=== PATIENT | female | born 1935 | race Caucasian/White ===

== ENCOUNTER → 2018-09-05 | Outpatient (CLI) | payer MEDICARE ==
--- NOTE | 2018-09-05 12:26 | XR ---
EXAMINATION TYPE: XR Hip Complete LT DATE OF EXAM: 09/05/2018 CLINICAL HISTORY: Left hip pain TECHNIQUE: AP and frogleg views of the left hip are obtained. COMPARISON: None. FINDINGS: There is no acute fracture/dislocation evident in the left hip. The joint space in the le ft hip demonstrates acetabular osteophytes and minimal cephalad joint space narrowing with acetabular roof sclerosis.. The overlying soft tissue appears unremarkable. IMPRESSION: There is no acute fracture or dislocation in the left hip. Mild left femoral acetabular arthropathy.
--- NOTE | 2018-09-05 12:35 | XR ---
EXAMINATION TYPE: XR lumbar spine 2 or 3V DATE OF EXAM: 09/05/2018 12:21 PM CLINICAL HISTORY: Back pain and hip pain TECHNIQUE: Frontal and lateral views of the lumbar spine were obtained COMPARISON: 09/05/2018 left hip radiograph FINDINGS: There are 5 lumbar type vertebral bodies. There is extensive multilevel degenerative disc disease of the lumbar spine as there are bridging anterior osteophytes, multilevel facet arthropathy, interverte bral disc space narrowing and endplate sclerosis. There is very minimal retrolisthesis of L4 on L5 an d L3 on L4. There is also very mild scoliosis of the thoracolumbar junction that is dextroconvex. Mod erate overlying degree of stool is seen throughout the colon. IMPRESSION: Extensive multilevel degenerative change of the lumbar spine. Multilevel mild malalignmen t is likely on a degenerative basis. No compression deformities.
== END | disposition home or self-care (01) ==
LOC: RADXRMAIN 11:56
PROVIDERS: ATTEND Internal Medicine Geriatric Medicine
DX: M12.852 Other specific arthropathies, not elsewhere classified, left hip (principal); M47.816 Spondylosis without myelopathy or radiculopathy, lumbar region
CPT/HCPCS: 72100; 73502

== ENCOUNTER 2019-03-07 17:00 | Inpatient (IN) | payer MEDICARE ==
[2019-03-07] MEDS ORDERED: SODIUM CHLORIDE 0.9% 1,000 ML IV STA ×3 (17:12→18:27)
--- NOTE | 2019-03-07 17:14 | ED ---
Weakness HPI - General Chief complaint: Fall Stated complaint: Falls/legs weak Time Seen by Provider: 03/07/19 17:12 Source: patient, RN notes reviewed, old records reviewed Mode of arrival: wheelchair - History of Present Illness Initial comments: This is an 84-year-old female the ER for evaluation. Patient resents today for evaluation of weakness multiple recent falls and recent diagnosis of significant incontinence. Patient has no significant trauma to complain of, no headache no chest pain no shortness of breath no abdominal pain no back pain no injuries from these falls. No recent travel or sick contacts. No recent change in medications. No fevers. Patient's brought in by her son who states patient is at this point getting too weak to take care of and is unsafe to be at home. MD Complaint: generalized weakness -: days(s) Location: generalized Severity: moderate Severity scale (1-10): 4 Consistency: constant, intermittent Improves with: none Worsens with: none Context: trauma/injury (Multiple falls) Associated Symptoms: confusion (Occasional) - Related Data Home Medications Medication Instructions Recorded Confirmed Amitriptyline HCl [Elavil] 25 mg PO HS 11/08/17 03/07/19 Gabapentin 600 mg PO BID 11/08/17 03/07/19 Insulin Detemir [Levemir Flextouch] 25 unit SQ HS 11/08/17 03/07/19 glipiZIDE [Glucotrol] 2.5 mg PO AC-BID 11/08/17 03/07/19 Amoxic-Pot Clav 875-125Mg 1 tab PO BID 03/07/19 03/07/19 [Augmentin 875-125] DULoxetine HCL [Cymbalta] 60 mg PO DAILY 03/07/19 03/07/19 Mirabegron [Myrbetriq] 25 mg PO DAILY 03/07/19 03/07/19 Oxybutynin Chloride 5 mg PO BID 03/07/19 03/07/19 Allergies Allergy/AdvReac Type Severity Reaction Status Date / Time No Known Allergies Allergy Verified 03/07/19 17:51 Review of Systems ROS Statement: Those systems with pertinent positive or pertinent negative responses have been documented in the HPI. ROS Other: All systems not noted in ROS Statement are negative. Past Medical History Past Medical History: Diabetes Mellitus, Hyperlipidemia History of Any Multi-Drug Resistant Organisms: None Reported Past Surgical History: Appendectomy, Cholecystectomy, Orthopedic Surgery Additional Past Surgical History / Comment(s): right shoulder Past Psychological History: No Psychological Hx Reported Smoking Status: Never smoker Past Alcohol Use History: Occasional Past Drug Use History: None Reported General Exam General appearance: alert, in no apparent distress Head exam: Present: atraumatic, normocephalic, normal inspection Eye exam: Present: normal appearance, PERRL, EOMI. Absent: scleral icterus, conjunctival injection, periorbital swelling ENT exam: Present: normal exam, mucous membranes moist Neck exam: Present: normal inspection. Absent: tenderness, meningismus, lymphadenopathy Respiratory exam: Present: normal lung sounds bilaterally. Absent: respiratory distress, wheezes, rales, rhonchi, stridor Cardiovascular Exam: Present: regular rate, normal rhythm, normal heart sounds. Absent: systolic murmur, diastolic murmur, rubs, gallop, clicks GI/Abdominal exam: Present: soft, normal bowel sounds. Absent: distended, tenderness, guarding, rebound, rigid Extremities exam: Present: normal inspection, full ROM, normal capillary refill. Absent: tenderness, pedal edema, joint swelling, calf tenderness Back exam: Present: normal inspection Neurological exam: Present: alert, oriented X3, CN II-XII intact Psychiatric exam: Present: normal affect, normal mood Skin exam: Present: warm, dry, intact, normal color. Absent: rash Course Vital Signs 03/07/19 17:04 Temperature 98.0 F Pulse Rate 100 Respiratory 20 Rate Blood Pressure 113/71 O2 Sat by Pulse 96 Oximetry - Reevaluation(s) Reevaluation #1: 03/07/19 19:00 Medical record is reviewed Reevaluation #2: 03/07/19 19:00 Patient is very weak unable to ambulate with significant ability, very unsteady Medical Decision Making - Medical Decision Making 82 female the ER for evaluation weakness incontinence multiple falls. Patient does have hydrocephalus on computed tomography scan, patient will be admitted for evaluation and treatment - Lab Data Result diagrams: 03/07/19 17:25 03/07/19 17:25 Lab Results 03/07/19 03/07/19 03/07/19 Range/Units 17:25 17:25 17:25 WBC 6.6 (3.8-10.6) k/uL RBC 3.61 L (3.80-5.40) m/uL Hgb 10.7 L (11.4-16.0) gm/dL Hct 32.6 L (34.0-46.0) % MCV 90.3 (80.0-100.0) fL MCH 29.8 (25.0-35.0) pg MCHC 33.0 (31.0-37.0) g/dL RDW 13.8 (11.5-15.5) % Plt Count 259 (150-450) k/uL Neutrophils % 75 % Lymphocytes % 15 % Monocytes % 6 % Eosinophils % 2 % Basophils % 1 % Neutrophils # 5.0 (1.3-7.7) k/uL Lymphocytes # 1.0 (1.0-4.8) k/uL Monocytes # 0.4 (0-1.0) k/uL Eosinophils # 0.1 (0-0.7) k/uL Basophils # 0.1 (0-0.2) k/uL PT (9.0-12.0) sec INR (<1.2) APTT (22.0-30.0) sec Sodium 136 L (137-145) mmol/L Potassium 5.0 (3.5-5.1) mmol/L Chloride 99 (98-107) mmol/L Carbon Dioxide 27 (22-30) mmol/L Anion Gap 10 mmol/L BUN 51 H (7-17) mg/dL Creatinine 1.38 H (0.52-1.04) mg/dL Est GFR (CKD-EPI)AfAm 41 (>60 ml/min/1.73 sqM) Est GFR (CKD-EPI)NonAf 36 (>60 ml/min/1.73 sqM) Glucose 145 H (74-99) mg/dL Plasma Lactic Acid Terrell 1.2 (0.7-2.0) mmol/L Calcium 9.4 (8.4-10.2) mg/dL Phosphorus 3.7 (2.5-4.5) mg/dL Magnesium 1.8 (1.6-2.3) mg/dL Total Bilirubin 0.6 (0.2-1.3) mg/dL AST 29 (14-36) U/L ALT 25 (9-52) U/L Alkaline Phosphatase 110 (38-126) U/L Creatine Kinase 173 H (30-135) U/L Troponin I (0.000-0.034) ng/mL Total Protein 7.3 (6.3-8.2) g/dL Albumin 4.0 (3.5-5.0) g/dL TSH 1.760 (0.465-4.680) mIU/L Urine Color Urine Appearance (Clear) Urine pH (5.0-8.0) Ur Specific [place] (1.001-1.035) Urine Protein (Negative) Urine Glucose (UA) (Negative) Urine Ketones (Negative) Urine Blood (Negative) Urine Nitrite (Negative) Urine Bilirubin (Negative) Urine Urobilinogen (<2.0) mg/dL Ur Leukocyte Esterase (Negative) Urine WBC (0-5) /hpf Ur Squamous Epith Cells (0-4) /hpf Urine Bacteria (None) /hpf 03/07/19 03/07/19 03/07/19 Range/Units 17:25 17:25 18:00 WBC (3.8-10.6) k/uL RBC (3.80-5.40) m/uL Hgb (11.4-16.0) gm/dL Hct (34.0-46.0) % MCV (80.0-100.0) fL MCH (25.0-35.0) pg MCHC (31.0-37.0) g/dL RDW (11.5-15.5) % Plt Count (150-450) k/uL Neutrophils % % Lymphocytes % % Monocytes % % Eosinophils % % Basophils % % Neutrophils # (1.3-7.7) k/uL Lymphocytes # (1.0-4.8) k/uL Monocytes # (0-1.0) k/uL Eosinophils # (0-0.7) k/uL Basophils # (0-0.2) k/uL PT 10.8 (9.0-12.0) sec INR 1.0 (<1.2) APTT 29.2 (22.0-30.0) sec Sodium (137-145) mmol/L Potassium (3.5-5.1) mmol/L Chloride (98-107) mmol/L Carbon Dioxide (22-30) mmol/L Anion Gap mmol/L BUN (7-17) mg/dL Creatinine (0.52-1.04) mg/dL Est GFR (CKD-EPI)AfAm (>60 ml/min/1.73 sqM) Est GFR (CKD-EPI)NonAf (>60 ml/min/1.73 sqM) Glucose (74-99) mg/dL Plasma Lactic Acid Terrell (0.7-2.0) mmol/L Calcium (8.4-10.2) mg/dL Phosphorus (2.5-4.5) mg/dL Magnesium (1.6-2.3) mg/dL Total Bilirubin (0.2-1.3) mg/dL AST (14-36) U/L ALT (9-52) U/L Alkaline Phosphatase (38-126) U/L Creatine Kinase (30-135) U/L Troponin I <0.012 (0.000-0.034) ng/mL Total Protein (6.3-8.2) g/dL Albumin (3.5-5.0) g/dL TSH (0.465-4.680) mIU/L Urine Color Yellow Urine Appearance Clear (Clear) Urine pH 5.5 (5.0-8.0) Ur Specific [place] 1.016 (1.001-1.035) Urine Protein Negative (Negative) Urine Glucose (UA) Negative (Negative) Urine Ketones Negative (Negative) Urine Blood Negative (Negative) Urine Nitrite Negative (Negative) Urine Bilirubin Negative (Negative) Urine Urobilinogen <2.0 (<2.0) mg/dL Ur Leukocyte Esterase Trace H (Negative) Urine WBC 1 (0-5) /hpf Ur Squamous Epith Cells <1 (0-4) /hpf Urine Bacteria Occasional H (None) /hpf - Radiology Data Radiology results: report reviewed (Chest x-ray pelvis x-ray negative for trauma computed tomography scan does show possible hydrocephalus), image reviewed Disposition Clinical Impression: Fall, Weakness, Hydrocephalus Disposition: ADMITTED IP TO THIS HOSP Condition: Fair Is patient prescribed a controlled substance at d/c from ED?: No Referrals: Luis Avery MD [Primary Care Provider] - 1-2 days
[2019-03-07 17:40] LABS: Basophils # (A) 0.1 k/uL (0-0.2); Basophils % (A) 1 %; Eosinophils # (A) 0.1 k/uL (0-0.7); Eosinophils % (A) 2 %; HCT 32.6 % (34.0-46.0); HGB 10.7 gm/dL (11.4-16.0); Lymphocytes % (A) 15 %; MCH 29.8 pg (25.0-35.0); MCV 90.3 fL (80.0-100.0); Mean Platelet Volume 6.9; Monocytes # (A) 0.4 k/uL (0-1.0); Monocytes % (A) 6 %; Neutrophils % (A) 75 %; Platelet Count 259 k/uL (150-450); RBC 3.61 m/uL (3.80-5.40); RDW 13.8 % (11.5-15.5); WBC 6.6 k/uL (3.8-10.6)
[2019-03-07 17:50] LABS: Calcium 9.4 mg/dL (8.4-10.2); Magnesium 1.8 mg/dL (1.6-2.3); Phosphorus 3.7 mg/dL (2.5-4.5); Total Bilirubin 0.6 mg/dL (0.2-1.3); Total Protein 7.3 g/dL (6.3-8.2)
[2019-03-07 17:51] LABS: Partial Thromboplastin Time 29.2 sec (22.0-30.0); Prothrombin Time 10.8 sec (9.0-12.0)
--- NOTE | 2019-03-07 18:05 | CT ---
EXAMINATION TYPE: CT brain denys de leon DATE OF EXAM: 03/07/2019 COMPARISON: None HISTORY: Weakness and fall. CT DLP: 1300.1 mGycm Automated exposure control for dose reduction was used. TECHNIQUE: CT scan of the head and cervical spine are performed without contrast. FINDINGS: There is cerebral cortical atrophy. There is no mass effect nor midline shift. There is n o sign of intracranial hemorrhage. There is enlargement of the ventricles. The calvarium is intact. Cervical vertebra have normal alignment. There is degenerative hypertrophic spurring anteriorly in th e mid and lower cervical spine. There is mild narrowing of C6-7 disc space. Posterior elements are in tact. Skull base is intact. There is no evidence of a fracture. There is left side hypertrophic cervi alexandra facet arthropathy. IMPRESSION: Cerebral atrophy. Hydrocephalus. No acute intracranial abnormality. Multilevel spondylotic changes. No fracture.
[2019-03-07 18:23] LABS: Appearance,Urine Clear (Clear); Bacteria,Urine Occasional /hpf; Bilirubin,Urine Negative (Negative); Blood,Urine Negative (Negative); Color,Urine Yellow; Glucose,Urine (UA) Negative (Negative); Ketones,Urine Negative (Negative); Leukocyte Esterase,Urine Trace (Negative); Nitrite,Urine Negative (Negative); PH, Urine 5.5 (5.0-8.0); Protein,Urine Negative (Negative); Specific Gravity,Urine 1.016 (1.001-1.035); Squamous Epithelial Cell,Urine <1 /hpf (0-4); Urobilinogen,Urine <2.0 mg/dL (<2.0); WBC,Urine 1 /hpf (0-5)
--- NOTE | 2019-03-07 18:32 | XR ---
EXAMINATION TYPE: XR pelvis AP view DATE OF EXAM: 03/07/2019 COMPARISON: NONE HISTORY: Weakness TECHNIQUE: Single view FINDINGS: Pelvic ring is intact. Proximal femurs and hip joints are intact. Sacroiliac joints appear normal. IMPRESSION: Normal pelvis.
--- NOTE | 2019-03-07 18:33 | XR ---
EXAMINATION TYPE: XR chest 2V DATE OF EXAM: 03/07/2019 COMPARISON: 07/18/2012 HISTORY: Weakness TECHNIQUE: Frontal and lateral views of the chest are obtained. FINDINGS: Heart and mediastinum are normal. Lungs are clear. Diaphragm is normal. Bony thorax is int act. IMPRESSION: Normal chest. No change.
[2019-03-07] MEDS: SODIUM CHLORIDE 0.9% 1,000 ML IV SCH (20:28)
[2019-03-07 21:08] LABS: Glucose,Whole Blood 124 mg/dL (75-99)
[2019-03-07 21:24] VITALS: BMI 24.5
[2019-03-08 03:16] LABS: Cholesterol 105 mg/dL (<200); HDL Cholesterol 59 mg/dL (40-60); LDL Cholesterol,Calculated 35 mg/dL (0-99); Triglycerides 57 mg/dL (<150)
[2019-03-08] MEDS: SODIUM CHLORIDE 0.9% 1,000 ML IV SCH ×2 (04:47→17:26)
[2019-03-08 06:58] LABS: Glucose,Whole Blood 121 mg/dL (75-99)
[2019-03-08 11:07] LABS: Glucose,Whole Blood 212 mg/dL (75-99)
--- NOTE | 2019-03-08 11:32 | P.HPIM ---
History of Present Illness H&P Date: 03/08/19 Chief Complaint: Weakness and fall This is 84 years old female with past medical history significant for osteoarthritis anemia incontinence of urine and gait instability who presented to the emergency department with worsening symptoms. Patient reported fall prior to presentation and stated that for the last 2 weeks she's been falling frequently without head injury or loss of consciousness patient stated that her weeks are very weak and cannot hold her anymore even when she uses her 4 wheeled walker at home. Patient is poor historian but stated that her incontinence is becoming more annoying problem where she is 89 able to hold it at all. Patient stated that at the beginning she thought that it's related to being older age but last few days patient was not able to ambulate in the home at the time she was independent up until 2 weeks ago and became unable to do her daily activities patient presented to the emergency department where computed tomography scan of the head showed possible hydrocephalus and patient was admitted for further evaluation. Patient currently is denying chest pain shortness breath nausea vomiting about pain dizziness lightheadedness or blurry vision. Patient denied any recent upper respiratory symptoms fever chills or weight loss. Patient is denying tobacco alcohol or drug abuse Review of Systems All 14 systems reviewed and negative except as above Past Medical History Past Medical History: Diabetes Mellitus, Hyperlipidemia Additional Past Medical History / Comment(s): neuropathy, dizzy when stands, diabetic ulcer on left foot supposed to go to wound clinic History of Any Multi-Drug Resistant Organisms: None Reported Past Surgical History: Appendectomy, Cholecystectomy, Orthopedic Surgery Additional Past Surgical History / Comment(s): right shoulder Past Anesthesia/Blood Transfusion Reactions: No Reported Reaction Past Psychological History: No Psychological Hx Reported Smoking Status: Never smoker Past Alcohol Use History: Occasional Past Drug Use History: None Reported - Past Family History Mother Family Medical History: Diabetes Mellitus Medications and Allergies Home Medications Medication Instructions Recorded Confirmed Type Amitriptyline HCl [Elavil] 25 mg PO HS 11/08/17 03/07/19 History Gabapentin 600 mg PO BID 11/08/17 03/07/19 History Insulin Detemir [Levemir Flextouch] 25 unit SQ HS 11/08/17 03/07/19 History glipiZIDE [Glucotrol] 2.5 mg PO AC-BID 11/08/17 03/07/19 History Amoxic-Pot Clav 875-125Mg 1 tab PO BID 03/07/19 03/07/19 History [Augmentin 875-125] DULoxetine HCL [Cymbalta] 60 mg PO DAILY 03/07/19 03/07/19 History Oxybutynin Chloride 5 mg PO BID 03/07/19 03/07/19 History Allergies Allergy/AdvReac Type Severity Reaction Status Date / Time No Known Allergies Allergy Verified 03/07/19 20:55 Physical Exam Vitals: Vital Signs Temp Pulse Pulse Resp BP BP Pulse Ox 03/08/19 04:45 97.6 F 64 16 107/65 100 03/07/19 21:03 97.6 F 16 135/61 97 03/07/19 20:29 18 03/07/19 19:46 98.0 F 78 18 130/68 100 03/07/19 17:04 98.0 F 100 20 113/71 96 Intake and Output 03/07/19 03/08/19 03/08/19 22:59 06:59 14:59 Intake Total 1290 Balance 1290 Intake: Intake, IV Titration 700 Amount Sodium Chloride 0.9% 1, 700 000 ml @ 100 mls/hr IV . Q10H [facility] Rx#:[id number] Oral 590 Other: Voiding Method Bedpan Bedpan Diaper Diaper Incontinent Incontinent # Voids 1 1 2 Weight 63.957 kg Gen.: in stated age, no acute distress Heart: Normal S1-S2 Lungs: Clear to auscultation bilaterally Abdomen: Soft, no tenderness, positive bowel sounds in all 4 quadrant no guarding or rebound Skin: No new rash Psych: Alert and oriented 3 Neuro: No focal deficit, positive for 4/5 strength in bilateral lower extremity, gait is an steady Results CBC & Chem 7: 03/07/19 17:25 03/07/19 17:25 Labs: Abnormal Lab Results - Last 24 Hours (Table) 03/07/19 03/07/19 03/07/19 Range/Units 17:25 17:25 18:00 RBC 3.61 L (3.80-5.40) m/uL Hgb 10.7 L (11.4-16.0) gm/dL Hct 32.6 L (34.0-46.0) % Sodium 136 L (137-145) mmol/L BUN 51 H (7-17) mg/dL Creatinine 1.38 H (0.52-1.04) mg/dL Glucose 145 H (74-99) mg/dL POC Glucose (mg/dL) (75-99) mg/dL Creatine Kinase 173 H (30-135) U/L Ur Leukocyte Esterase Trace H (Negative) Urine Bacteria Occasional H (None) /hpf 03/07/19 03/08/19 03/08/19 Range/Units 21:06 06:44 11:03 RBC (3.80-5.40) m/uL Hgb (11.4-16.0) gm/dL Hct (34.0-46.0) % Sodium (137-145) mmol/L BUN (7-17) mg/dL Creatinine (0.52-1.04) mg/dL Glucose (74-99) mg/dL POC Glucose (mg/dL) 124 H 121 H 212 H (75-99) mg/dL Creatine Kinase (30-135) U/L Ur Leukocyte Esterase (Negative) Urine Bacteria (None) /hpf Microbiology - Last 24 Hours (Table) 03/07/19 18:00 Urine Culture - Preliminary Urine,Voided Thrombosis Risk Factor Assmnt - Choose All That Apply Any of the Below Risk Factors Present?: Yes Each Factor Represents 1 point: Medical pt on bed rest, Swollen legs (current) Other Risk Factors: Yes Each Risk Factor Represents 2 Points: Patient confined to bed Each Risk Factor Represents 3 Points: Age 75 years or older Other congenital or acquired thrombophilia - If yes, enter type in comment: No Thrombosis Risk Factor Assessment Total Risk Factor Score: 7 Thrombosis Risk Factor Assessment Level: High Risk Assessment and Plan Assessment: 1. Generalized weakness with frequent falls and gait instability. 2. Worsening urinary incontinence. 3. Normal pressure hydrocephalus. 4. Acute kidney injury. 5. Anemia. 6. Hyperlipidemia. 7. Diabetes with peripheral neuropathy. 8. Generalized osteoarthritis. Plan discussed with patient and nursing staff where I would like to order MRI of the brain, have physical and acute patient will therapy evaluated the patient's, consult physical medicine and rehab and consider discharging to inpatient rehabilitation program 1 patient is cleared from neurology that I consult that and patient may benefit from EHS ENGINEER shunt on the long run to improve her symptoms that got worse recently. She'll patient requires the surgery she needs to be transferred to different facility. Resume home medication, continue IV hydration, repeat blood work in the morning, avoid nephrotoxic medication, lace patient's on insulin sliding scale and start DVT prophylaxis. Fall precaution.
[2019-03-08] MEDS: HEPARIN SODIUM,PORCINE 5,000 UNIT/ML 1 ML VIAL SQ SCH ×2 (12:43→17:26)
[2019-03-08] MEDS: DULoxetine HCL 60 MG CAPSULE.DR PO SCH (12:43)
[2019-03-08] MEDS: INSULIN ASPART (NovoLOG) 100 UNIT/ML VIAL SQ SCH ×3 (12:43→20:18)
[2019-03-08 17:11] LABS: Glucose,Whole Blood 129 mg/dL (75-99)
--- NOTE | 2019-03-08 20:06 | P.CNNES ---
History of Present Illness Consult date: 03/08/19 Requesting physician: Sixto Saul Reason for Consult: Hydrocephalus Chief complaint: Falling and trouble keeping my urine History of Present Illness: This is an 84 RH female with longstanding DM and PN also s/p 2 vaginal deliveries who has been having issues with her walking, balance and controlling her urine for years. They have worsened somewhat precipitously over the past 2 weeks, so she eventually decided to present to the ER on the day of admission. She uses both a cane and a walker for assistance depending on where she is going, which is typically not far because she cannot hold onto her urine. She reports of a mix of stress and urge incontinence. She denies significant fecal incontinence. No Lhermitte's or saddle anesthesia or lumbar radicular symptoms. As for balance, patient states that for years, she has been taking cautious small steps. She saw a neurologist in [place] and reportedly had a nerve test done, but details are unknown. She is not exactly certain why she has a neuropathy. Finally, patient states that her STM is not great either, but no sundowning, nocturnal agitation or psychosis. Neurologically, patient denies decreased level or loss of consciousness, headache, seizure, diplopia, amaurosis, facial numbness or droop, ptosis, vertigo, dysarthria, dysphagia, aphasia, other focal numbness/weakness not mentioned above or tremors. Review of Systems I have performed a 14-point organ ROS with patient; pertinents are as per HPI. Past Medical History Past Medical History: Diabetes Mellitus, Hyperlipidemia Additional Past Medical History / Comment(s): neuropathy, dizzy when stands, diabetic ulcer on left foot supposed to go to wound clinic History of Any Multi-Drug Resistant Organisms: None Reported Past Surgical History: Appendectomy, Cholecystectomy, Orthopedic Surgery Additional Past Surgical History / Comment(s): right shoulder Past Anesthesia/Blood Transfusion Reactions: No Reported Reaction Past Psychological History: No Psychological Hx Reported Smoking Status: Never smoker Past Alcohol Use History: Occasional Past Drug Use History: None Reported - Past Family History Mother Family Medical History: Diabetes Mellitus Medications and Allergies Home Medications Medication Instructions Recorded Confirmed Type Amitriptyline HCl [Elavil] 25 mg PO HS 11/08/17 03/07/19 History Gabapentin 600 mg PO BID 11/08/17 03/07/19 History Insulin Detemir [Levemir Flextouch] 25 unit SQ HS 11/08/17 03/07/19 History Amoxic-Pot Clav 875-125Mg 1 tab PO BID 03/07/19 03/07/19 History [Augmentin 875-125] DULoxetine HCL [Cymbalta] 60 mg PO DAILY 03/07/19 03/07/19 History Oxybutynin Chloride 5 mg PO BID 03/07/19 03/07/19 History Atorvastatin [Lipitor] 80 mg PO HS 03/08/19 03/08/19 History Cyanocobalamin (Vitamin B-12) 1,000 mcg PO DAILY 03/08/19 03/08/19 History [Vitamin B-12] Mirabegron [Myrbetriq] 25 mg PO DAILY 03/08/19 03/08/19 History Triamterene-Hctz 37.5-25Mg 1 cap PO DAILY 03/08/19 03/08/19 History [Dyazide 37.5-25 Capsule] Allergies Allergy/AdvReac Type Severity Reaction Status Date / Time No Known Allergies Allergy Verified 03/07/19 20:55 Physical Examination - Vital Signs Vital Signs: Vital Signs Temp Pulse Resp BP Pulse Ox 03/08/19 11:34 97.6 F 76 16 115/69 99 03/08/19 04:45 97.6 F 64 16 107/65 100 03/07/19 21:03 97.6 F 16 135/61 97 03/07/19 20:29 18 Intake and Output 03/08/19 03/08/19 03/08/19 06:59 14:59 22:59 Intake Total 1290 Balance 1290 Intake: Intake, IV Titration 700 Amount Sodium Chloride 0.9% 1, 700 000 ml @ 100 mls/hr IV . Q10H LINDA Rx#:[id number] Oral 590 Other: Voiding Method Bedpan Bedpan Bedpan Diaper Diaper Diaper Incontinent Incontinent Incontinent # Voids 1 1 1 # Bowel Movements 1 Gen NAD Pleasant and cooperative HEENT NCAT Sclera without icterus O/P clear Neck Supple No carotid bruit Cor RRR no m/r/g Lungs CTAB Abd Soft NTND +BS Ext Warm to touch No edema Neuro MS A+Ox3 Normal fluency Able to follow all commands Able to articulate a detailed medical history without semantic or phonemic paraphrasia CN PERRL VFF no APD EOMI no nystagmus or RODOLFO No facial asymmetry Masseter's symmetric Hearing intact to normal voice bilaterally Speech not dysarthric Equal elevation of palate Tongue midline Sym shrug and SCM bilaterally Motor Normal bulk/tone No pronator or leg drift or tremors Strength 5/5 sym throughout Sens Intact to LT x4 Diminished to proprioception at toes and to PP/temp in distal BLE No neglect or extinction Negative SLR bilaterally Coord No dysmetria on FTN bilaterally She has a sensory ataxia on HTS bilaterally DTRs 2+/4 in BUE Tr to 0/4 in BLE Toes mute bilaterally no ankle clonus Gait Deferred Results CT Head wo cont 03/08/19. Cerebral atrophy with prominent sulci and sylvian fissures. There is central ventriculomegaly. No ICH. Nil acute. CT C-spine wo cont 03/08/19. DJD with mild narrowing at C6-C7. I have reviewed neuroimages myself. - Laboratory Findings CBC and BMP: 03/07/19 17:25 03/07/19 17:25 Abnormal Lab Findings: Abnormal Labs 03/07/19 03/07/19 03/07/19 17:25 17:25 18:00 RBC 3.61 L Hgb 10.7 L Hct 32.6 L Sodium 136 L BUN 51 H Creatinine 1.38 H Glucose 145 H POC Glucose (mg/dL) Creatine Kinase 173 H Ur Leukocyte Esterase Trace H Urine Bacteria Occasional H 03/07/19 03/08/19 03/08/19 21:06 06:44 11:03 RBC Hgb Hct Sodium BUN Creatinine Glucose POC Glucose (mg/dL) 124 H 121 H 212 H Creatine Kinase Ur Leukocyte Esterase Urine Bacteria 03/08/19 17:10 RBC Hgb Hct Sodium BUN Creatinine Glucose POC Glucose (mg/dL) 129 H Creatine Kinase Ur Leukocyte Esterase Urine Bacteria Assessment and Plan Assessment: Cerebral ventriculomegaly- difficult to tell based on CT whether this is ex vaco dilatation from cerebral atrophy vs communicating hydrocephalus. MRI Brain may be helpful in looking for additional clues of NPH such as transependymal flow. 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 She would either go through a large volume LP or CSF flow study, typically managed by neurosurgery. She is not keen on getting transferred emergently to another facility for a neurosurgical consult at this time, but is amenable to follow-up with outpatient neurosurgery to consider her options Thank you for this consultation. Please call with ?. Time with Patient: Greater than 30 (Time spent in direct patient care, greater than 50% of which was spent in [id number] counseling and coordination of care: 70 minutes)
[2019-03-08 20:07] LABS: Glucose,Whole Blood 190 mg/dL (75-99)
[2019-03-08] MEDS: AMITRIPTYLINE HCL 25 MG TAB PO SCH (20:19)
[2019-03-08] MEDS: GABAPENTIN 300 MG CAP PO SCH (20:19)
[2019-03-08] MEDS: OXYBUTYNIN CHLORIDE 5 MG TAB PO SCH (20:19)
[2019-03-08] MEDS: INSULIN DETEMIR (LEVEMIR) 100 UNIT/ML SYR SQ SCH (21:15)
[2019-03-09] MEDS: HEPARIN SODIUM,PORCINE 5,000 UNIT/ML 1 ML VIAL SQ SCH ×4 (00:05→23:50)
[2019-03-09] MEDS: SODIUM CHLORIDE 0.9% 1,000 ML IV SCH ×2 (03:36→12:12)
--- NOTE | 2019-03-09 06:40 | P.CONS ---
History of Present Illness - Chief Complaint Gait disturbance - History of Present Illness I had the opportunity see patient for inpatient rehab consultation with regard to gait disturbance. She was admitted to [facility] March 07 with weakness, falls and urinary incontinence. Patient reports to me that she is unsure why she is in the hospital. Admission H&P indicates she is aware of weakness, falls and incontinence. Chest x-ray and pelvic x-ray negative. Head CT with atrophy and ventriculomegaly. C-spine CT with narrowing at C6. Seen by Dr. Cardenas who notes ventriculomegaly and hydrocephalus. PT reports supervision to minimal assistance for bed mobility and minimal assistance for gait 80 feet with 2-3 loss of balance. OT prescribed. I have added speech. Previous functional history as elicited patient: 84-year-old right-handed white female who is single lives in one floor home with son and son's family. Patient retired. Son and [id number] do the cooking and driving. Patient describes independent with own laundry, sponge bath and gait with [address] Avery is regular doctor. Denies tobacco and has very rare drink. Family history in diabetes with brother and mother and cancer with father. Review of Systems Review of systems: ENT: Denies sneezes or discharge. Eyes: Denies discharge or photophobia. Cardiac: Denies chest pain or palpitation. Pulmonary: Denies cough or shortness of breath. Breast: Denies discharge or lumps. Gastrointestinal: Denies nausea, emesis, constipation, diarrhea. Genitourinary: Urinary incontinence. Musculoskeletal: Denies muscle or bone aches. Neurologic: Weakness and falling. Endocrine: Denies shakes or sweats. Oncology: Denies cancers. Dermatologic: Denies rash, itching, pruritus. ALLERGY/immunology: Denies sneezes, rashes. Past Medical History Past Medical History: Diabetes Mellitus, Hyperlipidemia Additional Past Medical History / Comment(s): neuropathy, dizzy when stands, diabetic ulcer on left foot supposed to go to wound clinic History of Any Multi-Drug Resistant Organisms: None Reported Past Surgical History: Appendectomy, Cholecystectomy, Orthopedic Surgery Additional Past Surgical History / Comment(s): right shoulder Past Anesthesia/Blood Transfusion Reactions: No Reported Reaction Past Psychological History: No Psychological Hx Reported Smoking Status: Never smoker Past Alcohol Use History: Occasional Past Drug Use History: None Reported - Past Family History Mother Family Medical History: Diabetes Mellitus Medications and Allergies Home Medications Medication Instructions Recorded Confirmed Type Amitriptyline HCl [Elavil] 25 mg PO HS 11/08/17 03/07/19 History Gabapentin 600 mg PO BID 11/08/17 03/07/19 History Insulin Detemir [Levemir Flextouch] 25 unit SQ HS 11/08/17 03/07/19 History Amoxic-Pot Clav 875-125Mg 1 tab PO BID 03/07/19 03/07/19 History [Augmentin 875-125] DULoxetine HCL [Cymbalta] 60 mg PO DAILY 03/07/19 03/07/19 History Oxybutynin Chloride 5 mg PO BID 03/07/19 03/07/19 History Atorvastatin [Lipitor] 80 mg PO HS 03/08/19 03/08/19 History Cyanocobalamin (Vitamin B-12) 1,000 mcg PO DAILY 03/08/19 03/08/19 History [Vitamin B-12] Mirabegron [Myrbetriq] 25 mg PO DAILY 03/08/19 03/08/19 History Triamterene-Hctz 37.5-25Mg 1 cap PO DAILY 03/08/19 03/08/19 History [Dyazide 37.5-25 Capsule] Allergies Allergy/AdvReac Type Severity Reaction Status Date / Time No Known Allergies Allergy Verified 03/07/19 20:55 Physical Exam Vitals: Vital Signs Temp Pulse Resp BP Pulse Ox 03/09/19 05:22 97.8 F 71 16 109/59 96 03/09/19 00:00 16 03/08/19 21:33 98.3 F 73 16 96/48 94 L 03/08/19 11:34 97.6 F 76 16 115/69 99 Intake and Output 03/08/19 03/08/19 03/09/19 14:59 22:59 06:59 Intake Total 950 590 Balance 950 590 Intake: Oral 950 590 Other: Voiding Method Bedpan Bedpan Bedpan Diaper Diaper Diaper Incontinent Incontinent Incontinent # Voids 1 2 2 # Bowel Movements 1 Skin: Good color, texture, turgor. General: Thin build and comfortable appearance. Head: Normocephalic, atraumatic. Eyes: Symmetric. Pupils equal round. Ears: Symmetric. Hearing within normal limits. Mouth: Clear. Neck: Supple. Carotid without bruit. Cardiac: Regular rate and rhythm. Lungs: Clear anteriorly and posteriorly. Abdomen: Soft active nontender. Extremities: Normal tone. Neurological: Mental status: Alert, cooperative, pleasant. Cranial nerves: Symmetric facial tone and trapezius. Motor: Can actively elevates all 4 limbs. Appears normal isolation throughout. Sensation: Intact throughout. DTRs: Symmetric and equal throughout. Mobility: Did not attempt to sit or stand this a.m. Results CBC & Chem 7: 03/07/19 17:25 03/07/19 17:25 Labs: Abnormal Lab Results - Last 24 Hours (Table) 03/08/19 03/08/19 03/08/19 Range/Units 06:44 11:03 17:10 POC Glucose (mg/dL) 121 H 212 H 129 H (75-99) mg/dL 03/08/19 Range/Units 20:05 POC Glucose (mg/dL) 190 H (75-99) mg/dL Microbiology - Last 24 Hours (Table) 03/07/19 18:00 Urine Culture - Final Urine,Voided Assessment and Plan (1) Hydrocephalus Current Visit: Yes Status: Acute Code(s): G91.9 - HYDROCEPHALUS, UNSPECIFIED SNOMED Code(s): 651636904 Plan: Impression: 1. Medical debility. 2. Ventriculomegaly. 3. Generalized weakness. 4. Falling. 5. Diabetes. 6. Dyslipidemia. Comments and plan: PT ongoing and OT prescribed and I have added speech therapy at this time. Must determine family goals for possible return to home.
[2019-03-09 07:05] LABS: Glucose,Whole Blood 157 mg/dL (75-99)
[2019-03-09] MEDS: INSULIN ASPART (NovoLOG) 100 UNIT/ML VIAL SQ SCH ×4 (07:16→19:54)
[2019-03-09] MEDS: GABAPENTIN 300 MG CAP PO SCH ×2 (07:16→19:54)
[2019-03-09] MEDS: DULoxetine HCL 60 MG CAPSULE.DR PO SCH (07:17)
[2019-03-09] MEDS: OXYBUTYNIN CHLORIDE 5 MG TAB PO SCH ×2 (07:18→19:54)
[2019-03-09 10:14] LABS: Calcium 8.8 mg/dL (8.4-10.2); Potassium 4.1 mmol/L (3.5-5.1)
[2019-03-09 11:25] LABS: Hemoglobin A1C 8.4 % (4.0-6.0)
[2019-03-09 11:32] LABS: Protein, Total 6.7 g/dL (6.2-8.2)
[2019-03-09 11:37] LABS: Glucose,Whole Blood 95 mg/dL (75-99)
--- NOTE | 2019-03-09 11:49 | MR ---
MR brain without contrast HISTORY: Abnormal head CT, normal pressure hydrocephalus Multiplanar multisequence imaging through the brain Correlation to head CT 03/07/2019 There is no restricted diffusion. Cortical atrophy and prominence of ventricles persists, there is di lation of the third ventricle as well as temporal horns of the lateral ventricles.. Periventricular w kirk matter hyperintensity and inversion recovery T2-weighted sequences is noted. Cerebellopontine an gles, pituitary, cervical medullary junction are normal. There is upward bowing of the corpus callosu m. Some thinning of the corpus callosum is noted posteriorly. Motion is present on the exam. Some sca ttered hyperintensities are present within the deep white matter on inversion recovery T2-weighted se quences. The orbits show symmetric appearance. There is some inflammatory change in the ethmoid air c ells. There are normal vascular flow voids. IMPRESSION: Findings could be indicative of underlying normal pressure hydrocephalus, correlate clini bailey. There is likely associated chronic age-related atrophy and small vessel ischemia change
[2019-03-09 12:14] VITALS: RESP 18
[2019-03-09 14:54] LABS: Rheumatoid Factor <4 IU/mL (0-13)
--- NOTE | 2019-03-09 15:54 | P.PN ---
Subjective Progress Note Date: 03/09/19 This is 84 years old female with past medical history significant for osteoarthritis anemia incontinence of urine and gait instability who presented to the emergency department with worsening symptoms. Patient reported fall prior to presentation and stated that for the last 2 weeks she's been falling frequently without head injury or loss of consciousness patient stated that her weeks are very weak and cannot hold her anymore even when she uses her 4 wheeled walker at home. Patient is poor historian but stated that her incontinence is becoming more annoying problem where she is 89 able to hold it at all. Patient stated that at the beginning she thought that it's related to being older age but last few days patient was not able to ambulate in the home at the time she was independent up until 2 weeks ago and became unable to do her daily activities patient presented to the emergency department where computed tomography scan of the head showed possible hydrocephalus and patient was admitted for further evaluation. Patient currently is denying chest pain shortness breath nausea vomiting about pain dizziness lightheadedness or blurry vision. Patient denied any recent upper respiratory symptoms fever chills or weight loss. Patient is denying tobacco alcohol or drug abuse 03/09: Patient has been seen by Dr. Gomez with recommendations for cerebral ventriculomegaly. He has recommended MRI as has been ordered. Patient apparently is not interested in a transfer to tertiary care for neurosurgery consult but willing to follow-up as an outpatient to consider options. JANEY, hemoglobin A1c, immunofixation, protein electrophoresis, rheumatoid factor and vitamin B12 all pending. Patient has been seen by Dr. Martin, PT OT and speech therapy are following. Patient's son has indicated to rehabilitation case coordinator that he would like patient to go to [facility]. Patient has been afebrile, blood pressure 109/59, heart rate 71, pulse ox 96% on room air. Blood sugars running between 157 and 190. Urine culture was finalized with no growth. Patient denies any new complaints. She is noted to have a diabetic ulcer on the left third toe for which she follows with Dr. Howard in the office. Renal function has normalized with creatinine of 0.9. Plan to monitor patient overnight and discharged to [facility] tomorrow. MRI of the brain reveals underlying normal pressure hydrocephalus. There is likely associated chronic age-related atrophy and small vessel ischemic change. Objective - Vital Signs Vital signs: Vital Signs Temp 97.8 F 03/09/19 05:22 Pulse 71 03/09/19 05:22 Resp 16 03/09/19 05:22 BP 109/59 03/09/19 05:22 Pulse Ox 96 03/09/19 05:22 Intake & Output 03/08/19 03/09/19 03/09/19 18:59 06:59 18:59 Intake Total 1540 Balance 1540 Intake: Oral 1540 Other: Voiding Method Bedpan Bedpan Diaper Diaper Incontinent Incontinent # Voids 1 2 # Bowel Movements 1 - Exam Review Of Systems: Constitutional: No fever, no chills, no night sweats. No weight change. No weakness, fatigue or lethargy. No daytime sleepiness. EENT: No headache. No blurred vision or double vision, no loss of vision. No loss of Hearing, no ringing in the ears, no dizziness. No nasal drainage or congestion. No epistaxis. No sore throat. Lungs: No shortness of breath, cough, no sputum production. No wheezing. Cardiovascular: No chest pain, no lower extremity edema. No palpitations. No paroxysmal nocturnal dyspnea. No orthopnea. No lightheadedness or dizziness. No syncopal episodes. Abdominal: No abdominal pain. No nausea, vomiting. No diarrhea. No constipation. No bloody or tarry stools.. No loss of appetite. Genitourinary: No dysuria, increased frequency, urgency. No urinary retention. Musculoskeletal: No myalgias. No muscle weakness, no gait dysfunction, no frequent falls. No back pain. No neck pain. Integumentary: No wounds, no lesions. No rash or pruritus. No unusual bruising. No change in hair or nails. Neurologic: No aphasia. No facial droop. No change in mentation. No head injury. No headache. No paralysis. No paresthesia. Psychiatric: No depression. No anxiety. No mood swings. Endocrine: No abnormal blood sugars. No weight change. No excessive sweating or thirst. No cold intolerance. Gen: This is an 84-year-old female. She is resting in bed appears to be comfortable and in no acute distress. HEENT: Head is atraumatic, normocephalic. Pupils equal, round. Sclerae is ani cteric. NECK: Supple. No JVD. No lymphadenopathy. No thyromegaly. LUNGS: Clear to auscultation. No wheezes or rhonchi. No intercostal retractions. HEART: Regular rate and rhythm. No murmur. ABDOMEN: Soft. Bowel sounds are present. No masses. No tenderness. EXTREMITIES: No pedal edema. No calf tenderness. Dorsalis pedis +2 on the right, +1 on the left. Diabetic ulcer to the left third toe with thick callus formation. NEUROLOGICAL: Patient is awake, alert and oriented x3. Cranial nerves 2 through 12 are grossly intact. Bilateral lower extremity strength 4/5. - Labs CBC & Chem 7: 03/07/19 17:25 03/09/19 09:36 Labs: Abnormal Lab Results - Last 24 Hours (Table) 03/08/19 03/08/19 03/08/19 Range/Units 11:03 17:10 20:05 POC Glucose (mg/dL) 212 H 129 H 190 H (75-99) mg/dL 03/09/19 Range/Units 07:03 POC Glucose (mg/dL) 157 H (75-99) mg/dL Microbiology - Last 24 Hours (Table) 03/07/19 18:00 Urine Culture - Final Urine,Voided Assessment and Plan Plan: 1. Cerebral ventriculomegaly secondary to normal pressure hydrocephalus. MRI of the brain as above. Consult with Dr. Gomez appreciated. Hemoglobin A1c, B12, protein electrophoresis, immunofixation, JANEY and rheumatoid factor all pending. Consult with Dr. Martin appreciated. PT, OT and speech therapy are following. 2. Worsening urinary incontinence. Continue oxybutynin 5 mg twice daily 3. Acute kidney injury. Recheck basic metabolic panel. Avoid nephrotoxic agents. 4. Anemia of chronic disease. 5. 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 Continue Glucotrol, NovoLog scale, Levemir 25 units at bedtime. Continue gabapentin 600 mg twice daily and Elavil 25 mg at bedtime. 6. Generalized osteoarthritis. 7. Recurrent depression. Continue Cymbalta 60 mg daily and Elavil 25 mg at bedtime. 8. Hyperlipidemia. Continue atorvastatin 80 mg at bedtime 9. Hypertension. 10. Left toe diabetic ulcer, present on admission Discharge plan: on Saturday Impression and plan of care have been directed as dictated by the signing physician. Carolann Molina nurse practitioner acting as scribe for signing physician.
--- NOTE | 2019-03-09 17:18 | P.PN ---
Subjective Progress Note Date: 03/09/19 Principal diagnosis: Cerebral ventriculomegaly MRI Brain. PN labs. Grandson at bedside and patient with numerous questions. No new neuro c/o. Objective - Vital Signs Vital signs: Vital Signs Temp 97.6 F 03/09/19 12:13 Pulse 71 03/09/19 15:31 Resp 18 03/09/19 15:31 BP 130/73 03/09/19 12:13 Pulse Ox 100 03/09/19 12:13 Intake & Output 03/08/19 03/09/19 03/09/19 18:59 06:59 18:59 Intake Total 1540 1550 Balance 1540 1550 Intake: Intake, IV Titration 700 Amount Sodium Chloride 0.9% 1, 700 000 ml @ 100 mls/hr IV . Q10H LINDA Rx#:[id number] Oral 1540 850 Other: Voiding Method Bedpan Bedpan Diaper Diaper Diaper Incontinent Incontinent Incontinent # Voids 1 2 3 # Bowel Movements 1 1 - Exam Deferred. Today's visit was focused on [id number] counseling - Labs CBC & Chem 7: 03/07/19 17:25 03/09/19 09:36 Labs: Abnormal Lab Results - Last 24 Hours (Table) 03/07/19 03/07/19 03/08/19 Range/Units 02:38 17:26 17:10 Chloride (98-107) mmol/L BUN (7-17) mg/dL POC Glucose (mg/dL) 129 H (75-99) mg/dL Hemoglobin A1c 8.4 H (4.0-6.0) % Vitamin B12 3026.0 H (200.0-944.0) pg/mL 03/08/19 03/09/19 03/09/19 Range/Units 20:05 07:03 09:36 Chloride 108 H (98-107) mmol/L BUN 22 H (7-17) mg/dL POC Glucose (mg/dL) 190 H 157 H (75-99) mg/dL Hemoglobin A1c (4.0-6.0) % Vitamin B12 (200.0-944.0) pg/mL Microbiology - Last 24 Hours (Table) 03/07/19 18:00 Urine Culture - Final Urine,Voided 03/08/19 TSH 1.76 B12 3026 JANEY negative RF <4 - Imaging and Cardiology MRI - head: image reviewed (Cerebral ventriculomegaly in the setting of cerebral atrophy.) Assessment and Plan Assessment: Cerebral ventriculomegaly- difficult to tell based on CT whether this is ex vaco dilatation from cerebral atrophy vs communicating hydrocephalus. MRI Brain has not added a whole lot of new clinical info. 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 Plan: -PN labs unrevealing; only SPEP/immunofixation pending -PT/physiatry consults reviewed; appreciate input -MRI Brain and CT Head findings reviewed with patient and family in detail -Another lengthy discussion held with patient and family regarding next steps in diagnostic work-up. She will follow up with outpatient neurosurgery for consideration of additional diagnostic testing such as large volume LP or nuclear medicine CSF flow study to confirm communicating hydrocephalus first before deciding whether to proceed with neurosurgery. I did discuss with patient/family about the diagnosis of NPH and expected clinical course if she were to indeed have the condition. -No further inpatient neuro recs at this time. Will revisit patient prn. Please call with new ?. Thank you again for this consultation. Time with Patient: Less than 30 (Time spent in direct patient care, 100% of which was spent in [id number] counselin minutes)
[2019-03-09 17:24] LABS: Glucose,Whole Blood 100 mg/dL (75-99)
[2019-03-09 19:46] LABS: Glucose,Whole Blood 167 mg/dL (75-99)
[2019-03-09] MEDS: AMITRIPTYLINE HCL 25 MG TAB PO SCH (19:54)
[2019-03-09] MEDS: INSULIN DETEMIR (LEVEMIR) 100 UNIT/ML SYR SQ SCH (19:54)
[2019-03-10 05:06] VITALS: BP 117/66; PULSE 73; TEMP 97.9
[2019-03-10 06:51] LABS: Glucose,Whole Blood 123 mg/dL (75-99)
[2019-03-10 07:57] LABS: Calcium 8.8 mg/dL (8.4-10.2); Potassium 4.1 mmol/L (3.5-5.1)
[2019-03-10] MEDS: INSULIN ASPART (NovoLOG) 100 UNIT/ML VIAL SQ SCH ×2 (08:00→12:36)
[2019-03-10] MEDS: HEPARIN SODIUM,PORCINE 5,000 UNIT/ML 1 ML VIAL SQ SCH (08:06)
[2019-03-10] MEDS: GABAPENTIN 300 MG CAP PO SCH (08:06)
[2019-03-10] MEDS: DULoxetine HCL 60 MG CAPSULE.DR PO SCH (08:06)
[2019-03-10] MEDS: OXYBUTYNIN CHLORIDE 5 MG TAB PO SCH (08:06)
--- NOTE | 2019-03-10 08:31 | P.DS ---
Providers Date of admission: 03/07/19 18:59 Expected date of discharge: 03/10/19 Attending physician: Sixto Saul Consults: 03/08/19 06:55 Consult Physician Routine Consulting Provider: Jesus Martin Consult Reason/Comments: NPH Do you want consulting provider notified?: Yes 03/08/19 14:50 Consult Physician Routine Consulting Provider: Bren Monzon Consult Reason/Comments: weakness, hydrocephalus Do you want consulting provider notified?: Yes, Notify in am Primary care physician: [facility] Course: This is 84 years old female with past medical history significant for osteoarthritis anemia incontinence of urine and gait instability who presented to the emergency department with worsening symptoms. Patient reported fall prior to presentation and stated that for the last 2 weeks she's been falling frequently without head injury or loss of consciousness patient stated that her weeks are very weak and cannot hold her anymore even when she uses her 4 wheeled walker at home. Patient is poor historian but stated that her incontinence is becoming more annoying problem where she is 89 able to hold it at all. Patient stated that at the beginning she thought that it's related to being older age but last few days patient was not able to ambulate in the home at the time she was independent up until 2 weeks ago and became unable to do her daily activities patient presented to the emergency department where computed tomography scan of the head showed possible hydrocephalus and patient was admitted for further evaluation. Patient currently is denying chest pain shortness breath nausea vomiting about pain dizziness lightheadedness or blurry vision. Patient denied any recent upper respiratory symptoms fever chills or weight loss. Patient is denying tobacco alcohol or drug abuse 03/09: Patient has been seen by Dr. Gomez with recommendations regarding cerebral ventriculomegaly difficult to determine whether this is ex vaco dilatation from cerebral atrophy vs communicating hydrocephalus. He has recommended MRI as has been ordered. Patient apparently is not interested in a transfer to tertiary care for neurosurgery consult but willing to follow-up as an outpatient to consider options. JANEY, hemoglobin A1c, immunofixation, protein electrophoresis, rheumatoid factor and vitamin B12 all pending. Patient has been seen by Dr. Martin, PT OT and speech therapy are following. Patient's son has indicated to business case analyst that he would like patient to go to [facility]. Patient has been afebrile, blood pressure 109/59, heart rate 71, pulse ox 96% on room air. Blood sugars running between 157 and 190. Urine culture was finalized with no growth. Patient denies any new complaints. She is noted to have a diabetic ulcer on the left third toe for which she follows with Dr. Howard in the office. Renal function has normalized with creatinine of 0.9. Plan to monitor patient overnight and discharged to [facility] tomorrow. MRI of the brain reveals underlying normal pressure hydrocephalus. There is likely associated chronic age-related atrophy and small vessel ischemic change. 03/10: The patient was reevaluated by Dr. Gomez last night and has recommended follow up with outpatient neurosurgery for consideration of additional diagnostic testing such as large volume LP or nuclear medicine CSF flow study to confirm communicating hydrocephalus first before deciding whether to proceed with neurosurgery. Patient's imbalance is likely confounded by sensory ataxia from peripheral neuropathy. B12 level 3026, rheumatoid factor less than 4, JANEY screen negative. Patient remains afebrile, blood pressure 117/66, heart rate 77, pulse ox 97% on room air. Insurance authorization has been obtained and patient will be transferred to [facility] once all arrangements are completed. Discharge diagnoses: 1. 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 2. Worsening urinary incontinence. 3. Acute kidney injury. 4. Anemia of chronic disease. 5. 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 6. Generalized osteoarthritis. 7. Recurrent depression. 8. Hyperlipidemia. 9. Hypertension. 10. Left toe diabetic ulcer, present on admission Discharge plan: [facility] on Saturday Impression and plan of care have been directed as dictated by the signing physician. Carolann Molina nurse practitioner acting as scribe for signing physician. Patient Condition at Discharge: Good Plan - Discharge Summary Discharge Rx Participant: Yes New Discharge Prescriptions: New glipiZIDE [Glucotrol] 2.5 mg PO AC-BID tab Continue Amitriptyline HCl [Elavil] 25 mg PO HS Insulin Detemir [Levemir Flextouch] 25 unit SQ HS Oxybutynin Chloride 5 mg PO BID DULoxetine HCL [Cymbalta] 60 mg PO DAILY Atorvastatin [Lipitor] 80 mg PO HS Cyanocobalamin (Vitamin B-12) [Vitamin B-12] 1,000 mcg PO DAILY Gabapentin 600 mg PO BID #6 tablet Discontinued Amoxic-Pot Clav 875-125Mg [Augmentin 875-125] 1 tab PO BID Triamterene-Hctz 37.5-25Mg [Dyazide 37.5-25 Capsule] 1 cap PO DAILY Mirabegron [Myrbetriq] 25 mg PO DAILY Discharge Medication List Amitriptyline HCl [Elavil] 25 mg PO HS 11/08/17 [History] Insulin Detemir [Levemir Flextouch] 25 unit SQ HS 11/08/17 [History] DULoxetine HCL [Cymbalta] 60 mg PO DAILY 03/07/19 [History] Oxybutynin Chloride 5 mg PO BID 03/07/19 [History] Atorvastatin [Lipitor] 80 mg PO HS 03/08/19 [History] Cyanocobalamin (Vitamin B-12) [Vitamin B-12] 1,000 mcg PO DAILY 03/08/19 [History] Gabapentin 600 mg PO BID #6 tablet 03/10/19 [Rx] glipiZIDE [Glucotrol] 2.5 mg PO AC-BID tab 03/10/19 [Rx] Follow up Appointment(s)/Referral(s): Luis Avery MD [Primary Care Provider] - 1-2 days Discharge Disposition: TRANSFER TO SNF/ECF
[2019-03-10] MEDS ORDERED: ACETAMINOPHEN TAB 325 MG TAB PO ONE (08:51)
[2019-03-10 11:03] LABS: Glucose,Whole Blood 169 mg/dL (75-99)
[2019-03-10 12:28] LABS: Albumin 3.45 g/dL (3.80-4.90); Gamma Globulin 1.15 g/dL (0.70-1.50)
== END 2019-03-10 14:55 | DRG 57 ==
LOC: EC 17:00 → 3NMEDONC 18:59 → OBSVTOIN 03-09 15:40
PROVIDERS: ADMIT Internal Medicine; ATTEND Internal Medicine
DX: G91.2 (Idiopathic) normal pressure hydrocephalus (principal); F33.9 Major depressive disorder, recurrent, unspecified; N17.9 Acute kidney failure, unspecified; G93.89 Other specified disorders of brain; E11.621 Type 2 diabetes mellitus with foot ulcer; E11.42 Type 2 diabetes mellitus with diabetic polyneuropathy; D63.8 Anemia in other chronic diseases classified elsewhere; E78.5 Hyperlipidemia, unspecified; I10 Essential (primary) hypertension; L97.529 Non-pressure chronic ulcer of other part of left foot with unspecified severity; M15.9 Polyosteoarthritis, unspecified; M48.02 Spinal stenosis, cervical region; N39.46 Mixed incontinence; R29.6 Repeated falls; Z91.81 History of falling; Z79.4 Long term (current) use of insulin; Z79.899 Other long term (current) drug therapy; Z83.3 Family history of diabetes mellitus; R26.9 Unspecified abnormalities of gait and mobility; Z90.49 Acquired absence of other specified parts of digestive tract
CPT/HCPCS: 36415; 70450; 70551; 71046; 72125; 72170; 80048; 80053; 80061; 81001; 82550; 82607; 83036; 83605; 83735; 84100; 84165; 84443; 84484; 85025; 85610; 85730; 86038; 86334; 86431; 87086; 93005; 96360; 96361; 99285

== ENCOUNTER 2019-04-25 14:37 | Inpatient (IN) | payer MEDICARE ==
--- NOTE | 2019-04-25 15:41 | ED ---
Weakness HPI - General Chief complaint: Weakness Stated complaint: weakness Time Seen by Provider: 04/25/19 14:53 Source: EMS Mode of arrival: EMS Limitations: no limitations - History of Present Illness Initial comments: The patient is an 84-year-old female who presents to the emergency room with reported generalized weakness and multiple falls. The son at bedside provides majority of the history. He states that his mother was just recently hospita lized for multiple falls. 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 She is following the Dr. Youngblood. They have an appointment on the for possible shunt placement. He states that his mother has been at home and for the past week she has had continued falls. She did fall on Saturday and sustained large ecchymosis over the left side of her head. They did not seek care. The patient has been getting progressively weak. Normally ambulates with a walker however son states that this has been too difficult for her. She has had a poor appetite. No recent medication changes. There is been no confusion, headache or vision changes. No neck pain or stiffness. Denies any chest pain or shortness of breath. No abdominal pain. Does admit to increased frequency of urination however denies dysuria or hematuria. Denies any changes in her bowel movements including diarrhea, consultation, melanotic stools or hematochezia. She is a diabetic. States that she has yet to take her medications today. The son states that it has been difficult to care for her. There are no other alleviating, precipitating or modifying factors - Related Data Home Medications Medication Instructions Recorded Confirmed Amitriptyline HCl [Elavil] 25 mg PO HS 11/08/17 04/25/19 DULoxetine HCL [Cymbalta] 60 mg PO DAILY 03/07/19 04/25/19 Oxybutynin Chloride 5 mg PO BID 03/07/19 04/25/19 Atorvastatin [Lipitor] 80 mg PO HS 03/08/19 04/25/19 Cyanocobalamin (Vitamin B-12) 1,000 mcg PO DAILY 03/08/19 04/25/19 [Vitamin B-12] Naproxen Sodium [Aleve] 440 mg PO BID PRN 04/25/19 04/25/19 Previous Rx's Medication Instructions Recorded glipiZIDE [Glucotrol] 2.5 mg PO AC-BID tab 03/10/19 Gabapentin 600 mg PO BID #6 tablet 04/28/19 Insulin Detemir [Levemir Flextouch] 15 unit SQ HS #0 04/28/19 Allergies Allergy/AdvReac Type Severity Reaction Status Date / Time No Known Allergies Allergy Verified 04/25/19 15:12 Review of Systems ROS Statement: Those systems with pertinent positive or pertinent negative responses have been documented in the HPI. ROS Other: All systems not noted in ROS Statement are negative. Past Medical History Past Medical History: Diabetes Mellitus, Hyperlipidemia Additional Past Medical History / Comment(s): neuropathy, dizzy when stands, diabetic ulcer on left foot supposed to go to wound clinic History of Any Multi-Drug Resistant Organisms: None Reported Past Surgical History: Appendectomy, Cholecystectomy, Orthopedic Surgery Additional Past Surgical History / Comment(s): right shoulder Past Anesthesia/Blood Transfusion Reactions: No Reported Reaction Past Psychological History: No Psychological Hx Reported Smoking Status: Never smoker Past Alcohol Use History: Occasional Past Drug Use History: None Reported - Past Family History Mother Family Medical History: Diabetes Mellitus General Exam Limitations: no limitations General appearance: alert, in no apparent distress Head exam: Present: normocephalic, other (healing ecchymosis over left forehead and around the left eye. No signs of entrapment) Eye exam: Present: normal appearance, PERRL, EOMI. Absent: scleral icterus, conjunctival injection, periorbital swelling ENT exam: Present: normal exam, mucous membranes moist Neck exam: Present: normal inspection. Absent: tenderness, meningismus, lymphadenopathy Respiratory exam: Present: normal lung sounds bilaterally. Absent: respiratory distress, wheezes, rales, rhonchi, stridor Cardiovascular Exam: Present: regular rate, normal rhythm, normal heart sounds. Absent: systolic murmur, diastolic murmur, rubs, gallop, clicks GI/Abdominal exam: Present: soft, normal bowel sounds. Absent: distended, tenderness, guarding, rebound, rigid Extremities exam: Present: normal inspection, full ROM, normal capillary refill. Absent: tenderness, pedal edema, joint swelling, calf tenderness Back exam: Present: normal inspection Neurological exam: Present: alert, oriented X3, CN II-XII intact Psychiatric exam: Present: normal affect, normal mood Skin exam: Present: warm, dry, intact, normal color. Absent: rash Course Vital Signs 04/25/19 04/25/19 04/25/19 14:39 15:30 16:30 Temperature 97.6 F Pulse Rate 77 67 76 Respiratory 20 13 16 Rate Blood Pressure 116/70 127/72 114/70 O2 Sat by Pulse 97 99 94 L Oximetry 04/25/19 04/25/19 04/25/19 17:00 17:30 18:00 Temperature Pulse Rate 68 73 73 Respiratory 15 10 L 14 Rate Blood Pressure 85/71 104/89 122/74 O2 Sat by Pulse 97 95 95 Oximetry EKG Findings - EKG Comments: EKG Findings:: The EKG demonstrates a normal sinus rhythm with a ventricular rate of 70. SC interval 208. QRS 130. QTC 460. 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 No acute ST segment elevations or depressions concerning for ischemic changes Medical Decision Making - Medical Decision Making Upon arrival the patient was placed in room 5. Thorough history and physical exam was performed. I did recommend laboratory studies and a CT of the patient's brain and C-spine as she did sustain a fall on Saturday. I also recommended a chest x-ray. Laboratory studies demonstrated a hemoglobin 11. Potassium is 5.6. BUNs 52. Creatinine 1.27. Glucose is low at 46. Urinalysis is negative. CT of the patient's brain and C-spine does demonstrates a left frontal scalp hematoma. No acute intracranial abnormality. No fractures and cervical spine. Chest x-ray demonstrates poor inspiration. We did give the patient something to eat. Her blood sugar minimally improves into the 50s. Bec ause of that she is given an amp of D50. As the patient's creatinine is twice her baseline I did recommend fluid hydration. I also recommended trending the patient's glucose levels. I will hold her insulin. I did call discuss case with Dr. Inman who accepted admission for the patient. The patient remained in stable condition was transported to the floor - Lab Data Result diagrams: 04/26/19 06:19 04/26/19 06:19 Lab Results 04/25/19 04/25/19 04/25/19 Range/Units 14:53 14:53 14:53 WBC 7.6 (3.8-10.6) k/uL RBC 3.66 L (3.80-5.40) m/uL Hgb 11.0 L (11.4-16.0) gm/dL Hct 33.4 L (34.0-46.0) % MCV 91.3 (80.0-100.0) fL MCH 29.9 (25.0-35.0) pg MCHC 32.8 (31.0-37.0) g/dL RDW 14.5 (11.5-15.5) % Plt Count 218 (150-450) k/uL Neutrophils % 77 % Lymphocytes % 14 % Monocytes % 5 % Eosinophils % 1 % Basophils % 2 % Neutrophils # 5.9 (1.3-7.7) k/uL Lymphocytes # 1.1 (1.0-4.8) k/uL Monocytes # 0.4 (0-1.0) k/uL Eosinophils # 0.1 (0-0.7) k/uL Basophils # 0.1 (0-0.2) k/uL PT (9.0-12.0) sec INR (<1.2) APTT (22.0-30.0) sec Sodium 137 (137-145) mmol/L Potassium 5.6 H (3.5-5.1) mmol/L Chloride 100 (98-107) mmol/L Carbon Dioxide 25 (22-30) mmol/L Anion Gap 12 mmol/L BUN 52 H (7-17) mg/dL Creatinine 1.27 H (0.52-1.04) mg/dL Est GFR (CKD-EPI)AfAm 46 (>60 ml/min/1.73 sqM) Est GFR (CKD-EPI)NonAf 40 (>60 ml/min/1.73 sqM) Glucose 46 L* (74-99) mg/dL POC Glucose (mg/dL) (75-99) mg/dL POC Glu Wood Lather ID Estimated Ave Glu mg/dL Hemoglobin A1c (4.0-6.0) % Plasma Lactic Acid Terrell (0.7-2.0) mmol/L Calcium 9.4 (8.4-10.2) mg/dL Total Bilirubin 1.1 (0.2-1.3) mg/dL AST 48 H (14-36) U/L ALT 33 (9-52) U/L Alkaline Phosphatase 95 (38-126) U/L Creatine Kinase 178 H (30-135) U/L Troponin I (0.000-0.034) ng/mL NT-Pro-B Natriuret Pep 149 pg/mL Total Protein 8.3 H (6.3-8.2) g/dL Albumin 4.4 (3.5-5.0) g/dL TSH 1.190 (0.465-4.680) mIU/L Urine Color Urine Appearance (Clear) Urine pH (5.0-8.0) Ur Specific [place] (1.001-1.035) Urine Protein (Negative) Urine Glucose (UA) (Negative) Urine Ketones (Negative) Urine Blood (Negative) Urine Nitrite (Negative) Urine Bilirubin (Negative) Urine Urobilinogen (<2.0) mg/dL Ur Leukocyte Esterase (Negative) 04/25/19 04/25/19 04/25/19 Range/Units 14:53 14:53 14:53 WBC (3.8-10.6) k/uL RBC (3.80-5.40) m/uL Hgb (11.4-16.0) gm/dL Hct (34.0-46.0) % MCV (80.0-100.0) fL MCH (25.0-35.0) pg MCHC (31.0-37.0) g/dL RDW (11.5-15.5) % Plt Count (150-450) k/uL Neutrophils % % Lymphocytes % % Monocytes % % Eosinophils % % Basophils % % Neutrophils # (1.3-7.7) k/uL Lymphocytes # (1.0-4.8) k/uL Monocytes # (0-1.0) k/uL Eosinophils # (0-0.7) k/uL Basophils # (0-0.2) k/uL PT 10.8 (9.0-12.0) sec INR 1.0 (<1.2) APTT 27.3 (22.0-30.0) sec Sodium (137-145) mmol/L Potassium (3.5-5.1) mmol/L Chloride (98-107) mmol/L Carbon Dioxide (22-30) mmol/L Anion Gap mmol/L BUN (7-17) mg/dL Creatinine (0.52-1.04) mg/dL Est GFR (CKD-EPI)AfAm (>60 ml/min/1.73 sqM) Est GFR (CKD-EPI)NonAf (>60 ml/min/1.73 sqM) Glucose (74-99) mg/dL POC Glucose (mg/dL) (75-99) mg/dL POC Glu Wood Lather ID Estimated Ave Glu mg/dL Hemoglobin A1c (4.0-6.0) % Plasma Lactic Acid Terrell 1.4 (0.7-2.0) mmol/L Calcium (8.4-10.2) mg/dL Total Bilirubin (0.2-1.3) mg/dL AST (14-36) U/L ALT (9-52) U/L Alkaline Phosphatase (38-126) U/L Creatine Kinase (30-135) U/L Troponin I <0.012 (0.000-0.034) ng/mL NT-Pro-B Natriuret Pep pg/mL Total Protein (6.3-8.2) g/dL Albumin (3.5-5.0) g/dL TSH (0.465-4.680) mIU/L Urine Color Urine Appearance (Clear) Urine pH (5.0-8.0) Ur Specific [place] (1.001-1.035) Urine Protein (Negative) Urine Glucose (UA) (Negative) Urine Ketones (Negative) Urine Blood (Negative) Urine Nitrite (Negative) Urine Bilirubin (Negative) Urine Urobilinogen (<2.0) mg/dL Ur Leukocyte Esterase (Negative) 04/25/19 04/25/19 04/25/19 Range/Units 16:09 16:26 16:30 WBC (3.8-10.6) k/uL RBC (3.80-5.40) m/uL Hgb (11.4-16.0) gm/dL Hct (34.0-46.0) % MCV (80.0-100.0) fL MCH (25.0-35.0) pg MCHC (31.0-37.0) g/dL RDW (11.5-15.5) % Plt Count (150-450) k/uL Neutrophils % % Lymphocytes % % Monocytes % % Eosinophils % % Basophils % % Neutrophils # (1.3-7.7) k/uL Lymphocytes # (1.0-4.8) k/uL Monocytes # (0-1.0) k/uL Eosinophils # (0-0.7) k/uL Basophils # (0-0.2) k/uL PT (9.0-12.0) sec INR (<1.2) APTT (22.0-30.0) sec Sodium (137-145) mmol/L Potassium (3.5-5.1) mmol/L Chloride (98-107) mmol/L Carbon Dioxide (22-30) mmol/L Anion Gap mmol/L BUN (7-17) mg/dL Creatinine (0.52-1.04) mg/dL Est GFR (CKD-EPI)AfAm (>60 ml/min/1.73 sqM) Est GFR (CKD-EPI)NonAf (>60 ml/min/1.73 sqM) Glucose (74-99) mg/dL POC Glucose (mg/dL) 45 L 55 L (75-99) mg/dL POC Glu [place] ID Marsh, Carole Saxena, Estefani [address]imated [address] Glu mg/dL Hemoglobin A1c (4.0-6.0) % Plasma Lactic Acid Terrell (0.7-2.0) mmol/L Calcium (8.4-10.2) mg/dL Total Bilirubin (0.2-1.3) mg/dL AST (14-36) U/L ALT (9-52) U/L Alkaline Phosphatase (38-126) U/L Creatine Kinase (30-135) U/L Troponin I (0.000-0.034) ng/mL NT-Pro-B Natriuret Pep pg/mL Total Protein (6.3-8.2) g/dL Albumin (3.5-5.0) g/dL TSH (0.465-4.680) mIU/L Urine Color Yellow Urine Appearance Clear (Clear) Urine pH 5.5 (5.0-8.0) Ur Specific [place] 1.012 (1.001-1.035) Urine Protein Negative (Negative) Urine Glucose (UA) Negative (Negative) Urine Ketones Negative (Negative) Urine Blood Negative (Negative) Urine Nitrite Negative (Negative) Urine Bilirubin Negative (Negative) Urine Urobilinogen <2.0 (<2.0) mg/dL Ur Leukocyte Esterase Negative (Negative) 10/05/19 10/05/19 10/05/19 Range/Units 16:39 20:10 22:13 WBC (3.8-10.6) k/uL RBC (3.80-5.40) m/uL Hgb (11.4-16.0) gm/dL Hct (34.0-46.0) % MCV (80.0-100.0) fL MCH (25.0-35.0) pg MCHC (31.0-37.0) g/dL RDW (11.5-15.5) % Plt Count (150-450) k/uL Neutrophils % % Lymphocytes % % Monocytes % % Eosinophils % % Basophils % % Neutrophils # (1.3-7.7) k/uL Lymphocytes # (1.0-4.8) k/uL Monocytes # (0-1.0) k/uL Eosinophils # (0-0.7) k/uL Basophils # (0-0.2) k/uL PT (9.0-12.0) sec INR (<1.2) APTT (22.0-30.0) sec Sodium (137-145) mmol/L Potassium (3.5-5.1) mmol/L Chloride (98-107) mmol/L Carbon Dioxide (22-30) mmol/L Anion Gap mmol/L BUN (7-17) mg/dL Creatinine (0.52-1.04) mg/dL Est GFR (CKD-EPI)AfAm (>60 ml/min/1.73 sqM) Est GFR (CKD-EPI)NonAf (>60 ml/min/1.73 sqM) Glucose (74-99) mg/dL POC Glucose (mg/dL) 191 H 71 L 88 (75-99) mg/dL POC Glu [place] ID Carole Marsh, Linda Hidalgo, Linda [address]imated [address] Glu mg/dL Hemoglobin A1c (4.0-6.0) % Plasma Lactic Acid Terrell (0.7-2.0) mmol/L Calcium (8.4-10.2) mg/dL Total Bilirubin (0.2-1.3) mg/dL AST (14-36) U/L ALT (9-52) U/L Alkaline Phosphatase (38-126) U/L Creatine Kinase (30-135) U/L Troponin I (0.000-0.034) ng/mL NT-Pro-B Natriuret Pep pg/mL Total Protein (6.3-8.2) g/dL Albumin (3.5-5.0) g/dL TSH (0.465-4.680) mIU/L Urine Color Urine Appearance (Clear) Urine pH (5.0-8.0) Ur Specific [place] (1.001-1.035) Urine Protein (Negative) Urine Glucose (UA) (Negative) Urine Ketones (Negative) Urine Blood (Negative) Urine Nitrite (Negative) Urine Bilirubin (Negative) Urine Urobilinogen (<2.0) mg/dL Ur Leukocyte Esterase (Negative) 04/26/19 04/26/19 04/26/19 Range/Units 00:02 01:57 06:19 WBC (3.8-10.6) k/uL RBC (3.80-5.40) m/uL Hgb (11.4-16.0) gm/dL Hct (34.0-46.0) % MCV (80.0-100.0) fL MCH (25.0-35.0) pg MCHC (31.0-37.0) g/dL RDW (11.5-15.5) % Plt Count (150-450) k/uL Neutrophils % % Lymphocytes % % Monocytes % % Eosinophils % % Basophils % % Neutrophils # (1.3-7.7) k/uL Lymphocytes # (1.0-4.8) k/uL Monocytes # (0-1.0) k/uL Eosinophils # (0-0.7) k/uL Basophils # (0-0.2) k/uL PT (9.0-12.0) sec INR (<1.2) APTT (22.0-30.0) sec Sodium (137-145) mmol/L Potassium (3.5-5.1) mmol/L Chloride (98-107) mmol/L Carbon Dioxide (22-30) mmol/L Anion Gap mmol/L BUN (7-17) mg/dL Creatinine (0.52-1.04) mg/dL Est GFR (CKD-EPI)AfAm (>60 ml/min/1.73 sqM) Est GFR (CKD-EPI)NonAf (>60 ml/min/1.73 sqM) Glucose (74-99) mg/dL POC Glucose (mg/dL) 108 H 149 H (75-99) mg/dL POC Glu [place] EMIR Hidalgo, Linda Hidalgo, Linda [address] Glu mg/dL 163 Hemoglobin A1c 7.3 H (4.0-6.0) % Plasma Lactic Acid [place]rell (0.7-2.0) mmol/L Calcium (8.4-10.2) mg/dL Total Bilirubin (0.2-1.3) mg/dL AST (14-36) U/L ALT (9-52) U/L Alkaline Phosphatase (38-126) U/L Creatine Kinase (30-135) U/L Troponin I (0.000-0.034) ng/mL NT-Pro-B Natriuret Pep pg/mL Total Protein (6.3-8.2) g/dL Albumin (3.5-5.0) g/dL TSH (0.465-4.680) mIU/L Urine Color Urine Appearance (Clear) Urine pH (5.0-8.0) Ur Specific [place] (1.001-1.035) Urine Protein (Negative) Urine Glucose (UA) (Negative) Urine Ketones (Negative) Urine Blood (Negative) Urine Nitrite (Negative) Urine Bilirubin (Negative) Urine Urobilinogen (<2.0) mg/dL Ur Leukocyte Esterase (Negative) 04/26/19 04/26/19 04/26/19 Range/Units 06:19 06:19 07:37 WBC 5.4 (3.8-10.6) k/uL RBC 3.42 L (3.80-5.40) m/uL Hgb 10.4 L (11.4-16.0) gm/dL Hct 31.4 L (34.0-46.0) % MCV 91.8 (80.0-100.0) fL MCH 30.4 (25.0-35.0) pg MCHC 33.1 (31.0-37.0) g/dL RDW 14.0 (11.5-15.5) % Plt Count 209 (150-450) k/uL Neutrophils % 64 % Lymphocytes % 23 % Monocytes % 7 % Eosinophils % 2 % Basophils % 1 % Neutrophils # 3.5 (1.3-7.7) k/uL Lymphocytes # 1.3 (1.0-4.8) k/uL Monocytes # 0.4 (0-1.0) k/uL Eosinophils # 0.1 (0-0.7) k/uL Basophils # 0.0 (0-0.2) k/uL PT (9.0-12.0) sec INR (<1.2) APTT (22.0-30.0) sec Sodium 138 (137-145) mmol/L Potassium 4.7 (3.5-5.1) mmol/L Chloride 101 (98-107) mmol/L Carbon Dioxide 30 (22-30) mmol/L Anion Gap 7 mmol/L BUN 39 H (7-17) mg/dL Creatinine 1.22 H (0.52-1.04) mg/dL Est GFR (CKD-EPI)AfAm 48 (>60 ml/min/1.73 sqM) Est GFR (CKD-EPI)NonAf 41 (>60 ml/min/1.73 sqM) Glucose 150 H (74-99) mg/dL POC Glucose (mg/dL) 135 H (75-99) mg/dL POC Glu [place] ID Josselyn Juarez [address] Glu mg/dL Hemoglobin A1c (4.0-6.0) % Plasma Lactic Acid [place] (0.7-2.0) mmol/L Calcium 8.9 (8.4-10.2) mg/dL Total Bilirubin (0.2-1.3) mg/dL AST (14-36) U/L ALT (9-52) U/L Alkaline Phosphatase (38-126) U/L Creatine Kinase (30-135) U/L Troponin I (0.000-0.034) ng/mL NT-Pro-B Natriuret Pep pg/mL Total Protein (6.3-8.2) g/dL Albumin (3.5-5.0) g/dL TSH (0.465-4.680) mIU/L Urine Color Urine Appearance (Clear) Urine pH (5.0-8.0) Ur Specific [place] (1.001-1.035) Urine Protein (Negative) Urine Glucose (UA) (Negative) Urine Ketones (Negative) Urine Blood (Negative) Urine Nitrite (Negative) Urine Bilirubin (Negative) Urine Urobilinogen (<2.0) mg/dL Ur Leukocyte Esterase (Negative) 04/26/19 04/26/19 04/26/19 Range/Units 11:16 17:13 20:09 WBC (3.8-10.6) k/uL RBC (3.80-5.40) m/uL Hgb (11.4-16.0) gm/dL Hct (34.0-46.0) % MCV (80.0-100.0) fL MCH (25.0-35.0) pg MCHC (31.0-37.0) g/dL RDW (11.5-15.5) % Plt Count (150-450) k/uL Neutrophils % % Lymphocytes % % Monocytes % % Eosinophils % % Basophils % % Neutrophils # (1.3-7.7) k/uL Lymphocytes # (1.0-4.8) k/uL Monocytes # (0-1.0) k/uL Eosinophils # (0-0.7) k/uL Basophils # (0-0.2) k/uL PT (9.0-12.0) sec INR (<1.2) APTT (22.0-30.0) sec Sodium (137-145) mmol/L Potassium (3.5-5.1) mmol/L Chloride (98-107) mmol/L Carbon Dioxide (22-30) mmol/L Anion Gap mmol/L BUN (7-17) mg/dL Creatinine (0.52-1.04) mg/dL Est GFR (CKD-EPI)AfAm (>60 ml/min/1.73 sqM) Est GFR (CKD-EPI)NonAf (>60 ml/min/1.73 sqM) Glucose (74-99) mg/dL POC Glucose (mg/dL) 108 H 99 115 H (75-99) mg/dL POC Glu [place]ather Josselyn Hoover Chloe Babcock, Brenda Estimated Ave Glu mg/dL Hemoglobin A1c (4.0-6.0) % Plasma Lactic Acid [place] (0.7-2.0) mmol/L Calcium (8.4-10.2) mg/dL Total Bilirubin (0.2-1.3) mg/dL AST (14-36) U/L ALT (9-52) U/L Alkaline Phosphatase (38-126) U/L Creatine Kinase (30-135) U/L Troponin I (0.000-0.034) ng/mL NT-Pro-B Natriuret Pep pg/mL Total Protein (6.3-8.2) g/dL Albumin (3.5-5.0) g/dL TSH (0.465-4.680) mIU/L Urine Color Urine Appearance (Clear) Urine pH (5.0-8.0) Ur Specific [place] (1.001-1.035) Urine Protein (Negative) Urine Glucose (UA) (Negative) Urine Ketones (Negative) Urine Blood (Negative) Urine Nitrite (Negative) Urine Bilirubin (Negative) Urine Urobilinogen (<2.0) mg/dL Ur Leukocyte Esterase (Negative) 04/27/19 04/27/19 04/27/19 Range/Units 02:32 07:11 11:42 WBC (3.8-10.6) k/uL RBC (3.80-5.40) m/uL Hgb (11.4-16.0) gm/dL Hct (34.0-46.0) % MCV (80.0-100.0) fL MCH (25.0-35.0) pg MCHC (31.0-37.0) g/dL RDW (11.5-15.5) % Plt Count (150-450) k/uL Neutrophils % % Lymphocytes % % Monocytes % % Eosinophils % % Basophils % % Neutrophils # (1.3-7.7) k/uL Lymphocytes # (1.0-4.8) k/uL Monocytes # (0-1.0) k/uL Eosinophils # (0-0.7) k/uL Basophils # (0-0.2) k/uL PT (9.0-12.0) sec INR (<1.2) APTT (22.0-30.0) sec Sodium (137-145) mmol/L Potassium (3.5-5.1) mmol/L Chloride (98-107) mmol/L Carbon Dioxide (22-30) mmol/L Anion Gap mmol/L BUN (7-17) mg/dL Creatinine (0.52-1.04) mg/dL Est GFR (CKD-EPI)AfAm (>60 ml/min/1.73 sqM) Est GFR (CKD-EPI)NonAf (>60 ml/min/1.73 sqM) Glucose (74-99) mg/dL POC Glucose (mg/dL) 101 H 125 H 119 H (75-99) mg/dL POC Glu [place]ather Nika Patrick Chloe Harju, Casey Estimated Ave Glu mg/dL Hemoglobin A1c (4.0-6.0) % Plasma Lactic Acid [place] (0.7-2.0) mmol/L Calcium (8.4-10.2) mg/dL Total Bilirubin (0.2-1.3) mg/dL AST (14-36) U/L ALT (9-52) U/L Alkaline Phosphatase (38-126) U/L Creatine Kinase (30-135) U/L Troponin I (0.000-0.034) ng/mL NT-Pro-B Natriuret Pep pg/mL Total Protein (6.3-8.2) g/dL Albumin (3.5-5.0) g/dL TSH (0.465-4.680) mIU/L Urine Color Urine Appearance (Clear) Urine pH (5.0-8.0) Ur Specific [place] (1.001-1.035) Urine Protein (Negative) Urine Glucose (UA) (Negative) Urine Ketones (Negative) Urine Blood (Negative) Urine Nitrite (Negative) Urine Bilirubin (Negative) Urine Urobilinogen (<2.0) mg/dL Ur Leukocyte Esterase (Negative) Disposition Clinical Impression: Dehydration, Hypoglycemia, Fall, Weakness Disposition: ADMITTED IP TO THIS [facility] Condition: Good Is patient prescribed a controlled substance at d/c from ED?: No Decision to Admit Reason: Admit from EC Decision Date: 04/25/19 Decision Time: 17:32
[2019-04-25 15:50] LABS: Basophils # (A) 0.1 k/uL (0-0.2); Basophils % (A) 2 %; Eosinophils # (A) 0.1 k/uL (0-0.7); Eosinophils % (A) 1 %; HCT 33.4 % (34.0-46.0); Lymphocytes # (A) 1.1 k/uL (1.0-4.8); Lymphocytes % (A) 14 %; MCH 29.9 pg (25.0-35.0); MCHC 32.8 g/dL (31.0-37.0); MCV 91.3 fL (80.0-100.0); Mean Platelet Volume 8.3; Monocytes # (A) 0.4 k/uL (0-1.0); Monocytes % (A) 5 %; Neutrophils # (A) 5.9 k/uL (1.3-7.7); Neutrophils % (A) 77 %; Platelet Count 218 k/uL (150-450); RBC 3.66 m/uL (3.80-5.40); RDW 14.5 % (11.5-15.5); WBC 7.6 k/uL (3.8-10.6)
[2019-04-25 16:03] LABS: Albumin 4.4 g/dL (3.5-5.0); Calcium 9.4 mg/dL (8.4-10.2); Total Bilirubin 1.1 mg/dL (0.2-1.3); Total Protein 8.3 g/dL (6.3-8.2)
[2019-04-25 16:05] LABS: Potassium 5.6 mmol/L (3.5-5.1)
[2019-04-25 16:10] LABS: Glucose,Whole Blood 45 mg/dL (75-99)
--- NOTE | 2019-04-25 16:11 | CT ---
EXAMINATION TYPE: CT brain denys jackson con DATE OF EXAM: 04/25/2019 COMPARISON: 03/07/2019 HISTORY: Fall. Headache. Neck pain CT DLP: 1259.1 mGycm Automated exposure control for dose reduction was used. TECHNIQUE: CT scan of the head and cervical spine are performed without contrast. FINDINGS: There is cerebral cortical atrophy. There is no mass effect nor midline shift. There is n o sign of intracranial hemorrhage. There is small left frontal scalp hematoma. The calvarium appears intact. Cervical vertebra have normal alignment. There is no compression fracture. There is moderate hypertro phic anterior spurring at C6-7. There is hypertrophic multilevel facet arthropathy. The skull base is intact. IMPRESSION: Cerebral atrophy. No acute intracranial abnormality. Left frontal small scalp hematoma. Brain unchang ed. Spondylotic changes in the cervical spine. No fracture. No change.
--- NOTE | 2019-04-25 16:12 | XR ---
EXAMINATION TYPE: XR chest 2V DATE OF EXAM: 04/25/2019 COMPARISON: 03/07/2019 HISTORY: Weakness TECHNIQUE: Frontal and lateral views of the chest are obtained. FINDINGS: There is poor inspiration. There is some crowding of the lung markings. There is no pleura l effusion. There are chest leads. IMPRESSION: Poor inspiration with no evidence of acute lung disease. Normal heart. Inspiration much decreased compared to last exam.
[2019-04-25 16:28] LABS: Glucose,Whole Blood 55 mg/dL (75-99)
[2019-04-25] MEDS ORDERED: DEXTROSE 50% SYRINGE 50 ML IVP STA (16:29)
[2019-04-25 16:30] LABS: Partial Thromboplastin Time 27.3 sec (22.0-30.0); Prothrombin Time 10.8 sec (9.0-12.0)
[2019-04-25 16:49] LABS: Glucose,Whole Blood 191 mg/dL (75-99)
[2019-04-25 16:51] LABS: Appearance,Urine Clear (Clear); Bilirubin,Urine Negative (Negative); Blood,Urine Negative (Negative); Color,Urine Yellow; Glucose,Urine (UA) Negative (Negative); Ketones,Urine Negative (Negative); Leukocyte Esterase,Urine Negative (Negative); Nitrite,Urine Negative (Negative); PH, Urine 5.5 (5.0-8.0); Protein,Urine Negative (Negative); Specific Gravity,Urine 1.012 (1.001-1.035); Urobilinogen,Urine <2.0 mg/dL (<2.0)
[2019-04-25] MEDS ORDERED: NALOXONE 0.4 MG/ML 1 ML VIAL IV PRN (17:34)
[2019-04-25] MEDS: SODIUM CHLORIDE 0.9% 1,000 ML IV SCH (20:02)
[2019-04-25 20:11] LABS: Glucose,Whole Blood 71 mg/dL (75-99)
[2019-04-25] MEDS ORDERED: NAPROXEN 250 MG TAB PO PRN (20:41)
[2019-04-25] MEDS: INSULIN ASPART (NovoLOG) 100 UNIT/ML VIAL SQ SCH (22:01)
[2019-04-25] MEDS: ATORVASTATIN 80 MG TAB PO SCH (22:01)
[2019-04-25] MEDS: GABAPENTIN 300 MG CAP PO SCH (22:01)
[2019-04-25] MEDS: AMITRIPTYLINE HCL 25 MG TAB PO SCH (22:01)
[2019-04-25] MEDS: OXYBUTYNIN CHLORIDE 5 MG TAB PO SCH (22:01)
[2019-04-25 22:14] LABS: Glucose,Whole Blood 88 mg/dL (75-99)
[2019-04-26 00:04] LABS: Glucose,Whole Blood 108 mg/dL (75-99)
[2019-04-26 01:58] LABS: Glucose,Whole Blood 149 mg/dL (75-99)
[2019-04-26 07:20] LABS: Basophils % (A) 1 %; Eosinophils # (A) 0.1 k/uL (0-0.7); Eosinophils % (A) 2 %; HCT 31.4 % (34.0-46.0); HGB 10.4 gm/dL (11.4-16.0); Lymphocytes # (A) 1.3 k/uL (1.0-4.8); Lymphocytes % (A) 23 %; MCH 30.4 pg (25.0-35.0); MCHC 33.1 g/dL (31.0-37.0); MCV 91.8 fL (80.0-100.0); Mean Platelet Volume 6.1; Monocytes # (A) 0.4 k/uL (0-1.0); Monocytes % (A) 7 %; Neutrophils # (A) 3.5 k/uL (1.3-7.7); Neutrophils % (A) 64 %; Platelet Count 209 k/uL (150-450); RBC 3.42 m/uL (3.80-5.40); WBC 5.4 k/uL (3.8-10.6)
[2019-04-26 07:31] LABS: Calcium 8.9 mg/dL (8.4-10.2); Potassium 4.7 mmol/L (3.5-5.1)
[2019-04-26 07:39] LABS: Glucose,Whole Blood 135 mg/dL (75-99)
[2019-04-26] MEDS: GABAPENTIN 300 MG CAP PO SCH ×2 (07:48→20:00)
[2019-04-26] MEDS: OXYBUTYNIN CHLORIDE 5 MG TAB PO SCH ×2 (07:48→20:00)
[2019-04-26] MEDS: CYANOCOBALAMIN 500 MCG TAB PO SCH (07:48)
[2019-04-26] MEDS: DULoxetine HCL 60 MG CAPSULE.DR PO SCH (07:48)
[2019-04-26] MEDS: INSULIN ASPART (NovoLOG) 100 UNIT/ML VIAL SQ SCH ×4 (07:49→20:55)
--- NOTE | 2019-04-26 10:55 | P.HPIM ---
History of Present Illness H&P Date: 04/26/19 Chief Complaint: Weakness, falls This is an 84-year-old female patient of Dr. 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 Patient had a recent hospitalization in February which time she was treated for cerebral ventriculomegaly secondary to ex vaco dilatation from cerebral atrophy vs communicating hydrocephalus. She was discharge to [facility] where she stayed there for rehab until discharged home 2 and half weeks ago. Patient does have an appointment with Dr. Youngblood on April 29. She has undergone a lumbar puncture per her son that diagnosed her with Alzheimer's. Patient is on long a cting and scheduled NovoLog at home which is managed by her son who is also a diabetic. He states that she has had lower blood sugars lately and he has not been giving her pre-meal insulin. He does give her the long acting with a pen at bedtime. The patient has also had gait instability, frequent falls. She has a large ecchymotic area around the left orbit. Patient came into [facility] emergency center for evaluation. She was found have a blood sugar of 46 status post amp of D50. Hemoglobin was 11, potassium 5.6, BUN 52 and creatinine 1.27, CK 178, proBNP 149, TSH 1.190. AST 48, INR 1, lactic acid 1.4, troponin negative. Urinalysis clear with nitrate and leukoesterase negative. CAT scan of the brain and C-spine revealed no acute intracranial abnormality. Left frontal scalp hematoma. Brain unchanged. Spondylitic changes in the cervical spine. No fracture. Chest x- ray showed poor inspiration but no evidence of acute lung disease. Normal heart. EKG was normal sinus rhythm with a right bundle branch block, left anterior fascicular block. Patient was admitted to the MedSur floor. She was resumed on glipizide and Lantus and scheduled NovoLog were held. Blood sugar this morning is 135. Discussed case with patient's son and he is open to consult with Dr. Martin. Dr. Martin did see the patient on last hospitalization. Patient currently lives with her son and [id number]. Review of Systems Constitutional: Reports fatigue, Reports poor appetite, Reports weakness, Denies chills, Denies fever, Denies malaise Eyes: denies blurred vision, denies pain Ears, nose, mouth and throat: Reports vertigo, Denies dysphagia, Denies nasal congestion, Denies nasal discharge Cardiovascular: Denies chest pain, Denies decreased exercise tolerance, Denies dyspnea on exertion, Denies edema, Denies lightheadedness, Denies orthopnea, Denies shortness of breath, Denies syncope Respiratory: Denies congestion, Denies cough, Denies cough with sputum, Denies dyspnea, Denies home oxygen, Denies respiratory infections, Denies wheezing Gastrointestinal: Denies abdominal pain, Denies diarrhea, Denies nausea, Denies vomiting Genitourinary: Reports mixed incontinence, Denies dysuria, Denies hematuria, Denies urgency, Denies urinary frequency Musculoskeletal: Reports frequent falls, Reports gait dysfunction, Reports muscle weakness, Denies myalgias Integumentary: Reports color changes, Reports darkening of skin, Reports wounds, Denies pruritus, Denies rash Neurological: Reports balance difficulties, Reports change in speech, Reports gait dysfunction, Reports lack of coordination, Reports motor disturbance, Denies change in mentation, Denies seizures Psychiatric: Denies anxiety, Denies depression Past Medical History Past Medical History: Diabetes Mellitus, Hyperlipidemia Additional Past Medical History / Comment(s): neuropathy, dizzy when stands, diabetic ulcer on left foot supposed to go to wound clinic History of Any Multi-Drug Resistant Organisms: None Reported Past Surgical History: Appendectomy, Cholecystectomy, Orthopedic Surgery Additional Past Surgical History / Comment(s): right shoulder Past Anesthesia/Blood Transfusion Reactions: No Reported Reaction Additional Past Anesthesia/Blood Transfusion Reaction / Comment(s): patient states never had blood transfusion Past Psychological History: No Psychological Hx Reported Smoking Status: Never smoker Past Alcohol Use History: Occasional Past Drug Use History: None Reported - Past Family History Mother Family Medical History: Diabetes Mellitus Medications and Allergies Home Medications Medication Instructions Recorded Confirmed Type Amitriptyline HCl [Elavil] 25 mg PO HS 11/08/17 04/25/19 History Insulin Detemir [Levemir Flextouch] 25 unit SQ HS 11/08/17 04/25/19 History DULoxetine HCL [Cymbalta] 60 mg PO DAILY 03/07/19 04/25/19 History Oxybutynin Chloride 5 mg PO BID 03/07/19 04/25/19 History Atorvastatin [Lipitor] 80 mg PO HS 03/08/19 04/25/19 History Cyanocobalamin (Vitamin B-12) 1,000 mcg PO DAILY 03/08/19 04/25/19 History [Vitamin B-12] Gabapentin 600 mg PO BID #6 tablet 03/10/19 04/25/19 Rx glipiZIDE [Glucotrol] 2.5 mg PO AC-BID tab 03/10/19 04/25/19 Rx Naproxen Sodium [Aleve] 440 mg PO BID PRN 04/25/19 04/25/19 History Allergies Allergy/AdvReac Type Severity Reaction Status Date / Time No Known Allergies Allergy Verified 04/25/19 15:12 Physical Exam Vitals: Vital Signs Temp Pulse Pulse Resp BP BP Pulse Ox 04/26/19 05:24 97.3 F L 70 18 99/60 97 04/25/19 21:17 98.1 F 73 18 116/59 93 L 04/25/19 18:00 73 14 122/74 95 04/25/19 17:30 73 10 L 104/89 95 04/25/19 17:00 68 15 85/71 97 04/25/19 16:30 76 16 114/70 94 L 04/25/19 15:30 67 13 127/72 99 04/25/19 14:39 97.6 F 77 20 116/70 97 Intake and Output 04/25/19 04/26/19 04/26/19 22:59 06:59 14:59 Intake Total 175 400 Balance 175 400 Intake: Intake, IV Titration 175 400 Amount Sodium Chloride 0.9% 1, 175 400 000 ml @ 50 mls/hr IV . Q20H [facility] Rx#:[id number] Other: Voiding Method Toilet Toilet Toilet Bedside Commode Diaper # Voids 2 Gen: This is an 84-year-old female. She is resting in bed appears to be comfortable and in no acute distress. HEENT: Head is atraumatic, normocephalic. Pupils equal, round. Sclerae is anicteric. Ecchymosis surrounding left orbit. NECK: Supple. No JVD. No lymphadenopathy. No thyromegaly. LUNGS: Clear to auscultation. No wheezes or rhonchi. No intercostal retractions. HEART: Regular rate and rhythm. No murmur. ABDOMEN: Soft. Bowel sounds are present. No masses. No tenderness. EXTREMITIES: No pedal edema. No calf tenderness. Dorsalis pedis +2 on the right, +1 on the left. Small diabetic ulcers to the toes with thick callus formation. No active drainage or open areas NEUROLOGICAL: Patient is awake, alert and oriented x3. Cranial nerves 2 through 12 are grossly intact. Bilateral lower extremity strength 4/5. Speech is slurred and normal for patient. Results CBC & Chem 7: 04/26/19 06:19 04/26/19 06:19 Labs: Abnormal Lab Results - Last 24 Hours (Table) 04/25/19 04/25/19 04/25/19 Range/Units 14:53 14:53 16:09 RBC 3.66 L (3.80-5.40) m/uL Hgb 11.0 L (11.4-16.0) gm/dL Hct 33.4 L (34.0-46.0) % Potassium 5.6 H (3.5-5.1) mmol/L BUN 52 H (7-17) mg/dL Creatinine 1.27 H (0.52-1.04) mg/dL Glucose 46 L* (74-99) mg/dL POC Glucose (mg/dL) 45 L (75-99) mg/dL AST 48 H (14-36) U/L Creatine Kinase 178 H (30-135) U/L Total Protein 8.3 H (6.3-8.2) g/dL 04/25/19 04/25/19 04/25/19 Range/Units 16:26 16:39 20:10 RBC (3.80-5.40) m/uL Hgb (11.4-16.0) gm/dL Hct (34.0-46.0) % Potassium (3.5-5.1) mmol/L BUN (7-17) mg/dL Creatinine (0.52-1.04) mg/dL Glucose (74-99) mg/dL POC Glucose (mg/dL) 55 L 191 H 71 L (75-99) mg/dL AST (14-36) U/L Creatine Kinase (30-135) U/L Total Protein (6.3-8.2) g/dL 04/26/19 04/26/19 04/26/19 Range/Units 00:02 01:57 06:19 RBC 3.42 L (3.80-5.40) m/uL Hgb 10.4 L (11.4-16.0) gm/dL Hct 31.4 L (34.0-46.0) % Potassium (3.5-5.1) mmol/L BUN (7-17) mg/dL Creatinine (0.52-1.04) mg/dL Glucose (74-99) mg/dL POC Glucose (mg/dL) 108 H 149 H (75-99) mg/dL AST (14-36) U/L Creatine Kinase (30-135) U/L Total Protein (6.3-8.2) g/dL 04/26/19 04/26/19 Range/Units 06:19 07:37 RBC (3.80-5.40) m/uL Hgb (11.4-16.0) gm/dL Hct (34.0-46.0) % Potassium (3.5-5.1) mmol/L BUN 39 H (7-17) mg/dL Creatinine 1.22 H (0.52-1.04) mg/dL Glucose 150 H (74-99) mg/dL POC Glucose (mg/dL) 135 H (75-99) mg/dL AST (14-36) U/L Creatine Kinase (30-135) U/L Total Protein (6.3-8.2) g/dL Thrombosis Risk Factor Assmnt - DVT/VTE Prophylaxis DVT/VTE Prophylaxis: Pharmacologic Prophylaxis ordered - Choose All That Apply Any of the Below Risk Factors Present?: No Other Risk Factors: Yes Each Risk Factor Represents 3 Points: Age 75 years or older Other congenital or acquired thrombophilia - If yes, enter type in comment: No Thrombosis Risk Factor Assessment Total Risk Factor Score: 3 Thrombosis Risk Factor Assessment Level: Moderate Risk Assessment and Plan Plan: 1. Generalized weakness with frequent falls secondary to normal pressure hydrocephalus and hypoglycemia. Patient has appointment with Dr. Youngblood on April 29. She is undergone outpatient lumbar puncture. PT and OT have been requested and patient may benefit from inpatient rehab. Consult with Dr. Martin. 2. Hypoglycemia. Lantus and scheduled NovoLog are on hold. Continue glipizide 2.5 mg twice daily. Accu-Cheks before meals and at bedtime with scale only if blood sugars greater than 200. 3. Uurinary incontinence. Continue oxybutynin 5 mg twice daily 4. Chronic kidney disease stage III. Avoid nephrotoxic agents. 5. Anemia of chronic kidney disease. 6. 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 Continue as in #2. Continue gabapentin 600 mg twice daily and Elavil 25 mg at bedtime. 7. Generalized osteoarthritis. 8. Recurrent depression. Continue Cymbalta 60 mg daily and Elavil 25 mg at bedtime. 8. Hyperlipidemia. Continue atorvastatin 80 mg at bedtime 9. Hypertension. 10. Healing diabetic ulcers to the toes. Patient will be admitted to the hospital for a minimum of 2 nights stay. Discharge plan: To be determined. Patient may benefit from inpatient rehab. Consult with Dr. Atwood. Patient was recently treated at [facility] for subacute rehab. Impression and plan of care have been directed as dictated by the signing physician. Carolann Molina nurse practitioner acting as scribe for signing physician.
[2019-04-26 11:17] LABS: Glucose,Whole Blood 108 mg/dL (75-99)
[2019-04-26] MEDS: SODIUM CHLORIDE 0.9% 1,000 ML IV SCH (14:35)
[2019-04-26 17:15] LABS: Glucose,Whole Blood 99 mg/dL (75-99)
[2019-04-26] MEDS: AMITRIPTYLINE HCL 25 MG TAB PO SCH (20:00)
[2019-04-26] MEDS: ATORVASTATIN 80 MG TAB PO SCH (20:00)
[2019-04-26 20:11] LABS: Glucose,Whole Blood 115 mg/dL (75-99)
[2019-04-27 02:33] LABS: Glucose,Whole Blood 101 mg/dL (75-99)
--- NOTE | 2019-04-27 06:33 | P.CONS ---
History of Present Illness - Chief Complaint Walking difficulty and frequent falls - History of Present Illness I had the opportunity to see patient for inpatient rehab consultation with regard to walking difficulty and frequent falls. Patient admitted to [facility] April 25 with history of same. History of urinary incontinence and multiple other medical issues. Chest x-ray negative. CT of head demonstrates cerebral atrophy and of C-spine demonstrates spondylitic change. PT and OT prescribed. Previous functional history as elicited from patient: 84-year-old right-handed white female who is lives in one floor home with daughter. Patient describes that does the cooking and driving. Patient describes that she is independent with laundry, sponge bath and gait with [address] Avery is regular doctor. Denies tobacco or alcohol. In fact: Nurse mentions patient is a and lives with son and his . Family history father with cancer. Review of Systems Review of systems: ENT: Denies sneezes or discharge. Eyes: Denies discharge or photophobia. Cardiac: Denies chest pain or palpitation. Pulmonary: Denies cough or shortness of breath. Breast: Denies discharge or lumps. Gastrointestinal: Denies nausea, emesis, constipation, diarrhea. Genitourinary: Urinary incontinence. Musculoskeletal: Denies muscle or bone aches. Neurologic: Confusion, weakness, falling. Endocrine: Denies shakes or sweats. Oncology: Denies cancers. Dermatologic: Denies rash, itching, pruritus. ALLERGY/immunology: Denies sneezes, rashes. Past Medical History Past Medical History: Diabetes Mellitus, Hyperlipidemia Additional Past Medical History / Comment(s): neuropathy, dizzy when stands, diabetic ulcer on left foot supposed to go to wound clinic History of Any Multi-Drug Resistant Organisms: None Reported Past Surgical History: Appendectomy, Cholecystectomy, Orthopedic Surgery Additional Past Surgical History / Comment(s): right shoulder Past Anesthesia/Blood Transfusion Reactions: No Reported Reaction Additional Past Anesthesia/Blood Transfusion Reaction / Comm: patient states never had blood transfusion Past Psychological History: No Psychological Hx Reported Smoking Status: Never smoker Past Alcohol Use History: Occasional Past Drug Use History: None Reported - Past Family History Mother Family Medical History: Diabetes Mellitus Medications and Allergies Home Medications Medication Instructions Recorded Confirmed Type Amitriptyline HCl [Elavil] 25 mg PO HS 11/08/17 04/25/19 History Insulin Detemir [Levemir Flextouch] 25 unit SQ HS 11/08/17 04/25/19 History DULoxetine HCL [Cymbalta] 60 mg PO DAILY 03/07/19 04/25/19 History Oxybutynin Chloride 5 mg PO BID 03/07/19 04/25/19 History Atorvastatin [Lipitor] 80 mg PO HS 03/08/19 04/25/19 History Cyanocobalamin (Vitamin B-12) 1,000 mcg PO DAILY 03/08/19 04/25/19 History [Vitamin B-12] Gabapentin 600 mg PO BID #6 tablet 03/10/19 04/25/19 Rx glipiZIDE [Glucotrol] 2.5 mg PO AC-BID tab 03/10/19 04/25/19 Rx Naproxen Sodium [Aleve] 440 mg PO BID PRN 04/25/19 04/25/19 History Allergies Allergy/AdvReac Type Severity Reaction Status Date / Time No Known Allergies Allergy Verified 04/25/19 15:12 Physical Exam Vitals: Vital Signs Temp Pulse Resp BP Pulse Ox 04/27/19 05:00 97.4 F L 80 16 98/61 94 L 04/26/19 23:15 16 04/26/19 21:00 97.8 F 71 16 119/70 97 04/26/19 14:28 73 17 04/26/19 11:47 97.1 F L 73 17 88/50 99 Intake and Output 04/26/19 04/26/19 04/27/19 14:59 22:59 06:59 Intake Total 1390 1540 590 Balance 1390 1540 590 Intake: Intake, IV Titration 500 Amount Sodium Chloride 0.9% 1, 500 000 ml @ 50 mls/hr IV . Q20H [facility] Rx#:[id number] Oral 890 1540 590 Other: Voiding Method Toilet Bedside Commode Bedside Commode Diaper Diaper Incontinent Incontinent # Voids 2 2 3 # Bowel Movements 1 Skin: Atrophic, intact. General: Thin build and comfortable appearance. Head: Normocephalic, atraumatic. Eyes: Symmetric. Pupils equal round. Ears: Symmetric. Hearing within normal limits. Mouth: Clear. Neck: Supple. Carotid without bruit. Cardiac: Regular rate and rhythm. Lungs: Clear anteriorly and posteriorly. Abdomen: Soft active nontender. Extremities: Normal tone. Neurological: Mental status: Alert, cooperative, pleasant but apparently confused historian. Cranial nerves: Symmetric facial tone and trapezius. Motor: Can actively elevate all 4 limbs. Sensation: Intact throughout. DTRs: Symmetric and equal throughout. Mobility: Requires physical assistance for bedside transfer. Results CBC & Chem 7: 04/26/19 06:19 04/26/19 06:19 Labs: Abnormal Lab Results - Last 24 Hours (Table) 04/26/19 04/26/19 04/26/19 Range/Units 06:19 06:19 07:37 RBC 3.42 L (3.80-5.40) m/uL Hgb 10.4 L (11.4-16.0) gm/dL Hct 31.4 L (34.0-46.0) % BUN 39 H (7-17) mg/dL Creatinine 1.22 H (0.52-1.04) mg/dL Glucose 150 H (74-99) mg/dL POC Glucose (mg/dL) 135 H (75-99) mg/dL 04/26/19 04/26/19 04/27/19 Range/Units 11:16 20:09 02:32 RBC (3.80-5.40) m/uL Hgb (11.4-16.0) gm/dL Hct (34.0-46.0) % BUN (7-17) mg/dL Creatinine (0.52-1.04) mg/dL Glucose (74-99) mg/dL POC Glucose (mg/dL) 108 H 115 H 101 H (75-99) mg/dL Assessment and Plan (1) Fall Current Visit: Yes Status: Acute Code(s): W19.XXXA - UNSPECIFIED FALL, INITIAL ENCOUNTER SNOMED Code(s): 6345989 Plan: Impression: 1. Walking ability with frequent falls. 2. Hydrocephalus. 3. Diabetes. 4. Dyslipidemia. 5. Cervical spine DDD. comments and plan: PT and OT prescribed. We'll add speech therapy with regard to confusion but suspect that she is actually at baseline. At this time rehab prognosis guarded secondary to confusion, possible dementia.
[2019-04-27 07:12] LABS: Glucose,Whole Blood 125 mg/dL (75-99)
[2019-04-27] MEDS: INSULIN ASPART (NovoLOG) 100 UNIT/ML VIAL SQ SCH ×4 (08:38→20:47)
[2019-04-27] MEDS: OXYBUTYNIN CHLORIDE 5 MG TAB PO SCH ×2 (09:01→20:47)
[2019-04-27] MEDS: GABAPENTIN 300 MG CAP PO SCH ×2 (09:02→20:47)
[2019-04-27] MEDS: DULoxetine HCL 60 MG CAPSULE.DR PO SCH (09:02)
[2019-04-27] MEDS: CYANOCOBALAMIN 500 MCG TAB PO SCH (09:02)
[2019-04-27 11:43] LABS: Glucose,Whole Blood 119 mg/dL (75-99)
[2019-04-27 12:44] LABS: Hemoglobin A1C 7.3 % (4.0-6.0)
--- NOTE | 2019-04-27 14:49 | P.PN ---
Subjective Progress Note Date: 04/27/19 This is an 84-year-old female patient of Dr. 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 Patient had a recent hospitalization in February which time she was treated for cerebral ventriculomegaly secondary to ex vaco dilatation from cerebral atrophy vs communicating hydrocephalus. She was discharge to [facility] where she stayed there for rehab until discharged home 2 and half weeks ago. Patient does have an appointment with Dr. Youngblood on April 29. She has undergone a lumbar puncture per her son that diagnosed her with Alzheimer's. Patient is on long acting and scheduled NovoLog at home which is managed by her son who is also a diabetic. He states that she has had lower blood sugars lately and he has not been giving her pre-meal insulin. He does give her the long acting with a pen at bedtime. The patient has also had gait instability, frequent falls. She has a large ecchymotic area around the left orbit. Patient came into [facility] emergency center for evaluation. She was found have a blood sugar of 46 status post amp of D50. Hemoglobin was 11, potassium 5.6, BUN 52 and creatinine 1.27, CK 178, proBNP 149, TSH 1.190. AST 48, INR 1, lactic acid 1.4, troponin negative. Urinalysis clear with nitrate and leukoesterase negative. CAT scan of the brain and C-spine revealed no acute intracranial abnormality. Left frontal scalp hematoma. Brain unchanged. Spondylitic changes in the cervical spine. No fracture. Chest x- ray showed poor inspiration but no evidence of acute lung disease. Normal heart. EKG was normal sinus rhythm with a right bundle branch block, left anterior fascicular block. Patient was admitted to the MedSur floor. She was resumed on glipizide and Lantus and scheduled NovoLog were held. Blood sugar this morning is 135. Discussed case with patient's son and he is open to consult with Dr. Martin. Dr. Martin did see the patient on last hospitalization. Patient currently lives with her son and [id number]. 04/27: Blood sugars are running between 101 and 125. Blood pressure remains on the low side 92/51, heart rate 83, pulse ox 92% on room air. Patient has been afebrile. Patient has been seen by Dr. Martin and it appears the patient is not candidate for inpatient rehab. Social work is meeting with the patient and her son with plan for discharge to [facility] for subacute rehab. Patient's insurance requires authorization will most likely be obtained by tomorrow. Review of Systems Constitutional: Reports fatigue, Reports poor appetite, Reports weakness, Denies chills, Denies fever, Denies malaise Eyes: denies blurred vision, denies pain Ears, nose, mouth and throat: Reports vertigo, Denies dysphagia, Denies nasal congestion, Denies nasal discharge Cardiovascular: Denies chest pain, Denies decreased exercise tolerance, Denies dyspnea on exertion, Denies edema, Denies lightheadedness, Denies orthopnea, Denies shortness of breath, Denies syncope Respiratory: Denies congestion, Denies cough, Denies cough with sputum, Denies dyspnea, Denies home oxygen, Denies respiratory infections, Denies wheezing Gastrointestinal: Denies abdominal pain, Denies diarrhea, Denies nausea, Denies vomiting Genitourinary: Reports mixed incontinence, Denies dysuria, Denies hematuria, Denies urgency, Denies urinary frequency Musculoskeletal: Reports frequent falls, Reports gait dysfunction, Reports muscle weakness, Denies myalgias Integumentary: Reports color changes, Reports darkening of skin, Reports wounds, Denies pruritus, Denies rash Neurological: Reports balance difficulties, Reports change in speech-chronic, Reports gait dysfunction, Reports lack of coordination, Reports motor disturbance, Denies change in mentation, Denies seizures Psychiatric: Denies anxiety, Denies depression Objective - Vital Signs Vital signs: Vital Signs Temp 97.4 F L 04/27/19 05:00 Pulse 80 04/27/19 05:00 Resp 16 04/27/19 05:00 BP 98/61 04/27/19 05:00 Pulse Ox 94 L 04/27/19 05:00 Intake & Output 04/26/19 04/27/19 04/27/19 18:59 06:59 18:59 Intake Total 1390 2130 Balance 1390 2130 Intake: Intake, IV Titration 500 Amount Sodium Chloride 0.9% 1, 500 000 ml @ 50 mls/hr IV . Q20H [facility] Rx#:[id number] Oral 890 2130 Other: Voiding Method Toilet Bedside Commode Bedside Commode Diaper Diaper Incontinent Incontinent # Voids 2 3 # Bowel Movements 1 - Exam Gen: This is an 84-year-old female. She is resting in bed appears to be comfortable and in no acute distress. HEENT: Head is atraumatic, normocephalic. Pupils equal, round. Sclerae is an icteric. Ecchymosis surrounding left orbit. NECK: Supple. No JVD. No lymphadenopathy. No thyromegaly. LUNGS: Clear to auscultation. No wheezes or rhonchi. No intercostal retractions. HEART: Regular rate and rhythm. No murmur. ABDOMEN: Soft. Bowel sounds are present. No masses. No tenderness. EXTREMITIES: No pedal edema. No calf tenderness. Dorsalis pedis +2 on the right, +1 on the left. Small diabetic ulcers to the toes with thick callus formation. No active drainage or open areas NEUROLOGICAL: Patient is awake, alert and oriented x3. Cranial nerves 2 through 12 are grossly intact. Bilateral lower extremity strength 4/5. Speech is slurred and normal for patient. - Labs CBC & Chem 7: 04/26/19 06:19 04/26/19 06:19 Labs: Abnormal Lab Results - Last 24 Hours (Table) 04/26/19 04/27/19 04/27/19 Range/Units 20:09 02:32 07:11 POC Glucose (mg/dL) 115 H 101 H 125 H (75-99) mg/dL 04/27/19 Range/Units 11:42 POC Glucose (mg/dL) 119 H (75-99) mg/dL Assessment and Plan Plan: 1. Generalized weakness with frequent falls secondary to normal pressure hydrocephalus and hypoglycemia. Patient has appointment with Dr. Youngblood on April 29. She is undergone outpatient lumbar puncture. PT and OT have been requested and patient may benefit from inpatient rehab. Consult with Dr. Martin appreciated. 2. Hypoglycemia. Lantus and scheduled NovoLog are on hold. Continue glipizide 2.5 mg twice daily. Accu-Cheks before meals and at bedtime with scale only if blood sugars greater than 200. Continue to hold Lantus and NovoLog scheduled. 3. Uurinary incontinence. Continue oxybutynin 5 mg twice daily 4. Chronic kidney disease stage III. Avoid nephrotoxic agents. 5. Anemia of chronic kidney disease. 6. 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 Continue as in #2. Continue gabapentin 600 mg twice daily and Elavil 25 mg at bedtime. 7. Generalized osteoarthritis. 8. Recurrent depression. Continue Cymbalta 60 mg daily and Elavil 25 mg at bedtime. 8. Hyperlipidemia. Continue atorvastatin 80 mg at bedtime 9. Hypertension. 10. Healing diabetic ulcers to the toes. Discharge plan: [facility] for subacute rehab on Saturday. Impression and plan of care have been directed as dictated by the signing physician. Carolann Molina nurse practitioner acting as scribe for signing physician.
[2019-04-27 16:59] LABS: Glucose,Whole Blood 174 mg/dL (75-99)
[2019-04-27 20:24] LABS: Glucose,Whole Blood 123 mg/dL (75-99)
[2019-04-27] MEDS: AMITRIPTYLINE HCL 25 MG TAB PO SCH (20:47)
[2019-04-27] MEDS: ATORVASTATIN 80 MG TAB PO SCH (20:47)
[2019-04-28 02:15] LABS: Glucose,Whole Blood 136 mg/dL (75-99)
[2019-04-28 07:12] LABS: Glucose,Whole Blood 134 mg/dL (75-99)
[2019-04-28] MEDS: INSULIN ASPART (NovoLOG) 100 UNIT/ML VIAL SQ SCH ×2 (07:45→12:08)
[2019-04-28] MEDS: DULoxetine HCL 60 MG CAPSULE.DR PO SCH (07:46)
[2019-04-28] MEDS: CYANOCOBALAMIN 500 MCG TAB PO SCH (07:46)
[2019-04-28] MEDS: GABAPENTIN 300 MG CAP PO SCH (07:46)
[2019-04-28] MEDS: OXYBUTYNIN CHLORIDE 5 MG TAB PO SCH (07:46)
[2019-04-28 11:51] LABS: Glucose,Whole Blood 121 mg/dL (75-99)
--- NOTE | 2019-04-28 11:57 | P.DS ---
Providers Date of admission: 04/25/19 17:34 Expected date of discharge: 04/27/19 Attending physician: Sixto Saul Consults: 04/26/19 10:00 Consult Physician Routine Consulting Provider: Jesus Martin Consult Reason/Comments: INPT rehab Do you want consulting provider notified?: Yes Primary care physician: [facility] Course: This is an 84-year-old female patient of Dr. 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 Patient had a recent hospitalization in February which time she was treated for cerebral ventriculomegaly secondary to ex vaco dilatation from cerebral atrophy vs communicating hydrocephalus. She was discharge to [facility] where she stayed there for rehab until discharged home 2 and half weeks ago. Patient does have an appointment with Dr. Youngblood on April 29. She has undergone a lumbar puncture per her son that diagnosed her with Alzheimer's. Patient is on long a cting and scheduled NovoLog at home which is managed by her son who is also a diabetic. He states that she has had lower blood sugars lately and he has not been giving her pre-meal insulin. He does give her the long acting with a pen at bedtime. The patient has also had gait instability, frequent falls. She has a large ecchymotic area around the left orbit. Patient came into [facility] emergency center for evaluation. She was found have a blood sugar of 46 status post amp of D50. Hemoglobin was 11, potassium 5.6, BUN 52 and creatinine 1.27, CK 178, proBNP 149, TSH 1.190. AST 48, INR 1, lactic acid 1.4, troponin negative. Urinalysis clear with nitrate and leukoesterase negative. CAT scan of the brain and C-spine revealed no acute intracranial abnormality. Left frontal scalp hematoma. Brain unchanged. Spondylitic changes in the cervical spine. No fracture. Chest x- ray showed poor inspiration but no evidence of acute lung disease. Normal heart. EKG was normal sinus rhythm with a right bundle branch block, left anterior fascicular block. Patient was admitted to the [facility] floor. She was resumed on glipizide and Lantus and scheduled NovoLog were held. Blood sugar this morning is 135. Discussed case with patient's son and he is open to consult with Dr. Martin. Dr. Martin did see the patient on last hospitalization. Patient currently lives with her son and [id number]. 04/28: She denies any new complaints. Blood sugars are running 121-174. Plan is to resume her back on reduced dose of long-acting insulin and continue glipizide. Patient has been accepted at [facility] him to be transferred there once all arrangements are completed and insurance authorization has been obtained. Patient will be followed [facility] [place] [facility] by Dr. Avery. Discharge diagnoses: 1. Generalized weakness with frequent falls secondary to normal pressure hydrocephalus and hypoglycemia. 2. Hypoglycemia. 3. Uurinary incontinence. 4. Chronic kidney disease stage III. 5. Anemia of chronic kidney disease. 6. 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 7. Generalized osteoarthritis. 8. Recurrent depression. 9. Hyperlipidemia. 10. Hypertension. 11. Healing diabetic ulcers to the toes. Discharge plan: [facility] under the care of Dr. Avery Impression and plan of care have been directed as dictated by the signing physician. Carolann Molina nurse practitioner acting as scribe for signing physician. Patient Condition at Discharge: Good Plan - Discharge Summary Discharge Rx Participant: No New Discharge Prescriptions: Continue Amitriptyline HCl [Elavil] 25 mg PO HS Oxybutynin Chloride 5 mg PO BID DULoxetine HCL [Cymbalta] 60 mg PO DAILY Atorvastatin [Lipitor] 80 mg PO HS Cyanocobalamin (Vitamin B-12) [Vitamin B-12] 1,000 mcg PO DAILY glipiZIDE [Glucotrol] 2.5 mg PO AC-BID tab Naproxen Sodium [Aleve] 440 mg PO BID PRN PRN Reason: Pain Gabapentin 600 mg PO BID #6 tablet Changed Insulin Detemir [Levemir Flextouch] 15 unit SQ HS #0 Discharge Medication List Amitriptyline HCl [Elavil] 25 mg PO HS 11/08/17 [History] DULoxetine HCL [Cymbalta] 60 mg PO DAILY 03/07/19 [History] Oxybutynin Chloride 5 mg PO BID 03/07/19 [History] Atorvastatin [Lipitor] 80 mg PO HS 03/08/19 [History] Cyanocobalamin (Vitamin B-12) [Vitamin B-12] 1,000 mcg PO DAILY 03/08/19 [History] glipiZIDE [Glucotrol] 2.5 mg PO AC-BID tab 03/10/19 [Rx] Naproxen Sodium [Aleve] 440 mg PO BID PRN 04/25/19 [History] Gabapentin 600 mg PO BID #6 tablet 04/28/19 [Rx] Insulin Detemir [Levemir Flextouch] 15 unit SQ HS #0 04/28/19 [Rx] Follow up Appointment(s)/Referral(s): Luis Avery MD [Primary Care Provider] - 1 Week (at [facility]) Activity/Diet/Wound Care/Special Instructions: corinne
[2019-04-28 12:02] VITALS: BP 106/60; PULSE 83; RESP 17; TEMP 98
== END 2019-04-28 17:25 | DRG 638 ==
LOC: EC 14:37 → 3NMEDONC 17:34 → OBSVTOIN 04-27 14:20
PROVIDERS: ADMIT Internal Medicine; ATTEND Internal Medicine
DX: E11.649 Type 2 diabetes mellitus with hypoglycemia without coma (principal); G91.2 (Idiopathic) normal pressure hydrocephalus; F33.9 Major depressive disorder, recurrent, unspecified; I45.2 Bifascicular block; L97.529 Non-pressure chronic ulcer of other part of left foot with unspecified severity; E11.22 Type 2 diabetes mellitus with diabetic chronic kidney disease; E86.0 Dehydration; E11.42 Type 2 diabetes mellitus with diabetic polyneuropathy; K22.2 Esophageal obstruction; D63.1 Anemia in chronic kidney disease; E11.621 Type 2 diabetes mellitus with foot ulcer; E78.5 Hyperlipidemia, unspecified; F02.80 Dementia in other diseases classified elsewhere, unspecified severity, without behavioral disturbance, psychotic disturbance, mood disturbance, and anxiety; G30.9 Alzheimer's disease, unspecified; N18.3 Chronic kidney disease, stage 3 (moderate); I12.9 Hypertensive chronic kidney disease with stage 1 through stage 4 chronic kidney disease, or unspecified chronic kidney disease; M15.9 Polyosteoarthritis, unspecified; M50.30 Other cervical disc degeneration, unspecified cervical region; R29.6 Repeated falls; S00.03XA Contusion of scalp, initial encounter; R26.81 Unsteadiness on feet; R32 Unspecified urinary incontinence; Z79.4 Long term (current) use of insulin; Z79.899 Other long term (current) drug therapy; Z90.49 Acquired absence of other specified parts of digestive tract; Z80.9 Family history of malignant neoplasm, unspecified; Z83.3 Family history of diabetes mellitus; W19.XXXA Unspecified fall, initial encounter
CPT/HCPCS: 36415; 51701; 70450; 71046; 72125; 80048; 80053; 81003; 82550; 83036; 83605; 83880; 84443; 84484; 85025; 85610; 85730; 93005; 96374; 99285

== ENCOUNTER → 2019-05-28 | Outpatient (CLI) | payer MEDICARE ==
--- NOTE | 2019-05-28 14:47 | US ---
EXAMINATION TYPE: US venous doppler duplex LE LT DATE OF EXAM: 05/28/2019 2:37 PM COMPARISON: NONE CLINICAL HISTORY: R60.9 edema. Left leg edema SIDE PERFORMED: Left TECHNIQUE: The lower extremity deep venous system is examined utilizing real time linear array sonog jose with graded compression, doppler sonography and color-flow sonography. VESSELS IMAGED: External Iliac Vein (EIV) Common Femoral Vein Deep Femoral Vein Greater Saphenous Vein * Femoral Vein Popliteal Vein Small Saphenous Vein * Proximal Calf Veins (* superficial vessels) Left Leg: Appear negative for DVT Grayscale, color doppler, spectral doppler imaging performed of the deep veins of the left lower ext remity. There is normal flow, compressibility, vascular waveforms. IMPRESSION: No ultrasound evidence for acute DVT in the left lower extremity.
== END ==
LOC: RADUSWWP 13:50
PROVIDERS: ATTEND Internal Medicine Geriatric Medicine
DX: R60.9 Edema, unspecified (principal)

== ENCOUNTER → 2019-06-22 | Outpatient (CLI) | payer MEDICARE ==
--- NOTE | 2019-06-22 11:30 | XR ---
EXAMINATION TYPE: XR chest 2V DATE OF EXAM: 06/22/2019 COMPARISON: Chest x-ray April 25, 2019 HISTORY: Presurgical. TECHNIQUE: Frontal and lateral views of the chest are obtained. FINDINGS: Elevated left hemidiaphragm is present. There is no focal air space opacity, pleural effus ion, or pneumothorax seen. The cardiac silhouette size is stable and mildly enlarged. Metallic ancho r right humeral head level is present. Osseous structures are demineralized with exaggerated thoracic kyphosis present. IMPRESSION: Mild cardiomegaly without acute pulmonary process.
== END ==
LOC: RADXRMAIN 11:01
PROVIDERS: ATTEND Internal Medicine Geriatric Medicine
DX: I51.7 Cardiomegaly (principal)
CPT/HCPCS: 71046

== ENCOUNTER → 2019-09-11 | Outpatient (CLI) | payer MEDICARE ==
--- NOTE | 2019-09-11 14:38 | CT ---
EXAMINATION TYPE: CT brain wo con DATE OF EXAM: 09/11/2019 COMPARISON: 04/25/2019 HISTORY: Idiopathic normal pressure hydrocephalus CT DLP: [address] of the brain was performed. Moderate and stable central atrophy redemonstrated. Shunt catheter noted entering via the posterior r ight parietal region with its distal tip within the right lateral ventricle anteriorly. There is no evidence for intracranial hemorrhage or sulcal effacement. There is decreased attenuation about the periventricular white matter and deep white matter of both c erebral hemispheres, compatible with chronic small vessel ischemia. Differential diagnosis does inclu de demyelination. No mass effects are seen.No midline shift. Osseous calvarium is intact. If symptoms persist consider MRI. IMPRESSION: 1. Moderate and stable central atrophy redemonstrated. Shunt catheter noted entering via the posterio r right parietal region with its distal tip within the right lateral ventricle anteriorly.
== END | disposition home or self-care (01) ==
LOC: RADCTMAIN 13:37
PROVIDERS: ATTEND Neurological Surgery
DX: G31.9 Degenerative disease of nervous system, unspecified (principal); G91.2 (Idiopathic) normal pressure hydrocephalus; Z98.2 Presence of cerebrospinal fluid drainage device
CPT/HCPCS: 70450

== ENCOUNTER → 2019-09-15 | Outpatient (CLI) | payer MEDICARE | END | disposition home or self-care (01) | LOC: RADUSWWP 13:39 | PROVIDERS: ATTEND Internal Medicine Infectious Disease | DX: G91.0 Communicating hydrocephalus (principal); L89.620 Pressure ulcer of left heel, unstageable | CPT/HCPCS: 93923 ==

== ENCOUNTER → 2019-10-15 | Outpatient (CLI) | payer MEDICARE ==
--- NOTE | 2019-10-15 12:29 | CT ---
EXAMINATION TYPE: CT brain wo con DATE OF EXAM: 10/15/2019 HISTORY: follow up to assess for hydrocephalus, presence of cerebrospinal fluid drainage device CT DLP: 892.1 mGycm. Automated Exposure Control for Dose Reduction was Utilized. TECHNIQUE: CT scan of the head is performed without contrast. COMPARISON: CT brain September 11, 2019 and older CTs. FINDINGS: There is no acute intracranial hemorrhage or midline shift identified. There is right par ietal clara hole with INVENTORY TECHNICIAN shunt catheter, tip is near level of frontal horn and right ventricle There i s diffuse ventricular and sulcal prominence consistent with diffuse cerebral atrophy. Ventricular si ze overall is slightly more prominent than sulcal effacement but not significantly changed from last 2 CTs There is low-attenuation in the deep and periventricular white matter consistent with chronic s mall vessel ischemic change. The globes are intact and the visualized sinuses are clear. Patchy so ft tissue density bilateral extraocular canals is felt to reflect cerumen. IMPRESSION: No acute intracranial hemorrhage or midline shift. There is diffuse age-related cerebra l atrophy and chronic small vessel ischemic change redemonstrated. Ventricular size is stable with r ight-sided INVENTORY TECHNICIAN shunt catheter in place. No significant change from most recent CT.
== END | disposition home or self-care (01) ==
LOC: RADCTMAIN 11:52
PROVIDERS: ATTEND Neurological Surgery
DX: G31.1 Senile degeneration of brain, not elsewhere classified (principal); I99.8 Other disorder of circulatory system; Z46.82 Encounter for fitting and adjustment of non-vascular catheter; Z98.2 Presence of cerebrospinal fluid drainage device
CPT/HCPCS: 70450

== ENCOUNTER → 2020-07-29 | Outpatient (CLI) | payer MEDICARE ==
--- NOTE | 2020-07-29 12:03 | CT ---
EXAMINATION TYPE: CT brain wo con DATE OF EXAM: 07/29/2020 COMPARISON: 10/15/2019 HISTORY: Headache, unspecified. Fall 4 days ago....hematoma CT DLP: 978.20 mGycm Automated exposure control for dose reduction was used. FINDINGS: There is no acute intracranial hemorrhage or midline shift identified. There is right parietal clara h ole with FOXING CLOSER shunt catheter, tip is near level of frontal horn and right ventricle There is diffuse ve ntricular and sulcal prominence consistent with diffuse cerebral atrophy. Ventricular size is stable relative to prior exam. There is a soft tissue hematoma overlying the left frontal bone measuring 2.6 cm mild prominence of the extra-axial CSF is new relative to the prior ex am and may represent small chronic subdural hygroma or hematoma. Additional small subcutaneous hemato ma along the superior margin of the left parietal bone measuring 1.2 cm. Report called to referring c linolvin on 07/29/2020 at 11:59 AM. IMPRESSION: 1. There appears to be soft tissue hematoma is along the left cerebral convexity with the largest prince suring 2.6 cm. Calvarium intact. 2. FOXING CLOSER shunt catheter with hydrocephalus similar in appearance to the prior exam. 3. There are low densities CSF prominence along both cerebral convexities which is new from the prior exam and suspicious for chronic subdural hematoma or hygroma.
== END | disposition home or self-care (01) ==
LOC: RADCTMAIN 11:18
PROVIDERS: ATTEND Nurse Practitioner Family
DX: M79.81 Nontraumatic hematoma of soft tissue (principal); G91.9 Hydrocephalus, unspecified; R90.89 Other abnormal findings on diagnostic imaging of central nervous system; Z98.2 Presence of cerebrospinal fluid drainage device
CPT/HCPCS: 70450

== ENCOUNTER 2021-07-05 12:01 | Observation (INO) | payer MEDICARE ==
[2021-07-05] MEDS ORDERED: SODIUM CHLORIDE 0.9% 1,000 ML IV STA (12:30)
[2021-07-05 12:53] LABS: Basophils # (A) 0.1 k/uL (0-0.2); Basophils % (A) 1 %; Eosinophils # (A) 0.1 k/uL (0-0.7); Eosinophils % (A) 2 %; HCT 36.1 % (34.0-46.0); HGB 11.9 gm/dL (11.4-16.0); Lymphocytes # (A) 1.5 k/uL (1.0-4.8); Lymphocytes % (A) 18 %; MCH 30.8 pg (25.0-35.0); MCV 93.6 fL (80.0-100.0); Mean Platelet Volume 7.9; Monocytes # (A) 0.5 k/uL (0-1.0); Monocytes % (A) 6 %; Neutrophils # (A) 5.9 k/uL (1.3-7.7); Neutrophils % (A) 72 %; Platelet Count 195 k/uL (150-450); RBC 3.86 m/uL (3.80-5.40); WBC 8.2 k/uL (3.8-10.6)
[2021-07-05 13:16] LABS: Partial Thromboplastin Time 28.7 sec (22.0-30.0)
[2021-07-05 13:17] LABS: Calcium 9.8 mg/dL (8.4-10.2); Potassium 4.3 mmol/L (3.5-5.1); Total Bilirubin 0.4 mg/dL (0.2-1.3); Total Protein 7.1 g/dL (6.3-8.2)
[2021-07-05 13:19] LABS: Appearance,Urine Clear (Clear); Bilirubin,Urine Negative (Negative); Blood,Urine Negative (Negative); Color,Urine Light Yellow; Glucose,Urine (UA) Negative (Negative); Ketones,Urine Negative (Negative); Leukocyte Esterase,Urine Negative (Negative); Nitrite,Urine Negative (Negative); Protein,Urine Negative (Negative); Specific Gravity,Urine 1.009 (1.001-1.035); Urobilinogen,Urine <2.0 mg/dL (<2.0)
--- NOTE | 2021-07-05 13:27 | XR ---
EXAMINATION TYPE: XR chest 2V DATE OF EXAM: 07/05/2021 COMPARISON: 06/22/2019 TECHNIQUE: PA and lateral views submitted. HISTORY: Altered mental status FINDINGS: Postsurgical change involving the shoulder. Arthropathy noted bilaterally. Suggestion of possible VENEER DRIER shunt or tubing overlying the chest.. Subsegmental changes left lung base. No pneumothorax. Degenerat jason changes spine. IMPRESSION: 1. Left basilar atelectasis versus early infiltrate.
--- NOTE | 2021-07-05 14:07 | CT ---
EXAMINATION TYPE: CT brain wo con DATE OF EXAM: 07/05/2021 COMPARISON: 08/12/2020 HISTORY: Slurred speech, left sided weakness. CT DLP: 1130.8 mGycm Automated exposure control for dose reduction was used. FINDINGS: Exam limited by artifact particularly posterior fossa, right temporal and occipital lobes. There is no acute intracranial hemorrhage or midline shift identified. There is right parietal clara h ole with CRACKLING PRESS OPERATOR shunt catheter, tip is near level of frontal horn and right ventricle There is diffuse ve ntricular and sulcal prominence consistent with diffuse cerebral atrophy. Ventricular size is stable relative to prior exam. There is mild prominence of the extra-axial CSF an d may represent small chronic subdural hygroma or hematoma. Similar in appearance to prior exam. There is low attenuation in the white matter which is nonspecific but most typical remote is seen. No midline shift or mass effect. Craniocervical junction maintained. Sella turcica has a normal appeara nce. Orbits are symmetric. Changes of chronic sinusitis are noted. IMPRESSION: 1. CRACKLING PRESS OPERATOR shunt catheter similar in appearance with evidence of hydrocephalus. Ventricular size is simila r to the prior exam. 2. Findings suggest chronic subdural hygroma or hematoma similar to the prior exam 3. Correlate for remote white matter ischemia. If concern for acute ischemia correlate with MRI as cl inically warranted.
--- NOTE | 2021-07-05 14:19 | CT ---
EXAMINATION TYPE: CT angio head neck DATE OF EXAM: 07/05/2021 HISTORY: Slurred speech, left sided weakness. Acute onset neuro deficit. COMPARISON: None. CT DLP: 340.6 mGycm. Automated Exposure Control for Dose Reduction was Utilized. TECHNIQUE: CTA scan of the head and neck are performed with IV Contrast, patient injected with 65 mL of Isovue 370, axial images are obtained, coronal and sagittal reformatted images are reviewed. 3D r econstructed images are created on an independent workstation and reviewed. FINDINGS: Carotid/Vascular Structures: Normal 3 vessel origin from the aortic arch. No significant plaque or st enosis. No significant plaque or stenosis in the common or internal carotid arteries bilaterally incl uding at the level of the bilateral carotid bulbs. Patent external carotid arteries bilaterally witho ut significant plaque or stenosis. Dominant left vertebral artery. Vertebral artery is patent to basilar junction. Patent small caliber right posterior communicating artery. Hypoplastic left posterior communicating artery. No significant focal stenosis or aneurysm in the posterior circulation. Patent anterior communicating artery. No si gnificant focal stenosis or aneurysm in the anterior circulation. Other: Right parietal clara hole with LOCKMAKER shunt catheter terminating at the level of frontal horns rede monstrated. Slight underlying scoliotic curvature. IMPRESSION: No significant stenosis in common or internal carotid arteries bilaterally. No significa nt stenosis or aneurysm at the level of the [place]. NASCET criteria was used in interpretation of this exam?
--- NOTE | 2021-07-05 14:25 | ED ---
Neuro HPI - General Chief Complaint: Neuro Symptoms/Deficit Stated Complaint: left side weakness, slurred speech Time Seen by Provider: 07/05/21 12:25 Source: patient, family, RN notes reviewed Mode of arrival: ambulatory Limitations: no limitations - History of Present Illness Is the patient presenting with stroke symptoms?: No Initial Comments: Patient is an 86-year-old female that presents to the emergency department with . notes the patient does have a history of dementia recurrent UTIs. He notes that her previous UTI showed symptoms similar to today's presentation but today's or worse. He noted that her speaking has been confusing. He notes that she did have some weakness. Patient was otherwise w ell-appearing. She had fluid speech answered questions appropriately. Patient was otherwise a poor historian. notes that he wanted a scan done due to patient having a history of hydrocephalus and [place] He notes he has not followed up with surgeon in almost a year. He notes that he will contact them this got up a follow-up appointment. Patient denied any chest pain shortness of breath headache nausea vomiting diarrhea constipation fever fatigue chills. - Related Data Home Medications: Home Medications Medication Instructions Recorded Confirmed Amitriptyline HCl [Elavil] 25 mg PO HS 11/08/17 04/25/19 DULoxetine HCL [Cymbalta] 60 mg PO DAILY 03/07/19 04/25/19 Oxybutynin Chloride 5 mg PO BID 03/07/19 04/25/19 Atorvastatin [Lipitor] 80 mg PO HS 03/08/19 04/25/19 Cyanocobalamin (Vitamin B-12) 1,000 mcg PO DAILY 03/08/19 04/25/19 [Vitamin B-12] Naproxen Sodium [Aleve] 440 mg PO BID PRN 04/25/19 04/25/19 Previous Rx's Medication Instructions Recorded glipiZIDE [Glucotrol] 2.5 mg PO AC-BID tab 03/10/19 Gabapentin 600 mg PO BID #6 tablet 04/28/19 Insulin Detemir [Levemir Flextouch 15 unit SQ HS #0 04/28/19 Pen] Allergies/Adverse Reactions: Allergies Allergy/AdvReac Type Severity Reaction Status Date / Time No Known Allergies Allergy Verified 07/05/21 12:03 Review of Systems ROS Statement: Those systems with pertinent positive or pertinent negative responses have been documented in the HPI. ROS Other: All systems not noted in ROS Statement are negative. General Exam Limitations: no limitations Stroke MDM - Lab Data Result diagrams: 07/05/21 12:42 07/05/21 12:42 Lab Results 07/05/21 07/05/21 07/05/21 Range/Units 12:42 12:42 12:42 WBC 8.2 (3.8-10.6) k/uL RBC 3.86 (3.80-5.40) m/uL Hgb 11.9 (11.4-16.0) gm/dL Hct 36.1 (34.0-46.0) % MCV 93.6 (80.0-100.0) fL MCH 30.8 (25.0-35.0) pg MCHC 33.0 (31.0-37.0) g/dL RDW 14.0 (11.5-15.5) % Plt Count 195 (150-450) k/uL MPV 7.9 Neutrophils % 72 % Lymphocytes % 18 % Monocytes % 6 % Eosinophils % 2 % Basophils % 1 % Neutrophils # 5.9 (1.3-7.7) k/uL Lymphocytes # 1.5 (1.0-4.8) k/uL Monocytes # 0.5 (0-1.0) k/uL Eosinophils # 0.1 (0-0.7) k/uL Basophils # 0.1 (0-0.2) k/uL PT 11.0 (9.0-12.0) sec INR 1.0 (<1.2) APTT 28.7 (22.0-30.0) sec Sodium 138 (137-145) mmol/L Potassium 4.3 (3.5-5.1) mmol/L Chloride 100 (98-107) mmol/L Carbon Dioxide 29 (22-30) mmol/L Anion Gap 9 mmol/L BUN 34 H (7-17) mg/dL Creatinine 1.08 H (0.52-1.04) mg/dL Est GFR (CKD-EPI)AfAm 55 (>60 ml/min/1.73 sqM) Est GFR (CKD-EPI)NonAf 47 (>60 ml/min/1.73 sqM) Glucose 182 H (74-99) mg/dL Calcium 9.8 (8.4-10.2) mg/dL Total Bilirubin 0.4 (0.2-1.3) mg/dL AST 32 (14-36) U/L ALT 35 H (4-34) U/L Alkaline Phosphatase 80 (38-126) U/L Troponin I (0.000-0.034) ng/mL Total Protein 7.1 (6.3-8.2) g/dL Albumin 4.0 (3.5-5.0) g/dL Urine Color Urine Appearance (Clear) Urine pH (5.0-8.0) Ur Specific [place] (1.001-1.035) Urine Protein (Negative) Urine Glucose (UA) (Negative) Urine Ketones (Negative) Urine Blood (Negative) Urine Nitrite (Negative) Urine Bilirubin (Negative) Urine Urobilinogen (<2.0) mg/dL Ur Leukocyte Esterase (Negative) 07/05/21 07/05/21 Range/Units 12:42 13:03 WBC (3.8-10.6) k/uL RBC (3.80-5.40) m/uL Hgb (11.4-16.0) gm/dL Hct (34.0-46.0) % MCV (80.0-100.0) fL MCH (25.0-35.0) pg MCHC (31.0-37.0) g/dL RDW (11.5-15.5) % Plt Count (150-450) k/uL MPV Neutrophils % % Lymphocytes % % Monocytes % % Eosinophils % % Basophils % % Neutrophils # (1.3-7.7) k/uL Lymphocytes # (1.0-4.8) k/uL Monocytes # (0-1.0) k/uL Eosinophils # (0-0.7) k/uL Basophils # (0-0.2) k/uL PT (9.0-12.0) sec INR (<1.2) APTT (22.0-30.0) sec Sodium (137-145) mmol/L Potassium (3.5-5.1) mmol/L Chloride (98-107) mmol/L Carbon Dioxide (22-30) mmol/L Anion Gap mmol/L BUN (7-17) mg/dL Creatinine (0.52-1.04) mg/dL Est GFR (CKD-EPI)AfAm (>60 ml/min/1.73 sqM) Est GFR (CKD-EPI)NonAf (>60 ml/min/1.73 sqM) Glucose (74-99) mg/dL Calcium (8.4-10.2) mg/dL Total Bilirubin (0.2-1.3) mg/dL AST (14-36) U/L ALT (4-34) U/L Alkaline Phosphatase (38-126) U/L Troponin I <0.012 (0.000-0.034) ng/mL Total Protein (6.3-8.2) g/dL Albumin (3.5-5.0) g/dL Urine Color Light Yellow Urine Appearance Clear (Clear) Urine pH 6.0 (5.0-8.0) Ur Specific [place] 1.009 (1.001-1.035) Urine Protein Negative (Negative) Urine Glucose (UA) Negative (Negative) Urine Ketones Negative (Negative) Urine Blood Negative (Negative) Urine Nitrite Negative (Negative) Urine Bilirubin Negative (Negative) Urine Urobilinogen <2.0 (<2.0) mg/dL Ur Leukocyte Esterase Negative (Negative) - NIH Stroke Scale 1a. Level of Consciousness: (0) alert 1b. LOC Questions: (0) answers correctly 1c. LOC Commands: (0) performs tasks correctly 2. Best Gaze: (0) normal 3. Visual: (0) no visual loss 4. Facial Palsy: (0) normal symmetrical movement 5a. Motor Arm Left: (0) no drift 5b. Motor Arm Right: (0) no drift 6a. Motor Leg Left: (0) no drift 6b. Motor Leg Right: (0) no drift 7. Limb Ataxia: (0) absent 8. Sensory: (0) normal 9. Best Language: (0) no aphasia 10. Dysarthria: (0) normal 11. Extinction/Inattention: (0) no abnormality - Thrombolytic Inclusion/Exclusion Thrombolytic Exclusion Criteria: Symptom Onset > 4.5 Hours - Medical Decision Making Patient is an 86-year-old female coming in with increased confusion and weakness per , history of dementia. Labs, 1 L normal saline, CT of the brain without contrast CT angiography, chest x-ray EKG, quality assurance monitor body labs: CBC unremarkable coagulation studies unremarkable chemistry shows increased BUN and creatinine most likely dehydration, troponin negative, urinalysis negative. CT angiography of the head and neck: No significant stenosis and common or internal carotid arteries bilaterally. No significant stenosis or aneurysm at the level of the [place]. CT of the brain: ORTHOTIC PRACTITIONER shunt catheter similar in appearance with evidence of hydrocephalus. Ventricular size is similar to the prior exam. Findings suggest chronic subdural hygroma or hematoma similar to prior exam. Correlate for r emote white matter ischemia. Chest x-ray: Left basilar atelectasis versus early infiltrate. Case discussed with Dr. Ch him a patient will be admitted for observation. Dr. Avery was consulted looks of the abdomen with neurology on consult. Bilateral ultrasound of the carotids and a echocardiogram ordered. - Radiology Data Radiology results: pending, image reviewed CT angiography of the head and neck: No significant stenosis and common or internal carotid arteries bilaterally. No significant stenosis or aneurysm at the level of the [place]. CT of the brain: ORTHOTIC PRACTITIONER shunt catheter similar in appearance with evidence of hydrocephalus. Ventricular size is similar to the prior exam. Findings suggest chronic subdural hygroma or hematoma similar to prior exam. Correlate for remote white matter ischemia. Chest x-ray: Left basilar atelectasis versus early infiltrate. - EKG Data -: EKG Interpreted by [place] EKG shows normal: sinus rhythm Rate: normal 07/05/21 14:25 Ventricular rate 76 bpm, NM interval 218 ms, QRS duration 128 ms, QTC 468 ms, PareT axes 45/-66/26, sinus rhythm with first-degree AV block, possible left atrial enlargement, right bundle branch block, left anterior fascicular block. Bifascicular block. Anterior infarct, age undetermined, abnormal ECG. Line EKG is similar to previous one done on 04/25/2019 07/05/21 14:26 Past Medical History Past Medical History: Diabetes Mellitus, Hyperlipidemia Additional Past Medical History / Comment(s): neuropathy, dizzy when stands, diabetic ulcer on left foot supposed to go to wound clinic History of Any Multi-Drug Resistant Organisms: None Reported Past Surgical History: Appendectomy, Cholecystectomy, Orthopedic Surgery Additional Past Surgical History / Comment(s): right shoulder Past Anesthesia/Blood Transfusion Reactions: No Reported Reaction Additional Past Anesthesia/Blood Transfusion Reaction / Comment(s): patient states never had blood transfusion Past Psychological History: No Psychological Hx Reported Past Alcohol Use History: None Reported Past Drug Use History: None Reported - Past Family History Mother Family Medical History: Diabetes Mellitus Course Vital Signs 07/05/21 07/05/21 12:03 14:07 Temperature 98 F Pulse Rate 96 71 Respiratory 18 18 Rate Blood Pressure 128/84 110/47 O2 Sat by Pulse 94 L 97 Oximetry Disposition Clinical Impression: Transient cerebral ischemia, Hydrocephalus, Dehydration Disposition: ADMITTED IP TO THIS [facility] Condition: Stable Referrals: Luis Avery MD [Primary Care Provider] - 1-2 days Time of Disposition: 15:13
[2021-07-05] MEDS ORDERED: NALOXONE 0.4 MG/ML 1 ML VIAL IV PRN (15:09)
[2021-07-05] MEDS: SODIUM CHLORIDE 0.9% 1,000 ML IV SCH (15:24)
--- NOTE | 2021-07-05 16:05 | US ---
EXAMINATION TYPE: US carotid duplex BILAT DATE OF EXAM: 07/05/2021 COMPARISON: CTA head and neck earlier today. CLINICAL HISTORY: TIA. Left sided weakness and slurred speech episode EXAM MEASUREMENTS: RIGHT: Peak Systolic Velocity (PSV) cm/sec ----- Right CCA: 71.1 ----- Right ICA: 68.0 ----- Right ECA: 44.8 ICA/CCA ratio: 1.0 RIGHT: End Diastole cm/sec ----- Right CCA: 12.9 ----- Right ICA: 20.8 ----- Right ECA: 0.0 LEFT: Peak Systolic Velocity (PSV) cm/sec ----- Left CCA: 59.1 ----- Left ICA: 71.7 ----- Left ECA: 39.7 ICA/CCA ratio: 1.2 LEFT: End Diastole cm/sec ----- Left CCA: 12.5 ----- Left ICA: 19.3 ----- Left ECA: 0.0 VERTEBRALS (direction of flow): Right Vertebral: Antegrade Left Vertebral: Antegrade Rhythm: Normal Very mild intimal wall thickening is noted at bilateral carotid bifurcation, but PSV is wnl. Incident al finding of multiple small nodules noted within the right thyroid. IMPRESSION: No hemodynamically significant stenosis in either internal carotid artery. Findings co rrelate with more sensitive same day CTA neck study. Criteria for Assigning % of Stenosis / Diameter reduction (Estimation based on the indirect measurements of the internal carotid artery velocities (ICA PSV). 1. Normal (no stenosis)=ICA PSV < 125 cm/s: ratio < 2.0: ICA EDV<40 cm/s. 2. Less than 50% stenosis=ICA PSV < 125 cm/s: ratio < 2.0: ICA EDV<40 cm/s. 3. 50 to 69% stenosis=ICA PSV of 125 to 230 cm/s: ration 2.0 ? 4.0: ICA EDV 40-100 cm/s. 4. Greater than 70% stenosis to near occlusion= ICA PSV > 230 cm/s: ratio > 4.0: ICA EDV > 100 cm/s. 5. Near occlusion= ICA PSV velocities may be low or undetectable: variable ratio and ICA EDV. 6. Total occlusion=unable to detect flow.
[2021-07-05 17:59] LABS: Glucose,Whole Blood 108 mg/dL (75-99)
[2021-07-05 20:14] LABS: Glucose,Whole Blood 119 mg/dL (75-99)
[2021-07-05] MEDS: INSULIN ASPART (NovoLOG) 100 UNIT/ML VIAL SQ SCH (20:28)
[2021-07-05] MEDS ORDERED: ALPRAZolam 0.25 MG TAB PO PRN (22:42)
--- NOTE | 2021-07-05 22:42 | P.HPIM ---
History of Present Illness H&P Date: 07/05/21 Chief Complaint: TIA, left-sided weakness and slurred speech. HISTORY OF PRESENT ILLNESS 86-year-old female one of my office patient with past medical history of type 2 diabetes, history of normal pressure hydrocephalus post LADLE [employer]ER HEL[employer] shunt, history of hyp ertension and hyperlipidemia along with a chronic kidney disease who brought to the emergency department at [facility] today accompanied with her son complaining that memory has been slightly bit worse patient had recurrent UTI causing problem she presented today with worsening symptom not been able to speak street has been more confused and developed to have left-sided weakness. She had history of normal pressure hydrocephalus with shunt place and has been seen Dr. Youngblood neurology regular basis. With her current symptoms ended up going for CT of the brain which showed no acute intracranial hemorrhage or midline shift the righth bur hole with [employer] shunt catheter tip near the level of the frontal horn and right ventricle. There is diffuse ventricle atrophy. No midline shift at the time there is slight change consistent with chronic sinusitis only. Her labs showed negative code red, normal CBC chemistry shows kidney function to be better than her baseline with blood sugar of 182. Normal troponin UA was negative as well. Patient was admitted to the hospital will be seen urology and we'll decide whether need to go for an MRI of the brain otherwise CTA and CT were negative. REVIEW OF SYSTEMS Constitutional: No fever, no chills, no night sweats. No weight change. No weakness, fatigue or lethargy. No daytime sleepiness.still slightly but co nfused. EENT: No headache. No blurred vision or double vision, no loss of vision. No loss of Hearing, no ringing in the ears, no dizziness. No nasal drainage or congestion. No epistaxis. No sore throat. Lungs: No shortness of breath, cough, no sputum production. No wheezing. Cardiovascular: No chest pain, no lower extremity edema. No palpitations. No paroxysmal nocturnal dyspnea. No orthopnea. No lightheadedness or dizziness. No syncopal episodes. Abdominal: No abdominal pain. No nausea, vomiting. No diarrhea. No constipation. No bloody or tarry stools.. No loss of appetite. Genitourinary: No dysuria, increased frequency, urgency. No urinary retention. Musculoskeletal: generalized muscle pain and myalgia. Integumentary: No wounds, no lesions. No rash or pruritus. No unusual bruising. No change in hair or nails. Neurologic: No aphasia. No facial droop. No change in mentation. No head injury. No headache. No paralysis. No paresthesia.mild confusion with worsening elena ntia. Psychiatric: No depression. No anxiety. No mood swings. Endocrine: No abnormal blood sugars. No weight change. No excessive sweating or thirst. No cold intolerance. SOCIAL HISTORY she does not smoke, nor could abuse, she was and lives with her son and she is dependent cannot drive at this point has been having trouble since her shunt was placed for normal pressure hydrocephalus. FAMILY HISTORY father age 60 from cancer, mother at age 93 from dementia and CVA, patient had no siblings. 2 children both living and well. PHYSICAL EXAMINATION Gen: This is Elderly the urine shows does not look in any respiratory distress still having problems finding the right words to express herself. HEENT: Head is atraumatic, normocephalic. Pupils equal, round. Sclerae is anicteric. NECK: Supple. No JVD. No lymphadenopathy. No thyromegaly. LUNGS: Clear to auscultation. No wheezes or rhonchi. No intercostal retractions. HEART: Regular rate and rhythm. No murmur. ABDOMEN: Soft. Bowel sounds are present. No masses. No tenderness. EXTREMITIES: No pedal edema. No calf tenderness. NEUROLOGICAL: Patient is awake, alert and oriented x3. Cranial nerves 2 through 12 are grossly intact. ASSESSMENT AND PLAN 1.CVA/TIA: With weakness of the left side along with worsening slurred speech. Patient be seen neurology, further testing including carotid and echo done pos sibly going for MRI of the brain by tomorrow. 2 altered mental status: Mmost likely from worsening dementia specially with her normal pressure hydrocephalus with a shunt continue current management and watch for any worsening symptoms. Also patient had mild dementia has been better since her normal pressure hydrocephalus was treated. 3 normal pressure hydrocephalus: Had [employer] shunt continue current management for now. 4 dementia: Has been under breast exam in 3 mg twice a day. 5 type 2 diabetes: Has been on Lantus 10 units daily along with Accu-Chek sliding scales coverage. 6 hypertension: Continue amlodipine 2.5 mg a day patient was on midodrine to bring the blood pressure up because was very low last few weeks. 7 chronic neuropathy: Has been on amitriptyline 20 mg at bedtime. 8 stage II chronic kidney disease: Continue to avoid any nephrotoxic agent at this point. 9 GI prophylaxis: Patient be on Pepcid 20 mg daily. 10 DVT prophylaxis: Patient will be on heparin subcutaneous. 11. COVID-19 testing.was negative patient was admitted to the hospital during pandemic time Patient will be admitted to the hospital for a minimum of 2 night stay. Past Medical History Past Medical History: Diabetes Mellitus, Hyperlipidemia Additional Past Medical History / Comment(s): neuropathy, dizzy when stands, diabetic ulcer on left foot supposed to go to wound clinic hydrocephalus with vp business development shunt frequent uti History of Any Multi-Drug Resistant Organisms: None Reported Past Surgical History: Appendectomy, Cholecystectomy, Orthopedic Surgery Additional Past Surgical History / Comment(s): right shoulder vp business development shunt Past Anesthesia/Blood Transfusion Reactions: No Reported Reaction Additional Past Anesthesia/Blood Transfusion Reaction / Comment(s): patient states never had blood transfusion Past Psychological History: No Psychological Hx Reported Smoking Status: Never smoker Past Alcohol Use History: None Reported Past Drug Use History: None Reported - Past Family History Mother Family Medical History: Diabetes Mellitus Medications and Allergies Home Medications Medication Instructions Recorded Confirmed Type DULoxetine HCL [Cymbalta] 60 mg PO DAILY 03/07/19 07/05/21 History Atorvastatin [Lipitor] 80 mg PO HS 03/08/19 07/05/21 History ALPRAZolam [Xanax] 0.25 mg PO HS PRN 07/05/21 07/05/21 History Amitriptyline HCl 20 mg PO HS 07/05/21 07/05/21 History Cholecalciferol [Vitamin D3 (25 50 mcg PO W/SUPPER 07/05/21 07/05/21 History Mcg = 1000 Iu)] Cyanocobalamin [Vitamin B-12] 500 mcg PO DAILY 07/05/21 07/05/21 History Ergocalciferol (Vitamin D2) 1,250 mcg PO TH@1700 07/05/21 07/05/21 History [Drisdol (50,000 Iu)] Insulin Glargine,Hum.rec.anlog 10 unit SQ DAILY 07/05/21 07/05/21 History [Lantus Solostar Pen] Midodrine HCl 5 mg PO BID-W/MEALS 07/05/21 07/05/21 History Mirabegron [Myrbetriq] 25 mg PO DAILY 07/05/21 07/05/21 History Rivastigmine Tartrate [Exelon] 3 mg PO BID-W/MEALS 07/05/21 07/05/21 History amLODIPine [Norvasc] 2.5 mg PO DAILY 07/05/21 07/05/21 History Allergies Allergy/AdvReac Type Severity Reaction Status Date / Time No Known Allergies Allergy Verified 07/05/21 16:10 Physical Exam Vitals: Vital Signs Temp Pulse Pulse Resp BP BP Pulse Ox 07/05/21 20:00 97.4 F L 62 16 118/71 92 L 07/05/21 17:20 69 18 131/87 100 07/05/21 17:13 97.6 F 69 18 131/87 100 07/05/21 16:22 70 18 110/97 99 07/05/21 14:07 71 18 110/47 97 07/05/21 12:03 98 F 96 18 128/84 94 L Intake and Output 07/05/21 07/05/21 07/05/21 06:59 14:59 22:59 Output Total 350 Balance -350 Output: Urine 350 Other: Weight 62.142 kg 62.142 kg Results CBC & Chem 7: 07/05/21 12:42 07/05/21 12:42 Labs: Abnormal Lab Results - Last 24 Hours (Table) 07/05/21 07/05/21 07/05/21 Range/Units 12:42 17:58 20:13 BUN 34 H (7-17) mg/dL Creatinine 1.08 H (0.52-1.04) mg/dL Glucose 182 H (74-99) mg/dL POC Glucose (mg/dL) 108 H 119 H (75-99) mg/dL ALT 35 H (4-34) U/L Thrombosis Risk Factor Assmnt - Choose All That Apply Any of the Below Risk Factors Present?: Yes Other Risk Factors: No
[2021-07-06] MEDS: SODIUM CHLORIDE 0.9% 1,000 ML IV SCH ×3 (00:14→16:52)
[2021-07-06 07:25] LABS: Glucose,Whole Blood 106 mg/dL (75-99)
[2021-07-06] MEDS: HEPARIN SODIUM,PORCINE/PF 5,000 UNIT/0.5 ML SYRINGE SQ SCH ×2 (08:38→19:19)
[2021-07-06] MEDS: INSULIN DETEMIR (LEVEMIR) 100 UNIT/ML SYR SQ SCH (08:38)
[2021-07-06] MEDS: amLODIPine 2.5 MG TAB PO SCH (08:39)
[2021-07-06] MEDS: PANTOPRAZOLE 40 MG TABLET PO SCH (08:39)
[2021-07-06] MEDS: INSULIN ASPART (NovoLOG) 100 UNIT/ML VIAL SQ SCH ×4 (08:39→21:37)
[2021-07-06] MEDS: DONEPEZIL 10 MG TAB PO SCH (08:39)
[2021-07-06] MEDS: DULoxetine HCL 60 MG CAPSULE.DR PO SCH (08:39)
[2021-07-06] MEDS: NON FORMULARY DRUG (Mirabegron [Myrbetriq] 25 MG Tablet) PO SCH (08:40)
[2021-07-06] MEDS: MIDODRINE 5 MG TAB PO SCH ×2 (08:41→17:41)
[2021-07-06] MEDS: CYANOCOBALAMIN 500 MCG TAB PO SCH (10:00)
--- NOTE | 2021-07-06 11:19 | ECHOF ---
Referral Reason:TIA MEASUREMENTS -------- HEIGHT: 165.1 cm WEIGHT: 57.6 kg BP: RVIDd: 2.7 cm (< 3.3) IVSd: 0.8 cm (0.6 - 1.1) LVIDd: 3.4 cm (3.9 - 5.3) LVPWd: 1.0 cm (0.6 - 1.1) IVSs: 1.2 cm LVIDs: 1.4 cm LVPWs: 1.8 cm LAESV Index (A-L): 20.72 ml/m Ao Diam: 3.0 cm (2.0 - 3.7) AV Cusp: 2.0 cm (1.5 - 2.6) LA Diam: 4.0 cm (2.7 - 3.8) MV EXCURSION: 12.160 mm (> 18.000) MV EF SLOPE: 80 mm/s (70 - 150) EPSS: 0.1 cm MV E Karl: 0.42 m/s MV DecT: 214 ms MV A Karl: 0.92 m/s MV E/A Ratio: 0.46 RAP: 5.00 mmHg RVSP: 17.13 mmHg FINDINGS -------- Sinus rhythm. This was a technically good study. LV size, wall thickness and systolic function are normal, with an EF greater than 55%. The left tabatha tricular size is normal. The right ventricle is normal in size. Normal LA size by volume 22+/-6 ml/m2. The right atrial size is normal. There is mild aortic valve sclerosis. There is no evidence of aortic regurgitation. Mild mitral regurgitation is present. Mild tricuspid regurgitation present. Right ventricular systolic pressure is normal at < 35 mmHg. There is no pulmonic regurgitation present. The aortic root size is normal. There is no pericardial effusion. CONCLUSIONS -------- 1. LV size, wall thickness and systolic function are normal, with an EF greater than 55%. 2. Normal LA size by volume 22+/-6 ml/m2. 3. The right atrial size is normal. 4. There is mild aortic valve sclerosis. 5. Mild mitral regurgitation is present. 6. Mild tricuspid regurgitation present. 7. The aortic root size is normal. 8. There is no pericardial effusion. PR[employer] EXCHANGE OPERATOR: Kim Miguel RDCS
[2021-07-06 12:28] LABS: Glucose,Whole Blood 101 mg/dL (75-99)
--- NOTE | 2021-07-06 12:38 | P.CNNES ---
History of Present Illness Consult date: 07/06/21 Requesting physician: Derek Smith Reason for Consult: TIA History of Present Illness: Patient is a 86-year-old female with history of dementia, NPH, history of ventriculoperitoneal shunting, came to the hospital yesterday at 12:01 PM for altered mental status. Patient not able to provide any history. According to brii julien report, patient has been having problems with confusion, cognitive impairment for quite some time, but seems to be getting worse. She lives with her son Yash. She was brought to the hospital because there was some concern about slurring of speech, rule out CVA. Patient does admit that she used to fall a lot. Patient mainly mumbling, slurring speech because of dry mouth. Patient's vitals on arrival blood pressure 128/84, pulse rate 96, temperature 98.0. CT head revealed SIDE SHOW ENTERTAINER shunt catheter similar in appearance with evidence of hydrocephalus. Ventricular size is similar to the prior exam. 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 Correlate for remote white matter ischemia. If concern for acute ischemia, correlate with MRI. Chest x-ray shows left basilar atelectasis versus early infiltrate. CTA of head and neck showed no significant stenosis in, nor internal carotid arteries bilaterally. No significant stenosis or aneurysm at the level of nondalton of [place]. EKG shows sinus rhythm with first-degree AV block. Possible left atrial enlargement. Right bundle branch block. Left anterior fascicular block. Carotid Doppler revealed no hemodynamically significant stenosis in either ICA. Antegrade flow in both vertebral arteries. Blood test shows normal CBC, PT/PTT, electrolytes are normal, BUN 34 creatinine 1.08. AST normal, ALT minimally elevated 35. Troponin negative. UA negative. Coronavirus PCR negative. Patient's home medications include Cymbalta 60 mg, Lipitor 80 mg, midodrine, Elavil 20 mg, insulin 10 units, Exelon 3 mg twice a day, number backtrack, B12, amlodipine. Review of Systems Patient denies headache. Patient did not elect to answer to questions for review of systems. ROS unobtainable: due to mental status Past Medical History Past Medical History: Diabetes Mellitus, Hyperlipidemia Additional Past Medical History / Comment(s): neuropathy, dizzy when stands, diabetic ulcer on left foot supposed to go to wound clinic hydrocephalus with vp organizational development shunt frequent uti History of Any Multi-Drug Resistant Organisms: None Reported Past Surgical History: Appendectomy, Cholecystectomy, Orthopedic Surgery Additional Past Surgical History / Comment(s): right shoulder vp organizational development shunt Past Anesthesia/Blood Transfusion Reactions: No Reported Reaction Additional Past Anesthesia/Blood Transfusion Reaction / Comment(s): patient states never had blood transfusion Past Psychological History: No Psychological Hx Reported Smoking Status: Never smoker Past Alcohol Use History: None Reported Past Drug Use History: None Reported - Past Family History Mother Family Medical History: Diabetes Mellitus Medications and Allergies Home Medications Medication Instructions Recorded Confirmed Type RX: DULoxetine HCL [Cymbalta] 60 mg PO DAILY 03/07/19 07/05/21 History RX: Atorvastatin [Lipitor] 80 mg PO HS 03/08/19 07/05/21 History RX: ALPRAZolam [Xanax] 0.25 mg PO HS PRN 07/05/21 07/05/21 History RX: Cholecalciferol [Vitamin D3 50 mcg PO W/SUPPER 07/05/21 07/05/21 History (25 Mcg = 1000 Iu)] RX: Cyanocobalamin [Vitamin B-12] 500 mcg PO DAILY 07/05/21 07/05/21 History RX: Ergocalciferol (Vitamin D2) 1,250 mcg PO TH@1700 07/05/21 07/05/21 History [Drisdol (50,000 Iu)] RX: Midodrine HCl 5 mg PO BID-W/MEALS 07/05/21 07/05/21 History RX: Mirabegron [Myrbetriq] 25 mg PO DAILY 07/05/21 07/05/21 History RX: Rivastigmine Tartrate [Exelon] 3 mg PO BID-W/MEALS 07/05/21 07/05/21 History RX: amLODIPine [Norvasc] 2.5 mg PO DAILY 07/05/21 07/05/21 History RX: Aspirin 81 mg PO DAILY tab 07/07/21 Rx RX: Folic Acid 1 mg PO DAILY tab 07/07/21 Rx RX: Thiamine [Vitamin B-1] 100 mg PO DAILY tab 07/07/21 Rx Allergies Allergy/AdvReac Type Severity Reaction Status Date / Time No Known Allergies Allergy Verified 07/05/21 16:10 Physical Examination - Vital Signs Vital Signs: Vital Signs Temp Pulse Pulse Resp BP BP Pulse Ox 07/06/21 07:00 97.4 F L 93 18 125/66 98 07/06/21 02:00 97.9 F 56 L 19 137/68 96 07/05/21 20:00 97.4 F L 62 16 118/71 92 L 07/05/21 17:20 69 18 131/87 100 07/05/21 17:13 97.6 F 69 18 131/87 100 07/05/21 16:22 70 18 110/97 99 07/05/21 14:07 71 18 110/47 97 07/05/21 12:03 98 F 96 18 128/84 94 L Intake and Output 07/05/21 07/06/21 07/06/21 22:59 06:59 14:59 Output Total 850 200 Balance -850 -200 Output: Urine 850 200 Other: # Voids 1 Weight 62.142 kg Patient is an elderly female, in no acute distress. Patient appears somewhat delirious, tremulous, shaky. Patient is frequently calling out for Yash her son, who is not in the room. Patient is alert awake. Patient knows her name and date of , but thinks is 89 years old. She knows that she is in [facility]. She thinks it is March 2022. She knows name of the current president Mr. Barreto. Speech is mildly slurred because of dry mouth otherwise no aphasia or dysarthria. She can name and repeat very well. Attention, concentration and fund of knowledge is limited. Patient states that she is retired and worked in [employer]. She worked for long time. On cranial examination, pupils are round and reacting to light, visual vieira are full on confrontation, extraocular muscles are intact with no nystagmus. Face has very mild flattening of the right nasolabial fold. Her tongue is dry, protrudes to the midline. Palatal elevation and sensation normal, hearing is slightly decreased and shoulder shrug normal, facial sensation normal. On muscle strength testing, there is no pronator drift and the strength is normal in arms and legs distally and proximally, except deltoids which are weak likely from rotator cuff or shoulder issues. Deep tendon reflexes are 2 in the upper and lower limbs and plantars downgoing bilaterally. Sensory to touch is equal with no neglect. Cerebellar function showed no ataxia for [id number] testing. Patient is tremulous. Tone and bulk of muscles normal. She has some metabolic type tremors of outstretched hands. Gait not checked. On general examination, patient's mouth is dry, chapped lips. There is no carotid bruit or murmur, S1-S2 audible. Abdomen is soft nontender. Chest is clear. Peripheral pulses are present. No edema. Results - Laboratory Findings CBC and BMP: 07/05/21 12:42 07/05/21 12:42 Abnormal Lab Findings: Abnormal Labs 07/05/21 07/05/21 07/05/21 12:42 17:58 20:13 BUN 34 H Creatinine 1.08 H Glucose 182 H POC Glucose (mg/dL) 108 H 119 H ALT 35 H 07/06/21 07:23 BUN Creatinine Glucose POC Glucose (mg/dL) 106 H ALT Assessment and Plan Assessment: * Delirium, unclear cause. Rule out metabolic cause, occult infection. Possibly related to ?anticholinergic side effect of Elavil. * Slurred speech, possible due to dry mouth, rule out TIA. * Probable underlying dementia, at least mild to moderate degree. * History of normal pressure hydrocephalus, status post ventriculoperitoneal sh unting. * Diabetes * Hyperlipidemia Plan: * Patient has presented with possible TIA. Current examination is nonfocal. I suspect her slurred speech could be related to dry mouth. We will start aspirin 81 mg daily. * Patient's dry mouth is possibly related to side effect of amitriptyline. She may have delirium related to anticholinergic effect of amitriptyline. We will stop amitriptyline. * 2-D echo revealed normal left-ventricular size and wall thickness. EF is greater than 55%. Normal left atrial size. Right atrial size is normal. * CTA of head and neck showed no significant stenosis in, nor internal carotid arteries bilaterally. No significant stenosis or aneurysm at the level of nondalton of [place]. * We will check hemoglobin A1c, lipid panel. We will also check B12, folate, TSH, RPR, MMA, B6 and B1. Start thiamine empirically. * Continue Exelon. * Recommend patient to follow up with neurosurgeon for shunt patency. Patient has not seen her neurosurgeon for almost a year. * We will try to obtain collateral history from patient's son.
--- NOTE | 2021-07-06 12:42 | P.CRDCN ---
History of Present Illness Consult date: 07/06/21 History of present illness: HISTORY OF PRESENT ILLNESS: This is a 86-year-old female with a past medical history significant for normal pressure hydrocephalus with SYSTEMS INTEGRATION ADVISOR shunt, dementia, hypertension, diabetes, chronic kidney disease, and neuropathy. Patient does not follow with a paper tube cutter. We have been asked to see the patient in consultation for bradycardia. Patient is admitted to the hospital secondary to CVA/TIA. Patient is having difficulty swallowing. She had a coughing spell this morning with vasovagal response with bradycardia in the 40s. Patient examined at the bedside. Patient is confused and unable to provide much history. She currently denies chest pain or pressure. Denies shortness of breath. She is undergoing swallow evaluation by speech therapy at the time of my examination. She is currently in sinus mechanism. EKG reveals sinus rhythm with first degree AV block. Right bundle branch block. Left anterior fascicular block. Chest xray left basilar atelectasis versus early infiltrate Laboratory data: WBC 8.2. Hemoglobin 11.9. Platelet count 195. Sodium 138. Potassium 4.3. BUN 34. Creatinine 1.08. Current home cardiac medications include Norvasc 2.5 mg daily, Lipitor 80 mg daily, Midodrine 5mg with meals Most recent echocardiogram obtained revealed ejection fraction greater than 55%, mild mitral regurgitation, and mild tricuspid regurgitation REVIEW OF SYSTEMS: At the time of my exam: CONSTITUTIONAL: Denies fever or chills. HEENT: Denies blurred vision, vision changes, or eye pain. Denies hemoptysis CARDIOVASCULAR: Denies chest pain. Denies orthopnea. Denies PND. Denies palpitations RESPIRATORY: Denies shortness of breath. GASTROINTESTINAL: Denies abdominal pain. Denies nausea or vomiting. HEMATOLOGIC: Denies bleeding disorders. GENITOURINARY: Denies any blood in urine. SKIN: Denies pruitis. Denies rash. PHYSICAL EXAM: VITAL SIGNS: Reviewed. GENERAL: Well-developed in no acute distress. HEENT: Head is normocephalic. Pupils are equal, round. Sclerae anicteric. Mucous membranes of the mouth are moist. Neck supple. No JVD or thyromegaly LUNGS: Respirations even and unlabored. Lungs essentially clear to auscultation bilaterally. HEART: Regular rate and rhythm. S1 and S2 heard. ABDOMEN: Soft. Nondistended. Nontender. EXTREMITIES: Normal range of motion. No clubbing or cyanosis. Peripheral pulses intact. No lower extremity edema NEUROLOGIC: Awake and alert. Oriented x 3. ASSESSMENT: CVA/TIA Sinus bradycardia secondary to vasovagal episode, resolved Normal pressure hydrocephalus with previous SYSTEMS INTEGRATION ADVISOR shunt Hypertension Chronic kidney disease Diabetes Dementia PLAN: Patients bradycardia likely caused by vasovagal episode this morning as the patient was having a coughing spell She is not on any AV emma blocking agents No further bradycardia noted 2D echo obtained and reviewed Continue telemetry monitoring No further recommendations from a cardiac standpoint We will sign off. Please reconsult if needed. Nurse practitioner note has been reviewed by physician. Signing provider agrees with the documented findings, assessment, and plan of care. Past Medical History Past Medical History: Diabetes Mellitus, Hyperlipidemia Additional Past Medical History / Comment(s): neuropathy, dizzy when stands, diabetic ulcer on left foot supposed to go to wound clinic hydrocephalus with svp operations shunt frequent uti History of Any Multi-Drug Resistant Organisms: None Reported Past Surgical History: Appendectomy, Cholecystectomy, Orthopedic Surgery Additional Past Surgical History / Comment(s): right shoulder svp operations shunt Past Anesthesia/Blood Transfusion Reactions: No Reported Reaction Additional Past Anesthesia/Blood Transfusion Reaction / Comment(s): patient states never had blood transfusion Past Psychological History: No Psychological Hx Reported Smoking Status: Never smoker Past Alcohol Use History: None Reported Past Drug Use History: None Reported - Past Family History Mother Family Medical History: Diabetes Mellitus Medications and Allergies Home Medications Medication Instructions Recorded Confirmed Type DULoxetine HCL [Cymbalta] 60 mg PO DAILY 03/07/19 07/05/21 History Atorvastatin [Lipitor] 80 mg PO HS 03/08/19 07/05/21 History ALPRAZolam [Xanax] 0.25 mg PO HS PRN 07/05/21 07/05/21 History Amitriptyline HCl 20 mg PO HS 07/05/21 07/05/21 History Cholecalciferol [Vitamin D3 (25 50 mcg PO W/SUPPER 07/05/21 07/05/21 History Mcg = 1000 Iu)] Cyanocobalamin [Vitamin B-12] 500 mcg PO DAILY 07/05/21 07/05/21 History Ergocalciferol (Vitamin D2) 1,250 mcg PO TH@1700 07/05/21 07/05/21 History [Drisdol (50,000 Iu)] Insulin Glargine,Hum.rec.anlog 10 unit SQ DAILY 07/05/21 07/05/21 History [Lantus Solostar Pen] Midodrine HCl 5 mg PO BID-W/MEALS 07/05/21 07/05/21 History Mirabegron [Myrbetriq] 25 mg PO DAILY 07/05/21 07/05/21 History Rivastigmine Tartrate [Exelon] 3 mg PO BID-W/MEALS 07/05/21 07/05/21 History amLODIPine [Norvasc] 2.5 mg PO DAILY 07/05/21 07/05/21 History Allergies Allergy/AdvReac Type Severity Reaction Status Date / Time No Known Allergies Allergy Verified 07/05/21 16:10 Physical Exam Vitals: Vital Signs Temp Pulse Pulse Resp BP BP Pulse Ox 07/06/21 07:00 97.4 F L 93 18 125/66 98 07/06/21 02:00 97.9 F 56 L 19 137/68 96 07/05/21 20:00 97.4 F L 62 16 118/71 92 L 07/05/21 17:20 69 18 131/87 100 07/05/21 17:13 97.6 F 69 18 131/87 100 07/05/21 16:22 70 18 110/97 99 07/05/21 14:07 71 18 110/47 97 Intake and Output 07/05/21 07/06/21 07/06/21 22:59 06:59 14:59 Output Total 850 200 550 Balance -850 -200 -550 Output: Urine 850 200 550 Other: # Voids 1 Weight 62.142 kg Results 07/05/21 12:42 07/05/21 12:42 Cardiac Enzymes 07/05/21 07/05/21 Range/Units 12:42 12:42 AST 32 (14-36) U/L Troponin I <0.012 (0.000-0.034) ng/mL Coagulation 07/05/21 Range/Units 12:42 PT 11.0 (9.0-12.0) sec APTT 28.7 (22.0-30.0) sec CBC 07/05/21 Range/Units 12:42 WBC 8.2 (3.8-10.6) k/uL RBC 3.86 (3.80-5.40) m/uL Hgb 11.9 (11.4-16.0) gm/dL Hct 36.1 (34.0-46.0) % Plt Count 195 (150-450) k/uL Comprehensive Metabolic Panel 07/05/21 Range/Units 12:42 Sodium 138 (137-145) mmol/L Potassium 4.3 (3.5-5.1) mmol/L Chloride 100 (98-107) mmol/L Carbon Dioxide 29 (22-30) mmol/L BUN 34 H (7-17) mg/dL Creatinine 1.08 H (0.52-1.04) mg/dL Glucose 182 H (74-99) mg/dL Calcium 9.8 (8.4-10.2) mg/dL AST 32 (14-36) U/L ALT 35 H (4-34) U/L Alkaline Phosphatase 80 (38-126) U/L Total Protein 7.1 (6.3-8.2) g/dL Albumin 4.0 (3.5-5.0) g/dL Current Medications Generic Name Dose Route Start Last Admin Trade Name Freq PRN Reason Stop Dose Admin Alprazolam 0.25 mg 07/05/21 22:42 07/06/21 00:23 Alprazolam 0.25 Mg Tab PO 0.25 mg HS PRN Administration Anxiety Amitriptyline HCl 20 mg 07/06/21 21:00 Amitriptyline Hcl 10 Mg Tab PO HS LINDA Amlodipine Besylate 2.5 mg 07/06/21 09:00 07/06/21 08:39 Amlodipine 2.5 Mg Tab PO 2.5 mg DAILY LINDA Administration Atorvastatin Calcium 80 mg 07/06/21 21:00 Atorvastatin 80 Mg Tab PO HS LINDA Cholecalciferol 50 mcg 07/06/21 17:30 Cholecalciferol 25 Mcg (1000 Iu) Tablet PO W/SUPPER LINDA Cyanocobalamin 500 mcg 07/06/21 09:00 07/06/21 10:00 Cyanocobalamin 500 Mcg Tab PO Not Given DAILY LINDA Donepezil HCl 10 mg 07/06/21 09:00 07/06/21 08:39 Donepezil 10 Mg Tab PO 10 mg DAILY LINDA Administration Duloxetine HCl 60 mg 07/06/21 09:00 07/06/21 08:39 Duloxetine Hcl 60 Mg Capsule. PO 60 mg DAILY LINDA Administration Ergocalciferol 1,250 mcg 07/06/21 17:00 Ergocalciferol 1,250 Mcg (50,000 Iu) Capsule PO TH@1700 LINDA Heparin Sodium (Porcine) 5,000 unit 07/06/21 09:00 07/06/21 08:38 Heparin Sodium,Porcine/Pf 5,000 Unit/0.5 Ml Syringe SQ 5,000 unit Q12HR LINDA Administration Sodium Chloride 1,000 mls @ 130 mls/hr 07/05/21 15:15 07/06/21 09:57 Saline 0.9% IV 130 mls/hr .[id number] [facility] Administration Insulin Aspart 0 unit 07/05/21 21:00 07/06/21 08:39 Insulin Aspart (Novolog) 100 Unit/Ml Vial SQ Not Given ACHS [facility] Protocol Insulin Detemir 10 unit 07/06/21 09:00 07/06/21 08:38 Insulin Detemir (Levemir) 100 Unit/Ml Syr SQ 10 unit DAILY [facility] Administration Midodrine 5 mg 07/06/21 07:30 07/06/21 08:41 Midodrine 5 Mg Tab PO Not Given BID-W/MEALS [facility] Naloxone HCl 0.2 mg 07/05/21 15:09 Naloxone 0.4 Mg/Ml 1 Ml Vial IV Q2M PRN Opioid Reversal Non-Formulary Medication 25 mg 07/06/21 09:00 07/06/21 08:40 Mirabegron [Myrbetriq] PO Not Given DAILY [facility] Pantoprazole Sodium 40 mg 07/06/21 07:30 07/06/21 08:39 Pantoprazole 40 Mg Tablet PO 40 mg [id number] LINDA Administration Intake and Output 07/05/21 07/06/21 07/06/21 22:59 06:59 14:59 Output Total 850 200 550 Balance -850 -200 -550 Output: Urine 850 200 550 Other: # Voids 1 Weight 62.142 kg 07/05/21 12:42 07/05/21 12:42
--- NOTE | 2021-07-06 13:29 | P.PN ---
Subjective Progress Note Date: 07/06/21 HISTORY OF PRESENT ILLNESS 86-year-old female one of my office patient with past medical history of type 2 diabetes, history of normal pressure hydrocephalus post HORSE STUD MANAGER shunt, history of hypertension and hyperlipidemia along with a chronic kidney disease who brought to the emergency department at [facility] today accompanied with her son complaining that memory has been slightly bit worse patient had recurrent UTI causing problem she presented today with worsening symptom not been able to speak street has been more confused and developed to have left-sided weakness. She had history of normal pressure hydrocephalus with shunt place and has been seen Dr. Youngblood neurology regular basis. With her current symptoms ended up going for CT of the brain which showed no acute intracranial hemorrhage or midline shift the righth bur hole with HORSE STUD MANAGER shunt catheter tip near the level of the frontal horn and right ventricle. There is diffuse ventricle atrophy. No midline shift at the time there is slight change consistent with chronic sinusitis only. Her labs showed negative covid, normal CBC chemistry shows kidney function to be better than her baseline with blood sugar of 182. Normal troponin UA was negative as well. Patient was admitted to the hospital will be seen neurology and we'll decide whether need to go for an MRI of the brain otherwise CTA and CT were negative. 07/06: CT angiogram of the head and neck revealed no significant stenosis and common or internal carotid arteries bilaterally. No significant stenosis or aneurysm at the [place] of [place]. Carotid ultrasound revealed no hemodynamically significant stenosis in either internal carotid artery. Echocardiogram reveals EF greater than 55%, mild aortic valve sclerosis, mild mitral regurgitation, mild tricuspid regurgitation. Patient has been afebrile, heart rate 56, blood pressure 137/68, pulse ox 96% on room air. Patient had a choking episode this morning with heart rate dropping into the 40s, sinus bradycardia. Consult with speech therapy and cardiology been added. PT and OT consults are in place. Speech is improved from yesterday the patient is a little more confused from yesterday. Patient seen by neurology for TIA possible, possible anti-cholinergic effect of amitriptyline with recommendations for aspirin 81 mg daily continue Exelon, laboratory studies. Recommended follow-up with neurosurgeon for shunt patency. Dr. Avery discussed plan with patient's son over the phone, he is open to looking at subacute rehab. REVIEW OF SYSTEMS Constitutional: No fever, no chills, no night sweats. No weight change. No weakness, fatigue or lethargy. No daytime sleepiness.still slightly but confused. EENT: No headache. No blurred vision or double vision, no loss of vision. No loss of Hearing, no ringing in the ears, no dizziness. No nasal drainage or congestion. No epistaxis. No sore throat. Lungs: No shortness of breath, cough, no sputum production. No wheezing. Choking episode this morning. Cardiovascular: No chest pain, no lower extremity edema. No palpitations. No paroxysmal nocturnal dyspnea. No orthopnea. No lightheadedness or dizziness. No syncopal episodes. Abdominal: No abdominal pain. No nausea, vomiting. No diarrhea. No constipation. No bloody or tarry stools.. No loss of appetite. Genitourinary: No dysuria, increased frequency, urgency. No urinary retention. Musculoskeletal: generalized muscle pain and myalgia. Integumentary: No wounds, no lesions. No rash or pruritus. No unusual bruising. No change in hair or nails. Neurologic: No aphasia. No facial droop. Noted change in mentation. No head injury. No headache. No paralysis. No paresthesia.mild confusion with worsening dementia. Psychiatric: No depression. No anxiety. No mood swings. Endocrine: No abnormal blood sugars. No weight change. No excessive sweating or thirst. No cold intolerance. PHYSICAL EXAMINATION Gen: This is Elderly the urine shows does not look in any respiratory distress still having problems finding the right words to express herself. HEENT: Head is atraumatic, normocephalic. Pupils equal, round. Sclerae is anicteric. NECK: Supple. No JVD. No lymphadenopathy. No thyromegaly. LUNGS: Clear to auscultation. No wheezes or rhonchi. No intercostal retractions. HEART: Regular rate and rhythm. No murmur. ABDOMEN: Soft. Bowel sounds are present. No masses. No tenderness. EXTREMITIES: No pedal edema. No calf tenderness. NEUROLOGICAL: Patient is awake, alert and oriented to person only. Cranial nerves 2 through 12 are grossly intact. ASSESSMENT AND PLAN 1. Possible TIA, possible anticholinergic effect of Elavil: With weakness of the left side along with worsening slurred speech. Neurology consult appreciated. 2. Metabolic encephalopathy most likely related to worsening dementia and her normal pressure hydrocephalus with a shunt continue current management and watch for any worsening symptoms. Also patient had mild dementia has been better since her normal pressure hydrocephalus was treated. 3 normal pressure hydrocephalus: Had HORSE STUD MANAGER shunt continue current management for now. Patient to follow-up with neurosurgeon regarding HORSE STUD MANAGER shunt patency. 4 dementia: Has been Exelon 3 mg twice a day. 5 type 2 diabetes: Has been on Lantus 10 units daily along with Accu-Chek sliding scales coverage. 6 hypertension: Continue amlodipine 2.5 mg a day patient was on midodrine to bring the blood pressure up because was very low last few weeks. 7 chronic neuropathy: Has been on amitriptyline 20 mg at bedtime. 8 stage II chronic kidney disease: Continue to avoid any nephrotoxic agent at this point. 9 GI prophylaxis: Patient be on Pepcid 20 mg daily. 10 DVT prophylaxis: Patient will be on heparin subcutaneous. 11. Choking episode. Speech therapy added. 12. Bradycardia. Cardiology consult appreciated. 13 COVID-19 testing.was negative patient was admitted to the hospital during pandemic time DISCHARGE PLAN Possible subacute rehab. Impression and plan of care have been directed as dictated by the signing physi cian. Carolann Molina nurse practitioner acting as scribe for signing physician. Objective - Vital Signs Vital signs: Vital Signs Temp 97.9 F 07/06/21 02:00 Pulse 56 L 07/06/21 02:00 Resp 19 07/06/21 02:00 BP 137/68 07/06/21 02:00 Pulse Ox 96 07/06/21 02:00 Intake & Output 07/05/21 07/06/21 07/06/21 18:59 06:59 18:59 Output Total 350 700 Balance -350 -700 Weight 62.142 kg Output: Urine 350 700 Other: # Voids 1 - Labs CBC & Chem 7: 07/05/21 12:42 07/05/21 12:42 Labs: Abnormal Lab Results - Last 24 Hours (Table) 07/05/21 07/05/21 07/05/21 Range/Units 12:42 17:58 20:13 BUN 34 H (7-17) mg/dL Creatinine 1.08 H (0.52-1.04) mg/dL Glucose 182 H (74-99) mg/dL POC Glucose (mg/dL) 108 H 119 H (75-99) mg/dL ALT 35 H (4-34) U/L 07/06/ Range/Units 07:23 BUN (7-17) mg/dL Creatinine (0.52-1.04) mg/dL Glucose (74-99) mg/dL POC Glucose (mg/dL) 106 H (75-99) mg/dL ALT (4-34) U/L
[2021-07-06] MEDS ORDERED: ERGOCALCIFEROL 1,250 MCG (50,000 IU) CAPSULE PO SCH (17:00)
[2021-07-06] MEDS: ASPIRIN 81 MG PO SCH (17:15)
[2021-07-06] MEDS ORDERED: CHOLECALCIFEROL 25 MCG (1000 IU) TABLET PO SCH (17:30)
[2021-07-06 17:41] LABS: Glucose,Whole Blood 76 mg/dL (75-99)
[2021-07-06] MEDS ORDERED: ATORVASTATIN 80 MG TAB PO SCH (21:00)
[2021-07-06] MEDS ORDERED: AMITRIPTYLINE HCL 10 MG TAB PO SCH (21:00)
[2021-07-06 21:31] LABS: Glucose,Whole Blood 91 mg/dL (75-99)
[2021-07-07] MEDS: SODIUM CHLORIDE 0.9% 1,000 ML IV SCH ×2 (02:32→09:34)
[2021-07-07 07:25] LABS: Glucose,Whole Blood 64 mg/dL (75-99)
[2021-07-07] MEDS: INSULIN ASPART (NovoLOG) 100 UNIT/ML VIAL SQ SCH ×2 (07:30→13:03)
[2021-07-07 07:41] LABS: Glucose,Whole Blood 69 mg/dL (75-99)
[2021-07-07 07:56] LABS: Glucose,Whole Blood 71 mg/dL (75-99)
[2021-07-07] MEDS ORDERED: THIAMINE 100 MG TAB PO SCH (09:00)
[2021-07-07] MEDS: MIDODRINE 5 MG TAB PO SCH (09:34)
[2021-07-07] MEDS: PANTOPRAZOLE 40 MG TABLET PO SCH (09:35)
[2021-07-07] MEDS: CYANOCOBALAMIN 500 MCG TAB PO SCH (09:37)
[2021-07-07] MEDS: ASPIRIN 81 MG PO SCH (09:37)
[2021-07-07] MEDS: HEPARIN SODIUM,PORCINE/PF 5,000 UNIT/0.5 ML SYRINGE SQ SCH (09:37)
[2021-07-07] MEDS: NON FORMULARY DRUG (Mirabegron [Myrbetriq] 25 MG Tablet) PO SCH (09:37)
[2021-07-07] MEDS: DONEPEZIL 10 MG TAB PO SCH (09:37)
[2021-07-07] MEDS: DULoxetine HCL 60 MG CAPSULE.DR PO SCH (09:42)
[2021-07-07] MEDS: INSULIN DETEMIR (LEVEMIR) 100 UNIT/ML SYR SQ SCH (09:52)
--- NOTE | 2021-07-07 10:16 | P.DS ---
Providers Date of admission: 07/06/21 10:08 Expected date of discharge: 07/07/21 Attending physician: Luis Avery Consults: 07/05/21 15:10 Consult Physician Urgent Consulting Provider: Deborah Frances Consult Reason/Comments: TIA Do you want consulting provider notified?: Yes Primary care physician: Luis Avery [facility] Course: HISTORY OF PRESENT ILLNESS 86-year-old female one of my office patient with past medical history of type 2 diabetes, history of normal pressure hydrocephalus post HOG OPERATOR shunt, history of hypertension and hyperlipidemia along with a chronic kidney disease who brought to the emergency department at [facility] today accompanied with her son complaining that memory has been slightly bit worse patient had recurrent UTI causing problem she presented today with worsening symptom not been able to speak street has been more confused and developed to have left-sided weakness. She had history of normal pressure hydrocephalus with shunt place and has been seen Dr. Youngblood neurology regular basis. With her current symptoms ended up going for CT of the brain which showed no acute intracranial hemorrhage or midline shift the righth bur hole with HOG OPERATOR shunt catheter tip near the level of the frontal horn and right ventricle. There is diffuse ventricle atrophy. No midline shift at the time there is slight change consistent with chronic sinusitis only. Her labs showed negative covid, normal CBC chemistry shows kidney function to be better than her baseline with blood sugar of 182. Normal troponin UA was negative as well. Patient was admitted to the hospital will be seen neurology and we'll decide whether need to go for an MRI of the brain otherwise CTA and CT were negative. 07/06: CT angiogram of the head and neck revealed no significant stenosis and common or internal carotid arteries bilaterally. No significant stenosis or aneurysm at the [place] of [place]. Carotid ultrasound revealed no hemodynamically significant stenosis in either internal carotid artery. Echocardiogram reveals EF greater than 55%, mild aortic valve sclerosis, mild mitral regurgitation, mild tricuspid regurgitation. Patient has been afebrile, heart rate 56, blood pressure 137/68, pulse ox 96% on room air. Patient had a choking episode this morning with heart rate dropping into the 40s, sinus bradycardia. Consult with speech therapy and cardiology been added. PT and OT consults are in place. Speech is improved from yesterday the patient is a little more confused from yesterday. Patient seen by neurology for TIA possible, possible anti-cholinergic effect of amitriptyline with recommendations for aspirin 81 mg daily continue Exelon, laboratory studies. Recommended follow-up with neurosurgeon for shunt patency. Dr. Avery discussed plan with patient's son over the phone, he is open to looking at subacute rehab. 07/07: Hemoglobin A1c was 6.4. Blood sugar this morning was 64 with repeat at 71. Patient is on her home dose of Lantus and we will discontinue and start patient on to avoid hypoglycemia. Treponema pallidum antibody nonreactive. Crit monitor has been a sinus rhythm, no further episodes of bradycardia. Patient has been seen by cardiology for bradycardia possibly vasovagal from coughing episode. Cardiology has subsequently signed off. Patient has been seen by physical therapy with recommendations for home care and 24 hour supervision. A is also been evaluated by speech therapy and swallow was within normal limits. No overt signs and symptoms of aspiration. Recommended regular texture diet and thin liquids and one-on-one medical laboratory assistant with meals. Discharge plan is to return home with family and [facility] care has been arranged. Patient will be discharged home in stable condition. Dr. Avery did contact patient's son with update. DISCHARGE DIAGNOSES 1. Possible TIA, possible anticholinergic effect of Elavil. 2. Metabolic encephalopathy most likely related to worsening dementia and her normal pressure hydrocephalus. 3 normal pressure hydrocephalus s/p HOG OPERATOR shunt. Patient to follow-up with neurosurgeon regarding HOG OPERATOR shunt patency. 4 dementia 5 type 2 diabetes 6 hypertension 7 chronic neuropathy 8 stage II chronic kidney disease 9 Choking episode. Speech therapy added. Patient showed no signs of aspiration. 10. Bradycardia secondary to vasovagal due to coughing episode. 11. COVID-19 testing was negative, patient was admitted to the hospital during pandemic time DISCHARGE PLAN Home with [facility]. Greater than 35 minutes was utilized and coordinating patient's discharge. Impression and plan of care have been directed as dictated by the signing physician. Carolann Molina nurse practitioner acting as scribe for signing physician. Patient Condition at Discharge: Stable Plan - Discharge Summary Discharge Rx Participant: Yes New Discharge Prescriptions: New Aspirin 81 mg PO DAILY tab Thiamine [Vitamin B-1] 100 mg PO DAILY tab Continue DULoxetine HCL [Cymbalta] 60 mg PO DAILY Atorvastatin [Lipitor] 80 mg PO HS ALPRAZolam [Xanax] 0.25 mg PO HS PRN PRN Reason: Anxiety Midodrine HCl 5 mg PO BID-W/MEALS Ergocalciferol (Vitamin D2) [Drisdol (50,000 Iu)] 1,250 mcg PO TH@1700 Cholecalciferol [Vitamin D3 (25 Mcg = 1000 Iu)] 50 mcg PO W/SUPPER Rivastigmine Tartrate [Exelon] 3 mg PO BID-W/MEALS Mirabegron [Myrbetriq] 25 mg PO DAILY Cyanocobalamin [Vitamin B-12] 500 mcg PO DAILY amLODIPine [Norvasc] 2.5 mg PO DAILY Discontinued Amitriptyline HCl 20 mg PO HS Insulin Glargine,Hum.rec.anlog [Lantus Solostar Pen] 10 unit SQ DAILY Discharge Medication List DULoxetine HCL [Cymbalta] 60 mg PO DAILY 03/07/19 [History] Atorvastatin [Lipitor] 80 mg PO HS 03/08/19 [History] ALPRAZolam [Xanax] 0.25 mg PO HS PRN 07/05/21 [History] Cholecalciferol [Vitamin D3 (25 Mcg = 1000 Iu)] 50 mcg PO W/SUPPER 07/05/21 [History] Cyanocobalamin [Vitamin B-12] 500 mcg PO DAILY 07/05/21 [History] Ergocalciferol (Vitamin D2) [Drisdol (50,000 Iu)] 1,250 mcg PO TH@1700 07/05/21 [History] Midodrine HCl 5 mg PO BID-W/MEALS 07/05/21 [History] Mirabegron [Myrbetriq] 25 mg PO DAILY 07/05/21 [History] Rivastigmine Tartrate [Exelon] 3 mg PO BID-W/MEALS 07/05/21 [History] amLODIPine [Norvasc] 2.5 mg PO DAILY 07/05/21 [History] Aspirin 81 mg PO DAILY tab 07/07/21 [Rx] Thiamine [Vitamin B-1] 100 mg PO DAILY tab 07/07/21 [Rx] Follow up Appointment(s)/Referral(s): [facility], [NON-STAFF] - 1-2 Days Luis Avery MD [Primary Care Provider] - 1 Week Activity/Diet/Wound Care/Special Instructions: [facility] can be contacted at [phone] for information regarding program. Discharge/Stand Alone Forms: Personal Residential Construction Instructor Discharge Disposition: HOME WITH HOME HEALTH SERVICES
[2021-07-07 11:42] LABS: Chol/HDL Ratio 1.97 Ratio; LDL Cholesterol,Calculated 39.8 mg/dL (0.0-131.0); VLDL Calculation 16.26 mg/dL (5.00-40.00)
[2021-07-07 12:11] LABS: Glucose,Whole Blood 146 mg/dL (75-99)
[2021-07-07] MEDS: amLODIPine 2.5 MG TAB PO SCH ×2 (13:03→16:41)
[2021-07-07] MEDS ORDERED: FOLIC ACID 1 MG TAB PO SCH (13:30)
[2021-07-07 16:40] VITALS: BP 144/82; PULSE 89; RESP 18; TEMP 98.1
--- NOTE | 2021-07-07 17:59 | P.PN ---
Subjective Progress Note Date: 07/07/21 Patient was seen for a follow-up. Patient continues to be delirious. Per nursing report, she is still confused. She moves all 4 extremities equally. No facial droopiness. No report of staring spells. No focal twitches observed by the nurse. I spoke to patient's son Yash on the phone. He states that patient has developed dementia about 5 years ago, which has slowly got worse. 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 aNthan Molina at [facility]. Patient has not been seen by neurosurgeon for over a year. Patient's son believes that dementia is getting worse for the last few months, particularly in the last 1 week. She was able to tell what she wanted, like [place] tree decorations. But now she was having difficulty expressing what she wants. Sometimes she does not remember her son or [id number]. No seizures have been ever reported. Patient has previously been seen by Dr. Dwyer. Patient was placed on Exelon. Patient's son does not remember if she was ever tried on Namenda. Patient's son states that she has been using walker for the last 3 years. Objective - Vital Signs Vital signs: Vital Signs Temp 98.1 F 07/07/21 15:00 Pulse 89 07/07/21 15:00 Resp 18 07/07/21 15:00 BP 144/82 07/07/21 15:00 Pulse Ox 98 07/07/21 15:00 Intake & Output 07/06/21 07/07/21 07/07/21 18:59 06:59 18:59 Intake Total 118 Output Total 1450 300 400 Balance -1450 -300 -282 Intake: Oral 118 Output: Urine 1450 300 400 Other: Voiding Method Incontinent # Voids 300 - Exam Patient is alert and awake. Less delirious. Her mouth is no more dry. Speech is slightly more clear. She would name objects like fork, spoon, but not able to name 4 items in front of her like beans or potato. Patient speaks sentences like "my eyes are watering". "I can't get my eyes open now". Patient stated "I've been wearing glasses since 5 years old". Patient not able to tell the month or the year. She is hard of hearing. Patient's pupils are round and reacting, visual vieira appears full on confrontation. She also blinks to visual threat bilaterally. Her tone is equal bilaterally. Muscle strength appears normal in the arms. She moves her legs equally. Sensations appears equal. - Labs CBC & Chem 7: 07/05/21 12:42 07/05/21 12:42 Labs: Abnormal Lab Results - Last 24 Hours (Table) 07/07/21 07/07/21 07/07/21 Range/Units 06:02 07:23 07:39 POC Glucose (mg/dL) 64 L 69 L (75-99) mg/dL Vitamin B12 1594.0 H (200.0-944.0) pg/mL 07/07/21 07/07/21 Range/Units 07:54 12:10 POC Glucose (mg/dL) 71 L 146 H (75-99) mg/dL Vitamin B12 (200.0-944.0) pg/mL Assessment and Plan Assessment: * Delirium, unclear cause. Rule out metabolic cause, occult infection. Possibly related to ?anticholinergic side effect of Elavil. * Slurred speech, possible due to dry mouth, rule out TIA. * History of dementia for 5 years, now at least moderate degree, slowly getting worse. * History of normal pressure hydrocephalus, status post ventriculoperitoneal shunting one year ago. * Diabetes * Hyperlipidemia Plan: * Continue aspirin 81 mg daily for stroke prevention. Patient has some degree of aphasia, which likely is related to advancing dementia and delirium. Examination otherwise is nonfocal. * Patient's dry mouth is possibly related to side effect of amitriptyline. She may have delirium related to anticholinergic effect of amitriptyline. We will stop amitriptyline. * 2-D echo revealed normal left-ventricular size and wall thickness. EF is greater than 55%. Normal left atrial size. Right atrial size is normal. * CTA of head and neck showed no significant stenosis in, nor internal carotid arteries bilaterally. No significant stenosis or aneurysm at the level of [place] of [place]. * Hemoglobin A1c 6.4, lipid panel also controlled cholesterol 114, LDL 39.8, HDL 57 and triglycerides 81. * B12 1594, folate 6.8, TSH 2.2, RPR nonreactive, MMA 0.15, B6 6 and B1 74 (38- 122). Start thiamine empirically. * Continue Exelon. We will add Namenda 5 mg twice a day for advancing dementia. * Recommend patient to follow up with neurosurgeon for shunt patency, rule out worsening NPH. Patient's son will call Dr. Mloina's office on Saturday to make an appointment as soon as possible. Patient's son was strongly recommended to obtain a CD of her computed tomography scan of head before the appointment with the neurosurgeon. The neurosurgeon will definitely like to see the CD. * Patient's son also instructed to make an appointment with Dr. Dwyer office in 1-2 weeks to follow-up on the dementia. May consider EEG outpatient. * Patient being discharged to home. Discussed with patient's son in detail.
[2021-07-07] MEDS ORDERED: MEMANTINE 5 MG TAB PO SCH (21:00)
== END 2021-07-07 17:15 | disposition home health service (06) ==
LOC: EC 12:01 → 6NMEDSUR 14:47 → OBSVTOIN 07-06 10:08 → INTOOBSV 07-06 10:08 → UNDODISIN 07-07 17:15
PROVIDERS: ADMIT Internal Medicine Geriatric Medicine; ATTEND Internal Medicine Geriatric Medicine
DX: G93.41 Metabolic encephalopathy (principal); G91.2 (Idiopathic) normal pressure hydrocephalus; E86.0 Dehydration; F03.90 Unspecified dementia, unspecified severity, without behavioral disturbance, psychotic disturbance, mood disturbance, and anxiety; E11.40 Type 2 diabetes mellitus with diabetic neuropathy, unspecified; I44.0 Atrioventricular block, first degree; I12.9 Hypertensive chronic kidney disease with stage 1 through stage 4 chronic kidney disease, or unspecified chronic kidney disease; N18.2 Chronic kidney disease, stage 2 (mild); E11.22 Type 2 diabetes mellitus with diabetic chronic kidney disease; I08.3 Combined rheumatic disorders of mitral, aortic and tricuspid valves; F05 Delirium due to known physiological condition; R41.89 Other symptoms and signs involving cognitive functions and awareness; I45.2 Bifascicular block; E11.621 Type 2 diabetes mellitus with foot ulcer; L97.529 Non-pressure chronic ulcer of other part of left foot with unspecified severity; R00.1 Bradycardia, unspecified; I25.2 Old myocardial infarction; R47.81 Slurred speech; R53.1 Weakness; R09.89 Other specified symptoms and signs involving the circulatory and respiratory systems; E78.5 Hyperlipidemia, unspecified; R13.10 Dysphagia, unspecified; R05.9 Cough, unspecified; Z20.822 Contact with and (suspected) exposure to COVID-19; Z79.84 Long term (current) use of oral hypoglycemic drugs; Z79.4 Long term (current) use of insulin; Z79.899 Other long term (current) drug therapy; Z90.49 Acquired absence of other specified parts of digestive tract; Z87.440 Personal history of urinary (tract) infections; Z98.2 Presence of cerebrospinal fluid drainage device; Z98.890 Other specified postprocedural states; Z80.9 Family history of malignant neoplasm, unspecified; Z83.3 Family history of diabetes mellitus; Z82.3 Family history of stroke; Z82.0 Family history of epilepsy and other diseases of the nervous system
CPT/HCPCS: 96360; 96361 ×2; 96372 ×2; 99285; 36415; 93005; 93306; 97530; 97162; 97167; 92610; 84207; 83921; 84425; 80061; 80053; 84443; 82607; 82746; 84484; 85025; 85610; 85730; 81003; 86780; 83036; 87635; 71046; 93880; 70496; 70450; 70498; G0378 ×3; Q9967; J1644 ×2

== ENCOUNTER 2021-08-10 15:46 | Inpatient (IN) | payer MEDICARE ==
[2021-08-10] MEDS ORDERED: SODIUM CHLORIDE 0.9% 500 ML 500 ML IV STA (16:27)
--- NOTE | 2021-08-10 16:36 | ED ---
Weakness HPI - General Chief complaint: Weakness Stated complaint: Covid +, leg pain Time Seen by Provider: 08/10/21 16:14 Source: patient, family, RN notes reviewed Mode of arrival: wheelchair Limitations: no limitations - History of Present Illness Initial comments: This is a pleasant 86-year-old female who was diagnosed with COVID-19 last F riday. Patient has had congestion, cough. Son states she was doing a bit better but now is worse. Patient was generally weak this morning when she got up around 11 AM. Patient was unable to stand up. There is in-home nurse. There was also thought that she was falling to the left side. There was no other focal weakness noted. Patient has been complaints of generalized aching in both legs. Patient has been on antibiotics and corticosteroids. Limited review of systems due to baseline dementia. Son is able to help with review of systems. no chills, no changes in vision or hearing, no sore throat or difficulty with speech, no neck pain, no chest pain or shortness of breath, no abdominal pain, no nausea or vomiting, no changes in urination or bowel movements, no numbness or tingling, no extremity pain, no skin rashes or lesions. General weakness noted. There was question whether she was falling to the left after getting up this morning. This has resolved - Related Data Home Medications Medication Instructions Recorded Confirmed DULoxetine HCL [Cymbalta] 60 mg PO DAILY 03/07/19 08/10/21 Atorvastatin [Lipitor] 80 mg PO HS 03/08/19 08/10/21 ALPRAZolam [Xanax] 0.25 mg PO TID PRN 07/05/21 08/10/21 Cholecalciferol [Vitamin D3 (25 50 mcg PO BID-W/MEALS 07/05/21 08/10/21 Mcg = 1000 Iu)] Cyanocobalamin [Vitamin B-12] 500 mcg PO DAILY 07/05/21 08/10/21 Midodrine HCl 5 mg PO BID-W/MEALS 07/05/21 08/10/21 Mirabegron [Myrbetriq] 25 mg PO DAILY 07/05/21 08/10/21 Rivastigmine Tartrate [Exelon] 3 mg PO BID-W/MEALS 07/05/21 08/10/21 Ascorbic Acid [Vitamin C] 500 mg PO DAILY 08/10/21 08/10/21 Dexamethasone 6 mg PO DAILY 08/10/21 08/10/21 Insulin Glargine,Hum.rec.anlog 10 unit SQ DAILY PRN 08/10/21 08/10/21 [Lantus Solostar Pen] Memantine HCl [Namenda] 5 mg PO BID-W/MEALS 08/10/21 08/10/21 Niacin 500 mg PO DAILY 08/10/21 08/10/21 Previous Rx's Medication Instructions Recorded Aspirin 81 mg PO DAILY tab 07/07/21 Thiamine [Vitamin B-1] 100 mg PO DAILY tab 07/07/21 Allergies Allergy/AdvReac Type Severity Reaction Status Date / Time No Known Allergies Allergy Verified 08/10/21 18:27 Review of Systems ROS Statement: Those systems with pertinent positive or pertinent negative responses have been documented in the HPI. ROS Other: All systems not noted in ROS Statement are negative. Past Medical History Past Medical History: Diabetes Mellitus, Hyperlipidemia Additional Past Medical History / Comment(s): neuropathy, dizzy when stands, diabetic ulcer on left foot supposed to go to wound clinic hydrocephalus with vp outcomes shunt frequent uti History of Any Multi-Drug Resistant Organisms: None Reported Past Surgical History: Appendectomy, Cholecystectomy, Orthopedic Surgery Additional Past Surgical History / Comment(s): right shoulder vp outcomes shunt Past Anesthesia/Blood Transfusion Reactions: No Reported Reaction Additional Past Anesthesia/Blood Transfusion Reaction / Comment(s): patient states never had blood transfusion Past Psychological History: No Psychological Hx Reported Smoking Status: Never smoker Past Alcohol Use History: None Reported Past Drug Use History: None Reported - Past Family History Mother Family Medical History: Diabetes Mellitus General Exam - General Exam Comments Initial Comments: This is a deconditioned appearing 86-year-old female in no acute distress. Patient does not appear to be ill or toxic. Vital signs noted, cranial nerves II through XII grossly intact. Limitations: no limitations General appearance: alert, in no apparent distress Head exam: Present: atraumatic, normocephalic, normal inspection Eye exam: Present: normal appearance, PERRL, EOMI. Absent: scleral icterus, con junctival injection, periorbital swelling ENT exam: Present: normal exam, normal oropharynx, mucous membranes moist Neck exam: Present: normal inspection, full ROM. Absent: tenderness, meningismus, lymphadenopathy Respiratory exam: Present: normal lung sounds bilaterally, other (Diminished breath sounds at the bases, otherwise no adventitious lung sounds.). Absent: respiratory distress, wheezes, rales, rhonchi, stridor Cardiovascular Exam: Present: regular rate, normal rhythm, normal heart sounds. Absent: systolic murmur, diastolic murmur, rubs, gallop, clicks GI/Abdominal exam: Present: soft, normal bowel sounds. Absent: distended, tenderness, guarding, rebound, rigid Extremities exam: Present: normal inspection, full ROM, normal capillary refill. Absent: tenderness, pedal edema, joint swelling, calf tenderness Back exam: Present: normal inspection Neurological exam: Present: alert (Overnight 2, patient has baseline dementia), CN II-XII intact, other (NIH score is 0, cerebellar testing is essentially normal, modified Aubrey with patient sitting as she cannot stand or ambulate. No focal neurologic deficits.). Absent: oriented X3, motor sensory deficit Expanded Speech: Present: fluid speech Cranial nerves: EOM's Intact: Normal, Gag Reflex: Normal, Tongue Deviation: Normal, Nystagmus: Normal, Facial Sensation: Normal, Facial Palsy with Forehead Movement: Normal, Facial Palsy without Forehead Movement: Normal Cerebellar function: Finger to Nose: Normal, Heel to Powell: Normal, Romberg: Normal (Modified sitting) Psychiatric exam: Present: normal affect, normal mood Skin exam: Present: warm, dry, intact, normal color. Absent: rash Course Vital Signs 08/10/21 08/10/21 08/10/21 15:59 17:51 18:54 Temperature 98 F Pulse Rate 77 77 76 Respiratory 16 18 18 Rate Blood Pressure 87/58 139/69 117/67 O2 Sat by Pulse 97 98 100 Oximetry 08/10/21 22:41 Temperature Pulse Rate 86 Respiratory 16 Rate Blood Pressure 99/59 O2 Sat by Pulse 96 Oximetry - Reevaluation(s) Reevaluation #1: 08/10/21 19:01 Patient reevaluated and is essentially unchanged. Neurologically intact. EKG Findings - EKG Comments: EKG Findings:: EKG done at 1623. ED attending physician reveals left axis deviation, incomplete right bundle-branch block, QRS duration 180 ms. The remainder of the intervals are stable. No evidence of acute changes compared to previous study from June there is no significant change. Medical Decision Making - Medical Decision Making Patient presents with generalized weakness, there was question whether she was falling to the left this morning after getting up at 11 AM. However she is neurologically intact at this time. NIH score is 0. Cranial nerves II through XII are intact. Patient does appear to be frail and somewhat cachectic. However in no significant distress. Oxygen saturation is normal. I will obtain a CT of the brain, general workup, plan for monoclonal antibody infusion if not admitted. Pressure remeasured in the room is 95 over systolic in the 50s. Case discussed in detail with Dr. Ocampo who is on-call for Dr. Avery. Patient will be admitted for elective disturbance, COVID-19, and urinary tract infection - Lab Data Result diagrams: 08/10/21 17:00 08/10/21 18:10 Lab Results 08/10/21 08/10/21 08/10/21 Range/Units 17:00 17:00 17:00 WBC 10.9 H (3.8-10.6) k/uL RBC 4.32 (3.80-5.40) m/uL Hgb 13.1 (11.4-16.0) gm/dL Hct 39.7 (34.0-46.0) % MCV 91.8 (80.0-100.0) fL MCH 30.2 (25.0-35.0) pg MCHC 32.9 (31.0-37.0) g/dL RDW 14.5 (11.5-15.5) % Plt Count 210 (150-450) k/uL MPV 8.6 Neutrophils % 87 % Lymphocytes % 7 % Monocytes % 4 % Eosinophils % 0 % Basophils % 0 % Neutrophils # 9.4 H (1.3-7.7) k/uL Lymphocytes # 0.8 L (1.0-4.8) k/uL Monocytes # 0.5 (0-1.0) k/uL Eosinophils # 0.0 (0-0.7) k/uL Basophils # 0.0 (0-0.2) k/uL PT 10.3 (9.0-12.0) sec INR 1.0 (<1.2) APTT 26.3 (22.0-30.0) sec Fibrinogen (200-500) mg/dL D-Dimer (<0.60) mg/L FEU Sodium (137-145) mmol/L Potassium (3.5-5.1) mmol/L Chloride (98-107) mmol/L Carbon Dioxide (22-30) mmol/L Anion Gap mmol/L BUN (7-17) mg/dL Creatinine (0.52-1.04) mg/dL Est GFR (CKD-EPI)AfAm (>60 ml/min/1.73 sqM) Est GFR (CKD-EPI)NonAf (>60 ml/min/1.73 sqM) Glucose (74-99) mg/dL Calcium (8.4-10.2) mg/dL Magnesium (1.6-2.3) mg/dL Total Bilirubin (0.2-1.3) mg/dL AST (14-36) U/L ALT (4-34) U/L Alkaline Phosphatase (38-126) U/L Lactate Dehydrogenase (313-618) U/L Creatine Kinase (30-135) U/L Troponin I 0.017 (0.000-0.034) ng/mL C-Reactive Protein (<1.0) mg/dL Total Protein (6.3-8.2) g/dL Albumin (3.5-5.0) g/dL Urine Color Urine Appearance (Clear) Urine pH (5.0-8.0) Ur Specific Grandy (1.001-1.035) Urine Protein (Negative) Urine Glucose (UA) (Negative) Urine Ketones (Negative) Urine Blood (Negative) Urine Nitrite (Negative) Urine Bilirubin (Negative) Urine Urobilinogen (<2.0) mg/dL Ur Leukocyte Esterase (Negative) Urine RBC (0-5) /hpf Urine WBC (0-5) /hpf Ur Squamous Epith Cells (0-4) /hpf Urine Bacteria (None) /hpf Hyaline Casts (0-2) /lpf Urine Mucus (None) /hpf 08/10/21 08/10/21 08/10/21 Range/Units 17:00 17:50 18:10 WBC (3.8-10.6) k/uL RBC (3.80-5.40) m/uL Hgb (11.4-16.0) gm/dL Hct (34.0-46.0) % MCV (80.0-100.0) fL MCH (25.0-35.0) pg MCHC (31.0-37.0) g/dL RDW (11.5-15.5) % Plt Count (150-450) k/uL MPV Neutrophils % % Lymphocytes % % Monocytes % % Eosinophils % % Basophils % % Neutrophils # (1.3-7.7) k/uL Lymphocytes # (1.0-4.8) k/uL Monocytes # (0-1.0) k/uL Eosinophils # (0-0.7) k/uL Basophils # (0-0.2) k/uL PT (9.0-12.0) sec INR (<1.2) APTT (22.0-30.0) sec Fibrinogen 376 (200-500) mg/dL D-Dimer 0.87 H (<0.60) mg/L FEU Sodium 136 L (137-145) mmol/L Potassium 2.7 L* (3.5-5.1) mmol/L Chloride 113 H (98-107) mmol/L Carbon Dioxide 15 L (22-30) mmol/L Anion Gap 8 mmol/L BUN 29 H (7-17) mg/dL Creatinine 0.84 (0.52-1.04) mg/dL Est GFR (CKD-EPI)AfAm 74 (>60 ml/min/1.73 sqM) Est GFR (CKD-EPI)NonAf 64 (>60 ml/min/1.73 sqM) Glucose 111 H (74-99) mg/dL Calcium 6.4 L* (8.4-10.2) mg/dL Magnesium 0.9 L* (1.6-2.3) mg/dL Total Bilirubin 0.4 (0.2-1.3) mg/dL AST 47 H (14-36) U/L ALT 40 H (4-34) U/L Alkaline Phosphatase 52 (38-126) U/L Lactate Dehydrogenase (313-618) U/L Creatine Kinase 70 (30-135) U/L Troponin I (0.000-0.034) ng/mL C-Reactive Protein (<1.0) mg/dL Total Protein 4.7 L (6.3-8.2) g/dL Albumin 2.3 L (3.5-5.0) g/dL Urine Color Yellow Urine Appearance Cloudy H (Clear) Urine pH 5.5 (5.0-8.0) Ur Specific Grandy 1.016 (1.001-1.035) Urine Protein Trace H (Negative) Urine Glucose (UA) Negative (Negative) Urine Ketones Negative (Negative) Urine Blood Negative (Negative) Urine Nitrite Negative (Negative) Urine Bilirubin Negative (Negative) Urine Urobilinogen <2.0 (<2.0) mg/dL Ur Leukocyte Esterase Moderate H (Negative) Urine RBC 2 (0-5) /hpf Urine WBC 7 H (0-5) /hpf Ur Squamous Epith Cells 1 (0-4) /hpf Urine Bacteria Many H (None) /hpf Hyaline Casts 3 H (0-2) /lpf Urine Mucus Rare H (None) /hpf 08/10/21 Range/Units 18:10 WBC (3.8-10.6) k/uL RBC (3.80-5.40) m/uL Hgb (11.4-16.0) gm/dL Hct (34.0-46.0) % MCV (80.0-100.0) fL MCH (25.0-35.0) pg MCHC (31.0-37.0) g/dL RDW (11.5-15.5) % Plt Count (150-450) k/uL MPV Neutrophils % % Lymphocytes % % Monocytes % % Eosinophils % % Basophils % % Neutrophils # (1.3-7.7) k/uL Lymphocytes # (1.0-4.8) k/uL Monocytes # (0-1.0) k/uL Eosinophils # (0-0.7) k/uL Basophils # (0-0.2) k/uL PT (9.0-12.0) sec INR (<1.2) APTT (22.0-30.0) sec Fibrinogen (200-500) mg/dL D-Dimer (<0.60) mg/L FEU Sodium (137-145) mmol/L Potassium (3.5-5.1) mmol/L Chloride (98-107) mmol/L Carbon Dioxide (22-30) mmol/L Anion Gap mmol/L BUN (7-17) mg/dL Creatinine (0.52-1.04) mg/dL Est GFR (CKD-EPI)AfAm (>60 ml/min/1.73 sqM) Est GFR (CKD-EPI)NonAf (>60 ml/min/1.73 sqM) Glucose (74-99) mg/dL Calcium (8.4-10.2) mg/dL Magnesium (1.6-2.3) mg/dL Total Bilirubin (0.2-1.3) mg/dL AST (14-36) U/L ALT (4-34) U/L Alkaline Phosphatase (38-126) U/L Lactate Dehydrogenase 632 H (313-618) U/L Creatine Kinase (30-135) U/L Troponin I (0.000-0.034) ng/mL C-Reactive Protein 1.4 H (<1.0) mg/dL Total Protein (6.3-8.2) g/dL Albumin (3.5-5.0) g/dL Urine Color Urine Appearance (Clear) Urine pH (5.0-8.0) Ur Specific Grandy (1.001-1.035) Urine Protein (Negative) Urine Glucose (UA) (Negative) Urine Ketones (Negative) Urine Blood (Negative) Urine Nitrite (Negative) Urine Bilirubin (Negative) Urine Urobilinogen (<2.0) mg/dL Ur Leukocyte Esterase (Negative) Urine RBC (0-5) /hpf Urine WBC (0-5) /hpf Ur Squamous Epith Cells (0-4) /hpf Urine Bacteria (None) /hpf Hyaline Casts (0-2) /lpf Urine Mucus (None) /hpf Disposition Clinical Impression: COVID-19, General weakness, Hypomagnesemia, Hypokalemia, Urinary tract infection, Hypocalcemia Disposition: ADMITTED IP TO THIS HOSP
--- NOTE | 2021-08-10 17:02 | XR ---
EXAMINATION TYPE: XR chest 1V portable DATE OF EXAM: 08/10/2021 4:54 PM COMPARISON:Chest radiographs from 07/05/2021 CLINICAL INDICATION:Female, 86 years old with history of cough, TECHNIQUE: Frontal view of the chest. FINDINGS: Lungs/Pleura: There is no evidence of pleural effusion, focal consolidation, or pneumothorax. Simila r interstitial markings within the left base not significantly changed from prior likely representing atelectasis. Pulmonary vascularity: Unremarkable. Heart/mediastinum: Cardiomediastinal silhouette is unremarkable. Musculoskeletal: No acute osseous pathology. IMPRESSION: No acute cardiopulmonary disease/process.
[2021-08-10 17:20] LABS: Basophils % (A) 0 %; Eosinophils % (A) 0 %; HCT 39.7 % (34.0-46.0); HGB 13.1 gm/dL (11.4-16.0); Lymphocytes # (A) 0.8 k/uL (1.0-4.8); Lymphocytes % (A) 7 %; MCH 30.2 pg (25.0-35.0); MCHC 32.9 g/dL (31.0-37.0); MCV 91.8 fL (80.0-100.0); Mean Platelet Volume 8.6; Monocytes # (A) 0.5 k/uL (0-1.0); Monocytes % (A) 4 %; Neutrophils # (A) 9.4 k/uL (1.3-7.7); Neutrophils % (A) 87 %; Platelet Count 210 k/uL (150-450); RBC 4.32 m/uL (3.80-5.40); RDW 14.5 % (11.5-15.5); WBC 10.9 k/uL (3.8-10.6)
[2021-08-10 17:28] LABS: Partial Thromboplastin Time 26.3 sec (22.0-30.0); Prothrombin Time 10.3 sec (9.0-12.0)
[2021-08-10 18:00] LABS: Appearance,Urine Cloudy (Clear); Bacteria,Urine Many /hpf; Bilirubin,Urine Negative (Negative); Blood,Urine Negative (Negative); Color,Urine Yellow; Glucose,Urine (UA) Negative (Negative); Hyaline Casts,Urine 3 /lpf (0-2); Ketones,Urine Negative (Negative); Leukocyte Esterase,Urine Moderate (Negative); Mucus,Urine Rare /hpf; Nitrite,Urine Negative (Negative); PH, Urine 5.5 (5.0-8.0); Protein,Urine Trace (Negative); RBC,Urine 2 /hpf (0-5); Specific Gravity,Urine 1.016 (1.001-1.035); Squamous Epithelial Cell,Urine 1 /hpf (0-4); Urobilinogen,Urine <2.0 mg/dL (<2.0); WBC,Urine 7 /hpf (0-5)
[2021-08-10 18:33] LABS: Albumin 2.3 g/dL (3.5-5.0); Total Bilirubin 0.4 mg/dL (0.2-1.3); Total Protein 4.7 g/dL (6.3-8.2)
[2021-08-10 18:36] LABS: Calcium 6.4 mg/dL (8.4-10.2); Magnesium 0.9 mg/dL (1.6-2.3); Potassium 2.7 mmol/L (3.5-5.1)
[2021-08-10] MEDS ORDERED: Potassium Replacement Protocol 1 EACH MISC MISCELLANE PRN (18:59)
[2021-08-10] MEDS ORDERED: DOCUSATE 100 MG CAP PO PRN (19:14)
[2021-08-10] MEDS ORDERED: ONDANSETRON 4 MG/2 ML VIAL IVP PRN (19:14)
[2021-08-10] MEDS ORDERED: NALOXONE 0.4 MG/ML 1 ML VIAL IV PRN (19:14)
--- NOTE | 2021-08-10 19:30 | CT ---
EXAMINATION TYPE: CT brain wo con CT DLP: 1129.4 mGycm, Automated exposure control for dose reduction was used. DATE OF EXAM: 08/10/2021 7:14 PM COMPARISON: Prior CT Brain from 07/05/2021 . CLINICAL INDICATION:Female, 86 years old with history of Weakness;, weakness, ams TECHNIQUE: Brain: Multiple axial CT images of the brain were obtained without IV contrast. FINDINGS: Brain: Extra-axial spaces: Similar bilateral hygromas/subdural, appearance over the next few the cerebrum ri ght greater than left. No hyperdense areas to suggest acute hemorrhage. Ventricular system: Dilatation in proportion to cerebral atrophy. Right lateral posterior approach ve ntriculostomy catheter with tip in stable position in the right lateral ventricle anteriorly near the septum pellucidum. There is similar appearing a calculus adjacent to the ventricular catheter best a ppreciated on series 2021 image 30 similar to prior. Cerebral parenchyma: No acute intraparenchymal hemorrhage or mass effect. The zuniga-white junction is well differentiated. Scattered hypoattenuating areas are seen within the white matter. Cerebellum: Unremarkable. Mass effect: No evidence of midline shift. Intracranial vasculature: Atherosclerotic calcifications of the intracranial vessels. Soft tissues: Normal. Calvarium/osseous structures: No depressed skull fracture. Paranasal sinuses and mastoid air cells: Clear. Visualized orbits: Bilateral aphakia IMPRESSION: 1. No evidence of acute process with BLUEPRINT TRACER shunt catheter similar in appearance with evidence of hydroce phalus. Ventricular size is similar to the prior exam. 2. 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 3.Nonspecific white matter changes, likely secondary to chronic small vessel ischemic disease.
[2021-08-10] MEDS: SODIUM CHLORIDE 0.9% 1,000 ML IV SCH (19:36)
[2021-08-10] MEDS: POTASSIUM CHLORIDE 10 MEQ in WATER FOR INJECTION 1 100ML.BAG IVPB SCH ×3 (19:37→23:08)
[2021-08-10 19:57] LABS: C Reactive Protein 1.4 mg/dL (<1.0)
[2021-08-10] MEDS: MAGNESIUM SULFATE-D5W PMX 1 GM in DEXTROSE/WATER 1 100ML.BAG IVPB SCH ×2 (20:10→21:39)
[2021-08-10] MEDS ORDERED: ALPRAZolam 0.25 MG TAB PO ONE (20:12)
[2021-08-10] MEDS: ENOXAPARIN 40 MG/0.4 ML SYRINGE SQ SCH (20:28)
[2021-08-10] MEDS ORDERED: CALCIUM GLUCONATE 2 GM in SODIUM CHLORIDE 0.9% 100 ML IVPB ONE (22:30)
[2021-08-10] MEDS: ACETAMINOPHEN TAB 325 MG TAB PO PRN (23:08)
[2021-08-11 00:33] LABS: Glucose,Whole Blood 151 mg/dL (75-99)
[2021-08-11] MEDS: MAGNESIUM SULFATE-D5W PMX 1 GM in DEXTROSE/WATER 1 100ML.BAG IVPB SCH ×2 (00:52→02:04)
[2021-08-11] MEDS: POTASSIUM CHLORIDE 10 MEQ in WATER FOR INJECTION 1 100ML.BAG IVPB SCH ×3 (01:41→04:52)
[2021-08-11 06:08] LABS: Glucose,Whole Blood 119 mg/dL (75-99)
[2021-08-11] MEDS: INSULIN ASPART (NovoLOG) 100 UNIT/ML VIAL SQ SCH ×4 (06:10→21:14)
[2021-08-11 08:13] LABS: Basophils % (A) 1 %; Eosinophils % (A) 0 %; HGB 13.1 gm/dL (11.4-16.0); Lymphocytes # (A) 1.1 k/uL (1.0-4.8); Lymphocytes % (A) 16 %; MCH 29.9 pg (25.0-35.0); MCV 93.3 fL (80.0-100.0); Mean Platelet Volume 8.5; Monocytes # (A) 0.2 k/uL (0-1.0); Monocytes % (A) 4 %; Neutrophils # (A) 5.1 k/uL (1.3-7.7); Neutrophils % (A) 77 %; Platelet Count 192 k/uL (150-450); RBC 4.39 m/uL (3.80-5.40); RDW 14.6 % (11.5-15.5); WBC 6.7 k/uL (3.8-10.6)
[2021-08-11 08:25] LABS: Albumin 3.4 g/dL (3.5-5.0); Calcium 9.8 mg/dL (8.4-10.2); Magnesium 2.9 mg/dL (1.6-2.3); Potassium 4.8 mmol/L (3.5-5.1); Total Bilirubin 0.5 mg/dL (0.2-1.3); Total Protein 6.8 g/dL (6.3-8.2)
[2021-08-11] MEDS: ENOXAPARIN 40 MG/0.4 ML SYRINGE SQ SCH (08:51)
[2021-08-11] MEDS ORDERED: NON FORMULARY DRUG (Insulin Glargine,Hum.Rec.Anlog [Lantus Solostar Pen] 100 UNIT/ML Each) SQ PRN (11:26)
[2021-08-11 11:50] LABS: Glucose,Whole Blood 161 mg/dL (75-99)
[2021-08-11] MEDS: dexAMETHasone 2 MG TAB PO SCH (13:33)
--- NOTE | 2021-08-11 13:47 | P.HPIM ---
History of Present Illness H&P Date: 08/11/21 HISTORY OF PRESENT ILLNESS 86-year-old female patient of Dr. Avery with past medical history of type 2 diabetes, history of normal pressure hydrocephalus post FLIGHT TEST ENGINEER shunt, history of hypertension and hyperlipidemia along with a chronic kidney diseaseII. Patient was recently hospitalized in June 2021 due to possible TIA, possible anticholinergic effect of Elavil. Patient was discharged home with homecare. Patient was diagnosed with Covid 19 on Saturday secondary to congestion and cough. Patient was initially doing better now worsened with increasing weakness and falling to the left side. Patient was found to be afebrile, heart rate 77, blood pressure 87/58, pulse ox 97%. EKG was incomplete right bundle branch block, left axis deviation, no acute changes. CBC was unremarkable. Sodium 136, potassium 2.7, chloride 113, CO2 15, BUN 29 and creatinine 0.84. Magnesium 0.9, calcium 6.4. Blood sugars running between 71 and 151. None of that with her urinalysis was cloudy, leukoesterase moderate, bacteria many. WBC 7. CAT scan of the brain showed no evidence of acute process with FLIGHT TEST ENGINEER shunt catheter similar appearance with evidence of hydrocephalus. Ventricular size is similar to prior exam. 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 Nonspec ific white matter changes likely secondary to chronic small vessel ischemic disease. Chest x-ray reveals no acute cardiopulmonary disease. Patient was given a dose of ceftriaxone, Xanax, calcium gluconate, magnesium replacement, potassium replacement, started on IV fluids with 500 mL bolus followed by 75 mL per hour and admitted to the cardiac stepdown unit. REVIEW OF SYSTEMS Constitutional: No fever, no chills, no night sweats. No weight change. Generalized weakness, fatigue or lethargy. No daytime sleepiness.still slightly but confused. EENT: No headache. No blurred vision or double vision, no loss of vision. No loss of Hearing, no ringing in the ears, no dizziness. No nasal drainage or congestion. No epistaxis. No sore throat. Lungs: No shortness of breath, cough, no sputum production. No wheezing. Cardiovascular: No chest pain, no lower extremity edema. No palpitations. No paroxysmal nocturnal dyspnea. No orthopnea. No lightheadedness or dizziness. No syncopal episodes. Abdominal: No abdominal pain. No nausea, vomiting. No diarrhea. No constipation. No bloody or tarry stools.. No loss of appetite. Genitourinary: No dysuria, increased frequency, urgency. No urinary retention. Musculoskeletal: generalized muscle pain and myalgia. Integumentary: No wounds, no lesions. No rash or pruritus. No unusual bruising. No change in hair or nails. Neurologic: No aphasia. No facial droop. Noted chronic change in mentation. No head injury. No headache. No paralysis. No paresthesia.mild confusion with worsening dementia. Psychiatric: No depression. No anxiety. No mood swings. Endocrine: No abnormal blood sugars. No weight change. No excessive sweating or thirst. No cold intolerance. SOCIAL HISTORY she does not smoke, no alcohol abuse, she was and lives with her son and she is dependent cannot drive at this point has been having trouble since her shunt was placed for normal pressure hydrocephalus. FAMILY HISTORY father age 60 from cancer, mother at age 93 from dementia and CVA, patient had no siblings. 2 children both living and well. PHYSICAL EXAMINATION Gen: This is Elderly the urine shows does not look in any respiratory distress still having problems finding the right words to express herself. HEENT: Head is atraumatic, normocephalic. Pupils equal, round. Sclerae is anicteric. NECK: Supple. No JVD. No lymphadenopathy. No thyromegaly. LUNGS: Clear to auscultation. No wheezes or rhonchi. No intercostal retra ctions. HEART: Regular rate and rhythm. No murmur. ABDOMEN: Soft. Bowel sounds are present. No masses. No tenderness. EXTREMITIES: No pedal edema. No calf tenderness. NEUROLOGICAL: Patient is awake, alert and oriented x3. Cranial nerves 2 through 12 are grossly intact. ASSESSMENT AND PLAN 1. Covid 19 infection. Continue vitamin D, vitamin C, dexamethasone 6 mg veronica y, vitamin supplements, . 2. Severe electrolyte abnormalities with hypokalemia, hypomagnesemia, hypo- calcium. Patient is status post replacement, continue to monitor 3. Normal pressure hydrocephalus s/p FLIGHT TEST ENGINEER shunt, stable. 4. Dementia. Continue Namenda 5 mg twice daily, Aricept 10 mg at hs, Exelon 3 mg twice daily. 5. Hyperlipidemia. Continue Lipitor 80 mg at bedtime. 6. Diabetes mellitus type 2. Continue NovoLog scale before meals and at bedtime. 7. Hypertension. Patient is off blood pressure medicine type 2 diabetes: Has been on Lantus 10 units daily along with Accu-Chek sliding scales coverage. 8. Recurrent depression. Continue Cymbalta 60 mg daily. 9. Chronic kidney disease stage 2. Avoid nephrotoxic agents. 10. GI prophylaxis. Protonix. 11. DVT prophylaxis. Lovenox. Patient admitted to the hospital for a minimum of 2 night stay. DISCHARGE PLAN TBD somewhat with PT and OT. Impression and plan of care have been directed as dictated by the signing physician. Carolann Molina nurse practitioner acting as scribe for signing physician. Past Medical History Past Medical History: Diabetes Mellitus, Hyperlipidemia Additional Past Medical History / Comment(s): neuropathy, dizzy when stands, diabetic ulcer on left foot supposed to go to wound clinic hydrocephalus with vp integration shunt frequent uti History of Any Multi-Drug Resistant Organisms: None Reported Past Surgical History: Appendectomy, Cholecystectomy, Orthopedic Surgery Additional Past Surgical History / Comment(s): right shoulder vp integration shunt Past Anesthesia/Blood Transfusion Reactions: No Reported Reaction Additional Past Anesthesia/Blood Transfusion Reaction / Comment(s): patient [facility] never had blood transfusion Past Psychological History: No Psychological Hx Reported Smoking Status: Never smoker Past Alcohol Use History: None Reported Past Drug Use History: None Reported - Past Family History Mother Family Medical History: Diabetes Mellitus Medications and Allergies Home Medications Medication Instructions Recorded Confirmed Type DULoxetine HCL [Cymbalta] 60 mg PO DAILY 03/07/19 08/10/21 History Atorvastatin [Lipitor] 80 mg PO HS 03/08/19 08/10/21 History ALPRAZolam [Xanax] 0.25 mg PO TID PRN 07/05/21 08/10/21 History Cholecalciferol [Vitamin D3 (25 50 mcg PO BID-W/MEALS 07/05/21 08/10/21 History Mcg = 1000 Iu)] Cyanocobalamin [Vitamin B-12] 500 mcg PO DAILY 07/05/21 08/10/21 History Midodrine HCl 5 mg PO BID-W/MEALS 07/05/21 08/10/21 History Mirabegron [Myrbetriq] 25 mg PO DAILY 07/05/21 08/10/21 History Rivastigmine Tartrate [Exelon] 3 mg PO BID-W/MEALS 07/05/21 08/10/21 History Aspirin 81 mg PO DAILY tab 07/07/21 08/10/21 Rx Thiamine [Vitamin B-1] 100 mg PO DAILY tab 07/07/21 08/10/21 Rx Ascorbic Acid [Vitamin C] 500 mg PO DAILY 08/10/21 08/10/21 History Dexamethasone 6 mg PO DAILY 08/10/21 08/10/21 History Insulin Glargine,Hum.rec.anlog 10 unit SQ DAILY PRN 08/10/21 08/10/21 History [Lantus Solostar Pen] Memantine HCl [Namenda] 5 mg PO BID-W/MEALS 08/10/21 08/10/21 History Niacin 500 mg PO DAILY 08/10/21 08/10/21 History Allergies Allergy/AdvReac Type Severity Reaction Status Date / Time No Known Allergies Allergy Verified 08/10/21 18:27 Physical Exam Vitals: Vital Signs Temp Pulse Pulse Resp BP BP Pulse Ox 08/11/21 03:51 98 F 77 17 122/55 96 08/11/21 01:00 97.9 F 85 20 119/56 97 08/10/21 22:41 86 16 99/59 96 08/10/21 18:54 76 18 117/67 100 08/10/21 17:51 77 18 139/69 98 08/10/21 15:59 98 F 77 16 87/58 97 Intake and Output 08/10/21 08/11/21 08/11/21 22:59 06:59 14:59 Intake Total 240 30 Output Total 150 Balance 90 30 Intake: Oral 240 30 Output: Urine 150 Other: Voiding Method External Catheter # Voids 5 Weight 61.235 kg 61.235 kg Results CBC & Chem 7: 08/11/21 07:41 08/11/21 07:41 Labs: Abnormal Lab Results - Last 24 Hours (Table) 08/10/21 08/10/21 08/10/21 Range/Units 17:00 17:00 17:50 WBC 10.9 H (3.8-10.6) k/uL Neutrophils # 9.4 H (1.3-7.7) k/uL Lymphocytes # 0.8 L (1.0-4.8) k/uL D-Dimer 0.87 H (<0.60) mg/L FEU Sodium (137-145) mmol/L Potassium (3.5-5.1) mmol/L Chloride (98-107) mmol/L Carbon Dioxide (22-30) mmol/L BUN (7-17) mg/dL Glucose (74-99) mg/dL POC Glucose (mg/dL) (75-99) mg/dL Calcium (8.4-10.2) mg/dL Magnesium (1.6-2.3) mg/dL AST (14-36) U/L ALT (4-34) U/L Lactate Dehydrogenase (313-618) U/L C-Reactive Protein (<1.0) mg/dL Total Protein (6.3-8.2) g/dL Albumin (3.5-5.0) g/dL Urine Appearance Cloudy H (Clear) Urine Protein Trace H (Negative) Ur Leukocyte Esterase Moderate H (Negative) Urine WBC 7 H (0-5) /hpf Urine Bacteria Many H (None) /hpf Hyaline Casts 3 H (0-2) /lpf Urine Mucus Rare H (None) /hpf 08/10/21 08/10/21 08/11/21 Range/Units 18:10 18:10 00:31 WBC (3.8-10.6) k/uL Neutrophils # (1.3-7.7) k/uL Lymphocytes # (1.0-4.8) k/uL D-Dimer (<0.60) mg/L FEU Sodium 136 L (137-145) mmol/L Potassium 2.7 L* (3.5-5.1) mmol/L Chloride 113 H (98-107) mmol/L Carbon Dioxide 15 L (22-30) mmol/L BUN 29 H (7-17) mg/dL Glucose 111 H (74-99) mg/dL POC Glucose (mg/dL) 151 H (75-99) mg/dL Calcium 6.4 L* (8.4-10.2) mg/dL Magnesium 0.9 L* (1.6-2.3) mg/dL AST 47 H (14-36) U/L ALT 40 H (4-34) U/L Lactate Dehydrogenase 632 H (313-618) U/L C-Reactive Protein 1.4 H (<1.0) mg/dL Total Protein 4.7 L (6.3-8.2) g/dL Albumin 2.3 L (3.5-5.0) g/dL Urine Appearance (Clear) Urine Protein (Negative) Ur Leukocyte Esterase (Negative) Urine WBC (0-5) /hpf Urine Bacteria (None) /hpf Hyaline Casts (0-2) /lpf Urine Mucus (None) /hpf 08/11/21 08/11/21 Range/Units 06:07 07:41 WBC (3.8-10.6) k/uL Neutrophils # (1.3-7.7) k/uL Lymphocytes # (1.0-4.8) k/uL D-Dimer (<0.60) mg/L FEU Sodium 134 L (137-145) mmol/L Potassium (3.5-5.1) mmol/L Chloride (98-107) mmol/L Carbon Dioxide 19 L (22-30) mmol/L BUN 29 H (7-17) mg/dL Glucose 122 H (74-99) mg/dL POC Glucose (mg/dL) 119 H (75-99) mg/dL Calcium (8.4-10.2) mg/dL Magnesium 2.9 H (1.6-2.3) mg/dL AST 51 H (14-36) U/L ALT 51 H (4-34) U/L Lactate Dehydrogenase (313-618) U/L C-Reactive Protein (<1.0) mg/dL Total Protein (6.3-8.2) g/dL Albumin 3.4 L (3.5-5.0) g/dL Urine Appearance (Clear) Urine Protein (Negative) Ur Leukocyte Esterase (Negative) Urine WBC (0-5) /hpf Urine Bacteria (None) /hpf Hyaline Casts (0-2) /lpf Urine Mucus (None) /hpf Thrombosis Risk Factor Assmnt - Choose All That Apply Each Risk Factor Represents 3 Points: Age 75 years or older Thrombosis Risk Factor Assessment Total Risk Factor Score: 3 Thrombosis Risk Factor Assessment Level: Moderate Risk
[2021-08-11 16:42] LABS: Glucose,Whole Blood 131 mg/dL (75-99)
[2021-08-11] MEDS: CHOLECALCIFEROL 25 MCG (1000 IU) TABLET PO SCH (17:31)
[2021-08-11] MEDS: MEMANTINE 5 MG TAB PO SCH (17:39)
[2021-08-11] MEDS: MIDODRINE 5 MG TAB PO SCH (17:40)
[2021-08-11] MEDS: SODIUM CHLORIDE 0.9% 1,000 ML IV SCH ×2 (19:43→21:22)
[2021-08-11 20:49] LABS: Glucose,Whole Blood 196 mg/dL (75-99)
[2021-08-11] MEDS: ATORVASTATIN 80 MG TAB PO SCH (21:14)
[2021-08-11] MEDS: DONEPEZIL 10 MG TAB PO SCH (21:14)
[2021-08-12 05:18] LABS: Glucose,Whole Blood 164 mg/dL (75-99)
[2021-08-12] MEDS: MIDODRINE 5 MG TAB PO SCH ×2 (07:16→17:14)
[2021-08-12] MEDS: MEMANTINE 5 MG TAB PO SCH ×2 (07:19→17:18)
[2021-08-12] MEDS: INSULIN ASPART (NovoLOG) 100 UNIT/ML VIAL SQ SCH ×4 (07:19→21:35)
[2021-08-12] MEDS: ACETAMINOPHEN TAB 325 MG TAB PO PRN (07:19)
[2021-08-12] MEDS: CHOLECALCIFEROL 25 MCG (1000 IU) TABLET PO SCH ×2 (07:19→17:18)
[2021-08-12 09:18] LABS: Albumin 3.4 g/dL (3.5-5.0); Calcium 9.1 mg/dL (8.4-10.2); Potassium 4.5 mmol/L (3.5-5.1); Total Bilirubin 0.5 mg/dL (0.2-1.3); Total Protein 6.6 g/dL (6.3-8.2)
[2021-08-12] MEDS: MIRABEGRON 25 MG PO SCH (09:19)
[2021-08-12] MEDS: ENOXAPARIN 40 MG/0.4 ML SYRINGE SQ SCH (09:33)
[2021-08-12] MEDS: dexAMETHasone 2 MG TAB PO SCH (09:33)
[2021-08-12] MEDS: ASPIRIN 81 MG PO SCH (09:33)
[2021-08-12] MEDS: CYANOCOBALAMIN 500 MCG TAB PO SCH (09:33)
[2021-08-12] MEDS: THIAMINE 100 MG TAB PO SCH (09:33)
[2021-08-12] MEDS: DULoxetine HCL 60 MG CAPSULE.DR PO SCH (09:33)
[2021-08-12] MEDS: ASCORBIC ACID 500 MG TAB PO SCH (09:33)
[2021-08-12 11:41] LABS: Glucose,Whole Blood 225 mg/dL (75-99)
[2021-08-12 16:35] LABS: Glucose,Whole Blood 143 mg/dL (75-99)
--- NOTE | 2021-08-12 17:04 | P.PN ---
Subjective Progress Note Date: 08/12/21 HISTORY OF PRESENT ILLNESS 86-year-old female patient of Dr. Avery with past medical history of type 2 diabetes, history of normal pressure hydrocephalus post PARK INTERPRETIVE RANGER shunt, history of hypertension and hyperlipidemia along with a chronic kidney diseaseII. Patient was recently hospitalized in June 2021 due to possible TIA, possible anticholinergic effect of Elavil. Patient was discharged home with homecare. Patient was diagnosed with Covid 19 on Saturday secondary to congestion and cough. Patient was initially doing better now worsened with increasing weakness and falling to the left side. Patient was found to be afebrile, heart rate 77, blood pressure 87/58, pulse ox 97%. EKG was incomplete right bundle branch block, left axis deviation, no acute changes. CBC was unremarkable. Sodium 136, potassium 2.7, chloride 113, CO2 15, BUN 29 and creatinine 0.84. Magnesium 0.9, calcium 6.4. Blood sugars running between 71 and 151. None of that with her urinalysis was cloudy, leukoesterase moderate, bacteria many. WBC 7. CAT scan of the brain showed no evidence of acute process with PARK INTERPRETIVE RANGER shunt catheter similar appearance with evidence of hydrocephalus. Ventricular size is similar to prior exam. 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 Nonspecific white matter changes likely secondary to chronic small vessel ischemic disease. Chest x-ray reveals no acute cardiopulmonary disease. Patient was given a dose of ceftriaxone, Xanax, calcium gluconate, magnesium replacement, potassium replacement, started on IV fluids with 500 mL bolus followed by 75 mL per hour and admitted to the cardiac stepdown unit. 08/12 and patient examined bedside patient was significantly confused compared to yesterday. She thinks she is at a friend's house. She gets easily confused even after reorientation. Vitals are reviewed patient is afebrile oxygen saturation 93% on room air labs revealed sodium 137 BUN 23 creatinine 0.9 glucose 196 albumin 3.4. Continue to reorient the patient continued Covid treatment electrolytes were replaced.. Pro-calcitonin is negative. UA obtained in the ER is mildly positive for UTI. We'll start patient on Rocephin 1 g every 24 hours due to patient's mental status and unable to provide any history. REVIEW OF SYSTEMS Constitutional: No fever, no chills, no night sweats. No weight change. Generalized weakness, fatigue or lethargy. No daytime sleepiness.still slightly but confused. EENT: No headache. No blurred vision or double vision, no loss of vision. No loss of Hearing, no ringing in the ears, no dizziness. No nasal drainage or congestion. No epistaxis. No sore throat. Lungs: No shortness of breath, cough, no sputum production. No wheezing. Cardiovascular: No chest pain, no lower extremity edema. No palpitations. No paroxysmal nocturnal dyspnea. No orthopnea. No lightheadedness or dizziness. No syncopal episodes. Abdominal: No abdominal pain. No nausea, vomiting. No diarrhea. No constipation. No bloody or tarry stools.. No loss of appetite. Genitourinary: No dysuria, increased frequency, urgency. No urinary retention. Musculoskeletal: generalized muscle pain and myalgia. Integumentary: No wounds, no lesions. No rash or pruritus. No unusual bruising. No change in hair or nails. Neurologic: No aphasia. No facial droop. Noted chronic change in mentation. No head injury. No headache. No paralysis. No paresthesia.mild confusion with worsening dementia. Psychiatric: No depression. No anxiety. No mood swings. Endocrine: No abnormal blood sugars. No weight change. No excessive sweating or thirst. No cold intolerance. PHYSICAL EXAMINATION Gen: This is Elderly the urine shows does not look in any respiratory distress still having problems finding the right words to express herself. HEENT: Head is atraumatic, normocephalic. Pupils equal, round. Sclerae is anicteric. NECK: Supple. No JVD. No lymphadenopathy. No thyromegaly. LUNGS: Clear to auscultation. No wheezes or rhonchi. No intercostal retractions. HEART: Regular rate and rhythm. No murmur. ABDOMEN: Soft. Bowel sounds are present. No masses. No tenderness. EXTREMITIES: No pedal edema. No calf tenderness. NEUROLOGICAL: Patient is awake, alert and oriented x3. Cranial nerves 2 through 12 are grossly intact. ASSESSMENT AND PLAN 1. Covid 19 infection. Continue vitamin D, vitamin C, dexamethasone 6 mg daily, vitamin supplements, . 2. Severe electrolyte abnormalities with hypokalemia, hypomagnesemia, hypo- calcium. Patient is status post replacement, continue to monitor 3. Normal pressure hydrocephalus s/p PARK INTER[employer]TIVE RANGER shunt, stable. 4. Acute delirium with Dementia. Continue Namenda 5 mg twice daily, Aricept 10 mg at hs, Exelon 3 mg twice daily. Melatonin 5 mg at bedtime 5. Hyperlipidemia. Continue Lipitor 80 mg at bedtime. 6. Diabetes mellitus type 2. Continue NovoLog scale before meals and at bedtime. 7. Hypertension. Patient is off blood pressure medicine type 2 diabetes: Has been on Lantus 10 units daily along with Accu-Chek sliding scales coverage. 8. Recurrent depression. Continue Cymbalta 60 mg daily. 9. Chronic kidney disease stage 2. Avoid nephrotoxic agents. 10. GI prophylaxis. Protonix. 11. DVT prophylaxis. Lovenox. 12 acute UTI urinalysis repeat with reflux Rocephin initiated on 1 g every 24 DISCHARGE PLAN TBD somewhat with PT and OT. Objective - Vital Signs Vital signs: Vital Signs Temp 98.3 F 08/12/21 08:00 Pulse 76 08/12/21 12:00 Resp 18 08/12/21 13:41 BP 154/66 08/12/21 12:00 Pulse Ox 93 L 08/12/21 12:00 Intake & Output 08/11/21 08/12/21 08/12/21 18:59 06:59 18:59 Intake Total 510 Output Total 700 700 300 Balance -190 -700 -300 Intake: Oral 510 Output: Urine 700 700 300 Other: Voiding Method External Catheter External Catheter External Catheter - Labs CBC & Chem 7: 08/11/21 07:41 08/12/21 08:42 Labs: Abnormal Lab Results - Last 24 Hours (Table) 08/11/21 08/12/21 08/12/21 Range/Units 20:35 05:08 08:42 Chloride 108 H (98-107) mmol/L BUN 23 H (7-17) mg/dL Glucose 196 H (74-99) mg/dL POC Glucose (mg/dL) 196 H 164 H (75-99) mg/dL ALT 38 H (4-34) U/L Albumin 3.4 L (3.5-5.0) g/dL 08/12/21 08/12/21 Range/Units 11:38 16:32 Chloride (98-107) mmol/L BUN (7-17) mg/dL Glucose (74-99) mg/dL POC Glucose (mg/dL) 225 H 143 H (75-99) mg/dL ALT (4-34) U/L Albumin (3.5-5.0) g/dL Microbiology - Last 24 Hours (Table) 08/10/21 19:30 Blood Culture - Preliminary Blood No Growth after 24 hours 08/10/21 19:15 Blood Culture - Preliminary Blood No Growth after 24 hours
[2021-08-12] MEDS: SODIUM CHLORIDE 0.9% 1,000 ML IV SCH (19:17)
[2021-08-12 21:30] LABS: Glucose,Whole Blood 212 mg/dL (75-99)
[2021-08-12] MEDS: DONEPEZIL 10 MG TAB PO SCH (21:35)
[2021-08-12] MEDS: ATORVASTATIN 80 MG TAB PO SCH (21:35)
[2021-08-13 00:45] LABS: Appearance,Urine Clear (Clear); Bilirubin,Urine Negative (Negative); Blood,Urine Negative (Negative); Color,Urine Light Yellow; Glucose,Urine (UA) Negative (Negative); Ketones,Urine Negative (Negative); Leukocyte Esterase,Urine Negative (Negative); Nitrite,Urine Negative (Negative); Protein,Urine Negative (Negative); Specific Gravity,Urine 1.013 (1.001-1.035); Urobilinogen,Urine <2.0 mg/dL (<2.0)
[2021-08-13] MEDS: SODIUM CHLORIDE 0.9% 1,000 ML IV SCH ×2 (02:10→18:38)
[2021-08-13] MEDS: INSULIN ASPART (NovoLOG) 100 UNIT/ML VIAL SQ SCH ×4 (06:39→21:05)
[2021-08-13] MEDS: MIDODRINE 5 MG TAB PO SCH ×2 (06:39→17:42)
[2021-08-13 06:48] LABS: Glucose,Whole Blood 123 mg/dL (75-99)
[2021-08-13] MEDS: CHOLECALCIFEROL 25 MCG (1000 IU) TABLET PO SCH ×2 (07:00→17:41)
[2021-08-13] MEDS: MEMANTINE 5 MG TAB PO SCH ×2 (07:01→17:41)
[2021-08-13] MEDS: MIRABEGRON 25 MG PO SCH (08:00)
[2021-08-13] MEDS: ASCORBIC ACID 500 MG TAB PO SCH (09:02)
[2021-08-13] MEDS: ASPIRIN 81 MG PO SCH (09:02)
[2021-08-13] MEDS: ENOXAPARIN 40 MG/0.4 ML SYRINGE SQ SCH (09:02)
[2021-08-13] MEDS: dexAMETHasone 2 MG TAB PO SCH (09:02)
[2021-08-13] MEDS: THIAMINE 100 MG TAB PO SCH (09:02)
[2021-08-13] MEDS: DULoxetine HCL 60 MG CAPSULE.DR PO SCH (09:02)
[2021-08-13] MEDS: CYANOCOBALAMIN 500 MCG TAB PO SCH (09:02)
[2021-08-13 11:52] LABS: Glucose,Whole Blood 145 mg/dL (75-99)
[2021-08-13 15:17] LABS: Basophils % (A) 0 %; Eosinophils % (A) 0 %; HCT 38.2 % (34.0-46.0); HGB 12.6 gm/dL (11.4-16.0); Lymphocytes # (A) 0.6 k/uL (1.0-4.8); Lymphocytes % (A) 5 %; MCHC 32.9 g/dL (31.0-37.0); Mean Platelet Volume 8.1; Monocytes # (A) 0.3 k/uL (0-1.0); Monocytes % (A) 3 %; Neutrophils # (A) 10.7 k/uL (1.3-7.7); Neutrophils % (A) 91 %; Platelet Count 233 k/uL (150-450); RDW 14.2 % (11.5-15.5); WBC 11.8 k/uL (3.8-10.6)
[2021-08-13 15:30] LABS: Albumin 3.7 g/dL (3.5-5.0); Calcium 9.2 mg/dL (8.4-10.2); Potassium 4.4 mmol/L (3.5-5.1); Total Bilirubin 0.5 mg/dL (0.2-1.3); Total Protein 6.9 g/dL (6.3-8.2)
--- NOTE | 2021-08-13 15:51 | P.PN ---
Subjective Progress Note Date: 08/13/21 HISTORY OF PRESENT ILLNESS 86-year-old female patient of Dr. 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 Patient was recently hospitalized in June 2021 due to possible TIA, possible anticholinergic effect of Elavil. Patient was discharged home with homecare. Patient was diagnosed with Covid 19 on Saturday secondary to congestion and cough. Patient was initially doing better now worsened with increasing weakness and falling to the left side. Patient was found to be afebrile, heart rate 77, blood pressure 87/58, pulse ox 97%. EKG was incomplete right bundle branch block, left axis deviation, no acute changes. CBC was unremarkable. Sodium 136, potassium 2.7, chloride 113, CO2 15, BUN 29 and creatinine 0.84. Magnesium 0.9, calcium 6.4. Blood sugars running between 71 and 151. None of that with her urinalysis was cloudy, leukoesterase moderate, bacteria many. WBC 7. CAT scan of the brain showed no evidence of acute process with RN SECURITY shunt catheter similar appearance with evidence of hydrocephalus. Ventricular size is similar to prior exam. 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 Nonspecific white matter changes likely secondary to chronic small vessel ischemic disease. Chest x-ray reveals no acute cardiopulmonary disease. Patient was given a dose of ceftriaxone, Xanax, calcium gluconate, magnesium replacement, potassium replacement, started on IV fluids with 500 mL bolus followed by 75 mL per hour and admitted to the cardiac stepdown unit. 08/12 and patient examined bedside patient was significantly confused compared to yesterday. She thinks she is at a friend's house. She gets easily confused even after reorientation. Vitals are reviewed patient is afebrile oxygen saturation 93% on room air labs revealed sodium 137 BUN 23 creatinine 0.9 glucose 196 albumin 3.4. Continue to reorient the patient continued Covid treatment electrolytes were replaced.. Pro-calcitonin is negative. UA obtained in the ER is mildly positive for UTI. We'll start patient on Rocephin 1 g every 24 hours due to patient's mental status and unable to provide any history. 08/13 patient examined bedside continues to remain confused. Vitals otherwise stable. Patient is afebrile pulse 67 respiratory rate 18 1 low pressure 135/64. Labs are reviewed electrolytes improved creatinine is normal. Repeat UA is negative for infection will discontinue Rocephin patient will be evaluated with PT and OT follow need rehab otherwise patient is ready to be discharged tomorrow REVIEW OF SYSTEMS Constitutional: No fever, no chills, no night sweats. No weight change. Generalized weakness, fatigue or lethargy. No daytime sleepiness.still slightly but confused. EENT: No headache. No blurred vision or double vision, no loss of vision. No loss of Hearing, no ringing in the ears, no dizziness. No nasal drainage or congestion. No epistaxis. No sore throat. Lungs: No shortness of breath, cough, no sputum production. No wheezing. Cardiovascular: No chest pain, no lower extremity edema. No palpitations. No paroxysmal nocturnal dyspnea. No orthopnea. No lightheadedness or dizziness. No syncopal episodes. Abdominal: No abdominal pain. No nausea, vomiting. No diarrhea. No constipation. No bloody or tarry stools.. No loss of appetite. Genitourinary: No dysuria, increased frequency, urgency. No urinary retention. Musculoskeletal: generalized muscle pain and myalgia. Integumentary: No wounds, no lesions. No rash or pruritus. No unusual bruising. No change in hair or nails. Neurologic: No aphasia. No facial droop. Noted chronic change in mentation. No head injury. No headache. No paralysis. No paresthesia.mild confusion with worsening dementia. Psychiatric: No depression. No anxiety. No mood swings. Endocrine: No abnormal blood sugars. No weight change. No excessive sweating or thirst. No cold intolerance. PHYSICAL EXAMINATION Gen: This is Elderly the urine shows does not look in any respiratory distress still having problems finding the right words to express herself. HEENT: Head is atraumatic, normocephalic. Pupils equal, round. Sclerae is anicteric. NECK: Supple. No JVD. No lymphadenopathy. No thyromegaly. LUNGS: Clear to auscultation. No wheezes or rhonchi. No intercostal retractions. HEART: Regular rate and rhythm. No murmur. ABDOMEN: Soft. Bowel sounds are present. No masses. No tenderness. EXTREMITIES: No pedal edema. No calf tenderness. NEUROLOGICAL: Patient is awake, alert and oriented x3. Cranial nerves 2 through 12 are grossly intact. ASSESSMENT AND PLAN 1. Covid 19 infection. Continue vitamin D, vitamin C, dexamethasone 6 mg daily, vitamin supplements, . 2. Severe electrolyte abnormalities with hypokalemia, hypomagnesemia, hypo- calcium. Patient is status post replacement, continue to monitor 3. Normal pressure hydrocephalus s/p RN SECURITY shunt, stable. 4. Acute delirium with Dementia. Continue Namenda 5 mg twice daily, Aricept 10 mg at hs, Exelon 3 mg twice daily. Melatonin 5 mg at bedtime 5. Hyperlipidemia. Continue Lipitor 80 mg at bedtime. 6. Diabetes mellitus type 2. Continue NovoLog scale before meals and at bedtime. 7. Hypertension. Patient is off blood pressure medicine type 2 diabetes: Has been on Lantus 10 units daily along with Accu-Chek sliding scales coverage. 8. Recurrent depression. Continue Cymbalta 60 mg daily. 9. Chronic kidney disease stage 2. Avoid nephrotoxic agents. 10. GI prophylaxis. Protonix. 11. DVT prophylaxis. Lovenox. 12 acute UTI urinalysis repeat with reflux Rocephin initiated on 1 g every 24 DISCHARGE PLAN TBD somewhat with PT and OT. Objective - Vital Signs Vital signs: Vital Signs Temp 98.7 F 08/13/21 08:00 Pulse 70 08/13/21 12:00 Resp 18 08/13/21 13:29 BP 137/62 08/13/21 12:00 Pulse Ox 93 L 08/13/21 12:00 Intake & Output 08/12/21 08/13/21 08/13/21 18:59 06:59 18:59 Output Total 700 1000 1200 Balance -700 -1000 -1200 Output: Urine 700 1000 1200 Other: Voiding Method External Catheter External Catheter External Catheter - Labs CBC & Chem 7: 08/13/21 14:44 08/13/21 14:44 Labs: Abnormal Lab Results - Last 24 Hours (Table) 08/12/21 08/12/21 08/13/21 Range/Units 16:32 21:29 06:33 WBC (3.8-10.6) k/uL Neutrophils # (1.3-7.7) k/uL Lymphocytes # (1.0-4.8) k/uL BUN (7-17) mg/dL Glucose (74-99) mg/dL POC Glucose (mg/dL) 143 H 212 H 123 H (75-99) mg/dL AST (14-36) U/L ALT (4-34) U/L 08/13/21 08/13/21 08/13/21 Range/Units 11:50 14:44 14:44 WBC 11.8 H (3.8-10.6) k/uL Neutrophils # 10.7 H (1.3-7.7) k/uL Lymphocytes # 0.6 L (1.0-4.8) k/uL BUN 21 H (7-17) mg/dL Glucose 163 H (74-99) mg/dL POC Glucose (mg/dL) 145 H (75-99) mg/dL AST 38 H (14-36) U/L ALT 35 H (4-34) U/L Microbiology - Last 24 Hours (Table) 08/10/21 19:30 Blood Culture - Preliminary Blood No Growth after 48 hours 08/10/21 19:15 Blood Culture - Preliminary Blood No Growth after 48 hours
[2021-08-13 16:48] LABS: Glucose,Whole Blood 158 mg/dL (75-99)
[2021-08-13 20:55] LABS: Glucose,Whole Blood 117 mg/dL (75-99)
[2021-08-13 20:55] LABS: Glucose,Whole Blood 136 mg/dL (75-99)
[2021-08-13] MEDS: DONEPEZIL 10 MG TAB PO SCH (21:05)
[2021-08-13] MEDS: ATORVASTATIN 80 MG TAB PO SCH (21:05)
[2021-08-14 06:13] LABS: Glucose,Whole Blood 90 mg/dL (75-99)
[2021-08-14] MEDS: INSULIN ASPART (NovoLOG) 100 UNIT/ML VIAL SQ SCH ×2 (06:17→12:15)
[2021-08-14] MEDS: SODIUM CHLORIDE 0.9% 1,000 ML IV SCH (06:17)
[2021-08-14] MEDS: CHOLECALCIFEROL 25 MCG (1000 IU) TABLET PO SCH (06:29)
[2021-08-14] MEDS: MEMANTINE 5 MG TAB PO SCH (06:29)
[2021-08-14] MEDS: MIDODRINE 5 MG TAB PO SCH (06:29)
[2021-08-14 09:00] VITALS: RESP 20
[2021-08-14] MEDS: CYANOCOBALAMIN 500 MCG TAB PO SCH (09:06)
[2021-08-14] MEDS: dexAMETHasone 2 MG TAB PO SCH (09:06)
[2021-08-14] MEDS: THIAMINE 100 MG TAB PO SCH (09:06)
[2021-08-14] MEDS: ENOXAPARIN 40 MG/0.4 ML SYRINGE SQ SCH (09:06)
[2021-08-14] MEDS: ASCORBIC ACID 500 MG TAB PO SCH (09:06)
[2021-08-14] MEDS: ASPIRIN 81 MG PO SCH (09:06)
[2021-08-14] MEDS: DULoxetine HCL 60 MG CAPSULE.DR PO SCH (09:06)
[2021-08-14] MEDS: MIRABEGRON 25 MG PO SCH (09:07)
--- NOTE | 2021-08-14 10:55 | P.DS ---
Providers Date of admission: 08/10/21 19:35 Expected date of discharge: 08/14/21 Attending physician: Sandra Ocampo MD Primary care physician: Luis Avery [facility] Course: HISTORY OF PRESENT ILLNESS 86-year-old female patient of Dr. Avery with past medical history of type 2 diabetes, history of normal pressure hydrocephalus post VETERINARY TECHNICIAN ASSISTANT shunt, history of hypertension and hyperlipidemia along with a chronic kidney diseaseII. Patient was recently hospitalized in June 2021 due to possible TIA, possible anticholinergic effect of Elavil. Patient was discharged home with homecare. Patient was diagnosed with Covid 19 on Saturday secondary to congestion and cough. Patient was initially doing better now worsened with increasing weakness and falling to the left side. Patient was found to be afebrile, heart rate 77, blood pressure 87/58, pulse ox 97%. EKG was incomplete right bundle branch block, left axis deviation, no acute changes. CBC was unremarkable. Sodium 136, potassium 2.7, chloride 113, CO2 15, BUN 29 and creatinine 0.84. Magnesium 0.9, calcium 6.4. Blood sugars running between 71 and 151. None of that with her urinalysis was cloudy, leukoesterase moderate, bacteria many. WBC 7. CAT scan of the brain showed no evidence of acute process with VETERINARY TECHNICIAN ASSISTANT shunt catheter similar appearance with evidence of hydrocephalus. Ventricular size is similar to prior exam. 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 Nonspecific white matter changes likely secondary to chronic small vessel ischemic disease. Chest x-ray reveals no acute cardiopulmonary disease. Patient was given a dose of ceftriaxone, Xanax, calcium gluconate, magnesium replacement, potassium replacement, started on IV fluids with 500 mL bolus followed by 75 mL per hour and admitted to the cardiac stepdown unit. 08/12 and patient examined bedside patient was significantly confused compared to yesterday. She thinks she is at a friend's house. She gets easily confused even after reorientation. Vitals are reviewed patient is afebrile oxygen saturation 93% on room air labs revealed sodium 137 BUN 23 creatinine 0.9 glucose 196 albumin 3.4. Continue to reorient the patient continued Covid treatment electrolytes were replaced.. Pro-calcitonin is negative. UA obtained in the ER is mildly positive for UTI. We'll start patient on Rocephin 1 g every 24 hours due to patient's mental status and unable to provide any history. 1/23 patient examined bedside continues to remain confused. Vitals otherwise stable. Patient is afebrile pulse 67 respiratory rate 18 1 low pressure 135/64. Labs are reviewed electrolytes improved creatinine is normal. Repeat UA is negative for infection will discontinue Rocephin patient will be evaluated with PT and OT follow need rehab otherwise patient is ready to be discharged tomorrow 08/14: Patient's breathing status is stable and she is not requiring oxygen. Pulse ox is 97% on room air. She's been afebrile, heart rate 104, blood pressure 136/69. Blood sugars are running between 90-148. Discharge plan is to return home. We will request the PT evaluate regarding safety all equipment is already set up at home and anticipate discharge to home today in stable condi tion. DISCHARGE DIAGNOSES 1. Covid 19 infection. 2. Severe electrolyte abnormalities with hypokalemia, hypomagnesemia, hypo- calcium. 3. Normal pressure hydrocephalus s/p VETERINARY TECHNICIAN ASSISTANT shunt, stable. 4. Acute delirium with Dementia. 5. Hyperlipidemia. 6. Diabetes mellitus type 2. 7. Hypertension. 8. Recurrent depression. 9. Chronic kidney disease stage 2. 10. Acute UTI ruled out DISCHARGE PLAN HOME Greater than 35 minutes was utilized and coordinating patient's discharge. Impression and plan of care have been directed as dictated by the signing physician. Carolann Molina nurse practitioner acting as scribe for signing physician. Plan - Discharge Summary Discharge Rx Participant: No New Discharge Prescriptions: New Docusate [Colace] 100 mg PO BID PRN cap PRN Reason: Constipation Continue DULoxetine HCL [Cymbalta] 60 mg PO DAILY Atorvastatin [Lipitor] 80 mg PO HS ALPRAZolam [Xanax] 0.25 mg PO TID PRN PRN Reason: Anxiety Midodrine HCl 5 mg PO BID-W/MEALS Aspirin 81 mg PO DAILY tab Ascorbic Acid [Vitamin C] 500 mg PO DAILY Memantine HCl [Namenda] 5 mg PO BID-W/MEALS Dexamethasone 6 mg PO DAILY Cholecalciferol [Vitamin D3 (25 Mcg = 1000 Iu)] 50 mcg PO BID-W/MEALS Rivastigmine Tartrate [Exelon] 3 mg PO BID-W/MEALS Mirabegron [Myrbetriq] 25 mg PO DAILY Cyanocobalamin [Vitamin B-12] 500 mcg PO DAILY Thiamine [Vitamin B-1] 100 mg PO DAILY tab Insulin Glargine,Hum.rec.anlog [Lantus Solostar Pen] 10 unit SQ DAILY PRN PRN Reason: Blood Sugar - High Niacin 500 mg PO DAILY Discharge Medication List DULoxetine HCL [Cymbalta] 60 mg PO DAILY 03/07/19 [History] Atorvastatin [Lipitor] 80 mg PO HS 03/08/19 [History] ALPRAZolam [Xanax] 0.25 mg PO TID PRN 07/05/21 [History] Cholecalciferol [Vitamin D3 (25 Mcg = 1000 Iu)] 50 mcg PO BID-W/MEALS 07/05/21 [History] Cyanocobalamin [Vitamin B-12] 500 mcg PO DAILY 07/05/21 [History] Midodrine HCl 5 mg PO BID-W/MEALS 07/05/21 [History] Mirabegron [Myrbetriq] 25 mg PO DAILY 07/05/21 [History] Rivastigmine Tartrate [Exelon] 3 mg PO BID-W/MEALS 07/05/21 [History] Aspirin 81 mg PO DAILY tab 07/07/21 [Rx] Thiamine [Vitamin B-1] 100 mg PO DAILY tab 07/07/21 [Rx] Ascorbic Acid [Vitamin C] 500 mg PO DAILY 08/10/21 [History] Dexamethasone 6 mg PO DAILY 08/10/21 [History] Insulin Glargine,Hum.rec.anlog [Lantus Solostar Pen] 10 unit SQ DAILY PRN 08/10/21 [History] Memantine HCl [Namenda] 5 mg PO BID-W/MEALS 08/10/21 [History] Niacin 500 mg PO DAILY 08/10/21 [History] Docusate [Colace] 100 mg PO BID PRN cap 08/14/21 [Rx] Follow up Appointment(s)/Referral(s): Luis Avery MD [Primary Care Provider] - 1 Week
[2021-08-14 11:43] VITALS: BP 136/69; PULSE 104; TEMP 98.5
[2021-08-14 12:01] LABS: Glucose,Whole Blood 148 mg/dL (75-99)
--- NOTE | 2021-08-14 12:34 | CDI ---
Documentation Clarification Form Date: 08/14/2021 11:46:21 AM From: Arina Chavez RN, CCDS Admit Date: 08/10/2021 07:35:00 PM Patient Name: Mulu Vázquez Visit Number: [id number] Discharge Date: ATTENTION: The Clinical Documentation Specialists (CDI) and [facility] Coding Staff appreciate your assistance in clarifying documentation. Please respond to the clarification below the line at the bottom and electronically sign. The CDI & [facility] Coding staff will review the response and follow-up if needed. Please note: Queries are made part of the Legal Health Record. If you have any questions, please contact the author of this message via ITS. Dr. Sandra Ocampo Your patient has the documented symptom of confusion, baseline dementia. She is diagnosed with severe electrolyte abnormalities and UTI. Additional clarification regarding the etiology/cause of this symptom is requested. History/Risk Factors: Diabetes mellitus, Hyperlipidemia, Normal Pressure Hydrocephalus Clinical Indicators: 86-year-old female orientated x2. NIH score is 0. Patient was admitted for severe electrolyte abnormalities with hypokalemia, hypomagnesemia, and hypo-calcium 1. 87/58 77 16 98 97 % RA 08/10 Labs: Sodium 10.9, Potassium 2.17, Chloride 113, Calcium 6.4 UA: Leukocyte Esterase Moderate 08/10 Chest X Ray: No acute cardiopulmonary disease 08/10 CT: No evidence acute process with DOORPERSON OR LUGGAGE PORTER shunt similar in appearance with evidence of hydrocephalus. Nonspecific white matter changes, likely secondary to chronic small vessel ischemic disease. Treatment Medical telemetry monitoring Neuro assessment per protocol .9NS 500 mls Bolus Potassium chloride 10 Dasia in 100MLS @ 100 MLS/HR X6 BAGS 08/10-08/11 Magnesium Sulfate 1GM in 100mls Q1 hr. x4 bags 08/10-08/11 Rocephin 1GM IVPB Q 24 HRS 08/10-08/12 Calcium Gluconate 2 GM IVPB Once 08/10 Please clarify the etiology of the symptom of confusion: [ ] Metabolic encephalopathy due to severe electrolyte abnormalities and UTI [ ] Acute delirium with dementia only (specify type of dementia if known) [ ] Other condition (please specify) [X ] Unable to determine (Template Last Revised: August 2020) MTDD
== END 2021-08-14 15:45 | disposition home or self-care (01) | DRG 178 ==
LOC: EC 15:46 → 4SSUR 19:35 → 3SCARD 20:05
PROVIDERS: ADMIT Internal Medicine; ATTEND Internal Medicine
DX: U07.1 COVID-19 (principal); F33.9 Major depressive disorder, recurrent, unspecified; G91.2 (Idiopathic) normal pressure hydrocephalus; I45.2 Bifascicular block; R64 Cachexia; E78.5 Hyperlipidemia, unspecified; E83.42 Hypomagnesemia; N18.2 Chronic kidney disease, stage 2 (mild); E11.22 Type 2 diabetes mellitus with diabetic chronic kidney disease; E83.51 Hypocalcemia; E87.6 Hypokalemia; F03.90 Unspecified dementia, unspecified severity, without behavioral disturbance, psychotic disturbance, mood disturbance, and anxiety; I12.9 Hypertensive chronic kidney disease with stage 1 through stage 4 chronic kidney disease, or unspecified chronic kidney disease; Z68.21 Body mass index [BMI] 21.0-21.9, adult; Z79.82 Long term (current) use of aspirin; Z79.899 Other long term (current) drug therapy; Z82.3 Family history of stroke; Z83.3 Family history of diabetes mellitus; Z87.440 Personal history of urinary (tract) infections; Z98.2 Presence of cerebrospinal fluid drainage device; E11.621 Type 2 diabetes mellitus with foot ulcer
CPT/HCPCS: 36415; 70450; 71045; 80053; 81001; 81003; 82550; 82728; 83036; 83615; 83735; 84145; 84484; 85025; 85379; 85384; 85610; 85730; 86140; 87040; 87635; 93005; 96360; 96361; 99285

== ENCOUNTER 2021-08-19 16:25 | Inpatient (IN) | payer MEDICARE ==
[2021-08-19] MEDS ORDERED: SODIUM CHLORIDE 0.9% 500 ML 500 ML IV STA (16:49)
[2021-08-19] MEDS ORDERED: SODIUM CHLORIDE 0.9% 1,000 ML IV STA (16:49)
[2021-08-19 16:54] LABS: Glucose,Whole Blood 153 mg/dL (75-99)
--- NOTE | 2021-08-19 17:00 | ED ---
General Adult HPI - General Chief complaint: Weakness Stated complaint: revisit-no appetite, weakness Time Seen by Provider: 08/19/21 16:41 Source: patient, family, RN notes reviewed Mode of arrival: wheelchair Limitations: no limitations - History of Present Illness Initial comments: Patient is a pleasant 86-year-old female presenting to the emergency Department with generalized weakness and poor oral intake. Patient was in the hospital with similar problems and discharged 5 days ago. Patient is not getting out of bed and not eating or drinking. Patient does have advanced dementia. Urine appears dark and decreased than normal output. - Related Data Home Medications Medication Instructions Recorded Confirmed DULoxetine HCL [Cymbalta] 60 mg PO DAILY 03/07/19 08/19/21 Atorvastatin [Lipitor] 80 mg PO HS 03/08/19 08/19/21 ALPRAZolam [Xanax] 0.25 mg PO TID PRN 07/05/21 08/19/21 Cholecalciferol [Vitamin D3 (25 50 mcg PO BID-W/MEALS 07/05/21 08/19/21 Mcg = 1000 Iu)] Cyanocobalamin [Vitamin B-12] 500 mcg PO DAILY 07/05/21 08/19/21 Midodrine HCl 5 mg PO BID-W/MEALS 07/05/21 08/19/21 Mirabegron [Myrbetriq] 25 mg PO DAILY 07/05/21 08/19/21 Rivastigmine Tartrate [Exelon] 3 mg PO BID-W/MEALS 07/05/21 08/19/21 Ascorbic Acid [Vitamin C] 500 mg PO DAILY 08/10/21 08/19/21 Insulin Glargine,Hum.rec.anlog 10 unit SQ DAILY PRN 08/10/21 08/19/21 [Lantus Solostar Pen] Memantine HCl [Namenda] 5 mg PO BID-W/MEALS 08/10/21 08/19/21 Niacin 500 mg PO DAILY 08/10/21 08/19/21 Previous Rx's Medication Instructions Recorded Aspirin 81 mg PO DAILY tab 07/07/21 Thiamine [Vitamin B-1] 100 mg PO DAILY tab 07/07/21 Docusate [Colace] 100 mg PO BID PRN cap 08/14/21 Allergies Allergy/AdvReac Type Severity Reaction Status Date / Time No Known Allergies Allergy Verified 08/19/21 17:41 Review of Systems ROS Statement: Those systems with pertinent positive or pertinent negative responses have been documented in the HPI. ROS Other: All systems not noted in ROS Statement are negative. Constitutional: Denies: fever Eyes: Denies: eye pain ENT: Denies: ear pain Respiratory: Denies: cough Cardiovascular: Denies: chest pain Endocrine: Reports: fatigue Gastrointestinal: Denies: abdominal pain Genitourinary: Reports: as per HPI Skin: Denies: rash Neurological: Reports: as per HPI Past Medical History Past Medical History: Dementia, Diabetes Mellitus, Hyperlipidemia Additional Past Medical History / Comment(s): neuropathy, dizzy when stands, diabetic ulcer on left foot supposed to go to wound clinic hydrocephalus with vp biology shunt frequent uti History of Any Multi-Drug Resistant Organisms: None Reported Past Surgical History: Appendectomy, Cholecystectomy, Orthopedic Surgery Additional Past Surgical History / Comment(s): right shoulder vp biology shunt Past Anesthesia/Blood Transfusion Reactions: No Reported Reaction Additional Past Anesthesia/Blood Transfusion Reaction / Comment(s): patient states never had blood transfusion Past Psychological History: No Psychological Hx Reported Smoking Status: Never smoker Past Alcohol Use History: None Reported Past Drug Use History: None Reported - Past Family History Mother Family Medical History: Diabetes Mellitus General Exam Limitations: no limitations General appearance: alert, in no apparent distress Head exam: Present: normocephalic Eye exam: Present: normal appearance ENT exam: Present: mucous membranes dry Neck exam: Present: normal inspection Respiratory exam: Present: normal lung sounds bilaterally Cardiovascular Exam: Present: normal rhythm, tachycardia GI/Abdominal exam: Present: soft. Absent: tenderness Neurological exam: Present: alert Expanded Neurological exam: Present: protecting the airway Patient oriented to: Present: person, place. Absent: time Cranial nerves: EOM's Intact: Normal Motor strength exam: RUE: 5, LUE: 5, RLE: 5, LLE: 5 Eye Response: (4) open spontaneously Motor Response: (6) obeys commands Verbal Response: (5) oriented Psychiatric exam: Present: flat affect Skin exam: Present: normal color Course Vital Signs 08/19/21 08/19/21 16:33 19:37 Temperature 97.1 F L Pulse Rate 62 91 Respiratory 18 18 Rate Blood Pressure 85/61 105/79 O2 Sat by Pulse 99 96 Oximetry EKG Findings - EKG Comments: EKG Findings:: Sinus tach 1:15. MI 160. QRS 106. QT 340. QTc 41. Right axis. Incomplete right bundle-branch block. LVH. No acute ST change. Inverted T-wave in V1 and V2. Q wave in V3. Medical Decision Making - Medical Decision Making Patient reevaluated. Blood pressure improved. Case discussed with Dr. Coon, who will admit covering Dr. Avery. He does request pulmonary consult. Family is concerned the patient will need placement. - Lab Data Result diagrams: 08/19/21 17:12 08/19/21 17:12 Lab Results 08/19/21 08/19/21 08/19/21 Range/Units 16:52 17:12 17:12 WBC 16.7 H (3.8-10.6) k/uL RBC 4.77 (3.80-5.40) m/uL Hgb 14.4 (11.4-16.0) gm/dL Hct 43.4 (34.0-46.0) % MCV 91.0 (80.0-100.0) fL MCH 30.1 (25.0-35.0) pg MCHC 33.1 (31.0-37.0) g/dL RDW 14.5 (11.5-15.5) % Plt Count 241 (150-450) k/uL MPV 8.2 Neutrophils % 85 % Lymphocytes % 7 % Monocytes % 5 % Eosinophils % 0 % Basophils % 0 % Neutrophils # 14.2 H (1.3-7.7) k/uL Lymphocytes # 1.2 (1.0-4.8) k/uL Monocytes # 0.9 (0-1.0) k/uL Eosinophils # 0.0 (0-0.7) k/uL Basophils # 0.0 (0-0.2) k/uL PT 10.6 (9.0-12.0) sec INR 1.0 (<1.2) APTT 25.0 (22.0-30.0) sec Sodium (137-145) mmol/L Potassium (3.5-5.1) mmol/L Chloride (98-107) mmol/L Carbon Dioxide (22-30) mmol/L Anion Gap mmol/L BUN (7-17) mg/dL Creatinine (0.52-1.04) mg/dL Est GFR (CKD-EPI)AfAm (>60 ml/min/1.73 sqM) Est GFR (CKD-EPI)NonAf (>60 ml/min/1.73 sqM) Glucose (74-99) mg/dL POC Glucose (mg/dL) 153 H (75-99) mg/dL POC Glu Pickle Solution Maker ID [facility] Plasma Lactic Acid Terrell (0.7-2.0) mmol/L Calcium (8.4-10.2) mg/dL Magnesium (1.6-2.3) mg/dL Total Bilirubin (0.2-1.3) mg/dL AST (14-36) U/L ALT (4-34) U/L Alkaline Phosphatase (38-126) U/L Troponin I (0.000-0.034) ng/mL Total Protein (6.3-8.2) g/dL Albumin (3.5-5.0) g/dL TSH (0.465-4.680) mIU/L Urine Color Urine Appearance (Clear) Urine pH (5.0-8.0) Ur Specific Randolph (1.001-1.035) Urine Protein (Negative) Urine Glucose (UA) (Negative) Urine Ketones (Negative) Urine Blood (Negative) Urine Nitrite (Negative) Urine Bilirubin (Negative) Urine Urobilinogen (<2.0) mg/dL Ur Leukocyte Esterase (Negative) Urine RBC (0-5) /hpf Urine WBC (0-5) /hpf Ur Squamous Epith Cells (0-4) /hpf Urine Mucus (None) /hpf 08/19/21 08/19/21 08/19/21 Range/Units 17:12 17:12 17:12 WBC (3.8-10.6) k/uL RBC (3.80-5.40) m/uL Hgb (11.4-16.0) gm/dL Hct (34.0-46.0) % MCV (80.0-100.0) fL MCH (25.0-35.0) pg MCHC (31.0-37.0) g/dL RDW (11.5-15.5) % Plt Count (150-450) k/uL MPV Neutrophils % % Lymphocytes % % Monocytes % % Eosinophils % % Basophils % % Neutrophils # (1.3-7.7) k/uL Lymphocytes # (1.0-4.8) k/uL Monocytes # (0-1.0) k/uL Eosinophils # (0-0.7) k/uL Basophils # (0-0.2) k/uL PT (9.0-12.0) sec INR (<1.2) APTT (22.0-30.0) sec Sodium 131 L (137-145) mmol/L Potassium 3.8 (3.5-5.1) mmol/L Chloride 101 (98-107) mmol/L Carbon Dioxide 23 (22-30) mmol/L Anion Gap 7 mmol/L BUN 29 H (7-17) mg/dL Creatinine 1.02 (0.52-1.04) mg/dL Est GFR (CKD-EPI)AfAm 59 (>60 ml/min/1.73 sqM) Est GFR (CKD-EPI)NonAf 51 (>60 ml/min/1.73 sqM) Glucose 179 H (74-99) mg/dL POC Glucose (mg/dL) (75-99) mg/dL POC Glu Pickle Solution Maker ID Plasma Lactic Acid Terrell 1.6 (0.7-2.0) mmol/L Calcium 9.4 (8.4-10.2) mg/dL Magnesium 1.5 L (1.6-2.3) mg/dL Total Bilirubin 1.0 (0.2-1.3) mg/dL AST 34 (14-36) U/L ALT 39 H (4-34) U/L Alkaline Phosphatase 82 (38-126) U/L Troponin I 0.030 (0.000-0.034) ng/mL Total Protein 6.9 (6.3-8.2) g/dL Albumin 3.6 (3.5-5.0) g/dL TSH 1.870 (0.465-4.680) mIU/L Urine Color Urine Appearance (Clear) Urine pH (5.0-8.0) Ur Specific Randolph (1.001-1.035) Urine Protein (Negative) Urine Glucose (UA) (Negative) Urine Ketones (Negative) Urine Blood (Negative) Urine Nitrite (Negative) Urine Bilirubin (Negative) Urine Urobilinogen (<2.0) mg/dL Ur Leukocyte Esterase (Negative) Urine RBC (0-5) /hpf Urine WBC (0-5) /hpf Ur Squamous Epith Cells (0-4) /hpf Urine Mucus (None) /hpf 08/19/21 Range/Units 19:01 WBC (3.8-10.6) k/uL RBC (3.80-5.40) m/uL Hgb (11.4-16.0) gm/dL Hct (34.0-46.0) % MCV (80.0-100.0) fL MCH (25.0-35.0) pg MCHC (31.0-37.0) g/dL RDW (11.5-15.5) % Plt Count (150-450) k/uL MPV Neutrophils % % Lymphocytes % % Monocytes % % Eosinophils % % Basophils % % Neutrophils # (1.3-7.7) k/uL Lymphocytes # (1.0-4.8) k/uL Monocytes # (0-1.0) k/uL Eosinophils # (0-0.7) k/uL Basophils # (0-0.2) k/uL PT (9.0-12.0) sec INR (<1.2) APTT (22.0-30.0) sec Sodium (137-145) mmol/L Potassium (3.5-5.1) mmol/L Chloride (98-107) mmol/L Carbon Dioxide (22-30) mmol/L Anion Gap mmol/L BUN (7-17) mg/dL Creatinine (0.52-1.04) mg/dL Est GFR (CKD-EPI)AfAm (>60 ml/min/1.73 sqM) Est GFR (CKD-EPI)NonAf (>60 ml/min/1.73 sqM) Glucose (74-99) mg/dL POC Glucose (mg/dL) (75-99) mg/dL POC Glu Pickle Solution Maker ID Plasma Lactic Acid Terrell (0.7-2.0) mmol/L Calcium (8.4-10.2) mg/dL Magnesium (1.6-2.3) mg/dL Total Bilirubin (0.2-1.3) mg/dL AST (14-36) U/L ALT (4-34) U/L Alkaline Phosphatase (38-126) U/L Troponin I (0.000-0.034) ng/mL Total Protein (6.3-8.2) g/dL Albumin (3.5-5.0) g/dL TSH (0.465-4.680) mIU/L Urine Color Yellow Urine Appearance Clear (Clear) Urine pH 5.5 (5.0-8.0) Ur Specific Randolph 1.016 (1.001-1.035) Urine Protein Trace H (Negative) Urine Glucose (UA) Negative (Negative) Urine Ketones Negative (Negative) Urine Blood Negative (Negative) Urine Nitrite Negative (Negative) Urine Bilirubin Negative (Negative) Urine Urobilinogen <2.0 (<2.0) mg/dL Ur Leukocyte Esterase Small H (Negative) Urine RBC <1 (0-5) /hpf Urine WBC 2 (0-5) /hpf Ur Squamous Epith Cells 1 (0-4) /hpf Urine Mucus Rare H (None) /hpf - Radiology Data Radiology results: image reviewed (Concern for left lower infiltrate) Disposition Clinical Impression: Pneumonia Disposition: ADMITTED IP TO THIS HOSP Is patient prescribed a controlled substance at d/c from ED?: No Referrals: Luis Avery MD [Primary Care Provider] - 1-2 days Decision Time: 19:54
[2021-08-19 17:42] LABS: Albumin 3.6 g/dL (3.5-5.0); Calcium 9.4 mg/dL (8.4-10.2); Magnesium 1.5 mg/dL (1.6-2.3); Potassium 3.8 mmol/L (3.5-5.1); Total Protein 6.9 g/dL (6.3-8.2)
[2021-08-19 17:43] LABS: Prothrombin Time 10.6 sec (9.0-12.0)
[2021-08-19 17:44] LABS: Basophils % (A) 0 %; Eosinophils % (A) 0 %; HCT 43.4 % (34.0-46.0); HGB 14.4 gm/dL (11.4-16.0); Lymphocytes # (A) 1.2 k/uL (1.0-4.8); Lymphocytes % (A) 7 %; MCH 30.1 pg (25.0-35.0); MCHC 33.1 g/dL (31.0-37.0); Mean Platelet Volume 8.2; Monocytes # (A) 0.9 k/uL (0-1.0); Monocytes % (A) 5 %; Neutrophils # (A) 14.2 k/uL (1.3-7.7); Neutrophils % (A) 85 %; Platelet Count 241 k/uL (150-450); RBC 4.77 m/uL (3.80-5.40); RDW 14.5 % (11.5-15.5); WBC 16.7 k/uL (3.8-10.6)
--- NOTE | 2021-08-19 18:04 | XR ---
EXAMINATION TYPE: XR chest 1V portable DATE OF EXAM: 08/19/2021 COMPARISON: 08/10/2021 HISTORY: Weakness TECHNIQUE: FINDINGS: There is some minimal infiltrate at the left costophrenic angle. Heart size is normal. Ther e are no hilar masses. There are chest leads. Right lung is clear. IMPRESSION: There is a new mild pneumonia and left lateral lung base compared to old exam. No heart f ailure. Normal heart.
[2021-08-19 19:26] LABS: Appearance,Urine Clear (Clear); Bilirubin,Urine Negative (Negative); Blood,Urine Negative (Negative); Color,Urine Yellow; Glucose,Urine (UA) Negative (Negative); Ketones,Urine Negative (Negative); Leukocyte Esterase,Urine Small (Negative); Mucus,Urine Rare /hpf; Nitrite,Urine Negative (Negative); PH, Urine 5.5 (5.0-8.0); Protein,Urine Trace (Negative); RBC,Urine <1 /hpf (0-5); Specific Gravity,Urine 1.016 (1.001-1.035); Squamous Epithelial Cell,Urine 1 /hpf (0-4); Urobilinogen,Urine <2.0 mg/dL (<2.0); WBC,Urine 2 /hpf (0-5)
[2021-08-19] MEDS ORDERED: AZITHROMYCIN 500 MG in SODIUM CHLORIDE 0.9% 250 ML IVPB STA (19:54)
[2021-08-19] MEDS ORDERED: PNEUMONIA PROTOCOL UTILIZED 1 EACH MISC PO PRN (19:54)
[2021-08-19] MEDS ORDERED: PIPERACILLIN-TAZOBACTAM 3.375 GM in SODIUM CHLORIDE 0.9% 100 ML IVPB STA (19:54)
[2021-08-19] MEDS: SODIUM CHLORIDE 0.9% 1,000 ML IV SCH (20:34)
[2021-08-19 21:27] LABS: Glucose,Whole Blood 122 mg/dL (75-99)
[2021-08-19] MEDS ORDERED: DOCUSATE 100 MG CAP PO PRN (21:36)
[2021-08-19] MEDS ORDERED: ALPRAZolam 0.25 MG TAB PO PRN (21:36)
[2021-08-19] MEDS ORDERED: Magnesium Replacement Protocol 1 EACH MISC MISCELLANE PRN (21:40)
[2021-08-19] MEDS: DULoxetine HCL 60 MG CAPSULE.DR PO SCH (21:58)
[2021-08-19] MEDS: THIAMINE 100 MG TAB PO SCH (21:58)
[2021-08-19] MEDS: ATORVASTATIN 80 MG TAB PO SCH (21:58)
[2021-08-19] MEDS: MAGNESIUM SULFATE-D5W PMX 1 GM in DEXTROSE/WATER 1 100ML.BAG IVPB SCH ×2 (23:03→23:53)
[2021-08-20] MEDS ORDERED: AZITHROMYCIN 500 MG in SODIUM CHLORIDE 0.9% 250 ML IVPB SCH ×4
[2021-08-20] MEDS: PIPERACILLIN-TAZOBACTAM 3.375 GM in SODIUM CHLORIDE 0.9% 100 ML IVPB SCH ×3 (04:41→20:04)
[2021-08-20 06:40] LABS: Mean Platelet Volume 8.3; Platelet Count 172 k/uL (150-450)
--- NOTE | 2021-08-20 07:08 | XR ---
EXAMINATION TYPE: XR chest 1V DATE OF EXAM: 08/20/2021 COMPARISON: 08/19/2021 HISTORY: Pneumonia TECHNIQUE: Single frontal view of the chest is obtained. FINDINGS: Exam is limited by poor inspiratory effort. Cannot exclude mild interstitial infiltrate in the left mid lower lung zone. The right lung is clear. There is no pneumothorax. There is no large pleural effusion. Heart size is normal and the vasculatur e is not congested. 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 IMPRESSION: Limited exam by poor history effort. Cannot exclude subtle interstitial infiltrate in th e left lower lung zone. There is been no significant interval change.
[2021-08-20 07:36] LABS: Glucose,Whole Blood 105 mg/dL (75-99)
[2021-08-20] MEDS: INSULIN ASPART (NovoLOG) 100 UNIT/ML VIAL SQ SCH ×4 (07:55→20:57)
[2021-08-20] MEDS: NON FORMULARY DRUG (Mirabegron [Myrbetriq] 25 MG Tablet) PO SCH (07:58)
[2021-08-20] MEDS: HEPARIN SODIUM,PORCINE/PF 5,000 UNIT/0.5 ML SYRINGE SQ SCH ×2 (08:34→20:04)
[2021-08-20] MEDS: CHOLECALCIFEROL 25 MCG (1000 IU) TABLET PO SCH ×2 (08:34→17:20)
[2021-08-20] MEDS: NIACIN TR 500 MG CAPLET PO SCH (08:35)
[2021-08-20] MEDS: THIAMINE 100 MG TAB PO SCH (08:35)
[2021-08-20] MEDS: CYANOCOBALAMIN 500 MCG TAB PO SCH (08:35)
[2021-08-20] MEDS: ASCORBIC ACID 500 MG TAB PO SCH (08:35)
[2021-08-20] MEDS: ASPIRIN 81 MG PO SCH (08:35)
[2021-08-20] MEDS: MEMANTINE 5 MG TAB PO SCH ×2 (08:36→17:19)
[2021-08-20] MEDS: DONEPEZIL 10 MG TAB PO SCH (08:36)
[2021-08-20] MEDS: MIDODRINE 5 MG TAB PO SCH ×2 (08:36→17:19)
--- NOTE | 2021-08-20 10:24 | P.HPIM ---
History of Present Illness H&P Date: 08/20/21 Chief Complaint: Weakness and confusion 86 years old female with past medical history significant for prolonged hospitalization due to COVID-19 infection was recently discharged home. Patient continued to be weak and lethargic and was brought to the emergency department as her son was concerned about her decreased oral intake, weakness and confusion. Patient is not able to identify the location , date or the reason why she came to the emergency department. family last time was suggested to sent to a rehab facility but were reluctant and currently seems to be open to rehab idea. Patient is denying pain in general denying shortness of breath and stated that she's feeding good otherwise. 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 frequent uti History of Any Multi-Drug Resistant Organisms: None Reported Past Surgical History: Appendectomy, Cholecystectomy, Orthopedic Surgery Additional Past Surgical History / Comment(s): right shoulder regional climate change analyst shunt Past Anesthesia/Blood Transfusion Reactions: No Reported Reaction Additional Past Anesthesia/Blood Transfusion Reaction / Comment(s): patient states never had blood transfusion Past Psychological History: No Psychological Hx Reported Additional Psychological History / Comment(s): Lives with saúl Hudson and his Smoking Status: Never smoker Past Alcohol Use History: None Reported Past Drug Use History: None Reported - Past Family History Mother Family Medical History: Diabetes Mellitus Medications and Allergies Home Medications Medication Instructions Recorded Confirmed Type DULoxetine HCL [Cymbalta] 60 mg PO DAILY 03/07/19 08/19/21 History Atorvastatin [Lipitor] 80 mg PO HS 03/08/19 08/19/21 History ALPRAZolam [Xanax] 0.25 mg PO TID PRN 07/05/21 08/19/21 History Cholecalciferol [Vitamin D3 (25 50 mcg PO BID-W/MEALS 07/05/21 08/19/21 History Mcg = 1000 Iu)] Cyanocobalamin [Vitamin B-12] 500 mcg PO DAILY 07/05/21 08/19/21 History Midodrine HCl 5 mg PO BID-W/MEALS 07/05/21 08/19/21 History Mirabegron [Myrbetriq] 25 mg PO DAILY 07/05/21 08/19/21 History Rivastigmine Tartrate [Exelon] 3 mg PO BID-W/MEALS 07/05/21 08/19/21 History Aspirin 81 mg PO DAILY tab 07/07/21 08/19/21 Rx Thiamine [Vitamin B-1] 100 mg PO DAILY tab 07/07/21 08/19/21 Rx Ascorbic Acid [Vitamin C] 500 mg PO DAILY 08/10/21 08/19/21 History Insulin Glargine,Hum.rec.anlog 10 unit SQ DAILY PRN 08/10/21 08/19/21 History [Lantus Solostar Pen] Memantine HCl [Namenda] 5 mg PO BID-W/MEALS 08/10/21 08/19/21 History Niacin 500 mg PO DAILY 08/10/21 08/19/21 History Docusate [Colace] 100 mg PO BID PRN cap 08/14/21 08/19/21 Rx Allergies Allergy/AdvReac Type Severity Reaction Status Date / Time No Known Allergies Allergy Verified 08/19/21 17:41 Physical Exam Vitals: Vital Signs Temp Pulse Pulse Resp BP BP Pulse Ox 08/20/21 06:07 98.1 F 78 15 98/60 99 08/20/21 02:00 98.6 F 100 17 92/55 08/19/21 21:55 98.2 F 87 15 107/69 98 08/19/21 20:34 98 16 103/72 94 L 08/19/21 19:37 91 18 105/79 96 08/19/21 16:33 97.1 F L 62 18 85/61 99 Intake and Output 08/19/21 08/20/21 08/20/21 22:59 06:59 14:59 Intake Total 1450 Balance 1450 Intake: Intake, IV Titration 1450 Amount Azithromycin 500 mg In 250 Sodium Chloride 0.9% 250 ml @ 250 mls/hr IVPB Q24H [facility] Rx#:[id number] Magnesium Sulfate-D5w Pmx 200 1 gm In Dextrose/Water 1 100ml.bag @ 100 mls/hr IVPB Q1H [facility] Rx#: [id number] Piperacillin-Tazobactam 3 200 .375 gm In Sodium Chloride 0.9% 100 ml @ 25 mls/hr IVPB Q8H [facility] Rx#: [id number] Sodium Chloride 0.9% 1, 800 000 ml @ 100 mls/hr IV . Q10H [facility] Rx#:[id number] Other: Voiding Method Diaper Weight 58.967 kg Gen.: in stated age, no acute distress, Alert and oriented times one only Heart: Normal S1-S2 Lungs: Clear to auscultation bilaterally Abdomen: Soft, no tenderness, positive bowel sounds in all 4 quadrant no guarding or rebound Skin: No new rash Psych: Alert and oriented 1 Neuro: No focal deficit Results CBC & Chem 7: 08/20/21 05:38 08/19/21 17:12 Labs: Abnormal Lab Results - Last 24 Hours (Table) 08/19/21 08/19/21 08/19/21 Range/Units 16:52 17:12 17:12 WBC 16.7 H (3.8-10.6) k/uL Neutrophils # 14.2 H (1.3-7.7) k/uL Sodium 131 L (137-145) mmol/L BUN 29 H (7-17) mg/dL Glucose 179 H (74-99) mg/dL POC Glucose (mg/dL) 153 H (75-99) mg/dL Magnesium 1.5 L (1.6-2.3) mg/dL ALT 39 H (4-34) U/L Urine Protein (Negative) Ur Leukocyte Esterase (Negative) Urine Mucus (None) /hpf Coronavirus (PCR) (Not Detectd) 08/19/21 08/19/21 08/19/21 Range/Units 19:01 20:16 21:26 WBC (3.8-10.6) k/uL Neutrophils # (1.3-7.7) k/uL Sodium (137-145) mmol/L BUN (7-17) mg/dL Glucose (74-99) mg/dL POC Glucose (mg/dL) 122 H (75-99) mg/dL Magnesium (1.6-2.3) mg/dL ALT (4-34) U/L Urine Protein Trace H (Negative) Ur Leukocyte Esterase Small H (Negative) Urine Mucus Rare H (None) /hpf Coronavirus (PCR) Detected A (Not Detectd) 08/20/21 08/20/21 Range/Units 05:38 07:35 WBC (3.8-10.6) k/uL Neutrophils # (1.3-7.7) k/uL Sodium (137-145) mmol/L BUN (7-17) mg/dL Glucose (74-99) mg/dL POC Glucose (mg/dL) 105 H (75-99) mg/dL Magnesium 2.4 H (1.6-2.3) mg/dL ALT (4-34) U/L Urine Protein (Negative) Ur Leukocyte Esterase (Negative) Urine Mucus (None) /hpf Coronavirus (PCR) (Not Detectd) Thrombosis Risk Factor Assmnt - Choose All That Apply Any of the Below Risk Factors Present?: Yes Each Factor Represents 1 point: History of:, Medical pt on bed rest Each Risk Factor Represents 3 Points: Age 75 years or older Thrombosis Risk Factor Assessment Total Risk Factor Score: 5 Thrombosis Risk Factor Assessment Level: High Risk Assessment and Plan Assessment: 1. Acute encephalopathy on baseline dementia with metabolic component. Other etiology needed to be ruled out. 2. Generalized weakness with debility and deconditioning. 3. COVID-19 infection. 4. Chest x-ray with left lower lobe pneumonia along with increasing white blood count and recent hospitalization suggesting healthcare associated pneumonia. 5. Acute hyponatremia. 6. Moderate protein calorie malnutrition. 7. Diabetes mellitus type 2. 8. Hyperlipidemia. 9. Dehydration on exam. 10. Hypomagnesemia. Plan discussed with the ER physician and later with nursing staff at the bedside where we would like to continue with broad-spectrum antibiotics for healthcare associated pneumonia, check on procalcitonin and d-dimer and currently patient on Lovenox 40 mg subcu daily and we would consider adjusting based on the value. We will continue with hospital isolation policy. We would consider infectious disease consultation based on clinical progress. Would encourage oral intake and have dietitian evaluate the patient during this hospital stay. Patient failed with recent discharge to home and may benefit from physical therapy evaluation and discussion with family regarding rehab facility at the time of the discharge area Would continue with tight glycemic control for value between 140 and 180 during this hospital stay. We'll optimize her risk factors monitor hemodynamic closely repeat blood work in the morning continue gentle hydration and follow-up with pulmonary recommendation as they were consulted in the emergency department.
[2021-08-20 11:55] LABS: Glucose,Whole Blood 116 mg/dL (75-99)
--- NOTE | 2021-08-20 14:10 | P.CNPUL ---
History of Present Illness Consult date: 08/20/21 Requesting physician: Sixto Saul Reason for consult: dyspnea, other Chief complaint: Shortness of breath. History of present illness: Pulmonary consultation dated 08/20/2021. 86-year-old female who presented to the emergency department on August 19, with complaints of poor appetite, weakness, dehydration, and generalized fatigue. The patient was recently in the hospital with a similar episode, and was discharged about 5 days ago. The patient did test positive for coronavirus. She is not having any pulmonary complaints at this time. She is resting in bed comfortably. She is on room air. Saturations are 99%. She apparently is brought back into the hospital, for possible placement in a fdc. She has a history of dementia, diabetes, hyperlipidemia, neuropathy, hydrocephalus with ventriculoperitoneal shunt, frequent urinary tract infections, and a foot ulcer/wound, from diabetes. She is a very poor historian, cannot give any additional history. She does not appear to be in any distress though. Laboratory data includes a white count 16.7, hemoglobin 14.4, hematocrit 43.4, and platelet count 2 41,000. PT/INR/PTT are normal. Sodium 131, potassium 3.8, CO2 23, chlorides 101, anion gap 7, BUN 29, creatinine 1.02. Magnesium 2. liver testing is essentially normal. TSH is normal. Troponin is negative. Urine is essentially negative. Testing for coronavirus is positive. This is likely an incidental finding. Chest x-ray in my opinion shows some minimal atelectasis, left lung base. Review of Systems REVIEW OF SYSTEMS: CONSTITUTIONAL: Weakness, fatigue. NEUROLOGIC: [ Negative.] HEENT: [ Negative.] CARDIAC: [Negative.] PULMONARY: [Negative.] GI: Poor oral intake with dehydration. : [Negative.] RHEUMATOLOGIC: [ Negative.] IMMUNOLOGIC: [ Negative.] ENDOCRINE: [Negative. 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 frequent uti History of Any Multi-Drug Resistant Organisms: None Reported Past Surgical History: Appendectomy, Cholecystectomy, Orthopedic Surgery Additional Past Surgical History / Comment(s): right shoulder real estate financial analyst shunt Past Anesthesia/Blood Transfusion Reactions: No Reported Reaction Additional Past Anesthesia/Blood Transfusion Reaction / Comment(s): patient states never had blood transfusion Past Psychological History: No Psychological Hx Reported Additional Psychological History / Comment(s): Lives with saúl Hudson and his Smoking Status: Never smoker Past Alcohol Use History: None Reported Past Drug Use History: None Reported - Past Family History Mother Family Medical History: Diabetes Mellitus Medications and Allergies Home Medications Medication Instructions Recorded Confirmed Type DULoxetine HCL [Cymbalta] 60 mg PO DAILY 03/07/19 08/19/21 History Atorvastatin [Lipitor] 80 mg PO HS 03/08/19 08/19/21 History ALPRAZolam [Xanax] 0.25 mg PO TID PRN 07/05/21 08/19/21 History Cholecalciferol [Vitamin D3 (25 50 mcg PO BID-W/MEALS 07/05/21 08/19/21 History Mcg = 1000 Iu)] Cyanocobalamin [Vitamin B-12] 500 mcg PO DAILY 07/05/21 08/19/21 History Midodrine HCl 5 mg PO BID-W/MEALS 07/05/21 08/19/21 History Mirabegron [Myrbetriq] 25 mg PO DAILY 07/05/21 08/19/21 History Rivastigmine Tartrate [Exelon] 3 mg PO BID-W/MEALS 07/05/21 08/19/21 History Aspirin 81 mg PO DAILY tab 07/07/21 08/19/21 Rx Thiamine [Vitamin B-1] 100 mg PO DAILY tab 07/07/21 08/19/21 Rx Ascorbic Acid [Vitamin C] 500 mg PO DAILY 08/10/21 08/19/21 History Insulin Glargine,Hum.rec.anlog 10 unit SQ DAILY PRN 08/10/21 08/19/21 History [Lantus Solostar Pen] Memantine HCl [Namenda] 5 mg PO BID-W/MEALS 08/10/21 08/19/21 History Niacin 500 mg PO DAILY 08/10/21 08/19/21 History Docusate [Colace] 100 mg PO BID PRN cap 08/14/21 08/19/21 Rx Allergies Allergy/AdvReac Type Severity Reaction Status Date / Time No Known Allergies Allergy Verified 08/19/21 17:41 Physical Exam Osteopathic Statement: *. No significant issues noted on an osteopathic structural exam other than those noted in the History and Physical/Consult. Vitals: Vital Signs Temp Pulse Pulse Resp BP BP Pulse Ox 08/20/21 10:00 98.1 F 78 14 103/66 99 08/20/21 06:07 98.1 F 78 15 98/60 99 08/20/21 02:00 98.6 F 100 17 92/55 08/19/21 21:55 98.2 F 87 15 107/69 98 08/19/21 20:34 98 16 103/72 94 L 08/19/21 19:37 91 18 105/79 96 08/19/21 16:33 97.1 F L 62 18 85/61 99 Intake and Output 08/19/21 08/20/21 08/20/21 22:59 06:59 14:59 Intake Total 1450 Balance 1450 Intake: Intake, IV Titration 1450 Amount Azithromycin 500 mg In 250 Sodium Chloride 0.9% 250 ml @ 250 mls/hr IVPB Q24H [facility] Rx#:[id number] Magnesium Sulfate-D5w Pmx 200 1 gm In Dextrose/Water 1 100ml.bag @ 100 mls/hr IVPB Q1H [facility] Rx#: [id number] Piperacillin-Tazobactam 3 200 .375 gm In Sodium Chloride 0.9% 100 ml @ 25 mls/hr IVPB Q8H [facility] Rx#: [id number] Sodium Chloride 0.9% 1, 800 000 ml @ 100 mls/hr IV . Q10H [facility] Rx#:[id number] Other: Voiding Method Diaper Diaper Weight 58.967 kg No acute distress, confused, a very poor historian. Currently on room air, her saturations are 99%. HEENT examination is grossly unremarkable. Mucous membranes are dry. Neck supple. Full range of motion. No adenopathy thyromegaly or neck vein distention. Cardiovascular examination reveals regular rhythm rate. S1-S2 normal. No S3 or S4. No discernible murmur noted. Heart rate 78 bpm. Heart sounds are distant. Lungs reveal clear breath sounds. Breath sounds are equal bilaterally. No adventitious lung sounds including wheezes rhonchi or crackles. Abdomen soft bowel sounds are heard. No masses or tenderness. Extremities are intact. No cyanosis clubbing or edema. Skin is without rash or lesion. Neurologic examination is brief but nonfocal. Results - Laboratory Findings CBC and BMP: 08/20/21 05:38 08/19/21 17:12 PT/INR, D-dimer PT 10.6 sec (9.0-12.0) 08/19/21 17:12 INR 1.0 (<1.2) 08/19/21 17:12 Abnormal lab findings: Abnormal Labs 08/19/21 08/19/21 08/19/21 16:52 17:12 17:12 WBC 16.7 H Neutrophils # 14.2 H Sodium 131 L BUN 29 H Glucose 179 H POC Glucose (mg/dL) 153 H Magnesium 1.5 L ALT 39 H Urine Protein Ur Leukocyte Esterase Urine Mucus Coronavirus (PCR) 08/19/21 08/19/21 08/19/21 19:01 20:16 21:26 WBC Neutrophils # Sodium BUN Glucose POC Glucose (mg/dL) 122 H Magnesium ALT Urine Protein Trace H Ur Leukocyte Esterase Small H Urine Mucus Rare H Coronavirus (PCR) Detected A 08/20/21 08/20/21 08/20/21 05:38 07:35 11:53 WBC Neutrophils # Sodium BUN Glucose POC Glucose (mg/dL) 105 H 116 H Magnesium 2.4 H ALT Urine Protein Ur Leukocyte Esterase Urine Mucus Coronavirus (PCR) - Diagnostic Findings Chest x-ray: image reviewed Assessment and Plan Assessment: Weakness, fatigue, poor oral intake, and mild dehydration, which may relate to coronavirus infection. Doubt, coronavirus associated pneumonia. History of dementia. History of hyperlipidemia. History of frequent urinary tract infections. History of urinary incontinence. History of diabetes mellitus with diabetic foot ulcer, and diabetic neuropathy. History of hydrocephalus, status post WEB CONSULTANT shunt. Plan: Plan dated 08/20/2021. Currently, the patient appears to be relatively stable. She is certainly stable from the pulmonary standpoint. She's on room air. The patient should not get Decadron. I doubt the patient has significant pneumonia at this time. The patient should get vitamin C, vitamin D3, and zinc. Apparently, she was brought back to the hospital for possible placement in a fdc. Her medications will be reviewed. Her prognosis is guarded. No additional recommendations are made. Chest x-ray show some minimal atelectasis, left base. She is currently on azithromycin and Zosyn, which seem very excessive to me. A pro-calcitonin level will be done. Time with Patient: Greater than 30
[2021-08-20 16:59] LABS: Glucose,Whole Blood 136 mg/dL (75-99)
[2021-08-20] MEDS: SODIUM CHLORIDE 0.9% 1,000 ML IV SCH ×2 (19:24→19:38)
[2021-08-20] MEDS: ATORVASTATIN 80 MG TAB PO SCH (20:03)
[2021-08-20] MEDS: DULoxetine HCL 60 MG CAPSULE.DR PO SCH (20:03)
[2021-08-20 20:54] LABS: Glucose,Whole Blood 89 mg/dL (75-99)
[2021-08-21] MEDS ORDERED: AZITHROMYCIN 500 MG in SODIUM CHLORIDE 0.9% 250 ML IVPB SCH ×2
[2021-08-21] MEDS: PIPERACILLIN-TAZOBACTAM 3.375 GM in SODIUM CHLORIDE 0.9% 100 ML IVPB SCH ×2 (04:35→11:39)
[2021-08-21 07:19] LABS: Glucose,Whole Blood 124 mg/dL (75-99)
[2021-08-21] MEDS: INSULIN ASPART (NovoLOG) 100 UNIT/ML VIAL SQ SCH ×4 (07:41→22:54)
[2021-08-21] MEDS: ASPIRIN 81 MG PO SCH (07:48)
[2021-08-21] MEDS: HEPARIN SODIUM,PORCINE/PF 5,000 UNIT/0.5 ML SYRINGE SQ SCH ×2 (07:48→20:43)
[2021-08-21] MEDS: CHOLECALCIFEROL 25 MCG (1000 IU) TABLET PO SCH ×2 (07:48→17:12)
[2021-08-21] MEDS: ASCORBIC ACID 500 MG TAB PO SCH (07:48)
[2021-08-21] MEDS: THIAMINE 100 MG TAB PO SCH (07:48)
[2021-08-21] MEDS: DONEPEZIL 10 MG TAB PO SCH (07:49)
[2021-08-21] MEDS: MIDODRINE 5 MG TAB PO SCH ×2 (07:49→17:12)
[2021-08-21] MEDS: MEMANTINE 5 MG TAB PO SCH ×2 (07:49→17:12)
[2021-08-21] MEDS: CYANOCOBALAMIN 500 MCG TAB PO SCH (07:49)
[2021-08-21] MEDS: NIACIN TR 500 MG CAPLET PO SCH (07:49)
[2021-08-21] MEDS: NON FORMULARY DRUG (Mirabegron [Myrbetriq] 25 MG Tablet) PO SCH (07:49)
[2021-08-21] MEDS: ZINC SULFATE 220 MG CAP PO SCH (07:49)
[2021-08-21 12:11] LABS: Glucose,Whole Blood 133 mg/dL (75-99)
--- NOTE | 2021-08-21 13:29 | P.PN ---
Subjective Progress Note Date: 08/21/21 Principal diagnosis: Weakness, fatigue, COVID-19 86-year-old female who presented to the emergency department on August 19, with complaints of poor appetite, weakness, dehydration, and generalized fatigue. The patient was recently in the hospital with a similar episode, and was discharged about 5 days ago. The patient did test positive for coronavirus. She is not having any pulmonary complaints at this time. She is resting in bed comfortably. She is on room air. Saturations are 99%. She apparently is brought back into the hospital, for possible placement in a long term. She has a history of dementia, diabetes, hyperlipidemia, neuropathy, hydrocephalus with ventriculoperitoneal shunt, frequent urinary tract infections, and a foot ulcer/wound, from diabetes. She is a very poor historian, cannot give any additional history. She does not appear to be in any distress though. Laboratory data includes a white count 16.7, hemoglobin 14.4, hematocrit 43.4, and platelet count 2 41,000. PT/INR/PTT are normal. Sodium 131, potassium 3.8, CO2 23, chlorides 101, anion gap 7, BUN 29, creatinine 1.02. Magnesium 2. liver testing is essentially normal. TSH is normal. Troponin is negative. Urine is essentially negative. Testing for coronavirus is positive. This is likely an incidental finding. Chest x-ray in my opinion shows some minimal atelectasis, left lung base. On 08/21/2021 patient seen in follow-up on medical surgical floor. Patient is sleeping in bed, she does respond to voice, does open eyes, she denies any respiratory issue, she seems to be drowsy, she is followed back asleep. However she is breathing comfortably, and does not appear to be in any acute distress. Lung sounds are clear to auscultation. Room air pulse ox is 96%, she's been afebrile, hemodynamically she has been stable. Yesterday's chest x-ray showed subtle interstitial infiltrate in the left lower lung zone. Patient is currently on Zosyn and azithromycin, pro-calcitonin level was negative at 0.07, no evidence of urinary tract infection. There was a concern regarding aspiration, however no evidence of significant pneumonia. No pulmonary symptoms, no hypoxia. Currently patient is on dysphagia level III chopped diet. Objective - Vital Signs Vital signs: Vital Signs Temp 98.3 F 08/21/21 05:56 Pulse 79 08/21/21 05:56 Resp 14 08/21/21 05:56 BP 110/64 08/21/21 05:56 Pulse Ox 96 08/21/21 05:56 Intake & Output 08/20/21 08/21/21 08/21/21 18:59 06:59 18:59 Intake Total 850 Balance 850 Intake: Intake, IV Titration 850 Amount Azithromycin 500 mg In 250 Sodium Chloride 0.9% 250 ml @ 250 mls/hr IVPB Q24H [facility] Rx#:[id number] Piperacillin-Tazobactam 3 200 .375 gm In Sodium Chloride 0.9% 100 ml @ 25 mls/hr IVPB Q8H [facility] Rx#: [id number] Sodium Chloride 0.9% 1, 400 000 ml @ 100 mls/hr IV . Q10H [facility] Rx#:[id number] Other: Voiding Method Diaper Diaper Diaper # Voids 1 - Exam GENERAL EXAM: 86-year-old white female patient, resting comfortably in bed, on room air with a pulse ox of 96%, comfortable in no apparent distress. HEAD: Normocephalic/atraumatic. EYES: Normal reaction of pupils, equal size. Conjunctiva pink, sclera white. NOSE: Clear with pink turbinates. THROAT: No erythema or exudates. NECK: No masses, no JVD, no thyroid enlargement, no adenopathy. CHEST: No chest wall deformity. Symmetrical expansion. LUNGS: Equal air entry with no crackles, wheeze, rhonchi or dullness. CVS: Regular rate and rhythm, normal S1 and S2, no gallops, no murmurs, no rubs ABDOMEN: Soft, nontender. No hepatosplenomegaly, normal bowel sounds, no guarding or rigidity. EXTREMITIES: No clubbing, no edema, no cyanosis, 2+ pulses and upper and lower extremities. MUSCULOSKELETAL: Muscle strength and tone normal. SPINE: No scoliosis or deformity SKIN: No rashes CENTRAL NERVOUS SYSTEM: Lethargic, drowsy, but arousable, responds to simple questions, she is oriented times one No focal deficits, tone is normal in all 4 extremities. - Labs CBC & Chem 7: 08/20/21 05:38 08/19/21 17:12 Labs: Abnormal Lab Results - Last 24 Hours (Table) 08/20/21 08/21/21 08/21/21 Range/Units 16:58 07:18 12:10 POC Glucose (mg/dL) 136 H 124 H 133 H (75-99) mg/dL Microbiology - Last 24 Hours (Table) 08/19/21 20:10 Blood Culture - Preliminary Blood No Growth after 24 hours 08/19/21 20:25 Blood Culture - Preliminary Blood No Growth after 24 hours Assessment and Plan Plan: Assessment: #1. Acute COVID-19 infection, without significant pulmonary complaints. Patient came to the emergency department on 05/19 with symptoms of poor ap petite and weakness, dehydration generalized fatigue. Chest x-ray showing some minimal atelectasis at the left lung base, no evidence of pneumonia. #2. History of dementia #3. Hyperlipidemia #4. History of frequent urinary tract infections #5. History of urinary incontinence #6. History of hydrocephalus status post ORNAMENT STAPLER shunt #7. History of diabetes mellitus and diabetic foot ulcer and diabetic neuropathy Plan: Patient is breathing comfortably Denies any dyspnea, remains on room air with a pulse ox of 96% Bronchial level was negative, we can safely discontinue the antibiotics Vital signs are stable, no fever or chills Aspiration precautions Continue monitoring for worsening dyspnea or hypoxia Patient is currently not a candidate for Decadron or Remdesivir I performed a history & physical examination of the patient and discussed their management with my nurse practitioner, Princess Griffin. I reviewed the nurse practitioner's note and agree with the documented findings and plan of care. Lung sounds are positive for dim breath sounds throughout the lung vieira. The findings and the impression was discussed with the patient. I attest to the documentation by the nurse practitioner. Time with Patient: Less than 30
--- NOTE | 2021-08-21 14:57 | P.PN ---
Subjective Progress Note Date: 08/21/21 HISTORY OF PRESENT ILLNESS 86-year-old female with past medical history significant for prolonged hospitalization due to COVID-19 infection was recently discharged home. Patient continued to be weak and lethargic and was brought to the emergency department as her son was concerned about her decreased oral intake, weakness and confusion. Patient is not able to identify the location , date or the reason why she came to the emergency department. family last time was suggested to sent to a rehab facility but were reluctant and currently seems to be open to rehab idea. Patient is denying pain in general denying shortness of breath and stated that she's feeding good otherwise. Patient received her oral medication with applesauce this morning without any signs or symptoms of aspiration according to the nursing staff 08/21: Patient is seen today in follow-up. Patient is only eating a few bites. She has been evaluated by speech therapy with recommendations for ground diet and thin liquids with direct 1-1 assist with all oral intake. Discharge plan is still to return home. She has been afebrile, heart rate 79, blood pressure 110/64, pulse ox 96% on room air. Capillary blood glucose running between 89 and 133. Patient is followed by pulmonary medicine and recommendations to discontinue antibiotics.. REVIEW OF SYSTEMS Constitutional: No fever, no chills, no night sweats. No weight change. Generalized weakness, fatigue or lethargy. No daytime sleepiness.still slightly but confused. EENT: No headache. No blurred vision or double vision, no loss of vision. No loss of Hearing, no ringing in the ears, no dizziness. No nasal drainage or congestion. No epistaxis. No sore throat. Lungs: No shortness of breath, cough, no sputum production. No wheezing. Cardiovascular: No chest pain, no lower extremity edema. No palpitations. No paroxysmal nocturnal dyspnea. No orthopnea. No lightheadedness or dizziness. No syncopal episodes. Abdominal: No abdominal pain. No nausea, vomiting. No diarrhea. No constipation. No bloody or tarry stools.. No loss of appetite. Genitourinary: No dysuria, increased frequency, urgency. No urinary retention. Musculoskeletal: generalized muscle pain and myalgia. Integumentary: No wounds, no lesions. No rash or pruritus. No unusual bruising. No change in hair or nails. Neurologic: No aphasia. No facial droop. Noted chronic change in mentation. No head injury. No headache. No paralysis. No paresthesia.mild confusion with worsening dementia. Psychiatric: No depression. No anxiety. No mood swings. Endocrine: No abnormal blood sugars. No weight change. No excessive sweating or thirst. No cold intolerance. PHYSICAL EXAMINATION Gen: This is an 86-year-old female. She is resting in bed and appears to be comfortable. HEENT: Head is atraumatic, normocephalic. Pupils equal, round. Sclerae is anicteric. NECK: Supple. No JVD. No lymphadenopathy. No thyromegaly. LUNGS: Clear to auscultation. No wheezes or rhonchi. No intercostal ret ractions. HEART: Regular rate and rhythm. No murmur. ABDOMEN: Soft. Bowel sounds are present. No masses. No tenderness. EXTREMITIES: No pedal edema. No calf tenderness. NEUROLOGICAL: Patient is awake, oriented to person only. ASSESSMENT AND PLAN 1. Covid 19 infection with poor oral intake. Pulmicort consult appreciated. Continue vitamin supplements. 2. Normal pressure hydrocephalus s/p SKEET OPERATOR shunt, stable. 3. Dementia. Continue Namenda 5 mg twice daily, Aricept 10 mg at hs. 4. Hyperlipidemia. Continue Lipitor 80 mg at bedtime. 5. Diabetes mellitus type 2. 6. Hypertension. Patient is off blood pressure medicine 7. Recurrent depression. Continue Cymbalta 60 mg daily. 8. Chronic kidney disease stage 2. Avoid nephrotoxic agents. 9. GI prophylaxis. Protonix. 10. DVT prophylaxis. Heparin. DISCHARGE PLAN Home with [facility]. Impression and plan of care have been directed as dictated by the signing yamini smith. Carolann Molina nurse practitioner acting as scribe for signing physician. Objective - Vital Signs Vital signs: Vital Signs Temp 98.3 F 08/21/21 05:56 Pulse 79 08/21/21 05:56 Resp 14 08/21/21 05:56 BP 110/64 08/21/21 05:56 Pulse Ox 96 08/21/21 05:56 Intake & Output 08/20/21 08/21/21 08/21/21 18:59 06:59 18:59 Intake Total 850 Balance 850 Intake: Intake, IV Titration 850 Amount Azithromycin 500 mg In 250 Sodium Chloride 0.9% 250 ml @ 250 mls/hr IVPB Q24H [facility] Rx#:[id number] Piperacillin-Tazobactam 3 200 .375 gm In Sodium Chloride 0.9% 100 ml @ 25 mls/hr IVPB Q8H [facility] Rx#: [id number] Sodium Chloride 0.9% 1, 400 000 ml @ 100 mls/hr IV . Q10H [facility] Rx#:[id number] Other: Voiding Method Diaper Diaper Diaper # Voids 1 - Labs CBC & Chem 7: 08/20/21 05:38 08/19/21 17:12 Labs: Abnormal Lab Results - Last 24 Hours (Table) 08/20/21 08/20/21 08/21/21 Range/Units 11:53 16:58 07:18 POC Glucose (mg/dL) 116 H 136 H 124 H (75-99) mg/dL Microbiology - Last 24 Hours (Table) 08/19/21 20:10 Blood Culture - Preliminary Blood No Growth after 24 hours 08/19/21 20:25 Blood Culture - Preliminary Blood No Growth after 24 hours
[2021-08-21 15:15] VITALS: BMI 21.6
[2021-08-21 17:08] LABS: Glucose,Whole Blood 123 mg/dL (75-99)
[2021-08-21] MEDS: ATORVASTATIN 80 MG TAB PO SCH (20:43)
[2021-08-21] MEDS: DULoxetine HCL 60 MG CAPSULE.DR PO SCH (20:43)
[2021-08-21 20:47] LABS: Glucose,Whole Blood 102 mg/dL (75-99)
[2021-08-22 07:05] LABS: Glucose,Whole Blood 106 mg/dL (75-99)
[2021-08-22] MEDS: INSULIN ASPART (NovoLOG) 100 UNIT/ML VIAL SQ SCH ×2 (07:14→12:20)
[2021-08-22] MEDS: NON FORMULARY DRUG (Mirabegron [Myrbetriq] 25 MG Tablet) PO SCH (07:15)
[2021-08-22] MEDS ORDERED: PANTOPRAZOLE 40 MG TABLET PO SCH (07:30)
[2021-08-22] MEDS: HEPARIN SODIUM,PORCINE/PF 5,000 UNIT/0.5 ML SYRINGE SQ SCH (08:42)
[2021-08-22] MEDS: THIAMINE 100 MG TAB PO SCH (08:43)
[2021-08-22] MEDS: ASCORBIC ACID 500 MG TAB PO SCH (08:43)
[2021-08-22] MEDS: DONEPEZIL 10 MG TAB PO SCH (08:43)
[2021-08-22] MEDS: MEMANTINE 5 MG TAB PO SCH (08:43)
[2021-08-22] MEDS: CHOLECALCIFEROL 25 MCG (1000 IU) TABLET PO SCH (08:43)
[2021-08-22] MEDS: CYANOCOBALAMIN 500 MCG TAB PO SCH (08:43)
[2021-08-22] MEDS: ASPIRIN 81 MG PO SCH (08:43)
[2021-08-22] MEDS: MIDODRINE 5 MG TAB PO SCH (08:43)
[2021-08-22] MEDS: ZINC SULFATE 220 MG CAP PO SCH (08:43)
[2021-08-22] MEDS: NIACIN TR 500 MG CAPLET PO SCH (08:43)
[2021-08-22 10:20] VITALS: BP 118/75; PULSE 89; RESP 17; TEMP 97.9
[2021-08-22 11:17] LABS: Basophils % (A) 0 %; Eosinophils % (A) 1 %; HCT 33.3 % (34.0-46.0); Lymphocytes % (A) 11 %; MCH 30.4 pg (25.0-35.0); MCHC 33.3 g/dL (31.0-37.0); MCV 91.2 fL (80.0-100.0); Mean Platelet Volume 7.8; Monocytes # (A) 0.3 k/uL (0-1.0); Monocytes % (A) 4 %; Neutrophils # (A) 7.4 k/uL (1.3-7.7); Neutrophils % (A) 83 %; Platelet Count 172 k/uL (150-450); RBC 3.65 m/uL (3.80-5.40); RDW 14.7 % (11.5-15.5)
[2021-08-22 11:22] LABS: HGB 11.1 gm/dL (11.4-16.0)
[2021-08-22 11:32] LABS: ALT 24 U/L (4-34); AST 26 U/L (14-36); African American GFR (CKD) >90 (>60 ml/min/1.73 sqM); Albumin 2.6 g/dL (3.5-5.0); Alkaline Phosphatase 65 U/L (38-126); Anion Gap 6 mmol/L; Blood Urea Nitrogen 8 mg/dL (7-17); Calcium 7.9 mg/dL (8.4-10.2); Carbon Dioxide 24 mmol/L (22-30); Chloride 103 mmol/L (98-107); Globulin 2.6 g/dL; Glucose 204 mg/dL (74-99); Non-African American GFR(CKD) 80 (>60 ml/min/1.73 sqM); Sodium 133 mmol/L (137-145); Total Bilirubin 0.6 mg/dL (0.2-1.3); Total Protein 5.2 g/dL (6.3-8.2)
--- NOTE | 2021-08-22 11:35 | P.DS ---
Providers Date of admission: 08/19/21 19:54 Expected date of discharge: 08/22/21 Attending physician: Sixto Saul Consults: 08/19/21 19:54 Consult Physician Routine Consulting Provider: Pato Fernandes Consult Reason/Comments: pneumonia Do you want consulting provider notified?: Yes Primary care physician: [facility] Course: HISTORY OF PRESENT ILLNESS 86-year-old female with past medical history significant for prolonged hospitalization due to COVID-19 infection was recently discharged home. Patient continued to be weak and lethargic and was brought to the emergency department as her son was concerned about her decreased oral intake, weakness and confusion. Patient is not able to identify the location , date or the reason why she came to the emergency department. family last time was suggested to sent to a rehab facility but were reluctant and currently seems to be open to rehab idea. Patient is denying pain in general denying shortness of breath and stated that she's feeding good otherwise. Patient received her oral medication with applesauce this morning without any signs or symptoms of aspiration according to the nursing staff 08/21: Patient is seen today in follow-up. Patient is only eating a few bites. She has been evaluated by speech therapy with recommendations for ground diet and thin liquids with direct 1-1 assist with all oral intake. Discharge plan is still to return home. She has been afebrile, heart rate 79, blood pressure 110/64, pulse ox 96% on room air. Capillary blood glucose running between 89 and 133. Patient is followed by pulmonary medicine and recommendations to discontinue antibiotics.. 08/22: Patient is afebrile, heart rate 89, blood pressure 118/75, pulse ox 100% on room air. Potassium 2.7 and will be replaced prior to discharge. Patient did eat some applesauce Ensure this morning. And weight is planning for her to return home in the same situation with probable transition to hospice at a later time. Patient will be discharged today in stable condition.. DISCHARGE DIAGNOSES 1. Covid 19 infection with poor oral intake. 2. Normal pressure hydrocephalus s/p ENGINEERING ADMINISTRATOR shunt, stable. 3. Dementia. 4. Hyperlipidemia. 5. Diabetes mellitus type 2. 6. Hypertension. 7. Recurrent depression. 8. Chronic kidney disease stage 2. DISCHARGE PLAN Home with [facility]. Greater than 35 minutes was utilized and coordinating patient's discharge. Impression and plan of care have been directed as dictated by the signing physician. Carolann Molina nurse practitioner acting as scribe for signing physician. Patient Condition at Discharge: Stable Plan - Discharge Summary Discharge Rx Participant: Yes New Discharge Prescriptions: New Zinc Sulfate [Orazinc] 220 mg PO DAILY cap Mirtazapine [Remeron] 15 mg PO HS #30 tab Continue Atorvastatin [Lipitor] 80 mg PO HS ALPRAZolam [Xanax] 0.25 mg PO TID PRN PRN Reason: Anxiety Midodrine HCl 5 mg PO BID-W/MEALS Aspirin 81 mg PO DAILY tab Ascorbic Acid [Vitamin C] 500 mg PO DAILY Memantine HCl [Namenda] 5 mg PO BID-W/MEALS Docusate [Colace] 100 mg PO BID PRN cap PRN Reason: Constipation Cholecalciferol [Vitamin D3 (25 Mcg = 1000 Iu)] 50 mcg PO BID-W/MEALS Rivastigmine Tartrate [Exelon] 3 mg PO BID-W/MEALS Mirabegron [Myrbetriq] 25 mg PO DAILY Cyanocobalamin [Vitamin B-12] 500 mcg PO DAILY Thiamine [Vitamin B-1] 100 mg PO DAILY tab Insulin Glargine,Hum.rec.anlog [Lantus Solostar Pen] 10 unit SQ DAILY PRN PRN Reason: Blood Sugar - High Niacin 500 mg PO DAILY Discontinued DULoxetine HCL [Cymbalta] 60 mg PO DAILY Discharge Medication List Atorvastatin [Lipitor] 80 mg PO HS 03/08/19 [History] ALPRAZolam [Xanax] 0.25 mg PO TID PRN 07/05/21 [History] Cholecalciferol [Vitamin D3 (25 Mcg = 1000 Iu)] 50 mcg PO BID-W/MEALS 07/05/21 [History] Cyanocobalamin [Vitamin B-12] 500 mcg PO DAILY 07/05/21 [History] Midodrine HCl 5 mg PO BID-W/MEALS 07/05/21 [History] Mirabegron [Myrbetriq] 25 mg PO DAILY 07/05/21 [History] Rivastigmine Tartrate [Exelon] 3 mg PO BID-W/MEALS 07/05/21 [History] Aspirin 81 mg PO DAILY tab 07/07/21 [Rx] Thiamine [Vitamin B-1] 100 mg PO DAILY tab 07/07/21 [Rx] Ascorbic Acid [Vitamin C] 500 mg PO DAILY 08/10/21 [History] Insulin Glargine,Hum.rec.anlog [Lantus Solostar Pen] 10 unit SQ DAILY PRN 07/23 [History] Memantine HCl [Namenda] 5 mg PO BID-W/MEALS 08/10/21 [History] Niacin 500 mg PO DAILY 08/10/21 [History] Docusate [Colace] 100 mg PO BID PRN cap 08/14/21 [Rx] Mirtazapine [Remeron] 15 mg PO HS #30 tab 08/22/21 [Rx] Zinc Sulfate [Orazinc] 220 mg PO DAILY cap 08/22/21 [Rx] Follow up Appointment(s)/Referral(s): Luis Avery MD [Primary Care Provider] - 08/29/21 3:15 pm (Tele visit office will call you.) [facility] [place], [NON-STAFF] - As Needed Patient Instructions/Handouts: Coronavirus Disease 2019 (COVID-19) Discharge Disposition: HOME WITH HOME HEALTH SERVICES
[2021-08-22 11:42] LABS: Glucose,Whole Blood 252 mg/dL (75-99)
[2021-08-22 11:58] LABS: Potassium 2.7 mmol/L (3.5-5.1)
[2021-08-22] MEDS ORDERED: Potassium Replacement Protocol 1 EACH MISC MISCELLANE PRN (12:46)
[2021-08-22] MEDS: POTASSIUM CHLORIDE ER 20 MEQ TAB.ER PO SCH ×3 (12:57→13:45)
--- NOTE | 2021-08-22 13:44 | P.PN ---
Subjective Progress Note Date: 08/22/21 Principal diagnosis: Weakness, fatigue, COVID-19 86-year-old female who presented to the emergency department on August 19, with complaints of poor appetite, weakness, dehydration, and generalized fatigue. The patient was recently in the hospital with a similar episode, and was discharged about 5 days ago. The patient did test positive for coronavirus. She is not having any pulmonary complaints at this time. She is resting in bed comfortably. She is on room air. Saturations are 99%. She apparently is brought back into the hospital, for possible placement in a half-way. She has a history of dementia, diabetes, hyperlipidemia, neuropathy, hydrocephalus with ventriculoperitoneal shunt, frequent urinary tract infections, and a foot ulcer/wound, from diabetes. She is a very poor historian, cannot give any additional history. She does not appear to be in any distress though. Laboratory data includes a white count 16.7, hemoglobin 14.4, hematocrit 43.4, and platelet count 2 41,000. PT/INR/PTT are normal. Sodium 131, potassium 3.8, CO2 23, chlorides 101, anion gap 7, BUN 29, creatinine 1.02. Magnesium 2. liver testing is essentially normal. TSH is normal. Troponin is negative. Urine is essentially negative. Testing for coronavirus is positive. This is likely an incidental finding. Chest x-ray in my opinion shows some minimal atelectasis, left lung base. On 08/21/2021 patient seen in follow-up on medical surgical floor. Patient is sleeping in bed, she does respond to voice, does open eyes, she denies any respiratory issue, she seems to be drowsy, she is followed back asleep. However she is breathing comfortably, and does not appear to be in any acute distress. Lung sounds are clear to auscultation. Room air pulse ox is 96%, she's been afebrile, hemodynamically she has been stable. Yesterday's chest x-ray showed subtle interstitial infiltrate in the left lower lung zone. Patient is currently on Zosyn and azithromycin, pro-calcitonin level was negative at 0.07, no evidence of urinary tract infection. There was a concern regarding aspiration, however no evidence of significant pneumonia. No pulmonary symptoms, no hypoxia. Currently patient is on dysphagia level III chopped diet. On 08/22/2021 patient seen in follow-up on medical surgical floor. Patient is more awake on today's exam, denies any dyspnea, no cough, she remains on room air. Vital signs have been stable, she is breathing comfortably, she has been a febrile. She has had no acute events overnight. She has been tolerating oral intake, today's labs have been reviewed, her white blood cell count is 9.0, hemoglobin is 11.1, sodium is 133, potassium is 2.7, the rest of electrolytes were within normal limits. Objective - Vital Signs Vital signs: Vital Signs Temp 97.9 F 08/22/21 10:00 Pulse 89 08/22/21 10:00 Resp 17 08/22/21 10:00 BP 118/75 08/22/21 10:00 Pulse Ox 100 08/22/21 10:00 Intake & Output 08/21/21 08/22/21 08/22/21 18:59 06:59 18:59 Weight 58.967 kg Other: Voiding Method Diaper Diaper # Voids 3 # Bowel Movements 1 - Exam GENERAL EXAM: 86-year-old white female patient, resting comfortably in bed, on room air with a pulse ox of 100%, comfortable in no apparent distress. HEAD: Normocephalic/atraumatic. EYES: Normal reaction of pupils, equal size. Conjunctiva pink, sclera white. NOSE: Clear with pink turbinates. THROAT: No erythema or exudates. NECK: No masses, no JVD, no thyroid enlargement, no adenopathy. CHEST: No chest wall deformity. Symmetrical expansion. LUNGS: Equal air entry with no crackles, wheeze, rhonchi or dullness. CVS: Regular rate and rhythm, normal S1 and S2, no gallops, no murmurs, no rubs ABDOMEN: Soft, nontender. No hepatosplenomegaly, normal bowel sounds, no guarding or rigidity. EXTREMITIES: No clubbing, no edema, no cyanosis, 2+ pulses and upper and lower extremities. MUSCULOSKELETAL: Muscle strength and tone normal. SPINE: No scoliosis or deformity SKIN: No rashes CENTRAL NERVOUS SYSTEM: Lethargic, drowsy, but arousable, responds to simple questions, she is oriented times one No focal deficits, tone is normal in all 4 extremities. - Labs CBC & Chem 7: 08/22/21 10:51 08/22/21 10:51 Labs: Abnormal Lab Results - Last 24 Hours (Table) 08/21/21 08/21/21 08/22/21 Range/Units 17:06 20:43 07:04 RBC (3.80-5.40) m/uL Hgb (11.4-16.0) gm/dL Hct (34.0-46.0) % Sodium (137-145) mmol/L Potassium (3.5-5.1) mmol/L Glucose (74-99) mg/dL POC Glucose (mg/dL) 123 H 102 H 106 H (75-99) mg/dL Calcium (8.4-10.2) mg/dL Total Protein (6.3-8.2) g/dL Albumin (3.5-5.0) g/dL 08/22/21 08/22/21 08/22/21 Range/Units 10:51 10:51 11:41 RBC 3.65 L (3.80-5.40) m/uL Hgb 11.1 L D (11.4-16.0) gm/dL Hct 33.3 L (34.0-46.0) % Sodium 133 L (137-145) mmol/L Potassium 2.7 L* (3.5-5.1) mmol/L Glucose 204 H (74-99) mg/dL POC Glucose (mg/dL) 252 H (75-99) mg/dL Calcium 7.9 L (8.4-10.2) mg/dL Total Protein 5.2 L (6.3-8.2) g/dL Albumin 2.6 L (3.5-5.0) g/dL Microbiology - Last 24 Hours (Table) 08/19/21 20:10 Blood Culture - Preliminary Blood No Growth after 48 hours 08/19/21 20:25 Blood Culture - Preliminary Blood No Growth after 48 hours Assessment and Plan Plan: Assessment: #1. Acute COVID-19 infection, without significant pulmonary complaints. Patient came to the emergency department on 05/19 with symptoms of poor appetite and weakness, dehydration generalized fatigue. Chest x-ray showing some minimal atelectasis at the left lung base, no evidence of pneumonia. #2. History of dementia #3. Hyperlipidemia #4. History of frequent urinary tract infections #5. History of urinary incontinence #6. History of hydrocephalus status post PLAN REP shunt #7. History of diabetes mellitus and diabetic foot ulcer and diabetic neuropathy Plan: Patient is breathing comfortably Denies any dyspnea, remains on room air with a pulse ox of 96% Vital signs have been stable From pulmonary perspective patient can be considered for discharge once cleared by medicine I performed a history & physical examination of the patient and discussed their management with my nurse practitioner, Princess Griffin. I reviewed the nurse nuha irene's note and agree with the documented findings and plan of care. Lung sounds are positive for dim breath sounds throughout the lung vieira. The findings and the impression was discussed with the patient. I attest to the documentation by the nurse practitioner. Time with Patient: Less than 30
== END 2021-08-22 16:34 | disposition home health service (06) | DRG 177 ==
LOC: EC 16:25 → 4SSUR 19:54
PROVIDERS: ADMIT Internal Medicine; ATTEND Internal Medicine
DX: U07.1 COVID-19 (principal); G93.41 Metabolic encephalopathy; J12.82 Pneumonia due to coronavirus disease 2019; E44.0 Moderate protein-calorie malnutrition; E87.1 Hypo-osmolality and hyponatremia; F33.9 Major depressive disorder, recurrent, unspecified; G91.2 (Idiopathic) normal pressure hydrocephalus; J98.11 Atelectasis; I12.9 Hypertensive chronic kidney disease with stage 1 through stage 4 chronic kidney disease, or unspecified chronic kidney disease; N18.2 Chronic kidney disease, stage 2 (mild); Z68.21 Body mass index [BMI] 21.0-21.9, adult; R53.1 Weakness; E11.22 Type 2 diabetes mellitus with diabetic chronic kidney disease; E11.40 Type 2 diabetes mellitus with diabetic neuropathy, unspecified; E78.5 Hyperlipidemia, unspecified; E83.42 Hypomagnesemia; E86.0 Dehydration; F03.90 Unspecified dementia, unspecified severity, without behavioral disturbance, psychotic disturbance, mood disturbance, and anxiety; R13.10 Dysphagia, unspecified; Z79.82 Long term (current) use of aspirin; Z79.899 Other long term (current) drug therapy; Z83.3 Family history of diabetes mellitus; Z87.440 Personal history of urinary (tract) infections; Z98.2 Presence of cerebrospinal fluid drainage device; Z90.49 Acquired absence of other specified parts of digestive tract; Z79.4 Long term (current) use of insulin
CPT/HCPCS: 36415; 71045; 80053; 81001; 83605; 83735; 84145; 84443; 84484; 85025; 85049; 85610; 85730; 87040; 87635; 93005; 96360; 96361; 99285

== ENCOUNTER 2021-09-17 19:59 | Inpatient (IN) | payer MEDICARE ==
[2021-09-17] MEDS ORDERED: ALTEPLASE 44 MG in EMPTY BAG 1 BAG IV STA (20:11)
[2021-09-17] MEDS ORDERED: ALTEPLASE BOLUS FOR STROKE 5 MG in EMPTY SYRINGE 1 SYR IV STA (20:11)
[2021-09-17 20:13] LABS: Glucose,Whole Blood 124 mg/dL (75-99)
[2021-09-17] MEDS ORDERED: Alteplase PER PHARMACY Stroke 1 EACH MISC MISCELLANE PRN (20:15)
--- NOTE | 2021-09-17 20:35 | CT ---
EXAMINATION TYPE: CT brain wo con for TPA DATE OF EXAM: 09/17/2021 COMPARISON: 08/10/2021 HISTORY: AMS, possible stroke CT DLP: 1079.8 mGycm Automated exposure control for dose reduction was used. Images of the brain obtained without contrast. There is cerebral cortical atrophy. There is no mass effect or midline shift. There is no sign of int racranial hemorrhage. There is right posterior temporal ventricular shunt catheter with tip in the fr ontal horn of the right lateral ventricle. There is some enlargement of the ventricles. There is mild hypodensity in the white matter right posterior parietal lobe near the shunt. Calvarium is intact. Skull base is intact. IMPRESSION: Cerebral atrophy. Mild hydrocephalus. No significant change compared to old exam. Chronic small vesse l ischemia with hypodensity around the posterior aspect of the shunt catheter in the right posterior parietal lobe white matter.
[2021-09-17 20:59] LABS: Anisocytosis Slight; Basophils # (A) 0.1 k/uL (0-0.2); Basophils % (A) 1 %; Eosinophils # (A) 0.1 k/uL (0-0.7); Eosinophils % (A) 1 %; HCT 36.7 % (34.0-46.0); HGB 11.9 gm/dL (11.4-16.0); Hypochromasia Slight; Lymphocytes # (A) 2.3 k/uL (1.0-4.8); Lymphocytes % (A) 21 %; MCH 31.3 pg (25.0-35.0); MCHC 32.4 g/dL (31.0-37.0); Macrocytosis Slight; Mean Platelet Volume 8.6; Monocytes # (A) 0.6 k/uL (0-1.0); Monocytes % (A) 5 %; Neutrophils % (A) 71 %; Platelet Count 321 k/uL (150-450); RBC 3.79 m/uL (3.80-5.40); RDW 16.1 % (11.5-15.5); WBC 11.3 k/uL (3.8-10.6)
[2021-09-17 21:02] LABS: MCV 96.6 fL (80.0-100.0)
--- NOTE | 2021-09-17 21:10 | CT ---
EXAMINATION TYPE: CT angio head neck DATE OF EXAM: 09/17/2021 COMPARISON: None HISTORY: Altered mental status CT DLP: mGycm Automated exposure control for dose reduction was used. CONTRAST: The contrast was Isovue 65 mL. There are Three-D postprocessed images. There is normal branching pattern of the great vessels on the aortic arch. There is arterial flow in both subclavian arteries. There is arterial flow in the common internal and external carotid arteries bilaterally. There is wide patency of the carotid artery bifurcations. There is arterial flow in the vertebral basilar artery system. There is arterial flow in both vertebral arteries. There is no evid ence of aneurysm or dissection of the carotid and vertebral arteries. No evidence of stenosis. There is arterial flow in the anterior middle and posterior cerebral arteries. No evidence of hemodyn amic stenosis. No mass effect. No sign of aneurysm or neovascularity. There is normal enhancement of the venous sinuses. IMPRESSION: Negative CT angiogram of the neck. Negative CT angiogram of the brain.
[2021-09-17] MEDS ORDERED: SODIUM CHLORIDE 0.9% 50 ML MINI-BAG IV ONE ×2 (21:13→23:30)
[2021-09-17 21:15] LABS: Prothrombin Time 10.4 sec (9.0-12.0)
[2021-09-17 21:49] LABS: Amorphous Sediment,Urine Rare /hpf; Appearance,Urine Clear (Clear); Bacteria,Urine Occasional /hpf; Bilirubin,Urine Negative (Negative); Blood,Urine Small (Negative); Color,Urine Light Yellow; Glucose,Urine (UA) Negative (Negative); Ketones,Urine Negative (Negative); Leukocyte Esterase,Urine Moderate (Negative); Nitrite,Urine Negative (Negative); PH, Urine 6.5 (5.0-8.0); Protein,Urine Negative (Negative); RBC,Urine 1 /hpf (0-5); Specific Gravity,Urine 1.013 (1.001-1.035); Squamous Epithelial Cell,Urine 1 /hpf (0-4); Urobilinogen,Urine <2.0 mg/dL (<2.0); WBC,Urine 9 /hpf (0-5)
[2021-09-17 22:01] LABS: Albumin 3.9 g/dL (3.5-5.0); Calcium 9.5 mg/dL (8.4-10.2); Potassium 4.3 mmol/L (3.5-5.1); Total Bilirubin 0.6 mg/dL (0.2-1.3); Total Protein 7.4 g/dL (6.3-8.2)
--- NOTE | 2021-09-17 22:36 | ED ---
General Adult HPI - General Chief complaint: Neuro Symptoms/Deficit Stated complaint: code alteplase Time Seen by Provider: 09/17/21 20:11 Source: patient, family, RN notes reviewed, old records reviewed Mode of arrival: wheelchair - History of Present Illness Initial comments: Patient is an 86-year-old female with past medical history remarkable for dementia who at baseline is alert and oriented 3 per family presents emergency Department as a code alteplase. An approximate 6:30 PM, patient was being changed and helped for dinner by her son. Normally she is verbal and oriented and can carry conversation. He states that her speech suddenly became jumbled and she was speaking "gibberish." He checked her blood sugar which was within normal limits nondistended, emergency department for further evaluation. We evaluated the patient approximately one hour after symptom onset. She is unable to provide any form of history. History is all from patient's son. She does have a history of COMPUTING ARCHITECT shunt secondary to hydrocephalus which is placed and a half years ago. She is not on blood thinners. No history of other intracranial surgery or bleeding. At baseline, is chronically weak in bilateral lower extremities and is unable to walk. Moves around the house with a wheelchair. - Related Data Home Medications Medication Instructions Recorded Confirmed Atorvastatin [Lipitor] 80 mg PO HS 03/08/19 09/17/21 ALPRAZolam [Xanax] 0.25 mg PO TID PRN 07/05/21 09/17/21 Cholecalciferol [Vitamin D3 (25 50 mcg PO BID-W/MEALS 07/05/21 09/17/21 Mcg = 1000 Iu)] Cyanocobalamin [Vitamin B-12] 500 mcg PO DAILY 07/05/21 09/17/21 Midodrine HCl 5 mg PO BID-W/MEALS 07/05/21 09/17/21 Mirabegron [Myrbetriq] 25 mg PO DAILY 07/05/21 09/17/21 Rivastigmine Tartrate [Exelon] 3 mg PO BID-W/MEALS 07/05/21 09/17/21 Ascorbic Acid [Vitamin C] 500 mg PO DAILY 08/10/21 09/17/21 Insulin Glargine,Hum.rec.anlog 10 unit SQ DAILY PRN 08/10/21 09/17/21 [Lantus Solostar Pen] Memantine HCl [Namenda] 5 mg PO BID-W/MEALS 08/10/21 09/17/21 Niacin 500 mg PO DAILY 08/10/21 09/17/21 Previous Rx's Medication Instructions Recorded Aspirin 81 mg PO DAILY tab 07/07/21 Thiamine [Vitamin B-1] 100 mg PO DAILY tab 07/07/21 Docusate [Colace] 100 mg PO BID PRN cap 08/14/21 Mirtazapine [Remeron] 15 mg PO HS #30 tab 08/22/21 Zinc Sulfate [Orazinc] 220 mg PO DAILY cap 08/22/21 Allergies Allergy/AdvReac Type Severity Reaction Status Date / Time No Known Allergies Allergy Verified 09/17/21 21:13 Review of Systems ROS Statement: Those systems with pertinent positive or pertinent negative responses have been documented in the HPI. ROS Other: All systems not noted in ROS Statement are negative. Past Medical History Past Medical History: Dementia, Diabetes Mellitus, Hyperlipidemia Additional Past Medical History / Comment(s): neuropathy, dizzy when stands, diabetic ulcer on left foot supposed to go to wound clinic hydrocephalus with vp of technology shunt frequent uti, TIA History of Any Multi-Drug Resistant Organisms: None Reported Past Surgical History: Appendectomy, Cholecystectomy, Orthopedic Surgery Additional Past Surgical History / Comment(s): right shoulder vp of technology shunt Past Anesthesia/Blood Transfusion Reactions: No Reported Reaction Additional Past Anesthesia/Blood Transfusion Reaction / Comment(s): patient states never had blood transfusion Past Psychological History: No Psychological Hx Reported Smoking Status: Never smoker Past Alcohol Use History: None Reported Past Drug Use History: None Reported - Past Family History Mother Family Medical History: Diabetes Mellitus General Exam - General Exam Comments Initial Comments: General: Appears in no acute distress. HEAD: Normal with no signs of head trauma. EYES: PERRLA, EOMI, conjunctiva normal, no discharge. Pupils are 2 mm equal bilaterally. ENT: Hearing grossly intact, normal oropharynx. No facial droop. RESPIRATORY: Clear breath sounds bilaterally. No wheezes, rales, or rhonchi. C/V: Tachycardic with a regular rhythm. S1 and S2 auscultated. Peripheral pulses are 2+ and intact throughout. ABD: Abd is soft, nontender, nondistended EXT: Normal range of motion, no obvious deformity SKIN: No rashes or lesions observed on exposed skin. NEURO: Alert. Severe expressive aphasia. NIH is approximately 4 due to this. GCS is 15. She has chronic bilateral lower extremity weakness which is noted. Per son, Baseline is alert and oriented 3. Ambulates at home via wheelchair. Course Vital Signs 09/17/21 09/17/21 09/17/21 20:12 20:30 20:45 Temperature 98.7 F Pulse Rate 129 H 120 H 121 H Respiratory 19 16 16 Rate Blood Pressure 143/80 119/70 119/70 O2 Sat by Pulse 98 95 95 Oximetry 09/17/21 09/17/21 09/17/21 21:00 21:15 21:30 Temperature Pulse Rate 108 H 106 H 102 H Respiratory 18 16 18 Rate Blood Pressure 126/81 126/82 128/72 O2 Sat by Pulse 95 95 95 Oximetry 09/17/21 09/17/21 09/17/21 21:45 22:00 22:30 Temperature Pulse Rate 114 H 105 H 102 H Respiratory 16 18 16 Rate Blood Pressure 128/79 108/75 124/75 O2 Sat by Pulse 94 L 95 95 Oximetry Medical Decision Making - Medical Decision Making Based on the patient's presentation and physical exam, and is concerning for acute stroke. His onset of symptoms within 4-1/2 hours, Code alteplase was called. Accu-Chek was within normal limits. Last known well was 6:30 PM. NIH is 4. She is taken immediately for CT imaging of the brain, and stroke laboratory studies were ordered. I spoke with Dr. Vasquez of neuro intervention who was in agreement this plan. Patient is a TPA candidate. We discussed at length and determined she has no contraindications to TPA. I discussed this with the patient's son, who is the power of urgent care nurse practitioner. He was in agreement, and did consent for the patient for tPA. I answered all questions that he had. Patient's CT brain revealed mild hydrocephalus which is unchanged compared to old exam. Chronic changes without any acute intracranial abnormality. CT angiogram of the brain and neck was negative per radiology. Dr. Vasquez did contact me and he believes that there is occlusion of the left M2 segment. Patient was started on TPA at 2036. Remainder the patient's laboratory studies and imaging return, with a chest x-ray that was relatively unremarkable. Laboratory studies were remarkable for mild leukocytosis of 11.3. Troponin is negative. Urinalysis is unremarkable. Remainder the labs are within normal limits. Dr. Vasquez, as well as myself spoke with the patient as well as her son be a stroke robot and in person. We discussed the option of thrombectomy, and collectively determined that due to the patient's age, comorbid conditions, as well as the desired not the patient to intensive procedure, patiently will be medically managed only. The patient's son expressed understanding was in agreement this plan, as were myself and Dr. Vasquez. At this time, patient who was relatively nonverbal initially is speaking more frequently now appears to be trying to communicate. She still has expressive aphasia. NIH remains 4. Patient does remain slightly tachycardic at this time, and EKG was repeated which contained shows sinus tachycardia without any signs of acute ischemia or dysrhythmia's. She was started on IV fluids.Patient's heart rate did improve. Patient therefore would be admitted to our ICU. I spoke with the attending, Dr. Duque who accepted the patient. I spoke with neurology on-call, Dr. Fernandes who was in agreement with the plan for medical management for this CVA TPA patient. I spoke with the admitting physician, Dr. Mccormick who was in agreement this plan. Patient was therefore admitted in serious condition to the ICU. - Lab Data Result diagrams: 09/17/21 20:22 09/17/21 21:05 Lab Results 09/17/21 09/17/21 09/17/21 Range/Units 20:11 20:22 20:22 WBC 11.3 H (3.8-10.6) k/uL RBC 3.79 L (3.80-5.40) m/uL Hgb 11.9 (11.4-16.0) gm/dL Hct 36.7 (34.0-46.0) % MCV 96.6 D (80.0-100.0) fL MCH 31.3 (25.0-35.0) pg MCHC 32.4 (31.0-37.0) g/dL RDW 16.1 H (11.5-15.5) % Plt Count 321 (150-450) k/uL MPV 8.6 Neutrophils % 71 % Lymphocytes % 21 % Monocytes % 5 % Eosinophils % 1 % Basophils % 1 % Neutrophils # 8.0 H (1.3-7.7) k/uL Lymphocytes # 2.3 (1.0-4.8) k/uL Monocytes # 0.6 (0-1.0) k/uL Eosinophils # 0.1 (0-0.7) k/uL Basophils # 0.1 (0-0.2) k/uL Hypochromasia Slight Anisocytosis Slight Macrocytosis Slight PT 10.4 (9.0-12.0) sec INR 1.0 (<1.2) APTT 28.0 (22.0-30.0) sec Sodium (137-145) mmol/L Potassium (3.5-5.1) mmol/L Chloride (98-107) mmol/L Carbon Dioxide (22-30) mmol/L Anion Gap mmol/L BUN (7-17) mg/dL Creatinine (0.52-1.04) mg/dL Est GFR (CKD-EPI)AfAm (>60 ml/min/1.73 sqM) Est GFR (CKD-EPI)NonAf (>60 ml/min/1.73 sqM) Glucose (74-99) mg/dL POC Glucose (mg/dL) 124 H (75-99) mg/dL POC Glu Facing Slitter ID Westley, Julieta Calcium (8.4-10.2) mg/dL Total Bilirubin (0.2-1.3) mg/dL AST (14-36) U/L ALT (4-34) U/L Alkaline Phosphatase (38-126) U/L Troponin I (0.000-0.034) ng/mL Total Protein (6.3-8.2) g/dL Albumin (3.5-5.0) g/dL Urine Color Urine Appearance (Clear) Urine pH (5.0-8.0) Ur Specific Newberry (1.001-1.035) Urine Protein (Negative) Urine Glucose (UA) (Negative) Urine Ketones (Negative) Urine Blood (Negative) Urine Nitrite (Negative) Urine Bilirubin (Negative) Urine Urobilinogen (<2.0) mg/dL Ur Leukocyte Esterase (Negative) Urine RBC (0-5) /hpf Urine WBC (0-5) /hpf Ur Squamous Epith Cells (0-4) /hpf Amorphous Sediment (None) /hpf Urine Bacteria (None) /hpf 09/17/21 09/17/21 09/17/21 Range/Units 21:05 21:05 21:05 WBC (3.8-10.6) k/uL RBC (3.80-5.40) m/uL Hgb (11.4-16.0) gm/dL Hct (34.0-46.0) % MCV (80.0-100.0) fL MCH (25.0-35.0) pg MCHC (31.0-37.0) g/dL RDW (11.5-15.5) % Plt Count (150-450) k/uL MPV Neutrophils % % Lymphocytes % % Monocytes % % Eosinophils % % Basophils % % Neutrophils # (1.3-7.7) k/uL Lymphocytes # (1.0-4.8) k/uL Monocytes # (0-1.0) k/uL Eosinophils # (0-0.7) k/uL Basophils # (0-0.2) k/uL Hypochromasia Anisocytosis Macrocytosis PT (9.0-12.0) sec INR (<1.2) APTT (22.0-30.0) sec Sodium 138 (137-145) mmol/L Potassium 4.3 (3.5-5.1) mmol/L Chloride 105 (98-107) mmol/L Carbon Dioxide 21 L (22-30) mmol/L Anion Gap 12 mmol/L BUN 27 H (7-17) mg/dL Creatinine 0.80 (0.52-1.04) mg/dL Est GFR (CKD-EPI)AfAm 79 (>60 ml/min/1.73 sqM) Est GFR (CKD-EPI)NonAf 68 (>60 ml/min/1.73 sqM) Glucose 126 H (74-99) mg/dL POC Glucose (mg/dL) (75-99) mg/dL POC Glu Facing Slitter ID Calcium 9.5 (8.4-10.2) mg/dL Total Bilirubin 0.6 (0.2-1.3) mg/dL AST 31 (14-36) U/L ALT 23 (4-34) U/L Alkaline Phosphatase 111 (38-126) U/L Troponin I <0.012 (0.000-0.034) ng/mL Total Protein 7.4 (6.3-8.2) g/dL Albumin 3.9 (3.5-5.0) g/dL Urine Color Light Yellow Urine Appearance Clear (Clear) Urine pH 6.5 (5.0-8.0) Ur Specific Newberry 1.013 (1.001-1.035) Urine Protein Negative (Negative) Urine Glucose (UA) Negative (Negative) Urine Ketones Negative (Negative) Urine Blood Small H (Negative) Urine Nitrite Negative (Negative) Urine Bilirubin Negative (Negative) Urine Urobilinogen <2.0 (<2.0) mg/dL Ur Leukocyte Esterase Moderate H (Negative) Urine RBC 1 (0-5) /hpf Urine WBC 9 H (0-5) /hpf Ur Squamous Epith Cells 1 (0-4) /hpf Amorphous Sediment Rare H (None) /hpf Urine Bacteria Occasional H (None) /hpf - EKG Data -: EKG Interpreted by Me EKG Comments: 12-lead Electrocardiogram Interpretation Note EKG was reviewed and interpreted by myself. 12-lead ECG performed at 2044 is interpreted by me as revealing sinus tachycardia at a rate of 114 beats per minute. Left axis deviation. HI intervals 172 ms, QRS durations 117 ms, QTc is 353 ms. There is an incomplete right bundle branch block present with T-wave inversions seen in the anterior precordial leads V2 and V3. Concern for left anterior fascicular block as well.. There were no ST or T wave abnormalities to suggest myocardial ischemia or injury. R wave progression across the precordium was satisfactory. By my interpretation this EKG is non-diagnostic for acute ischemia. With comparison to prior EKGs, it does appear similar. Repeat EKG. 12-lead Electrocardiogram Interpretation Note EKG was reviewed and interpreted by myself. 12-lead ECG performed at 2209 is interpreted by me as revealing sinus tachycardia at a rate of 111 beats per minute. Left axis deviation. HI interval is 189 ms, QRS duration is 118 ms, Q Tc is 356 ms. EKG is being read as possible NM, however is relatively unchanged from prior EKG. Is also relatively unchanged from prior EKGs in the past. Patient does have the T-wave inversions in the anterior precordial leads which are repeated.. No acute ST segment abnormalities to suggest NM or injury.. Partial right bundle-branch block is still present. R wave progression across the precordium was satisfactory. By my interpretation this EKG is non-diagnostic for acute ischemia. Relatively unchanged when compared department EKGs. Critical Care Time Critical Care Time: Yes Total Critical Care Time: 35 Critical Care Time: Upon my evaluation, this patient had a high probability of imminent or life- threatening deterioration due to CVA who received TPA, which required my direct attention, intervention, and personal management. I have personally provided 35 minutes of critical care time exclusive of time spent on separately billable procedures. Time includes review of laboratory data, radiology results, discussion with consultants, and monitoring for potential decompensation. Interventions were performed as documented in my note. Disposition Clinical Impression: Cerebrovascular accident (CVA), Expressive aphasia, Sinus tachycardia Disposition: ADMITTED IP TO THIS [facility] Condition: Serious
[2021-09-17] MEDS ORDERED: SODIUM CHLORIDE 0.9% 500 ML 500 ML IV STA (22:37)
--- NOTE | 2021-09-17 22:38 | XR ---
EXAMINATION TYPE: XR chest 1V DATE OF EXAM: 09/17/2021 COMPARISON: 08/20/2021 HISTORY: Altered mental status TECHNIQUE: Single view FINDINGS: There is no heart failure no confluent pneumonic infiltrate. Heart size is normal. There is right-sided ventricular peritoneal shunt catheter noted. There is no pleural effusion. There is some minimal blunting left costophrenic angle. IMPRESSION: Mild pleural reaction left lung base is improved compared to last exam. Normal heart. As clearing of infiltrate left lung base compared to old exam
[2021-09-17] MEDS: SODIUM CHLORIDE 0.9% 1,000 ML IV SCH (23:50)
[2021-09-18 00:11] LABS: Glucose,Whole Blood 149 mg/dL (75-99)
[2021-09-18] MEDS ORDERED: HALOPERIDOL LACTATE 5 MG/ML 1 ML VIAL IVP PRN (03:15)
[2021-09-18] MEDS ORDERED: HALOPERIDOL LACTATE 5 MG/ML 1 ML VIAL ONE (03:56)
[2021-09-18] MEDS: QUEtiapine 50 MG TAB PO SCH (04:32)
[2021-09-18 07:23] LABS: Basophils # (A) 0.1 k/uL (0-0.2); Basophils % (A) 1 %; Eosinophils % (A) 0 %; HCT 34.9 % (34.0-46.0); Hypochromasia Moderate; Lymphocytes # (A) 1.9 k/uL (1.0-4.8); Lymphocytes % (A) 14 %; MCH 30.9 pg (25.0-35.0); MCHC 31.5 g/dL (31.0-37.0); MCV 98.1 fL (80.0-100.0); Macrocytosis Slight; Mean Platelet Volume 8.3; Monocytes # (A) 0.7 k/uL (0-1.0); Monocytes % (A) 5 %; Neutrophils # (A) 10.7 k/uL (1.3-7.7); Neutrophils % (A) 78 %; Platelet Count 293 k/uL (150-450); RBC 3.56 m/uL (3.80-5.40); RDW 15.8 % (11.5-15.5); WBC 13.8 k/uL (3.8-10.6)
[2021-09-18 07:44] LABS: Calcium 9.2 mg/dL (8.4-10.2)
[2021-09-18] MEDS: QUEtiapine 25 MG TAB PO SCH ×2 (07:55→09:01)
[2021-09-18] MEDS ORDERED: DOCUSATE 100 MG CAP PO PRN (08:29)
[2021-09-18] MEDS ORDERED: INSULIN DETEMIR (LEVEMIR) 100 UNIT/ML SYR SQ PRN (08:29)
--- NOTE | 2021-09-18 08:41 | P.CNPUL ---
<Princess Griffin M - Last Filed: 09/18/21 08:40> History of Present Illness Consult date: 09/18/21 Reason for consult: other Chief complaint: Aphasia, slurred speech History of present illness: 86-year-old female patient with past medical history of recent COVID infection in July 2021, TIA, diabetes mellitus with diabetic neuropathy, hyper lipidemia, hydrocephalus with ENVIRONMENTAL EDUCATOR shunt placement, continued urinary tract infections, urinary incontinence,, osteoarthritis, who presented to the emergency department on 09/17/2021 for evaluation of sudden onset of garbled speech, and apparently patient was speaking gibberish. Her blood sugar was within normal limits one hour after symptom onset. Patient is not on any blood thinners. Her ENVIRONMENTAL EDUCATOR shunt was changed 1-1/2 years ago. No other history of other intracranial surgery or bleeding. Patient's baseline functional status is weakness in lower extremities, and patient moves around the house with a wheelchair. CT of the brain in the emergency department revealed cerebral atrophy, mild hydrocephalus, no significant change compared to old exam from July 2021. There was chronic small vessel ischemia with hypodensity around the posterior aspect of the shunt catheter in the right posterior parietal lobe white matter. CT angiogram of the neck and brain was negative. EKG showed sinu s tachycardia and incomplete right bundle branch block. Patient's onset of symptoms was within 4,5 hours of presentation, NIH score was 4, patient was a candidate for TPA she received in the emergency department. Following TPA administration patient was admitted to the intensive care unit for close neurological monitoring. Patient is seen in the intensive care unit this morning on 09/10/2021, she is resting comfortably in bed, room air pulse ox 95%, hemodynamically she stable, she is in sinus mechanism she is tachycardic with a rate of 103-111 BPM, afebrile. Neurologically patient is awake and alert, she is responding to commands appropriately, no drift in bilateral upper or lower extremities, still has the aphasia and slurred speech this morning. Review of Systems All systems: negative Constitutional: Denies chills, Denies fever Eyes: denies blurred vision, denies pain Ears, nose, mouth and throat: Denies headache, Denies sore throat Cardiovascular: Denies chest pain, Denies shortness of breath Respiratory: Denies cough Gastrointestinal: Denies abdominal pain, Denies diarrhea, Denies nausea, Denies vomiting Genitourinary: Denies dysuria, Denies hematuria Musculoskeletal: Denies myalgias Integumentary: Denies pruritus, Denies rash Neurological: Reports change in speech, Denies numbness, Denies weakness Psychiatric: Denies anxiety, Denies depression Endocrine: Denies fatigue, Denies weight change Past Medical History Past Medical History: Dementia, Diabetes Mellitus, Hyperlipidemia Additional Past Medical History / Comment(s): neuropathy, dizzy when stands, diabetic ulcer on left foot supposed to go to wound clinic hydrocephalus with vp communications shunt frequent uti, TIA History of Any Multi-Drug Resistant Organisms: None Reported Past Surgical History: Appendectomy, Cholecystectomy, Orthopedic Surgery Additional Past Surgical History / Comment(s): right shoulder vp communications shunt Past Anesthesia/Blood Transfusion Reactions: No Reported Reaction Additional Past Anesthesia/Blood Transfusion Reaction / Comment(s): patient states never had blood transfusion Past Psychological History: No Psychological Hx Reported Smoking Status: Never smoker Past Alcohol Use History: None Reported Past Drug Use History: None Reported - Past Family History Mother Family Medical History: Diabetes Mellitus Medications and Allergies Home Medications Medication Instructions Recorded Confirmed Type Atorvastatin [Lipitor] 80 mg PO HS 03/08/19 09/17/21 History ALPRAZolam [Xanax] 0.25 mg PO TID PRN 07/05/21 09/17/21 History Cholecalciferol [Vitamin D3 (25 50 mcg PO BID-W/MEALS 07/05/21 09/17/21 History Mcg = 1000 Iu)] Cyanocobalamin [Vitamin B-12] 500 mcg PO DAILY 07/05/21 09/17/21 History Midodrine HCl 5 mg PO BID-W/MEALS 07/05/21 09/17/21 History Mirabegron [Myrbetriq] 25 mg PO DAILY 07/05/21 09/17/21 History Rivastigmine Tartrate [Exelon] 3 mg PO BID-W/MEALS 07/05/21 09/17/21 History Aspirin 81 mg PO DAILY tab 07/07/21 09/17/21 Rx Thiamine [Vitamin B-1] 100 mg PO DAILY tab 07/07/21 09/17/21 Rx Ascorbic Acid [Vitamin C] 500 mg PO DAILY 08/10/21 09/17/21 History Insulin Glargine,Hum.rec.anlog 10 unit SQ DAILY PRN 08/10/21 09/17/21 History [Lantus Solostar Pen] Memantine HCl [Namenda] 5 mg PO BID-W/MEALS 08/10/21 09/17/21 History Niacin 500 mg PO DAILY 08/10/21 09/17/21 History Docusate [Colace] 100 mg PO BID PRN cap 08/14/21 09/17/21 Rx Mirtazapine [Remeron] 15 mg PO HS #30 tab 08/22/21 09/17/21 Rx Zinc Sulfate [Orazinc] 220 mg PO DAILY cap 08/22/21 09/17/21 Rx Allergies Allergy/AdvReac Type Severity Reaction Status Date / Time No Known Allergies Allergy Verified 09/17/21 21:13 Physical Exam Vitals: Vital Signs Temp Pulse Resp BP Pulse Ox 09/18/21 07:00 102 H 13 110/93 96 09/18/21 06:00 124 H 40 H 146/69 96 09/18/21 05:00 116 H 17 99/85 87 L 09/18/21 04:10 121 H 24 99/85 95 09/18/21 04:00 115 H 10 L 126/74 96 09/18/21 03:50 118 H 10 L 126/74 92 L 09/18/21 03:40 108 H 13 126/74 96 09/18/21 03:30 109 H 13 126/74 89 L 09/18/21 03:20 104 H 15 126/74 94 L 09/18/21 03:10 105 H 18 126/74 91 L 09/18/21 03:00 110 H 17 149/79 92 L 09/18/21 02:50 105 H 9 L 149/79 94 L 09/18/21 02:40 104 H 16 149/79 94 L 09/18/21 02:30 111 H 10 L 149/79 96 09/18/21 02:20 108 H 19 149/79 94 L 09/18/21 02:10 110 H 28 H 149/79 93 L 09/18/21 02:00 112 H 18 126/73 93 L 09/18/21 01:50 112 H 13 126/73 94 L 09/18/21 01:40 105 H 15 126/73 96 09/18/21 01:30 109 H 5 L 126/73 96 09/18/21 01:20 110 H 15 126/73 94 L 09/18/21 01:10 104 H 14 126/73 95 09/18/21 01:00 107 H 12 126/73 95 09/18/21 00:50 105 H 8 L 97 09/18/21 00:45 97.4 F L 09/18/21 00:40 97.4 F L 109 H 25 H 107/80 09/18/21 00:35 112 H 18 09/18/21 00:06 103 H 18 122/73 95 09/18/21 00:00 122/73 09/17/21 23:50 13 122/73 09/17/21 23:40 19 109/76 09/17/21 23:30 115 H 12 136/91 09/17/21 23:20 18 136/91 09/17/21 23:10 107 H 18 134/85 09/17/21 23:00 116 H 22 121/75 09/17/21 22:50 112 H 13 121/75 09/17/21 22:40 108 H 18 124/75 09/17/21 22:30 109 H 18 108/75 95 09/17/21 22:20 105 H 18 108/75 09/17/21 22:10 116 H 27 H 96/74 09/17/21 22:00 105 H 28 H 128/79 95 09/17/21 21:50 112 H 9 L 128/79 09/17/21 21:45 114 H 16 128/79 94 L 09/17/21 21:40 124 H 12 128/78 93 L 09/17/21 21:30 110 H 54 H 126/82 95 09/17/21 21:20 112 H 14 126/82 09/17/21 21:15 106 H 16 126/82 95 09/17/21 21:10 115 H 22 125/96 09/17/21 21:00 108 H 17 119/70 95 09/17/21 20:50 15 119/70 09/17/21 20:45 121 H 16 119/70 95 09/17/21 20:40 111 H 14 119/70 95 09/17/21 20:30 120 H 16 122/91 95 09/17/21 20:28 95 09/17/21 20:12 98.7 F 129 H 19 143/80 98 Intake and Output 09/17/21 09/18/21 09/18/21 22:59 06:59 14:59 Intake Total 600 100 Output Total 535 25 Balance 65 75 Intake: Intake, IV Titration 600 100 Amount Sodium Chloride 0.9% 1, 600 100 000 ml @ 100 mls/hr IV . Q10H [facility] Rx#:[id number] Output: Urine 535 25 Other: Voiding Method Indwelling Catheter Weight 54.068 kg 55.5 kg GENERAL EXAM: Alert, oriented to self and place, following commands a 86-year- old white female, on room air satting 95%, comfortable in no apparent distress. Has a garbled speech HEAD: Normocephalic/atraumatic. EYES: Normal reaction of pupils, equal size. Conjunctiva pink, sclera white. NOSE: Clear with pink turbinates. THROAT: No erythema or exudates. NECK: No masses, no JVD, no thyroid enlargement, no adenopathy. CHEST: No chest wall deformity. Symmetrical expansion. LUNGS: Equal air entry with no crackles, wheeze, rhonchi or dullness. CVS: Regular rate and rhythm, normal S1 and S2, no gallops, no murmurs, no rubs ABDOMEN: Soft, nontender. No hepatosplenomegaly, normal bowel sounds, no guarding or rigidity. EXTREMITIES: No clubbing, no edema, no cyanosis, 2+ pulses and upper and lower extremities. MUSCULOSKELETAL: Muscle strength and tone normal. SPINE: No scoliosis or deformity SKIN: No rashes CENTRAL NERVOUS SYSTEM: Alert and oriented -2. No focal deficits, tone is normal in all 4 extremities. Garbled speech PSYCHIATRIC: Alert and oriented -2. Appropriate affect. Intact judgment and insight. Results - Laboratory Findings CBC and BMP: 09/18/21 06:13 09/18/21 06:13 PT/INR, D-dimer PT 10.4 sec (9.0-12.0) 09/17/21 20:22 INR 1.0 (<1.2) 09/17/21 20:22 Abnormal lab findings: Abnormal Labs 09/17/21 09/17/21 09/17/21 20:11 20:22 21:05 WBC 11.3 H RBC 3.79 L Hgb RDW 16.1 H Neutrophils # 8.0 H Chloride Carbon Dioxide BUN Glucose POC Glucose (mg/dL) 124 H Urine Blood Small H Ur Leukocyte Esterase Moderate H Urine WBC 9 H Amorphous Sediment Rare H Urine Bacteria Occasional H 09/17/21 09/18/21 09/18/21 21:05 00:10 06:13 WBC 13.8 H RBC 3.56 L Hgb 11.0 L RDW 15.8 H Neutrophils # 10.7 H Chloride Carbon Dioxide 21 L BUN 27 H Glucose 126 H POC Glucose (mg/dL) 149 H Urine Blood Ur Leukocyte Esterase Urine WBC Amorphous Sediment Urine Bacteria 09/18/21 06:13 WBC RBC Hgb RDW Neutrophils # Chloride 109 H Carbon Dioxide 20 L BUN 24 H Glucose 143 H POC Glucose (mg/dL) Urine Blood Ur Leukocyte Esterase Urine WBC Amorphous Sediment Urine Bacteria - Diagnostic Findings Chest x-ray: report reviewed, image reviewed Additional studies: EKG, CT angiogram of the neck and brain Assessment and Plan Plan: Assessment: #1. Acute CVA, with symptoms of aphasia, S/P TPA on 09/17/2021 #2. Recent COVID 19 infection in July, and patient did not have pulmonary symptoms #3. Frequent UTIs, urinary tract infection #4. History of diabetes mellitus2 with diabetic neuropathy #5. Previous history of TIA #6. Hyperlipidemia #7. History of dementia #8. Gait dysfunction #9. Hydrocephalus, status post ENVIRONMENTAL EDUCATOR shunt placement Assessment: Continue close neurological monitoring Neurology consultation Repeat CT brain this afternoon Lipid panel, Lipitor 80 mg has been restarted Echocardiogram Urine for culture DVT prophylaxis per neurology I performed a history & physical examination of the patient and discussed their management with my nurse practitioner, Princess Griffin. I reviewed the nurse practitioner's note and agree with the documented findings and plan of care. Lung sounds are positive for dim breath sounds throughout the lung vieira. The findings and the impression was discussed with the patient. I attest to the documentation by the nurse practitioner. I have personally seen and examined the patient, performed the documentation and the assessment and plan as written. Number of minutes spent on the visit: [20] Time with Patient: Greater than 30 <Renae Duque - Last Filed: 09/18/21 09:58> Physical Exam Vitals: Vital Signs Temp Pulse Resp BP Pulse Ox 09/18/21 09:00 109 H 16 110/61 98 09/18/21 08:00 96 14 101/63 95 02/28/22 07:00 102 H 13 110/93 96 09/18/21 06:00 124 H 40 H 146/69 96 09/18/21 05:00 116 H 17 99/85 87 L 09/18/21 04:10 121 H 24 99/85 95 09/18/21 04:00 115 H 10 L 126/74 96 09/18/21 03:50 118 H 10 L 126/74 92 L 09/18/21 03:40 108 H 13 126/74 96 09/18/21 03:30 109 H 13 126/74 89 L 09/18/21 03:20 104 H 15 126/74 94 L 09/18/21 03:10 105 H 18 126/74 91 L 09/18/21 03:00 110 H 17 149/79 92 L 09/18/21 02:50 105 H 9 L 149/79 94 L 09/18/21 02:40 104 H 16 149/79 94 L 09/18/21 02:30 111 H 10 L 149/79 96 09/18/21 02:20 108 H 19 149/79 94 L 09/18/21 02:10 110 H 28 H 149/79 93 L 09/18/21 02:00 112 H 18 126/73 93 L 09/18/21 01:50 112 H 13 126/73 94 L 09/18/21 01:40 105 H 15 126/73 96 09/18/21 01:30 109 H 5 L 126/73 96 09/18/21 01:20 110 H 15 126/73 94 L 09/18/21 01:10 104 H 14 126/73 95 09/18/21 01:00 107 H 12 126/73 95 09/18/21 00:50 105 H 8 L 97 09/18/21 00:45 97.4 F L 09/18/21 00:40 97.4 F L 109 H 25 H 107/80 09/18/21 00:35 112 H 18 09/18/21 00:06 103 H 18 122/73 95 09/18/21 00:00 122/73 09/17/21 23:50 13 122/73 09/17/21 23:40 19 109/76 09/17/21 23:30 115 H 12 136/91 09/17/21 23:20 18 136/91 09/17/21 23:10 107 H 18 134/85 09/17/21 23:00 116 H 22 121/75 09/17/21 22:50 112 H 13 121/75 09/17/21 22:40 108 H 18 124/75 09/17/21 22:30 109 H 18 108/75 95 09/17/21 22:20 105 H 18 108/75 09/17/21 22:10 116 H 27 H 96/74 09/17/21 22:00 105 H 28 H 128/79 95 09/17/21 21:50 112 H 9 L 128/79 09/17/21 21:45 114 H 16 128/79 94 L 09/17/21 21:40 124 H 12 128/78 93 L 09/17/21 21:30 110 H 54 H 126/82 95 09/17/21 21:20 112 H 14 126/82 09/17/21 21:15 106 H 16 126/82 95 09/17/21 21:10 115 H 22 125/96 09/17/21 21:00 108 H 17 119/70 95 09/17/21 20:50 15 119/70 09/17/21 20:45 121 H 16 119/70 95 09/17/21 20:40 111 H 14 119/70 95 09/17/21 20:30 120 H 16 122/91 95 09/17/21 20:28 95 09/17/21 20:12 98.7 F 129 H 19 143/80 98 Intake and Output 09/17/21 09/18/21 09/18/21 22:59 06:59 14:59 Intake Total 600 100 Output Total 535 200 Balance 65 -100 Intake: Intake, IV Titration 600 100 Amount Sodium Chloride 0.9% 1, 600 100 000 ml @ 100 mls/hr IV . Q10H [facility] Rx#:[id number] Output: Urine 535 200 Other: Voiding Method Indwelling Catheter Indwelling Catheter Weight 54.068 kg 55.5 kg Results - Laboratory Findings CBC and BMP: 09/18/21 06:13 09/18/21 06:13 PT/INR, D-dimer PT 10.4 sec (9.0-12.0) 09/17/21 20:22 INR 1.0 (<1.2) 02/27/22 20:22 Abnormal lab findings: Abnormal Labs 09/17/21 09/17/21 09/17/21 20:11 20:22 21:05 WBC 11.3 H RBC 3.79 L Hgb RDW 16.1 H Neutrophils # 8.0 H Chloride Carbon Dioxide BUN Glucose POC Glucose (mg/dL) 124 H Urine Blood Small H Ur Leukocyte Esterase Moderate H Urine WBC 9 H Amorphous Sediment Rare H Urine Bacteria Occasional H 09/17/21 09/18/21 09/18/21 21:05 00:10 06:13 WBC 13.8 H RBC 3.56 L Hgb 11.0 L RDW 15.8 H Neutrophils # 10.7 H Chloride Carbon Dioxide 21 L BUN 27 H Glucose 126 H POC Glucose (mg/dL) 149 H Urine Blood Ur Leukocyte Esterase Urine WBC Amorphous Sediment Urine Bacteria 09/18/21 06:13 WBC RBC Hgb RDW Neutrophils # Chloride 109 H Carbon Dioxide 20 L BUN 24 H Glucose 143 H POC Glucose (mg/dL) Urine Blood Ur Leukocyte Esterase Urine WBC Amorphous Sediment Urine Bacteria Assessment and Plan Plan: This is a joint evaluation that was done along with the nurse practitioner. I was involved in this evaluation, and decision making. Please refer to the above-mentioned information right chest to the assessment and plan that was set force. I was involved in this evaluation for more than 30 minutes. The case was discussed. We'll proceed with a repeat CAT scan of the brain. Awaiting lipid panel. Awaiting echocardiogram. We'll also obtain a urine culture. Neurologically, the patient is stable. She is a poor historian as the patient has underlying dementia. Medication reconciliation was done. Outpatient medications were ordered resume.
[2021-09-18] MEDS: Mirabegron [Myrbetriq] PO SCH (08:51)
[2021-09-18] MEDS: MEMANTINE 5 MG TAB PO SCH (08:59)
[2021-09-18] MEDS: ASCORBIC ACID 500 MG TAB PO SCH (08:59)
[2021-09-18] MEDS: ZINC SULFATE 220 MG CAP PO SCH (08:59)
[2021-09-18] MEDS: DONEPEZIL 10 MG TAB PO SCH (08:59)
[2021-09-18] MEDS: NIACIN TR 500 MG CAPLET PO SCH (08:59)
--- NOTE | 2021-09-18 09:54 | P.CNNES ---
History of Present Illness Consult date: 09/18/21 Requesting physician: Tristan Smith Reason for Consult: CVA, tpa administered History of Present Illness: This is an 86-year-old woman with history of normal pressure hydrocephalus status post [employer] shunt, dementia, diabetes mellitus, hyperlipidemia who presented emergency department on 09/17/2021 for sudden onset of speech difficulty. Patient presents to our facility around 19:59. History is obtained from medical record. Per the ED note at approximately 18:30 on 09/17/2021 the patient the was being helped for dinner by her son and all of a sudden her speech was gibberish and was jumbled. At baseline the patient the is verbal and oriented and can and carry conversation. And it is noted the patient has a dementia but is oriented 3 per family members. She has chronic lower extremity weakness. She usually ambulates at home with the wheelchair. Patient is not on any anticoagulation. And she denies any history of intracranial bleed or major bleeding per the ED note. Patient is on home medication of aspirin 81 mg, Lipitor at 80 mg daily at bedtime. As a result stroke code was activated: NIH stroke scale is 4 per the ED attending (predominately expressive aphasia). CT of the head is reported as cerebral atrophy. Mild hydrocephalus. No significant change compared to old exam. Chronic small vessel ischemia with hypodensity around the posterior aspect of the shunt catheter in the right posterior parietal lobe white matter. CT angiography of the head and neck was reported as negative. Dr. Agudelo (stroke/neurointerventionalist) reviewed the images and he felt the patient had occlusion on the left M2 segment per ED team. Dr. Agudelo discussed thrombectomy with the patient's son (power of deputy prosecuting attorney) but was agreed not to pursue with thrombectomy due to the patient's age, multiple comorbid conditions as well as the desire not for the patient to have intensive procedure. IV TPA was started on 2036 on 09/17/2021 (received bolus of 5mg) then rest of infusion of 44mg over 1 hour. Some of the other work-up in the hospital consisted of: Initial vital signs was blood pressure of 143/80, heart rate of 129, temperature of 98.7 Fahrenheit oral, respiratory of 19, and pulse ox of 98% room air. Hemoglobin is 11.9 on presentation, platelet is 221,000. Chemistry panel is unremarkable. POC glucose and presentation is 124. AST and ALT is within the normal limits PT, PTT and INR is within normal limits Per ED nurse: NIH storke scale of 6 points 1 level of LOC, 1 LOC questions, 2 language, 2 dyarthria. Review of Systems Review of system: The 12 point system was reviewed and apparent positive and negative per HPI. Past Medical History Past Medical History: Dementia, Diabetes Mellitus, Hyperlipidemia Additional Past Medical History / Comment(s): neuropathy, dizzy when stands, diabetic ulcer on left foot supposed to go to wound clinic hydrocephalus with vp account director shunt frequent uti, TIA History of Any Multi-Drug Resistant Organisms: None Reported Past Surgical History: Appendectomy, Cholecystectomy, Orthopedic Surgery Additional Past Surgical History / Comment(s): right shoulder vp account director shunt Past Anesthesia/Blood Transfusion Reactions: No Reported Reaction Additional Past Anesthesia/Blood Transfusion Reaction / Comment(s): patient states never had blood transfusion Past Psychological History: No Psychological Hx Reported Smoking Status: Never smoker Past Alcohol Use History: None Reported Past Drug Use History: None Reported - Past Family History Mother Family Medical History: Diabetes Mellitus Medications and Allergies Home Medications Medication Instructions Recorded Confirmed Type Atorvastatin [Lipitor] 80 mg PO HS 03/08/19 09/17/21 History ALPRAZolam [Xanax] 0.25 mg PO TID PRN 07/05/21 09/17/21 History Cholecalciferol [Vitamin D3 (25 50 mcg PO BID-W/MEALS 07/05/21 09/17/21 History Mcg = 1000 Iu)] Cyanocobalamin [Vitamin B-12] 500 mcg PO DAILY 07/05/21 09/17/21 History Midodrine HCl 5 mg PO BID-W/MEALS 07/05/21 09/17/21 History Mirabegron [Myrbetriq] 25 mg PO DAILY 07/05/21 09/17/21 History Rivastigmine Tartrate [Exelon] 3 mg PO BID-W/MEALS 07/05/21 09/17/21 History Aspirin 81 mg PO DAILY tab 07/07/21 09/17/21 Rx Thiamine [Vitamin B-1] 100 mg PO DAILY tab 07/07/21 09/17/21 Rx Ascorbic Acid [Vitamin C] 500 mg PO DAILY 08/10/21 09/17/21 History Insulin Glargine,Hum.rec.anlog 10 unit SQ DAILY PRN 08/10/21 09/17/21 History [Lantus Solostar Pen] Memantine HCl [Namenda] 5 mg PO BID-W/MEALS 08/10/21 09/17/21 History Niacin 500 mg PO DAILY 08/10/21 09/17/21 History Docusate [Colace] 100 mg PO BID PRN cap 08/14/21 09/17/21 Rx Mirtazapine [Remeron] 15 mg PO HS #30 tab 08/22/21 09/17/21 Rx Zinc Sulfate [Orazinc] 220 mg PO DAILY cap 08/22/21 09/17/21 Rx Allergies Allergy/AdvReac Type Severity Reaction Status Date / Time No Known Allergies Allergy Verified 09/17/21 21:13 Physical Examination - Vital Signs Vital Signs: Vital Signs Temp Pulse Resp BP Pulse Ox 09/18/21 07:00 102 H 13 110/93 96 09/18/21 06:00 124 H 40 H 146/69 96 09/18/21 05:00 116 H 17 99/85 87 L 09/18/21 04:10 121 H 24 99/85 95 09/18/21 04:00 115 H 10 L 126/74 96 09/18/21 03:50 118 H 10 L 126/74 92 L 09/18/21 03:40 108 H 13 126/74 96 09/18/21 03:30 109 H 13 126/74 89 L 09/18/21 03:20 104 H 15 126/74 94 L 09/18/21 03:10 105 H 18 126/74 91 L 09/18/21 03:00 110 H 17 149/79 92 L 09/18/21 02:50 105 H 9 L 149/79 94 L 09/18/21 02:40 104 H 16 149/79 94 L 09/18/21 02:30 111 H 10 L 149/79 96 09/18/21 02:20 108 H 19 149/79 94 L 09/18/21 02:10 110 H 28 H 149/79 93 L 09/18/21 02:00 112 H 18 126/73 93 L 09/18/21 01:50 112 H 13 126/73 94 L 09/18/21 01:40 105 H 15 126/73 96 09/18/21 01:30 109 H 5 L 126/73 96 09/18/21 01:20 110 H 15 126/73 94 L 09/18/21 01:10 104 H 14 126/73 95 09/18/21 01:00 107 H 12 126/73 95 09/18/21 00:50 105 H 8 L 97 09/18/21 00:45 97.4 F L 09/18/21 00:40 97.4 F L 109 H 25 H 107/80 09/18/21 00:35 112 H 18 09/18/21 00:06 103 H 18 122/73 95 09/18/21 00:00 122/73 09/17/21 23:50 13 122/73 09/17/21 23:40 19 109/76 09/17/21 23:30 115 H 12 136/91 09/17/21 23:20 18 136/91 09/17/21 23:10 107 H 18 134/85 09/17/21 23:00 116 H 22 121/75 09/17/21 22:50 112 H 13 121/75 09/17/21 22:40 108 H 18 124/75 09/17/21 22:30 109 H 18 108/75 95 09/17/21 22:20 105 H 18 108/75 09/17/21 22:10 116 H 27 H 96/74 09/17/21 22:00 105 H 28 H 128/79 95 09/17/21 21:50 112 H 9 L 128/79 09/17/21 21:45 114 H 16 128/79 94 L 09/17/21 21:40 124 H 12 128/78 93 L 09/17/21 21:30 110 H 54 H 126/82 95 09/17/21 21:20 112 H 14 126/82 09/17/21 21:15 106 H 16 126/82 95 09/17/21 21:10 115 H 22 125/96 09/17/21 21:00 108 H 17 119/70 95 09/17/21 20:50 15 119/70 09/17/21 20:45 121 H 16 119/70 95 09/17/21 20:40 111 H 14 119/70 95 09/17/21 20:30 120 H 16 122/91 95 09/17/21 20:28 95 02/27/22 20:12 98.7 F 129 H 19 143/80 98 Intake and Output 09/17/21 09/18/21 09/18/21 22:59 06:59 14:59 Intake Total 600 100 Output Total 535 25 Balance 65 75 Intake: Intake, IV Titration 600 100 Amount Sodium Chloride 0.9% 1, 600 100 000 ml @ 100 mls/hr IV . Q10H [facility] Rx#:[id number] Output: Urine 535 25 Other: Voiding Method Indwelling Catheter Weight 54.068 kg 55.5 kg GENERAL: The patient is lying in bed and is not in acute distress. CHEST: The heart rate is regular rate rhythm. No murmurs to auscultation. No carotid bruit bilaterally. LUNG: Clear to auscultation bilaterally no wheezing noted throughout. Not labored breathing. ABDOMEN/GI: Bowel sounds present in all 4 quadrants. No tenderness to palpation throughout. NEUROLOGICAL: Higher mental function: The patient is awake, alert, oriented to self only. she stated the year is 2023 and month is October. She stated she was at home. Patient is following simple commands. At time she was repeating same phrase, and seems at times talking nonsensical. No neglect. Cranial nerves: The pupils are round, equal and reactive to light. Visual vieira are full to confrontation throughout. Extraocular movement is intact no nystagmus is noted. Facial sensation is normal to touch throughout. The facial strength is normal throughout. Hearing is moderately to severely decreased bilaterally to hand rub. Tongue is midline and moved [id number] without any difficulty. No dysarthria is noted. Shoulder shrug is normal bilaterally. Motor: Gait is deferred. The strength is hard to assess invidual muscles becau se of her cooperation but lifting all extremities above gravity without focality. Normal tone and bulk. Cerebellum: Normal finger to nose on right but had hard to time performing left because of IV line. Sensation: Sensation is normal to touch throughout. Reflexes (right/left): 1+ throughout. Plantars are mute bilaterally. Results - Laboratory Findings CBC and BMP: 09/18/21 06:13 09/18/21 06:13 Abnormal Lab Findings: Abnormal Labs 09/17/21 09/17/21 09/17/21 20:11 20:22 21:05 WBC 11.3 H RBC 3.79 L Hgb RDW 16.1 H Neutrophils # 8.0 H Chloride Carbon Dioxide BUN Glucose POC Glucose (mg/dL) 124 H Urine Blood Small H Ur Leukocyte Esterase Moderate H Urine WBC 9 H Amorphous Sediment Rare H Urine Bacteria Occasional H 09/17/21 09/18/21 09/18/21 21:05 00:10 06:13 WBC 13.8 H RBC 3.56 L Hgb 11.0 L RDW 15.8 H Neutrophils # 10.7 H Chloride Carbon Dioxide 21 L BUN 27 H Glucose 126 H POC Glucose (mg/dL) 149 H Urine Blood Ur Leukocyte Esterase Urine WBC Amorphous Sediment Urine Bacteria 09/18/21 06:13 WBC RBC Hgb RDW Neutrophils # Chloride 109 H Carbon Dioxide 20 L BUN 24 H Glucose 143 H POC Glucose (mg/dL) Urine Blood Ur Leukocyte Esterase Urine WBC Amorphous Sediment Urine Bacteria Assessment and Plan Assessment: Acute CVA status post IV TPA on 09/17/2021 (NIH 4 on presentation. 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 Agudelo (neurointerventionalist)) Normal pressure hydrocephalus status post shunt Dementia but baseline is oriented 3 per family member Diabetes mellitus Hyperlipidemia Bilateral lower extremity weakness and the ambulates with a wheelchair at baseline Plan: A repeat CT of the head is ordered 24 hours post-TPA. If the CT of the head is negative for hemorrhage then I will restart the patient home medication of aspirin 81mg daily and and in addition I'll also add Plavix 75 mg daily. On Lipitor 80 mg daily at bedtime for secondary stroke prophylaxis. Lipid panel and 2d echo are ordered and pending PT, OT and TOY P[employer]ER is consulted Continue neuro checks per IV TPA protocol Patient's blood pressure systolic goal is less than 185 and diastolic is less than 110 per IV tpa protocol. We'll defer the management to the primary and ICU team CT angiography of the head and neck was reported as negative. Dr. Agudelo (stroke/neurointerventionalist) reviewed the images and he felt the patient had occlusion on the left M2 segment per ED team. Dr. Agudelo discussed thrombectomy with the patient's son (power of deputy prosecuting attorney) but was agreed not to pursue with thrombectomy due to the patient's age, multiple comorbid conditions as well as the desire not for the patient to have intensive procedure. Placed the patient on Seroquel 25 mg 1 tablet twice a day for agitation and will change to only qhs. Also 1 mg every 4 hours as needed for agitation/psychosis. We'll defer the rest of the medical management to the primary team and ICU team. For DVT prophylaxis for now SCDs since the patient received IV tpa. If the 24- hour repeat the CT of the head is negative for the bleed then recommend starting the patient on subcu heparin or Lovenox. The plan is discussed with the patient's nurse. Thank you for the consultation. Cali Fernandes M.D. Neuro-Hospitalist Time with Patient: Greater than 30
[2021-09-18 10:28] LABS: Chol/HDL Ratio 2.37 Ratio; LDL Cholesterol,Calculated 30.7 mg/dL (0.0-131.0)
--- NOTE | 2021-09-18 12:01 | ECHOF ---
Referral Reason:CVA MEASUREMENTS -------- HEIGHT: 165.1 cm WEIGHT: 55.3 kg BP: 133/63 IVSd: 1.4 cm (0.6 - 1.1) LVIDd: 2.7 cm (3.9 - 5.3) LVPWd: 1.4 cm (0.6 - 1.1) IVSs: 1.9 cm LVIDs: 1.6 cm LVPWs: 1.3 cm LAESV Index (A-L): 16.92 ml/m Ao Diam: 3.3 cm (2.0 - 3.7) AV Cusp: 2.2 cm (1.5 - 2.6) LA Diam: 2.7 cm (2.7 - 3.8) FINDINGS -------- This was a technically adequate study. The left ventricular size is normal. There is moderate concentric left ventricular hypertrophy. O verall left ventricular systolic function is normal with, an EF between 55 - 60 %. Possible LVOT Ob struction. The right ventricle is normal in size. Normal LA size by volume 22+/-6 ml/m2. The right atrial size is normal. Interatrial and interventricular septum intact. The aortic valve is trileaflet and appears structurally normal. There is no evidence of aortic regu rgitation. There is no evidence of aortic stenosis. Mild mitral regurgitation is present. Trace tricuspid regurgitation present. Unable to estimate RVSP due to inadequate TR jet spectral do ppler profile. There is no pulmonic regurgitation present. The aortic root size is normal. IVC Not well visulized. There is no pericardial effusion. CONCLUSIONS -------- 1. The left ventricular size is normal. 2. There is moderate concentric left ventricular hypertrophy. 3. Overall left ventricular systolic function is normal with, an EF between 55 - 60 %. 4. Possible LVOT Obstruction. 5. Mild mitral regurgitation is present. 6. Trace tricuspid regurgitation present. AUTO PORTER: Tamera Lawler RDCS
[2021-09-18] MEDS: SODIUM CHLORIDE 0.9% 1,000 ML IV SCH (13:41)
--- NOTE | 2021-09-18 14:18 | P.HPIM ---
History of Present Illness H&P Date: 09/18/21 HISTORY OF PRESENT ILLNESS 86-year-old female patient of Dr. Avery with past medical history of type 2 diabetes, history of normal pressure hydrocephalus post [employer] shunt changed one half years ago, history of hypertension and hyperlipidemia along with a chronic kidney disease II. Patient was recently hospitalized in June 2021 due to possible TIA, possible anticholinergic effect of Elavil. Patient was discharged home with homecare. Patient has had multiple hospitalizations since July was diagnosed with Covid 19 in July, subsequently admitted for encephalopathic dementia and patient was discharged home with home care . Patient was brought into the emergency center due to sudden onset of garbled speech and worsening confusion. CT of the brain revealed cerebral atrophy, mild hydrocephalus, no significant change compared to old exam from July 2021. There was chronic small vessel ischemia with hypodensity around the posterior aspect of the shunt catheter in the right posterior parietal lobe white matter. CT angiogram of the neck and brain was negative. EKG showed sinus tachycardia and incomplete right bundle branch block. Onset of symptoms within 5 hours of presentation, NIH score was 4, status post TPA and then admitted into the intensive care unit. Patient is resting in bed, she is confused and speech is not making sense. No concern from her nurse. Vital signs have been stable. She has been afebrile, heart rate in the low 100s 101-108, blood pressure 145/79, pulse ox 95% on room air. WBC 11.3, hemoglobin 11.9. Creatinine 0.9. Triglycerides 170, cholesterol 112, HDL 47, LDL 30. Urinalysis showed blood small, leukoesterase moderate, WBCs 9. Echocardiogram reveals EF of 55-60% with moderate concentric left ventricle hypertrophy, mild mitral regurgitation, trace tricuspid regurgitation. Chest x-ray reveals mild pleural reaction left lung base improved. Patient has been seen by neurology, pulmonary medicine and cardiology. Patient is scheduled for repeat CAT scan of the brain this evening. REVIEW OF SYSTEMS Constitutional: No fever, no chills, no night sweats. No weight change. Generalized weakness, fatigue or lethargy. No daytime sleepiness.still slightly but confused. EENT: No headache. No blurred vision or double vision, no loss of vision. No loss of Hearing, no ringing in the ears, no dizziness. No nasal drainage or congestion. No epistaxis. No sore throat. Lungs: No shortness of breath, cough, no sputum production. No wheezing. Cardiovascular: No chest pain, no lower extremity edema. No palpitations. No paroxysmal nocturnal dyspnea. No orthopnea. No lightheadedness or dizziness. No syncopal episodes. Abdominal: No abdominal pain. No nausea, vomiting. No diarrhea. No constipation. No bloody or tarry stools.. No loss of appetite. Genitourinary: No dysuria, increased frequency, urgency. No urinary retention. Musculoskeletal: generalized muscle pain and myalgia. Integumentary: No wounds, no lesions. No rash or pruritus. No unusual bruising. No change in hair or nails. Neurologic: No aphasia. No facial droop. Noted chronic change in mentation. No head injury. No headache. No paralysis. No paresthesia. Confusion with worsening dementia. Psychiatric: No depression. No anxiety. Noted mood swings. Endocrine: No abnormal blood sugars. No weight change. No excessive sweating or thirst. No cold intolerance. SOCIAL HISTORY she does not smoke, no alcohol abuse, she was and lives with her son and she is dependent cannot drive at this point has been having trouble since her shunt was placed for normal pressure hydrocephalus. FAMILY HISTORY father age 60 from cancer, mother at age 93 from dementia and CVA, patient had no siblings. 2 children both living and well. PHYSICAL EXAMINATION Gen: This is an 86-year-old female. Patient is resting in the ICU bed and appears to be in no acute distress. Patient is agitated. HEENT: Head is atraumatic, normocephalic. Pupils equal, round. Sclerae is anicteric. NECK: Supple. No JVD. No lymphadenopathy. No thyromegaly. LUNGS: Clear to auscultation. No wheezes or rhonchi. No intercostal retractions. HEART: Regular rate and rhythm. No murmur. ABDOMEN: Soft. Bowel sounds are present. No masses. No tenderness. EXTREMITIES: No pedal edema. No calf tenderness. NEUROLOGICAL: Patient is awake, alert and oriented to person. Patient is angry and uncooperative. ASSESSMENT AND PLAN 1. Acute CVA status post TPA. Neurology consult appreciated. PT, OT, speech therapies. Continue Lipitor 80 mg at bedtime and Plavix 75 mg daily, aspirin 81 mg daily, repeat CAT scan of the brain this evening 2. 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 3. Normal pressure hydrocephalus status post shunt. 4. Recent hospitalization in July for Covid 19 infection. Continue vitamin D, vitamin C, zinc . 5. Dementia. Continue Namenda 5 mg twice daily, Aricept 10 mg at hs. Patient started on Seroquel 25 mg at bedtime for agitation 6. Hyperlipidemia. Continue Lipitor 80 mg at bedtime. 7. Diabetes mellitus type 2. Continue NovoLog scale before meals and at bedtime, Levemir 10 units when necessary. 8. Hypertension. Patient is on midodrine 5 mg twice daily. 9. Recurrent depression. . 10. Chronic kidney disease stage 2. Avoid nephrotoxic agents. 11. GI prophylaxis. Protonix. 12. DVT prophylaxis. Patient admitted to the hospital for a minimum of 2 night stay. DISCHARGE PLAN TBD somewhat with PT and OT. Impression and plan of care have been directed as dictated by the signing physician. Carolann Molina nurse practitioner acting as scribe for signing physician. Past Medical History Past Medical History: Dementia, Diabetes Mellitus, Hyperlipidemia Additional Past Medical History / Comment(s): neuropathy, dizzy when stands, diabetic ulcer on left foot supposed to go to wound clinic hydrocephalus with vp clinical shunt frequent uti, TIA History of Any Multi-Drug Resistant Organisms: None Reported Past Surgical History: Appendectomy, Cholecystectomy, Orthopedic Surgery Additional Past Surgical History / Comment(s): right shoulder vp clinical shunt Past Anesthesia/Blood Transfusion Reactions: No Reported Reaction Additional Past Anesthesia/Blood Transfusion Reaction / Comment(s): patient states never had blood transfusion Past Psychological History: No Psychological Hx Reported Smoking Status: Never smoker Past Alcohol Use History: None Reported Past Drug Use History: None Reported - Past Family History Mother Family Medical History: Diabetes Mellitus Medications and Allergies Home Medications Medication Instructions Recorded Confirmed Type Atorvastatin [Lipitor] 80 mg PO HS 03/08/19 09/17/21 History ALPRAZolam [Xanax] 0.25 mg PO TID PRN 07/05/21 09/17/21 History Cholecalciferol [Vitamin D3 (25 50 mcg PO BID-W/MEALS 07/05/21 09/17/21 History Mcg = 1000 Iu)] Cyanocobalamin [Vitamin B-12] 500 mcg PO DAILY 07/05/21 09/17/21 History Midodrine HCl 5 mg PO BID-W/MEALS 07/05/21 09/17/21 History Mirabegron [Myrbetriq] 25 mg PO DAILY 07/05/21 09/17/21 History Rivastigmine Tartrate [Exelon] 3 mg PO BID-W/MEALS 07/05/21 09/17/21 History Aspirin 81 mg PO DAILY tab 07/07/21 09/17/21 Rx Thiamine [Vitamin B-1] 100 mg PO DAILY tab 07/07/21 09/17/21 Rx Ascorbic Acid [Vitamin C] 500 mg PO DAILY 08/10/21 09/17/21 History Insulin Glargine,Hum.rec.anlog 10 unit SQ DAILY PRN 08/10/21 09/17/21 History [Lantus Solostar Pen] Memantine HCl [Namenda] 5 mg PO BID-W/MEALS 08/10/21 09/17/21 History Niacin 500 mg PO DAILY 08/10/21 09/17/21 History Docusate [Colace] 100 mg PO BID PRN cap 08/14/21 09/17/21 Rx Mirtazapine [Remeron] 15 mg PO HS #30 tab 08/22/21 09/17/21 Rx Zinc Sulfate [Orazinc] 220 mg PO DAILY cap 08/22/21 09/17/21 Rx Allergies Allergy/AdvReac Type Severity Reaction Status Date / Time No Known Allergies Allergy Verified 09/17/21 21:13 Physical Exam Vitals: Vital Signs Temp Pulse Resp BP Pulse Ox 09/18/21 07:00 102 H 13 110/93 96 09/18/21 06:00 124 H 40 H 146/69 96 09/18/21 05:00 116 H 17 99/85 87 L 09/18/21 04:10 121 H 24 99/85 95 09/18/21 04:00 115 H 10 L 126/74 96 09/18/21 03:50 118 H 10 L 126/74 92 L 09/18/21 03:40 108 H 13 126/74 96 09/18/21 03:30 109 H 13 126/74 89 L 09/18/21 03:20 104 H 15 126/74 94 L 09/18/21 03:10 105 H 18 126/74 91 L 09/18/21 03:00 110 H 17 149/79 92 L 09/18/21 02:50 105 H 9 L 149/79 94 L 09/18/21 02:40 104 H 16 149/79 94 L 09/18/21 02:30 111 H 10 L 149/79 96 09/18/21 02:20 108 H 19 149/79 94 L 09/18/21 02:10 110 H 28 H 149/79 93 L 09/18/21 02:00 112 H 18 126/73 93 L 09/18/21 01:50 112 H 13 126/73 94 L 09/18/21 01:40 105 H 15 126/73 96 09/18/21 01:30 109 H 5 L 126/73 96 09/18/21 01:20 110 H 15 126/73 94 L 09/18/21 01:10 104 H 14 126/73 95 09/18/21 01:00 107 H 12 126/73 95 09/18/21 00:50 105 H 8 L 97 09/18/21 00:45 97.4 F L 09/18/21 00:40 97.4 F L 109 H 25 H 107/80 09/18/21 00:35 112 H 18 09/18/21 00:06 103 H 18 122/73 95 09/18/21 00:00 122/73 09/17/21 23:50 13 122/73 09/17/21 23:40 19 109/76 09/17/21 23:30 115 H 12 136/91 09/17/21 23:20 18 136/91 09/17/21 23:10 107 H 18 134/85 09/17/21 23:00 116 H 22 121/75 09/17/21 22:50 112 H 13 121/75 09/17/21 22:40 108 H 18 124/75 09/17/21 22:30 109 H 18 108/75 95 09/17/21 22:20 105 H 18 108/75 09/17/21 22:10 116 H 27 H 96/74 09/17/21 22:00 105 H 28 H 128/79 95 09/17/21 21:50 112 H 9 L 128/79 09/17/21 21:45 114 H 16 128/79 94 L 09/17/21 21:40 124 H 12 128/78 93 L 09/17/21 21:30 110 H 54 H 126/82 95 09/17/21 21:20 112 H 14 126/82 09/17/21 21:15 106 H 16 126/82 95 09/17/21 21:10 115 H 22 125/96 09/17/21 21:00 108 H 17 119/70 95 09/17/21 20:50 15 119/70 09/17/21 20:45 121 H 16 119/70 95 09/17/21 20:40 111 H 14 119/70 95 09/17/21 20:30 120 H 16 122/91 95 09/17/21 20:28 95 09/17/21 20:12 98.7 F 129 H 19 143/80 98 Intake and Output 09/17/21 09/18/21 09/18/21 22:59 06:59 14:59 Intake Total 600 100 Output Total 535 25 Balance 65 75 Intake: Intake, IV Titration 600 100 Amount Sodium Chloride 0.9% 1, 600 100 000 ml @ 100 mls/hr IV . Q10H [facility] Rx#:[id number] Output: Urine 535 25 Other: Voiding Method Indwelling Catheter Weight 54.068 kg 55.5 kg Results CBC & Chem 7: 09/18/21 06:13 09/18/21 06:13 Labs: Abnormal Lab Results - Last 24 Hours (Table) 09/17/21 09/17/21 09/17/21 Range/Units 20:11 20:22 21:05 WBC 11.3 H (3.8-10.6) k/uL RBC 3.79 L (3.80-5.40) m/uL Hgb (11.4-16.0) gm/dL RDW 16.1 H (11.5-15.5) % Neutrophils # 8.0 H (1.3-7.7) k/uL Chloride (98-107) mmol/L Carbon Dioxide (22-30) mmol/L BUN (7-17) mg/dL Glucose (74-99) mg/dL POC Glucose (mg/dL) 124 H (75-99) mg/dL Urine Blood Small H (Negative) Ur Leukocyte Esterase Moderate H (Negative) Urine WBC 9 H (0-5) /hpf Amorphous Sediment Rare H (None) /hpf Urine Bacteria Occasional H (None) /hpf 09/17/21 09/18/21 09/18/21 Range/Units 21:05 00:10 06:13 WBC 13.8 H (3.8-10.6) k/uL RBC 3.56 L (3.80-5.40) m/uL Hgb 11.0 L (11.4-16.0) gm/dL RDW 15.8 H (11.5-15.5) % Neutrophils # 10.7 H (1.3-7.7) k/uL Chloride (98-107) mmol/L Carbon Dioxide 21 L (22-30) mmol/L BUN 27 H (7-17) mg/dL Glucose 126 H (74-99) mg/dL POC Glucose (mg/dL) 149 H (75-99) mg/dL Urine Blood (Negative) Ur Leukocyte Esterase (Negative) Urine WBC (0-5) /hpf Amorphous Sediment (None) /hpf Urine Bacteria (None) /hpf 09/18/21 Range/Units 06:13 WBC (3.8-10.6) k/uL RBC (3.80-5.40) m/uL Hgb (11.4-16.0) gm/dL RDW (11.5-15.5) % Neutrophils # (1.3-7.7) k/uL Chloride 109 H (98-107) mmol/L Carbon Dioxide 20 L (22-30) mmol/L BUN 24 H (7-17) mg/dL Glucose 143 H (74-99) mg/dL POC Glucose (mg/dL) (75-99) mg/dL Urine Blood (Negative) Ur Leukocyte Esterase (Negative) Urine WBC (0-5) /hpf Amorphous Sediment (None) /hpf Urine Bacteria (None) /hpf
[2021-09-18] MEDS: CHOLECALCIFEROL 25 MCG (1000 IU) TABLET PO SCH (17:39)
[2021-09-18] MEDS: MIDODRINE 5 MG TAB PO SCH (17:39)
[2021-09-18] MEDS ORDERED: QUEtiapine 25 MG TAB PO SCH (21:00)
--- NOTE | 2021-09-18 22:37 | CT ---
EXAMINATION TYPE: CT brain wo con DATE OF EXAM: 09/18/2021 COMPARISON: 09/17/2021 HISTORY: Neuro deficit CT DLP: mGycm Automated exposure control for dose reduction was used. Images obtained of the brain without contrast. There is right posterior temporal ventricular shunt catheter with tip in the frontal horn right later al ventricles. There is mild hydrocephalus. There is no mass effect or midline shift. There is no sig n of intracranial hemorrhage. The skull base is intact. There is normal aeration of the mastoid sinus es. Sella turcica appears normal. IMPRESSION: Cerebral atrophy and mild hydrocephalus. No change compared to last exam.
[2021-09-18] MEDS: ATORVASTATIN 80 MG TAB PO SCH (23:42)
[2021-09-19] MEDS: MEMANTINE 5 MG TAB PO SCH ×2 (07:01→17:23)
[2021-09-19] MEDS: CHOLECALCIFEROL 25 MCG (1000 IU) TABLET PO SCH ×2 (07:01→17:23)
[2021-09-19] MEDS: MIDODRINE 5 MG TAB PO SCH ×2 (07:01→17:23)
[2021-09-19] MEDS: CLOPIDOGREL 75 MG TAB PO SCH (08:35)
[2021-09-19] MEDS: ASCORBIC ACID 500 MG TAB PO SCH (08:35)
[2021-09-19] MEDS: ZINC SULFATE 220 MG CAP PO SCH (08:35)
[2021-09-19] MEDS: ASPIRIN 81 MG PO SCH (08:35)
[2021-09-19] MEDS: NIACIN TR 500 MG CAPLET PO SCH (08:35)
[2021-09-19] MEDS: DONEPEZIL 10 MG TAB PO SCH (08:35)
[2021-09-19] MEDS: HEPARIN SODIUM,PORCINE/PF 5,000 UNIT/0.5 ML SYRINGE SQ SCH ×2 (08:35→21:10)
[2021-09-19] MEDS: Mirabegron [Myrbetriq] PO SCH (08:37)
--- NOTE | 2021-09-19 11:29 | P.PN ---
Subjective Progress Note Date: 09/19/21 86-year-old female patient with past medical history of recent COVID infection in July 2021, TIA, diabetes mellitus with diabetic neuropathy, hyperlipidemia, hydrocephalus with PHLEBOTOMY MANAGER shunt placement, continued urinary tract infections, urinary incontinence,, osteoarthritis, who presented to the emergency department on 09/17/2021 for evaluation of sudden onset of garbled speech, and apparently patient was speaking gibberish. Her blood sugar was within normal limits one hour after symptom onset. Patient is not on any blood thinners. Her [employer]LEBOT[employer] MANAGER shunt was changed 1-1/2 years ago. No other history of other intracranial surgery or bleeding. Patient's baseline functional status is weakness in lower extremities, and patient moves around the house with a wheelchair. CT of the brain in the emergency department revealed cerebral atrophy, mild hydrocephalus, no significant change compared to old exam from July 2021. There was chronic small vessel ischemia with hypodensity around the posterior aspect of the shunt catheter in the right posterior parietal lobe white matter. CT angiogram of the neck and brain was negative. EKG showed sinus tachycardia and incomplete right bundle branch block. Patient's onset of symptoms was within 4,5 hours of presentation, NIH score was 4, patient was a candidate for TPA she received in the emergency department. Following TPA administration patient was admitted to the intensive care unit for close neurological monitoring. Patient is seen in the intensive care unit this morning on 09/10/2021, she is resting comfortably in bed, room air pulse ox 95%, hemodynamically she stable, she is in sinus mechanism she is tachycardic with a rate of 103-111 BPM, afebrile. Neurologically patient is awake and alert, she is responding to commands appropriately, no drift in bilateral upper or lower extremities, still has the aphasia and slurred speech this morning. Continue 1031, the patient is doing well. The patient is stable. She is confused due to her underlying dementia. She has significant impairment of the cognitive functions. No agitation. No focal neurological deficit. His wound over extubated without any limitation. She had a follow-up CAT scan of the brain that showed no evidence of any acute bleeding. No other acute abnormality is noted. Wet cycles of 15.8 with a hemoglobin of 11. Sodium level is at 140, serum bicarb is 20, glucose is 143, the patient also has an LDL level of 34, triglyceride level of 170. There may be a concern for an underlying UTI. 4 calcitonin level is at 0.9. Urine cultures still pending for now. Patient for now is on a combination of aspirin and Plavix. She is on heparin subcu for DVT prophylaxis. She is on Seroquel 25 mg at bedtime. Outpatient medication includ ing dementia medication are ordered resume. Echocardiogram showed a preserved LV function with moderate concentric LVH with an EF of around 55-60%. Possible left ventricular outflow obstruction. Mild MR, normal LV. Objective - Vital Signs Vital signs: Vital Signs Temp 98.1 F 09/19/21 04:00 Pulse 89 09/19/21 08:00 Resp 11 L 09/19/21 08:00 BP 113/83 09/19/21 08:00 Pulse Ox 95 09/19/21 08:00 Intake & Output 09/18/21 09/19/21 09/19/21 18:59 06:59 18:59 Intake Total 100 360 Output Total 300 200 Balance -200 160 Weight 63.8 kg Intake: Intake, IV Titration 100 Amount Sodium Chloride 0.9% 1, 100 000 ml @ 100 mls/hr IV . Q10H [facility] Rx#:[id number] Oral 360 Output: Urine 300 200 Other: Voiding Method Diaper Diaper Diaper Incontinent Incontinent Incontinent # Voids 2 1 # Bowel Movements 1 1 - Exam GENERAL EXAM: Alert, oriented to self and place, following commands a 86-year- old white female, on room air satting 95%, comfortable in no apparent distress. Has a garbled speech HEAD: Normocephalic/atraumatic. EYES: Normal reaction of pupils, equal size. Conjunctiva pink, sclera white. NOSE: Clear with pink turbinates. THROAT: No erythema or exudates. NECK: No masses, no JVD, no thyroid enlargement, no adenopathy. CHEST: No chest wall deformity. Symmetrical expansion. LUNGS: Equal air entry with no crackles, wheeze, rhonchi or dullness. CVS: Regular rate and rhythm, normal S1 and S2, no gallops, no murmurs, no rubs ABDOMEN: Soft, nontender. No hepatosplenomegaly, normal bowel sounds, no guarding or rigidity. EXTREMITIES: No clubbing, no edema, no cyanosis, 2+ pulses and upper and lower extremities. MUSCULOSKELETAL: Muscle strength and tone normal. SPINE: No scoliosis or deformity SKIN: No rashes CENTRAL NERVOUS SYSTEM: Alert and oriented -2. No focal deficits, tone is normal in all 4 extremities. Garbled speech PSYCHIATRIC: Alert and oriented -2. Appropriate affect. Intact judgment and insight. - Labs CBC & Chem 7: 09/18/21 06:13 09/18/21 06:13 Labs: Abnormal Lab Results - Last 24 Hours (Table) 09/18/21 Range/Units 06:13 Procalcitonin 0.90 H (0.02-0.09) ng/mL Assessment and Plan Plan: #1. Acute CVA, with symptoms of aphasia, S/P TPA on 09/17/2021, the patient is doing well. No focal neurological deficit. Speech is improved although patient has significant dementia and underlying impairment of the higher cognitive functions. She is currently on a combination of aspirin and Plavix. Repeat CAT scan of the brain showed no acute abnormalities. #2. Recent COVID 19 infection in July, and patient did not have pulmonary symptoms #3. Frequent UTIs, urinary tract infection, awaiting getting cultures. Pro- calcitonin level is mildly elevated. #4. History of diabetes mellitus2 with diabetic neuropathy #5. Previous history of TIA #6. Hyperlipidemia #7. History of dementia #8. Gait dysfunction #9. Hydrocephalus, status post PHLEBOTOMY MANAGER shunt placement Assessment: Continue aspirin and Plavix Monitor blood pressure Monitor neurological functions Continue close neurological monitoring Neurology consultation Repeat CT brain from yesterday was noted and the findings are essentially inactive in stable Lipid panel, Lipitor 80 mg has been restarted Echocardiogram was noted and the patient is a preserved LV function and the patient has questionable left ventricular outflow obstruction Urine for culture, pending and the patient on no antibiotics for now DVT prophylaxis per neurology
--- NOTE | 2021-09-19 11:48 | P.PN ---
Subjective Progress Note Date: 09/19/21 The patient is seen at bedside and per the patient's nurse times the patient's speech would be slurred at times will be appropriate. Otherwise per the patient nurse no new neurological problems. Objective - Vital Signs Vital signs: Vital Signs Temp 98.1 F 09/19/21 04:00 Pulse 89 09/19/21 08:00 Resp 11 L 09/19/21 08:00 BP 113/83 09/19/21 08:00 Pulse Ox 95 09/19/21 08:00 Intake & Output 09/18/21 09/19/21 09/19/21 18:59 06:59 18:59 Intake Total 100 360 Output Total 300 200 Balance -200 160 Weight 63.8 kg Intake: Intake, IV Titration 100 Amount Sodium Chloride 0.9% 1, 100 000 ml @ 100 mls/hr IV . Q10H LINDA Rx#:[id number] Oral 360 Output: Urine 300 200 Other: Voiding Method Diaper Diaper Diaper Incontinent Incontinent Incontinent # Voids 2 1 # Bowel Movements 1 1 - Exam GENERAL: The patient is lying in bed and is not in acute distress. NEUROLOGICAL: Higher mental function: The patient is awake, alert, oriented to self only. she stated the year is 2023 and month is October. She stated she was at home. Patient is following simple commands. At time she was repeating same phrase, and seems at times talking nonsensical. No neglect. Cranial nerves: The pupils are round, equal and reactive to light. Visual vieira are full to confrontation throughout. Extraocular movement is intact no nystagmus is noted. Facial sensation is normal to touch throughout. The facial strength is normal throughout. Hearing is moderately to severely decreased bilaterally to hand rub. Tongue is midline and moved [id number] without any difficulty. No dysarthria is noted. Shoulder shrug is normal bilaterally. Motor: Gait is deferred. The strength is hard to assess invidual muscles b ecause of her cooperation but lifting all extremities above gravity without focality. Normal tone and bulk. Cerebellum: Normal finger to nose on right but had hard to time performing left because of IV line. Sensation: Sensation is normal to touch throughout. Reflexes (right/left): 1+ throughout. Plantars are mute bilaterally. WORK-UP: Lipid panel was tried was 170, cholesterol is 112, LDLs 30, HDL is 47. CT of the head is reported as cerebral atrophy. Mild hydrocephalus. No significant change compared to old exam. Chronic small vessel ischemia with hypodensity around the posterior aspect of the shunt catheter in the right posterior parietal lobe white matter. CT angiography of the head and neck was reported as negative. Dr. Agudelo (stroke/neurointerventionalist) reviewed the images and he felt the patient had occlusion on the left M2 segment per ED team. Dr. Agudelo discussed thrombectomy with the patient's son (power of claim attorney) but was agreed not to pursue with thrombectomy due to the patient's age, multiple comorbid conditions as well as the desire not for the patient to have intensive procedure. Patient repeat CT of the head at 24 hour post-TPA was reported as cerebral atrophy and mild hydrocephalus. No change compared to last exam. I personally reviewed the CT of the head and I do not appreciate any acute or subacute ischemia. 2-D echo was reported as left ventricle size is normal. Moderate concentric limits got atrophy. Ejection fraction of 55-60%. Possible left ventricular OT obstruction. Normal left atrial size by volume. - Labs CBC & Chem 7: 09/18/21 06:13 09/18/21 06:13 Labs: Abnormal Lab Results - Last 24 Hours (Table) 09/18/21 Range/Units 06:13 Procalcitonin 0.90 H (0.02-0.09) ng/mL Assessment and Plan Assessment: Acute CVA status post IV TPA on 09/17/2021 (NIH 4 on presentation. 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 Agudelo (neurointerventionalist)) Normal pressure hydrocephalus status post shunt Dementia but baseline is oriented 3 per family member Diabetes mellitus Hyperlipidemia Bilateral lower extremity weakness and the ambulates with a wheelchair at baseline Plan: Restarted the patient home medication of aspirin 81mg daily and and in addition I added Plavix 75 mg daily. Patient to be on dual antiplatelets for 21 days and after 21 days to stop by aspirin and continue Plavix indefinitely. Patient is on home medication of Lipitor 80 mg daily at bedtime which is a sufficient for stroke prophylaxis. MRI of the brain would be hard because of the patient would not lie still for the exam as well as the MRI would not exchange clerk at this time. PT, OT and MUFF WINDER is consulted Continue neuro checks Continue cardiac monitoring Regarding the report of possible left ventricular OT obstruction possibly consider cardiology consultation. CT angiography of the head and neck was reported as negative. Dr. Agudelo (stroke/neurointerventionalist) reviewed the images and he felt the patient had occlusion on the left M2 segment per ED team. Dr. Agudelo discussed thrombectomy with the patient's son (power of claim attorney) but was agreed not to pursue with thrombectomy due to the patient's age, multiple comorbid conditions as well as the desire not for the patient to have intensive procedure. Continue Seroquel 25 mg 1 tablet qhs for agitation. Also 1 mg every 4 hours as needed for agitation/psychosis. We'll defer the rest of the medical management to the primary team and ICU team. For DVT prophylaxis started on subq heparin 5000U every 12 hours. The plan is discussed with the patient's nurse. Cali Fernandes M.D. Neuro-Hospitalist Time with Patient: Less than 30
--- NOTE | 2021-09-19 15:35 | P.PN ---
Subjective Progress Note Date: 09/19/21 HISTORY OF PRESENT ILLNESS 86-year-old female patient of Dr. Avery with past medical history of type 2 diabetes, history of normal pressure hydrocephalus post LUMBER STICKER shunt changed one half years ago, history of hypertension and hyperlipidemia along with a chronic kidney disease II. Patient was recently hospitalized in June 2021 due to possible TIA, possible anticholinergic effect of Elavil. Patient was discharged home with homecare. Patient has had multiple hospitalizations since July was diagnosed with Covid 19 in July, subsequently admitted for encephalopathic d ementia and patient was discharged home with home care . Patient was brought into the emergency center due to sudden onset of garbled speech and worsening confusion. CT of the brain revealed cerebral atrophy, mild hydrocephalus, no significant change compared to old exam from July 2021. There was chronic small vessel ischemia with hypodensity around the posterior aspect of the shunt catheter in the right posterior parietal lobe white matter. CT angiogram of the neck and brain was negative. EKG showed sinus tachycardia and incomplete right bundle branch block. Onset of symptoms within 5 hours of presentation, NIH score was 4, status post TPA and then admitted into the intensive care unit. Patient is resting in bed, she is confused and speech is not making sense. No concern from her nurse. Vital signs have been stable. She has been afebrile, heart rate in the low 100s 101-108, blood pressure 145/79, pulse ox 95% on room air. WBC 11.3, hemoglobin 11.9. Creatinine 0.9. Triglycerides 170, cholesterol 112, HDL 47, LDL 30. Urinalysis showed blood small, leukoesterase moderate, WBCs 9. Echocardiogram reveals EF of 55-60% with moderate concentric left ventricle hypertrophy, mild mitral regurgitation, trace tricuspid regurgitation. Chest x-ray reveals mild pleural reaction left lung base improved. Patient has been seen by neurology, pulmonary medicine and cardiology. Patient is scheduled for repeat CAT scan of the brain this evening. 09/19: Patient remains in the intensive care unit. She is currently laying in bed and seems agitated trying to get comfortable. She apparently has been up in a chair earlier today. Speech is clear sometimes slurred but patient still does not make sense. Patient has been cleared for transfer to cardiac stepdown unit. Consult with cardiology will be added for possible left ventricular OT obstruction as advised by neurology and noted on CTA. Repeat CAT scan of the brain showed no evidence of acute bleeding. No acute abnormality. Seroquel will be discontinued and started on Remeron. Capillary blood glucose running between 126 and 149. WBC 13.8, hemoglobin 11. CO2 20, BUN 24 creatinine 0.76. Triglycerides 170, cholesterol 112, LDL 30, HDL 47. Pro-calcitonin 0.9. REVIEW OF SYSTEMS Constitutional: No fever, no chills, no night sweats. No weight change. Generalized weakness, fatigue or lethargy. No daytime sleepiness.still slightly but confused. EENT: No headache. No blurred vision or double vision, no loss of vision. No loss of Hearing, no ringing in the ears, no dizziness. No nasal drainage or congestion. No epistaxis. No sore throat. Lungs: No shortness of breath, cough, no sputum production. No wheezing. Cardiovascular: No chest pain, no lower extremity edema. No palpitations. No paroxysmal nocturnal dyspnea. No orthopnea. No lightheadedness or dizziness. No syncopal episodes. Abdominal: No abdominal pain. No nausea, vomiting. No diarrhea. No constipation. No bloody or tarry stools.. No loss of appetite. Genitourinary: No dysuria, increased frequency, urgency. No urinary retention. Musculoskeletal: generalized muscle pain and myalgia. Integumentary: No wounds, no lesions. No rash or pruritus. No unusual bruising. No change in hair or nails. Neurologic: No aphasia. Slurred speech improving. No facial droop. Noted change in mentation. No head injury. No headache. No paralysis. No paresthesia. Confusion with worsening dementia. Psychiatric: No depression. No anxiety. Noted mood swings. Endocrine: No abnormal blood sugars. No weight change. No excessive sweating or thirst. No cold intolerance. PHYSICAL EXAMINATION Gen: This is an 86-year-old female. Patient is resting in the ICU bed and appears to be in no acute distress. Patient is agitated. HEENT: Head is atraumatic, normocephalic. Pupils equal, round. Sclerae is anicteric. NECK: Supple. No JVD. No lymphadenopathy. No thyromegaly. LUNGS: Clear to auscultation. No wheezes or rhonchi. No intercostal retractions. HEART: Regular rate and rhythm. No murmur. ABDOMEN: Soft. Bowel sounds are present. No masses. No tenderness. EXTREMITIES: No pedal edema. No calf tenderness. NEUROLOGICAL: Patient is awake, alert and oriented to person. Patient is angry and uncooperative. ASSESSMENT AND PLAN 1. Acute CVA status post TPA. Neurology consult appreciated. PT, OT, speech therapies. Continue Lipitor 80 mg at bedtime and Plavix 75 mg daily, aspirin 81 mg daily. 2. 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 Consult with cardiology 3. Normal pressure hydrocephalus status post shunt. 4. Recent hospitalization in July for Covid 19 infection. Continue vitamin D, vitamin C, zinc . 5. Dementia. Continue Namenda 5 mg twice daily, Aricept 10 mg at hs. Seroquel discontinued and patient started on Remeron. 6. Hyperlipidemia. Continue Lipitor 80 mg at bedtime. 7. Diabetes mellitus type 2. Continue NovoLog scale before meals and at bedtime, Levemir 10 units when necessary. 8. Hypertension. Patient is on midodrine 5 mg twice daily. 9. Recurrent depression. Remeron 7.5 mg at bedtime 10. Chronic kidney disease stage 2. Avoid nephrotoxic agents. 11. GI prophylaxis. Protonix. 12. DVT prophylaxis. DISCHARGE PLAN TBD somewhat with PT and OT. Impression and plan of care have been directed as dictated by the signing physician. Carolann Molina nurse practitioner acting as scribe for signing physician. Objective - Vital Signs Vital signs: Vital Signs Temp 98.1 F 09/19/21 04:00 Pulse 86 09/19/21 12:00 Resp 17 09/19/21 12:00 BP 113/83 09/19/21 08:00 Pulse Ox 95 09/19/21 08:00 Intake & Output 09/18/21 09/19/21 09/19/21 18:59 06:59 18:59 Intake Total 100 360 Output Total 300 200 Balance -200 160 Weight 63.8 kg Intake: Intake, IV Titration 100 Amount Sodium Chloride 0.9% 1, 100 000 ml @ 100 mls/hr IV . Q10H LINDA Rx#:[id number] Oral 360 Output: Urine 300 200 Other: Voiding Method Diaper Diaper Diaper Incontinent Incontinent Incontinent # Voids 2 1 1 # Bowel Movements 1 1 - Labs CBC & Chem 7: 09/18/21 06:13 09/18/21 06:13 Labs: Abnormal Lab Results - Last 24 Hours (Table) 09/18/21 Range/Units 06:13 Procalcitonin 0.90 H (0.02-0.09) ng/mL
[2021-09-19] MEDS ORDERED: MIRTAZAPINE 15 MG TAB PO SCH (21:00)
[2021-09-19] MEDS: ATORVASTATIN 80 MG TAB PO SCH (21:10)
[2021-09-20] MEDS: CHOLECALCIFEROL 25 MCG (1000 IU) TABLET PO SCH ×2 (07:13→17:27)
[2021-09-20] MEDS: MEMANTINE 5 MG TAB PO SCH ×2 (07:14→17:27)
[2021-09-20] MEDS: MIDODRINE 5 MG TAB PO SCH ×2 (07:14→17:27)
[2021-09-20] MEDS: NIACIN TR 500 MG CAPLET PO SCH (08:17)
[2021-09-20] MEDS: CLOPIDOGREL 75 MG TAB PO SCH (08:17)
[2021-09-20] MEDS: ZINC SULFATE 220 MG CAP PO SCH (08:17)
[2021-09-20] MEDS: HEPARIN SODIUM,PORCINE/PF 5,000 UNIT/0.5 ML SYRINGE SQ SCH ×2 (08:17→20:45)
[2021-09-20] MEDS: ASCORBIC ACID 500 MG TAB PO SCH (08:17)
[2021-09-20] MEDS: ASPIRIN 81 MG PO SCH (08:17)
[2021-09-20] MEDS: DONEPEZIL 10 MG TAB PO SCH (08:18)
[2021-09-20] MEDS: Mirabegron [Myrbetriq] PO SCH (08:18)
--- NOTE | 2021-09-20 11:22 | P.PN ---
Subjective Progress Note Date: 09/20/21 86-year-old female patient with past medical history of recent COVID infection in July 2021, TIA, diabetes mellitus with diabetic neuropathy, hyperlipidemia, hydrocephalus with ER TECH shunt placement, continued urinary tract infections, urinary incontinence,, osteoarthritis, who presented to the emergency department on 09/17/2021 for evaluation of sudden onset of garbled speech, and apparently patient was speaking gibberish. Her blood sugar was within normal limits one hour after symptom onset. Patient is not on any blood thinners. Her ER TECH shunt was changed 1-1/2 years ago. No other history of other intracranial surgery or bleeding. Patient's baseline functional status is weakness in lower extremities, and patient moves around the house with a wheelchair. CT of the brain in the emergency department revealed cerebral atrophy, mild hydrocephalus, no significant change compared to old exam from July 2021. There was chronic small vessel ischemia with hypodensity around the posterior aspect of the shunt catheter in the right posterior parietal lobe white matter. CT angiogram of the neck and brain was negative. EKG showed sinus tachycardia and incomplete right bundle branch block. Patient's onset of symptoms was within 4,5 hours of presentation, NIH score was 4, patient was a candidate for TPA she received in the emergency department. Following TPA administration patient was admitted to the intensive care unit for close neurological monitoring. Patient is seen in the intensive care unit this morning on 09/10/2021, she is resting comfortably in bed, room air pulse ox 95%, hemodynamically she stable, she is in sinus mechanism she is tachycardic with a rate of 103-111 BPM, afebrile. Neurologically patient is awake and alert, she is responding to commands appropriately, no drift in bilateral upper or lower extremities, still has the aphasia and slurred speech this morning. on 09/19/2021 the patient is doing well. The patient is stable. She is confused due to her underlying dementia. She has significant impairment of the cognitive functions. No agitation. No focal neurological deficit. His wound over extubated without any limitation. She had a follow-up CAT scan of the brain that showed no evidence of any acute bleeding. No other acute abnormality is noted. Wet cycles of 15.8 with a hemoglobin of 11. Sodium level is at 140, serum bicarb is 20, glucose is 143, the patient also has an LDL level of 34, triglyceride level of 170. There may be a concern for an underlying UTI. 4 calcitonin level is at 0.9. Urine cultures still pending for now. Patient for now is on a combination of aspirin and Plavix. She is on heparin subcu for DVT prophylaxis. She is on Seroquel 25 mg at bedtime. Outpatient medication including dementia medication are ordered resume. Echocardiogram showed a preserved LV function with moderate concentric LVH with an EF of around 55-60%. Possible left ventricular outflow obstruction. Mild MR, normal LV. 09/20/2021, the patient essentially unchanged. Neurologically unchanged. Still having patient [facility] in cognition. This is related to chronic dementia. No focal neurological deficits. She remains on a combination of aspirin and Plavix. No other significant events overnight. Blood work from today shows a white cell count of 13.8 and a hemoglobin of 11. BUN is 24 with a creatinine of 0.7 and his sodium level is at 140. Neurologist on the case. The patient's post alteplase for an acute CVA. Objective - Vital Signs Vital signs: Vital Signs Temp 98.8 F 09/20/21 08:00 Pulse 96 09/20/21 08:00 Resp 12 09/20/21 08:00 BP 135/87 09/20/21 08:00 Pulse Ox 94 L 09/20/21 08:00 Intake & Output 09/19/21 09/20/21 09/20/21 18:59 06:59 18:59 Intake Total 480 120 Output Total 200 0 Balance 280 0 120 Weight 59.3 kg Intake: Oral 480 120 Output: Urine 200 0 Other: Voiding Method Diaper Diaper Diaper Incontinent Incontinent Incontinent # Voids 1 1 1 # Bowel Movements 1 - Exam GENERAL EXAM: Alert, oriented to self and place, following commands a 86-year-old white female, on room air satting 95%, comfortable in no apparent distress. Speech is normal for now. HEAD: Normocephalic/atraumatic. EYES: Normal reaction of pupils, equal size. Conjunctiva pink, sclera white. NOSE: Clear with pink turbinates. THROAT: No erythema or exudates. NECK: No masses, no JVD, no thyroid enlargement, no adenopathy. CHEST: No chest wall deformity. Symmetrical expansion. LUNGS: Equal air entry with no crackles, wheeze, rhonchi or dullness. CVS: Regular rate and rhythm, normal S1 and S2, no gallops, no murmurs, no rubs ABDOMEN: Soft, nontender. No hepatosplenomegaly, normal bowel sounds, no guarding or rigidity. EXTREMITIES: No clubbing, no edema, no cyanosis, 2+ pulses and upper and lower extremities. MUSCULOSKELETAL: Muscle strength and tone normal. SPINE: No scoliosis or deformity SKIN: No rashes CENTRAL NERVOUS SYSTEM: Alert and oriented -2. No focal deficits, tone is normal in all 4 extremities. Garbled speech PSYCHIATRIC: Alert and oriented -2. Appropriate affect. Intact judgment and insight. - Labs CBC & Chem 7: 09/18/21 06:13 09/18/21 06:13 Assessment and Plan Plan: #1. Acute CVA, with symptoms of aphasia, S/P TPA on 09/17/2021, the patient is doing well. No focal neurological deficit. Speech is improved although patient has significant dementia and underlying impairment of the higher cognitive functions. She is currently on a combination of aspirin and Plavix. Repeat CAT scan of the brain showed no acute abnormalities. Clinically unchanged compared to yesterday. No new onset focal neurological deficits since yesterday. #2. Recent COVID 19 infection in July, and patient did not have pulmonary symptoms #3. Frequent UTIs, urinary tract infection, awaiting getting cultures. Pro- calcitonin level is mildly elevated. #4. History of diabetes mellitus2 with diabetic neuropathy #5. Previous history of TIA #6. Hyperlipidemia #7. History of dementia #8. Gait dysfunction #9. Hydrocephalus, status post ER TECH shunt placement Assessment: Continue aspirin and Plavix Monitor blood pressure Monitor neurological functions Continue close neurological monitoring Neurology consultation and follow-up is appreciated. Lipid panel, Lipitor 80 mg has been restarted Echocardiogram was noted and the patient is a preserved LV function and the patient has questionable left ventricular outflow obstruction We'll repeat urine cultures and analysis. No need for antibiotics at this point in time DVT prophylaxis Transfer this patient to medical floor
[2021-09-20 11:29] LABS: Glucose,Whole Blood 190 mg/dL (75-99)
--- NOTE | 2021-09-20 14:18 | P.PN ---
Subjective Progress Note Date: 09/20/21 Per the patient nurse he speech is garbled and seems confused but at times her speech is clear. Upon seeing the patient she was restless and agitated. Objective - Vital Signs Vital signs: Vital Signs Temp 98.8 F 09/20/21 08:00 Pulse 105 H 09/20/21 12:00 Resp 18 09/20/21 12:00 BP 107/60 09/20/21 12:00 Pulse Ox 94 L 09/20/21 08:00 Intake & Output 09/19/21 09/20/21 09/20/21 18:59 06:59 18:59 Intake Total 480 120 Output Total 200 0 Balance 280 0 120 Weight 59.3 kg Intake: Oral 480 120 Output: Urine 200 0 Other: Voiding Method Diaper Diaper Diaper Incontinent Incontinent Incontinent # Voids 1 1 1 # Bowel Movements 1 - Exam GENERAL: The patient is lying in bed and seemed restless and agitated NEUROLOGICAL: Limited because of her cooperation. Higher mental function: The patient is awake, alert, oriented to self only. She was getting worked up upon asking her questions. She is not complying on examination. Cranial nerves: EOM is tracking throughout the room and no nystagmus. No facial weakness. No dysarthria. Motor: Gait is deferred. The strength is hard to assess because of cooperation but lifting bilateral upper extremities. WORK-UP: Lipid panel was tried was 170, cholesterol is 112, LDLs 30, HDL is 47. CT of the head is reported as cerebral atrophy. Mild hydrocephalus. No significant change compared to old exam. Chronic small vessel ischemia with hypodensity around the posterior aspect of the shunt catheter in the right posterior parietal lobe white matter. CT angiography of the head and neck was reported as negative. Dr. Agudelo (stroke/neurointerventionalist) reviewed the images and he felt the patient had occlusion on the left M2 segment per ED team. Dr. Agudelo discussed t hrombectomy with the patient's son (power of [place] attorney) but was agreed not to pursue with thrombectomy due to the patient's age, multiple comorbid conditions as well as the desire not for the patient to have intensive procedure. Patient repeat CT of the head at 24 hour post-TPA was reported as cerebral atrophy and mild hydrocephalus. No change compared to last exam. I personally reviewed the CT of the head and I do not appreciate any acute or subacute ischemia. 2-D echo was reported as left ventricle size is normal. Moderate concentric limits got atrophy. Ejection fraction of 55-60%. Possible left ventricular OT obstruction. Normal left atrial size by volume. - Labs CBC & Chem 7: 09/18/21 06:13 09/18/21 06:13 Labs: Abnormal Lab Results - Last 24 Hours (Table) 09/20/21 Range/Units 11:27 POC Glucose (mg/dL) 190 H (75-99) mg/dL Assessment and Plan Assessment: Acute CVA status post IV TPA on 09/17/2021 (NIH 4 on presentation. Predominately expressive aphasia). 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 Agudelo (neurointerventionalist)) Normal pressure hydrocephalus status post shunt Dementia but baseline is oriented 3 per family member Diabetes mellitus Hyperlipidemia Bilateral lower extremity weakness and the ambulates with a wheelchair at baseline Plan: I ordered a repeat CT head. It will be hard to obtain MRI Brain because patient is restless and unable to cooperate. Continue aspirin 81mg daily (home) and and in addition I added Plavix 75 mg daily. Patient to be on dual antiplatelets for 21 days and after 21 days to stop by aspirin and continue Plavix indefinitely. Patient is on home medication of Lipitor 80 mg daily at bedtime which is a sufficient for stroke prophylaxis. PT, OT and CHIEF SCIENTIST is consulted Continue neuro checks Continue cardiac monitoring Regarding the report of possible left ventricular OT obstruction and will defer management to cardiology team. CT angiography of the head and neck was reported as negative. Dr. Agudelo (stroke/neurointerventionalist) reviewed the images and he felt the patient had occlusion on the left M2 segment per ED team. Dr. Agudelo discussed thrombectomy with the patient's son (power of [place] attorney) but was agreed not to pursue with thrombectomy due to the patient's age, multiple comorbid conditions as well as the desire not for the patient to have intensive procedure. Cardiology is consulted. Patient had a TSH on 08/19/2021 and it's 1.87, vitamin B12 is 1594 on 07/07/2021, and a serum folate is 6.80 on 07/07/2021. No need to repeat labs. Continue Seroquel 25 mg 1 tablet qhs for agitation. Also 1 mg every 4 hours as needed for agitation/psychosis. We'll defer the rest of the medical management to the primary team and ICU team. For DVT prophylaxis on subq heparin 5000U every 12 hours. The plan is discussed with the patient's nurse. Cali Fernandes M.D. Neuro-Hospitalist Time with Patient: Less than 30
--- NOTE | 2021-09-20 15:19 | P.PN ---
Subjective Progress Note Date: 09/20/21 HISTORY OF PRESENT ILLNESS 86-year-old female patient of Dr. Avery with past medical history of type 2 diabetes, history of normal pressure hydrocephalus post [employer] shunt changed one half years ago, history of hypertension and hyperlipidemia along with a chronic kidney disease II. Patient was recently hospitalized in June 2021 due to possible TIA, possible anticholinergic effect of Elavil. Patient was discharged home with homecare. Patient has had multiple hospitalizations since July was diagnosed with Covid 19 in July, subsequently admitted for encephalopathic d ementia and patient was discharged home with home care . Patient was brought into the emergency center due to sudden onset of garbled speech and worsening confusion. CT of the brain revealed cerebral atrophy, mild hydrocephalus, no significant change compared to old exam from July 2021. There was chronic small vessel ischemia with hypodensity around the posterior aspect of the shunt catheter in the right posterior parietal lobe white matter. CT angiogram of the neck and brain was negative. EKG showed sinus tachycardia and incomplete right bundle branch block. Onset of symptoms within 5 hours of presentation, NIH score was 4, status post TPA and then admitted into the intensive care unit. Patient is resting in bed, she is confused and speech is not making sense. No concern from her nurse. Vital signs have been stable. She has been afebrile, heart rate in the low 100s 101-108, blood pressure 145/79, pulse ox 95% on room air. WBC 11.3, hemoglobin 11.9. Creatinine 0.9. Triglycerides 170, cholesterol 112, HDL 47, LDL 30. Urinalysis showed blood small, leukoesterase moderate, WBCs 9. Echocardiogram reveals EF of 55-60% with moderate concentric left ventricle hypertrophy, mild mitral regurgitation, trace tricuspid regurgitation. Chest x-ray reveals mild pleural reaction left lung base improved. Patient has been seen by neurology, pulmonary medicine and cardiology. Patient is scheduled for repeat CAT scan of the brain this evening. 09/19: Patient remains in the intensive care unit. She is currently laying in bed and seems agitated trying to get comfortable. She apparently has been up in a chair earlier today. Speech is clear sometimes slurred but patient still does not make sense. Patient has been cleared for transfer to cardiac stepdown unit. Consult with cardiology will be added for possible left ventricular OT obstruction as advised by neurology and noted on CTA. Repeat CAT scan of the brain showed no evidence of acute bleeding. No acute abnormality. Seroquel will be discontinued and started on Remeron. Capillary blood glucose running between 126 and 149. WBC 13.8, hemoglobin 11. CO2 20, BUN 24 creatinine 0.76. Triglycerides 170, cholesterol 112, LDL 30, HDL 47. Pro-calcitonin 0.9. 09/20: Patient remains in the intensive care unit while waiting for a bed on the [facility].. Patient continues to have significant confusion. She is t alking to herself continuously. She seems to have difficulty following instructions. Patient is continued on aspirin and Plavix, Lipitor. She is followed closely by neurology and also insurance agent following. CAT scan of the brain has been ordered for today. Therapies are following as well as social work. REVIEW OF SYSTEMS Constitutional: No fever, no chills, no night sweats. No weight change. Generalized weakness, fatigue or lethargy. No daytime sleepiness.still slightly but confused. EENT: No headache. No blurred vision or double vision, no loss of vision. No loss of Hearing, no ringing in the ears, no dizziness. No nasal drainage or congestion. No epistaxis. No sore throat. Lungs: No shortness of breath, cough, no sputum production. No wheezing. Cardiovascular: No chest pain, no lower extremity edema. No palpitations. No paroxysmal nocturnal dyspnea. No orthopnea. No lightheadedness or dizziness. No syncopal episodes. Abdominal: No abdominal pain. No nausea, vomiting. No diarrhea. No constipation. No bloody or tarry stools.. No loss of appetite. Genitourinary: No dysuria, increased frequency, urgency. No urinary retention. Musculoskeletal: generalized muscle pain and myalgia. Integumentary: No wounds, no lesions. No rash or pruritus. No unusual bruising. No change in hair or nails. Neurologic: No aphasia. Slurred speech improving. No facial droop. Noted change in mentation. No head injury. No headache. No paralysis. No paresthesia. Confusion with worsening dementia. Psychiatric: No depression. No anxiety. Noted mood swings. Endocrine: No abnormal blood sugars. No weight change. No excessive sweating or thirst. No cold intolerance. PHYSICAL EXAMINATION Gen: This is an 86-year-old female. Patient is resting in the ICU bed and appears to be in no acute distress. Patient is agitated, confused. HEENT: Head is atraumatic, normocephalic. Pupils equal, round. Sclerae is a nicteric. NECK: Supple. No JVD. No lymphadenopathy. No thyromegaly. LUNGS: Clear to auscultation. No wheezes or rhonchi. No intercostal retractions. HEART: Regular rate and rhythm. No murmur. ABDOMEN: Soft. Bowel sounds are present. No masses. No tenderness. EXTREMITIES: No pedal edema. No calf tenderness. NEUROLOGICAL: Patient is awake, alert and oriented to person. ASSESSMENT AND PLAN 1. Acute CVA status post TPA. Neurology consult appreciated. PT, OT, speech therapies. Continue Lipitor 80 mg at bedtime and Plavix 75 mg daily, aspirin 81 mg daily. 2. 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 Consult with cardiology 3. Normal pressure hydrocephalus status post shunt. 4. Recent hospitalization in July for Covid 19 infection. Continue vitamin D, vitamin C, zinc . 5. Dementia. Continue Namenda 5 mg twice daily, Aricept 10 mg at hs. Seroquel discontinued and patient started on Remeron. 6. Hyperlipidemia. Continue Lipitor 80 mg at bedtime. 7. Diabetes mellitus type 2. Continue NovoLog scale before meals and at bedtime, Levemir 10 units when necessary. 8. Hypertension. Patient is on midodrine 5 mg twice daily. 9. Recurrent depression. Remeron 7.5 mg at bedtime 10. Chronic kidney disease stage 2. Avoid nephrotoxic agents. 11. GI prophylaxis. Protonix. 12. DVT prophylaxis. DISCHARGE PLAN Subacute rehab at rehab. Impression and plan of care have been directed as dictated by the signing physician. Carolann Molina nurse practitioner acting as scribe for signing physician. Objective - Vital Signs Vital signs: Vital Signs Temp 98.8 F 09/20/21 08:00 Pulse 96 09/20/21 08:00 Resp 12 09/20/21 08:00 BP 135/87 09/20/21 08:00 Pulse Ox 94 L 09/20/21 08:00 Intake & Output 09/19/21 09/20/21 09/20/21 18:59 06:59 18:59 Intake Total 480 120 Output Total 200 0 Balance 280 0 120 Weight 59.3 kg Intake: Oral 480 120 Output: Urine 200 0 Other: Voiding Method Diaper Diaper Diaper Incontinent Incontinent Incontinent # Voids 1 1 1 # Bowel Movements 1 - Labs CBC & Chem 7: 09/18/21 06:13 09/18/21 06:13 Labs: Abnormal Lab Results - Last 24 Hours (Table) 09/20/21 Range/Units 11:27 POC Glucose (mg/dL) 190 H (75-99) mg/dL
--- NOTE | 2021-09-20 16:16 | CT ---
EXAMINATION TYPE: CT brain wo con DATE OF EXAM: 09/20/2021 COMPARISON: CT dated 09/18/2021 HISTORY: CVA, aphagia, possible stroke CT DLP: 1096.4 mGycm Automated exposure control for dose reduction was used. TECHNIQUE: CT scan of the brain is performed without IV contrast administration. 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 Brain volume loss changes, possibly age-related. 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 Persistent dilatation of the supra and infratentorial ventricles, stable. No acute intracranial hemorrhage or gross acute cortical infarct. No gross space-occupying lesion, va sogenic edema or mass effect. No midline shift or herniation. Unremarkable basal cisterns, sella and CP angles. No gross orbital abnormality. Clear visualized paranasal sinuses and mastoid air cells. Os teopenia. IMPRESSION: No acute intracranial hemorrhage or gross acute cortical infarct however a small acute or hyperacute infarct cannot be excluded. Stable chronic findings as described above.
[2021-09-20 17:59] LABS: Appearance,Urine Clear (Clear); Bilirubin,Urine Negative (Negative); Blood,Urine Negative (Negative); Color,Urine Yellow; Glucose,Urine (UA) Negative (Negative); Ketones,Urine Negative (Negative); Leukocyte Esterase,Urine Negative (Negative); Nitrite,Urine Negative (Negative); PH, Urine 5.5 (5.0-8.0); Protein,Urine Trace (Negative); Specific Gravity,Urine 1.019 (1.001-1.035); Urobilinogen,Urine <2.0 mg/dL (<2.0)
[2021-09-20] MEDS: MIRTAZAPINE 15 MG TAB PO SCH (20:45)
[2021-09-20] MEDS: ATORVASTATIN 80 MG TAB PO SCH (20:45)
[2021-09-21] MEDS: HEPARIN SODIUM,PORCINE/PF 5,000 UNIT/0.5 ML SYRINGE SQ SCH ×2 (08:30→20:09)
[2021-09-21] MEDS: ASCORBIC ACID 500 MG TAB PO SCH (08:31)
[2021-09-21] MEDS: ZINC SULFATE 220 MG CAP PO SCH (08:31)
[2021-09-21] MEDS: ASPIRIN 81 MG PO SCH (08:31)
[2021-09-21] MEDS: CHOLECALCIFEROL 25 MCG (1000 IU) TABLET PO SCH ×2 (08:31→16:43)
[2021-09-21] MEDS: MEMANTINE 5 MG TAB PO SCH ×2 (08:31→16:43)
[2021-09-21] MEDS: MIDODRINE 5 MG TAB PO SCH ×2 (08:31→16:43)
[2021-09-21] MEDS: NIACIN TR 500 MG CAPLET PO SCH (08:31)
[2021-09-21] MEDS: CLOPIDOGREL 75 MG TAB PO SCH (08:31)
[2021-09-21] MEDS: DONEPEZIL 10 MG TAB PO SCH (08:32)
[2021-09-21] MEDS: Mirabegron [Myrbetriq] PO SCH (09:18)
--- NOTE | 2021-09-21 11:13 | P.PN ---
Subjective Progress Note Date: 09/21/21 Per the patient's nurse she is having fluctuation of mentation and would get agitation, altered and at time is cooperative and responding appropriately. Upon seeing her she seems more responsive and states she is doing well. Objective - Vital Signs Vital signs: Vital Signs Temp 97.5 F L 09/21/21 08:00 Pulse 95 09/21/21 08:00 Resp 18 09/21/21 08:00 BP 123/62 09/21/21 08:00 Pulse Ox 92 L 09/21/21 08:00 Intake & Output 09/20/21 09/21/21 09/21/21 18:59 06:59 18:59 Intake Total 120 120 Output Total 0 0 Balance 120 0 120 Weight 60.1 kg Intake: Oral 120 120 Output: Urine 0 0 Other: Voiding Method Diaper Diaper Diaper Incontinent Incontinent Incontinent # Voids 1 1 1 # Bowel Movements 1 1 - Exam GENERAL: The patient is lying in bed and seemed restless and agitated NEUROLOGICAL: Higher mental function: The patient is awake, alert, oriented to self. With options she correctly stated hospital and year. She did not know the month. She correctly stated that she was in [place]. She is following-up with simple command. Language is doing better and no noticeable aphasia (improved compared to yesterday). No neglect. Cranial nerves: VFF is full to confrontation. EOM is tracking throughout the room and no nystagmus. No facial weakness. No dysarthria. Motor: Gait is deferred. The strength is lifting all extremities above gravity and no focal deficits. WORK-UP: Lipid panel was tried was 170, cholesterol is 112, LDLs 30, HDL is 47. CT of the head is reported as cerebral atrophy. Mild hydrocephalus. No significant change compared to old exam. Chronic small vessel ischemia with hypodensity around the posterior aspect of the shunt catheter in the right posterior parietal lobe white matter. CT angiography of the head and neck was reported as negative. Dr. Agudelo (stroke/neurointerventionalist) reviewed the images and he felt the patient had occlusion on the left M2 segment per ED team. Dr. Agudelo discussed thrombectomy with the patient's son (power of mailroom supervisor) but was agreed not to pursue with thrombectomy due to the patient's age, multiple comorbid conditions as well as the desire not for the patient to have intensive procedure. Patient repeat CT of the head at 24 hour post-TPA was reported as cerebral atrophy and mild hydrocephalus. No change compared to last exam. I personally reviewed the CT of the head and I do not appreciate any acute or subacute ischemia. 2-D echo was reported as left ventricle size is normal. Moderate concentric limits got atrophy. Ejection fraction of 55-60%. Possible left ventricular OT obstruction. Normal left atrial size by volume. - Labs CBC & Chem 7: 09/18/21 06:13 09/18/21 06:13 Labs: Abnormal Lab Results - Last 24 Hours (Table) 09/20/21 09/20/21 Range/Units 11:27 17:37 POC Glucose (mg/dL) 190 H (75-99) mg/dL Urine Protein Trace H (Negative) Assessment and Plan Assessment: Acute CVA status post IV TPA on 09/17/2021 (NIH 4 on presentation. 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 Agudelo (neurointerventionalist)) Normal pressure hydrocephalus status post shunt Dementia but baseline is oriented 3 per family member Diabetes mellitus Hyperlipidemia Bilateral lower extremity weakness and the ambulates with a wheelchair at baseline Plan: Had a repeat CT head yesterday (>48 hours from her symptoms) and no acute or subacute ischemia and no hemorrhage. Could not get MRI since was notified that her shunt is not comptabile to MRI. MRI Brain will not chemical cell changer. Continue aspirin 81mg daily (home) and and in addition I added Plavix 75 mg daily. Patient to be on dual antiplatelets for 21 days and after 21 days to stop by aspirin and continue Plavix indefinitely. Patient is on home medication of Lipitor 80 mg daily at bedtime which is a sufficient for stroke prophylaxis. Ordered routine EEG since patient had fluctuation of mentation. I will not start the patient on antiepileptic drug unless there is epileptiform discharges or seizure on the EEG. PT, OT and NEON SIGN MAKER is consulted Continue neuro checks Continue cardiac monitoring Regarding the report of possible left ventricular OT obstruction and will defer management to cardiology team. CT angiography of the head and neck was reported as negative. Dr. Agudelo (stroke/neurointerventionalist) reviewed the images and he felt the patient had occlusion on the left M2 segment per ED team. Dr. Agudelo discussed thrombectomy with the patient's son (power of mailroom supervisor) but was agreed not to pursue with thrombectomy due to the patient's age, multiple comorbid conditions as well as the desire not for the patient to have intensive procedure. Cardiology is consulted. Patient had a TSH on 08/19/2021 and it's 1.87, vitamin B12 is 1594 on 07/07/2021, and a serum folate is 6.80 on 07/07/2021. No need to repeat labs. Continue Seroquel 25 mg 1 tablet qhs for agitation. Also 1 mg every 4 hours as needed for agitation/psychosis. We'll defer the rest of the medical management to the primary team and ICU team. For DVT prophylaxis on subq heparin 5000U every 12 hours. Upon discharge, the patient needs to follow-up with her neurologist (Dr. Youngblood) as outpatient within 1-2 weeks. The plan is discussed with the patient's son, [id number] via phone and her nurse. Patient is clear for discharge for rehab (was notified going to [facility]). Cali Fernandes M.D. Neuro-Hospitalist Time with Patient: Less than 30
--- NOTE | 2021-09-21 12:06 | P.DS ---
Providers Date of admission: 09/17/21 22:25 Expected date of discharge: 09/21/21 Attending physician: Priti Mccormick Consults: 09/17/21 22:26 Consult Physician Routine Consulting Provider: Cali Fernandes Consult Reason/Comments: CVA, TPA administered Do you want consulting provider notified?: Yes 09/17/21 22:31 Consult Physician Routine Consulting Provider: Renae Duque Consult Reason/Comments: CVA with TPA Do you want consulting provider notified?: Already Contacted 09/19/21 15:29 Consult Physician Routine Consulting Provider: Bam Salgado Consult Reason/Comments: possible LV OT obstruction on CTA Do you want consulting provider notified?: Yes Primary care physician: [facility] Course: HISTORY OF PRESENT ILLNESS 86-year-old female patient of Dr. 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 Patient was recently hospitalized in June 2021 due to possible TIA, possible anticholinergic effect of Elavil. Patient was discharged home with homecare. Patient has had multiple hospitalizations since July was diagnosed with Covid 19 in July, subsequently admitted for encephalopathic dementia and patient was discharged home with home care . Patient was brought into the emergency center due to sudden onset of garbled speech and worsening confusion. CT of the brain revealed cerebral atrophy, mild hydrocephalus, no significant change compared to old exam from July 2021. There was chronic small vessel ischemia with hypodensity around the posterior aspect of the shunt catheter in the right posterior parietal lobe white matter. CT angiogram of the neck and brain was negative. EKG showed sinus tachycardia and incomplete right bundle branch block. Onset of symptoms within 5 hours of presentation, NIH score was 4, status post TPA and then admitted into the intensive care unit. Patient is resting in bed, she is confused and speech is not making sense. No concern from her nurse. Vital signs have been stable. She has been afebrile, heart rate in the low 100s 101-108, blood pressure 145/79, pulse ox 95% on room air. WBC 11.3, hemoglobin 11.9. Creatinine 0.9. Triglycerides 170, cholesterol 112, HDL 47, LDL 30. Urinalysis showed blood small, leukoesterase moderate, WBCs 9. Echocardiogram reveals EF of 55-60% with moderate concentric left ventricle hypertrophy, mild mitral regurgitation, trace tricuspid regurgitation. Chest x-ray reveals mild pleural reaction left lung base improved. Patient has been seen by neurology, pulmonary medicine and cardiology. Patient is scheduled for repeat CAT scan of the brain this evening. 09/19: Patient remains in the intensive care unit. She is currently laying in bed and seems agitated trying to get comfortable. She apparently has been up in a chair earlier today. Speech is clear sometimes slurred but patient still does not make sense. Patient has been cleared for transfer to cardiac stepdown unit. Consult with cardiology will be added for possible left ventricular OT o bstruction as advised by neurology and noted on CTA. Repeat CAT scan of the brain showed no evidence of acute bleeding. No acute abnormality. Seroquel will be discontinued and started on Remeron. Capillary blood glucose running between 126 and 149. WBC 13.8, hemoglobin 11. CO2 20, BUN 24 creatinine 0.76. Triglycerides 170, cholesterol 112, LDL 30, HDL 47. Pro-calcitonin 0.9. 09/20: Patient remains in the intensive care unit while waiting for a bed on the [facility] floor.. Patient continues to have significant confusion. She is talking to herself continuously. She seems to have difficulty following instructions. Patient is continued on aspirin and Plavix, Lipitor. She is followed closely by neurology and also spread cutter following. CAT scan of the brain has been ordered for today. Therapies are following as well as social work. 09/21: Repeat CAT scan of the brain showed no acute intracranial hemorrhage or gross acute cortical infarct however he small acute or hyperacute infarct cannot be excluded. Stable chronic findings. Neurology is recommending Plavix and aspirin 81 mg daily for 21 days and then continue only the Plavix indefinitely. Patient also to be continued on Lipitor. Patient's mental status is improved today, speech is clear. She is cooperative. Discharge plan is for subacute rehab at [facility]. Patient will be discharged today in stable condition. DISCHARGE DIAGNOSES 1. Acute CVA status post TPA. 2. 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 3. Normal pressure hydrocephalus status post shunt. 4. Recent hospitalization in July for Covid 19 infection. 5. Dementia. 6. Hyperlipidemia. 7. Diabetes mellitus type 2. 8. Hypertension. 9. Recurrent depression. 10. Chronic kidney disease stage 2. DISCHARGE PLAN Subacute rehab at [facility]. Greater than 35 minutes was utilized and coordinating patient's discharge. Impression and plan of care have been directed as dictated by the signing physician. Carolann Molina nurse practitioner acting as scribe for signing physician. Patient Condition at Discharge: Good Plan - Discharge Summary New Discharge Prescriptions: New Clopidogrel [Plavix] 75 mg PO DAILY tab Continue Atorvastatin [Lipitor] 80 mg PO HS Midodrine HCl 5 mg PO BID-W/MEALS Aspirin 81 mg PO DAILY tab Ascorbic Acid [Vitamin C] 500 mg PO DAILY Memantine HCl [Namenda] 5 mg PO BID-W/MEALS Docusate [Colace] 100 mg PO BID PRN cap PRN Reason: Constipation Zinc Sulfate [Orazinc] 220 mg PO DAILY cap Mirtazapine [Remeron] 15 mg PO HS #30 tab Cholecalciferol [Vitamin D3 (25 Mcg = 1000 Iu)] 50 mcg PO BID-W/MEALS Rivastigmine Tartrate [Exelon] 3 mg PO BID-W/MEALS Mirabegron [Myrbetriq] 25 mg PO DAILY Cyanocobalamin [Vitamin B-12] 500 mcg PO DAILY Thiamine [Vitamin B-1] 100 mg PO DAILY tab Insulin Glargine,Hum.rec.anlog [Lantus Solostar Pen] 10 unit SQ DAILY PRN PRN Reason: Blood Sugar - High Niacin 500 mg PO DAILY Discontinued ALPRAZolam [Xanax] 0.25 mg PO TID PRN PRN Reason: Anxiety Discharge Medication List Atorvastatin [Lipitor] 80 mg PO HS 03/08/19 [History] Cholecalciferol [Vitamin D3 (25 Mcg = 1000 Iu)] 50 mcg PO BID-W/MEALS 07/05/21 [History] Cyanocobalamin [Vitamin B-12] 500 mcg PO DAILY 07/05/21 [History] Midodrine HCl 5 mg PO BID-W/MEALS 07/05/21 [History] Mirabegron [Myrbetriq] 25 mg PO DAILY 07/05/21 [History] Rivastigmine Tartrate [Exelon] 3 mg PO BID-W/MEALS 07/05/21 [History] Aspirin 81 mg PO DAILY tab 07/07/21 [Rx] Thiamine [Vitamin B-1] 100 mg PO DAILY tab 07/07/21 [Rx] Ascorbic Acid [Vitamin C] 500 mg PO DAILY 08/10/21 [History] Insulin Glargine,Hum.rec.anlog [Lantus Solostar Pen] 10 unit SQ DAILY PRN 08/10/21 [History] Memantine HCl [Namenda] 5 mg PO BID-W/MEALS 08/10/21 [History] Niacin 500 mg PO DAILY 08/10/21 [History] Docusate [Colace] 100 mg PO BID PRN cap 08/14/21 [Rx] Mirtazapine [Remeron] 15 mg PO HS #30 tab 08/22/21 [Rx] Zinc Sulfate [Orazinc] 220 mg PO DAILY cap 08/22/21 [Rx] Clopidogrel [Plavix] 75 mg PO DAILY tab 09/21/21 [Rx] Follow up Appointment(s)/Referral(s): Luis Avery MD [Primary Care Provider] - 1 Week Activity/Diet/Wound Care/Special Instructions: Discontinue aspirin and 21 days, continue Plavix indefinitely. Discharge Disposition: TRANSFER TO SNF/ECF
--- NOTE | 2021-09-21 13:02 | P.PN ---
<Princess Griffin M - Last Filed: 09/21/21 12:51> Subjective Progress Note Date: 09/21/21 Principal diagnosis: Acute CVA 86-year-old female patient with past medical history of recent COVID infection in July 2021, TIA, diabetes mellitus with diabetic neuropathy, hyperlipidemia, hydrocephalus with DIRECTOR OF CASEWORK SERVICES shunt placement, continued urinary tract infections, urinary incontinence,, osteoarthritis, who presented to the emergency department on 09/17/2021 for evaluation of sudden onset of garbled speech, and apparently patient was speaking gibberish. Her blood sugar was within normal limits one hour after symptom onset. Patient is not on any blood thinners. Her DIRECTOR OF CASEWORK SERVICES shunt was changed 1-1/2 years ago. No other history of other intracranial surgery or bleeding. Patient's baseline functional status is weakness in lower extremities, and patient moves around the house with a wheelchair. CT of the brain in the emergency department revealed cerebral atrophy, mild hydrocephalus, no significant change compared to old exam from July 2021. There was chronic small vessel ischemia with hypodensity around the posterior aspect of the shunt catheter in the right posterior parietal lobe white matter. CT angiogram of the neck and brain was negative. EKG showed sinus tachycardia and incomplete right bundle branch block. Patient's onset of symptoms was within 4,5 hours of presentation, NIH score was 4, patient was a candidate for TPA she received in the emergency department. Following TPA administration patient was admitted to the intensive care unit for close neurological monitoring. Patient is seen in the intensive care unit this morning on 09/10/2021, she is resting comfortably in bed, room air pulse ox 95%, hemodynamically she stable, she is in sinus mechanism she is tachycardic with a rate of 103-111 BPM, afebrile. Neurologically patient is awake and alert, she is responding to commands appropriately, no drift in bilateral upper or lower extremities, still has the aphasia and slurred speech this morning. on 09/19/2021 the patient is doing well. The patient is stable. She is confused due to her underlying dementia. She has significant impairment of the cognitive functions. No agitation. No focal neurological deficit. His wound over extubated without any limitation. She had a follow-up CAT scan of the brain that showed no evidence of any acute bleeding. No other acute abnormality is noted. Wet cycles of 15.8 with a hemoglobin of 11. Sodium level is at 140, serum bicarb is 20, glucose is 143, the patient also has an LDL level of 34, triglyceride level of 170. There may be a concern for an underlying UTI. 4 calcitonin level is at 0.9. Urine cultures still pending for now. Patient for now is on a combination of aspirin and Plavix. She is on heparin subcu for DVT prophylaxis. She is on Seroquel 25 mg at bedtime. Outpatient medication includ ing dementia medication are ordered resume. Echocardiogram showed a preserved LV function with moderate concentric LVH with an EF of around 55-60%. Possible left ventricular outflow obstruction. Mild MR, normal LV. 09/20/2021, the patient essentially unchanged. Neurologically unchanged. Still having patient [facility] in cognition. This is related to chronic dementia. No focal neurological deficits. She remains on a combination of aspirin and Plavix. No other significant events overnight. Blood work from today shows a white cell count of 13.8 and a hemoglobin of 11. BUN is 24 with a creatinine of 0.7 and his sodium level is at 140. Neurologist on the case. The patient's post alteplase for an acute CVA. On 09/21/2021 patient seen in follow-up in the intensive care unit, she is sleeping in bed, she is easily arousable, she states she is tired this morning but in no acute distress, she is pleasantly confused, she couldn't tell me where she was. But she did state correctly that she has not eaten breakfast. Denies any difficulty breathing, she is breathing quite comfortably. No facial asymmetry, her strength is equal in her upper and lower extremities, she remains disoriented to place and time. Vital signs have been stable, blood pressure is well controlled, she passed swallow evaluation, and she is tolerating oral intake although her appetite is suboptimal, physical therapy was asked to evaluate the patient, and patient is nonambulatory at bedtime, she is chronic ally wheelchair bound. Requires total assist to complete transfers from the bed to the chair, and relies on 24 7 support from her family. Follow-up CT of the brain was completed last night showing no acute intracranial bleeding or gross acute cortical infarct however a small acute or hyperacute infarct could not be completely excluded. There were stable chronic findings. Neurology service has been closely following. MRI could not be completed related to a presence of a DIRECTOR OF CASEWORK SERVICES shunt. Patient continues on combination of aspirin 81 mg, Plavix 75 mg, high-intensity Lipitor, she is on subcu heparin 5000 units every 12 hours, her blood sugars are being closely monitored. She has as needed doses of Haloperidol for episodes of increased restlessness and agitation related to delirium. Overall no acute events overnight. at this time patient is being considered for discharge to [facility] Objective - Vital Signs Vital signs: Vital Signs Temp 97.5 F L 09/21/21 08:00 Pulse 98 09/21/21 11:23 Resp 16 09/21/21 11:23 BP 115/61 09/21/21 11:23 Pulse Ox 95 09/21/21 11:23 Intake & Output 09/20/21 09/21/21 09/21/21 18:59 06:59 18:59 Intake Total 120 120 Output Total 0 0 Balance 120 0 120 Weight 60.1 kg Intake: Oral 120 120 Output: Urine 0 0 Other: Voiding Method Diaper Diaper Diaper Incontinent Incontinent Incontinent # Voids 1 1 1 # Bowel Movements 1 1 - Exam GENERAL EXAM: Alert, oriented to self, following commands a 86-year-old white female, on room air satting 95%, comfortable in no apparent distress. Speech is normal for now. HEAD: Normocephalic/atraumatic. EYES: Normal reaction of pupils, equal size. Conjunctiva pink, sclera white. NOSE: Clear with pink turbinates. THROAT: No erythema or exudates. NECK: No masses, no JVD, no thyroid enlargement, no adenopathy. CHEST: No chest wall deformity. Symmetrical expansion. LUNGS: Equal air entry with no crackles, wheeze, rhonchi or dullness. CVS: Regular rate and rhythm, normal S1 and S2, no gallops, no murmurs, no rubs ABDOMEN: Soft, nontender. No hepatosplenomegaly, normal bowel sounds, no guarding or rigidity. EXTREMITIES: No clubbing, no edema, no cyanosis, 2+ pulses and upper and lower extremities. MUSCULOSKELETAL: Muscle strength and tone normal. SPINE: No scoliosis or deformity SKIN: No rashes CENTRAL NERVOUS SYSTEM: Alert and oriented -1. No focal deficits, tone is normal in all 4 extremities. Garbled speech PSYCHIATRIC: Alert and oriented -1. Appropriate affect. Intact judgment and insight. - Labs CBC & Chem 7: 09/18/21 06:13 09/18/21 06:13 Labs: Abnormal Lab Results - Last 24 Hours (Table) 09/20/21 Range/Units 17:37 Urine Protein Trace H (Negative) Assessment and Plan Plan: Assessment: #1. Acute CVA, with symptoms of aphasia, S/P TPA on 09/17/2021, with suspected left M2 occlusion per neurointerventionalist #2. Recent COVID 19 infection in July, and patient did not have pulmo nary symptoms #3. Frequent UTIs, urinary tract infection, with no clear evidence of infection during this admission. #4. History of diabetes mellitus2 with diabetic neuropathy #5. Previous history of TIA #6. Hyperlipidemia #7. History of dementia #8. Gait dysfunction #9. Hydrocephalus, status post DIRECTOR OF CASEWORK SERVICES shunt placement #10. Suspected delirium Assessment: Repeat CT brain from 09/20/2021 has been reviewed Clinically patient is stable Remains confused Neurology recommendations Continue current medical treatment Repeat urinalysis showed no evidence of infection Vital signs have been stable Stable for discharge to [facility] from pulmonary/critical care perspective if cleared by neurology I have personally seen and examined the patient, performed the documentation and the assessment and plan as written. Number of minutes spent on the visit: [15] Time with Patient: Less than 30 <Renae Duque - Last Filed: 09/21/21 13:03> Objective - Vital Signs Vital signs: Vital Signs Temp 97.5 F L 09/21/21 08:00 Pulse 98 09/21/21 11:23 Resp 16 09/21/21 11:23 BP 115/61 09/21/21 11:23 Pulse Ox 95 09/21/21 11:23 Intake & Output 09/20/21 09/21/21 09/21/21 18:59 06:59 18:59 Intake Total 120 120 Output Total 0 0 Balance 120 0 120 Weight 60.1 kg Intake: Oral 120 120 Output: Urine 0 0 Other: Voiding Method Diaper Diaper Diaper Incontinent Incontinent Incontinent # Voids 1 1 1 # Bowel Movements 1 1 - Labs CBC & Chem 7: 09/18/21 06:13 09/18/21 06:13 Labs: Abnormal Lab Results - Last 24 Hours (Table) 09/20/21 Range/Units 17:37 Urine Protein Trace H (Negative) Assessment and Plan Plan: I have personally seen and examined the patient and reviewed the documentation. I performed a joint evaluation with the nurse practitioner in this evaluation was done more than 15 minutes. I fully agree with the documentation above and the plan of care. The patient is essentially the same, no new onset neurologic findings. Hemodynamically stable. Appropriate medications been instituted. Blood sugars are maintained. She is tolerating diet. She should be able to transfer out of the intensive care unit. She has advanced dementia.
--- NOTE | 2021-09-21 13:47 | EEG ---
ELECTROENCEPHALOGRAM REPORT DATE OF SERVICE: 09/21/2021. CLINICAL HISTORY: This is an 86-year-old woman with altered mental status. The video EEG is obtained to evaluate for seizure epileptiform activity. Relevant medications: The patient is not on any antiepileptic drugs. EEG TYPE: A routine 21-channel EEG is performed with video using the 10/20 electrode placement system. DESCRIPTION: Wakefulness and drowsiness are obtained. The background consists of low to moderate voltage of 5-6 hz theta activity intermixed with delta activity and at time the background consists of diffuse nonrhythmic delta activity. There is no physiological stage 2 sleep architecture. Interictal and ictal is none. ACTIVATION PROCEDURE: Photic stimulation and hyperventilation are not performed. CLINICAL INTERPRETATION: This is an abnormal routine EEG. The background slowing is suggestive of moderate encephalopathy. There is no focal slowing, epileptiform discharges or seizure on the EEG. Clinical correlation is recommended. ERINN / CASEY: [id number] / MTDD
[2021-09-21] MEDS: ATORVASTATIN 80 MG TAB PO SCH ×2 (20:09→20:18)
[2021-09-21] MEDS: MIRTAZAPINE 15 MG TAB PO SCH (20:09)
[2021-09-22 04:48] LABS: Glucose,Whole Blood 144 mg/dL (75-99)
[2021-09-22] MEDS: MIDODRINE 5 MG TAB PO SCH ×2 (06:29→16:53)
[2021-09-22] MEDS: MEMANTINE 5 MG TAB PO SCH ×2 (06:29→16:53)
[2021-09-22] MEDS: CHOLECALCIFEROL 25 MCG (1000 IU) TABLET PO SCH ×2 (06:29→16:53)
[2021-09-22] MEDS: DONEPEZIL 10 MG TAB PO SCH (09:02)
[2021-09-22] MEDS: ZINC SULFATE 220 MG CAP PO SCH (09:02)
[2021-09-22] MEDS: ASPIRIN 81 MG PO SCH (09:02)
[2021-09-22] MEDS: NIACIN TR 500 MG CAPLET PO SCH (09:02)
[2021-09-22] MEDS: HEPARIN SODIUM,PORCINE/PF 5,000 UNIT/0.5 ML SYRINGE SQ SCH ×2 (09:02→19:58)
[2021-09-22] MEDS: CLOPIDOGREL 75 MG TAB PO SCH (09:02)
[2021-09-22] MEDS: ASCORBIC ACID 500 MG TAB PO SCH (09:02)
[2021-09-22] MEDS: Mirabegron [Myrbetriq] PO SCH (09:03)
[2021-09-22 09:26] LABS: Basophils # (A) 0.1 k/uL (0-0.2); Basophils % (A) 1 %; Eosinophils # (A) 0.2 k/uL (0-0.7); Eosinophils % (A) 2 %; HCT 32.4 % (34.0-46.0); HGB 10.4 gm/dL (11.4-16.0); Hypochromasia Slight; Lymphocytes # (A) 1.8 k/uL (1.0-4.8); Lymphocytes % (A) 20 %; MCH 30.8 pg (25.0-35.0); MCV 96.2 fL (80.0-100.0); Mean Platelet Volume 7.9; Monocytes # (A) 0.4 k/uL (0-1.0); Monocytes % (A) 5 %; Neutrophils # (A) 6.4 k/uL (1.3-7.7); Neutrophils % (A) 71 %; Platelet Count 343 k/uL (150-450); RBC 3.37 m/uL (3.80-5.40); RDW 15.5 % (11.5-15.5)
[2021-09-22 09:38] LABS: Albumin 3.4 g/dL (3.5-5.0); Calcium 9.1 mg/dL (8.4-10.2); Potassium 3.7 mmol/L (3.5-5.1); Total Bilirubin 0.5 mg/dL (0.2-1.3); Total Protein 6.7 g/dL (6.3-8.2)
--- NOTE | 2021-09-22 11:24 | P.PN ---
Subjective Progress Note Date: 09/22/21 86-year-old female patient of Dr. Avery with past medical history of type 2 diabetes, history of normal pressure hydrocephalus post CLINICAL OFFICE TECHNICIAN shunt changed one half years ago, history of hypertension and hyperlipidemia along with a chronic kidney disease II. Patient was recently hospitalized in June 2021 due to possible TIA, possible anticholinergic effect of Elavil. Patient was discharged home with homecare. Patient has had multiple hospitalizations since July was diagnosed with Covid 19 in July, subsequently admitted for encephalopathic dementia and patient was discharged home with home care . Patient was brought into the emergency center due to sudden onset of garbled speech and worsening confusion. CT of the brain revealed cerebral atrophy, mild hydrocephalus, no significant change compared to old exam from July 2021. There was chronic small vessel ischemia with hypodensity around the posterior aspect of the shunt catheter in the right posterior parietal lobe white matter. CT angiogram of the neck and brain was negative. EKG showed sinus tachycardia and incomplete right bundle branch block. Onset of symptoms within 5 hours of presentation, NIH score was 4, status post TPA and then admitted into the intensive care unit. Patient is resting in bed, she is confused and speech is not making sense. No concern from her nurse. Vital signs have been stable. She has been afebrile, heart rate in the low 100s 101-108, blood pressure 145/79, pulse ox 95% on room air. WBC 11.3, hemoglobin 11.9. Creatinine 0.9. Triglycerides 170, cholesterol 112, HDL 47, LDL 30. Urinalysis showed blood small, leukoesterase moderate, WBCs 9. Echocardiogram reveals EF of 55-60% with moderate concentric left ventricle hypertrophy, mild mitral regurgitation, trace tricuspid regurgitation. Chest x-ray reveals mild pleural reaction left lung base improved. Patient has been seen by neurology, pulmonary medicine and cardiology. Patient is scheduled for repeat CAT scan of the brain this evening. 09/19: Patient remains in the intensive care unit. She is currently laying in bed and seems agitated trying to get comfortable. She apparently has been up in a chair earlier today. Speech is clear sometimes slurred but patient still does not make sense. Patient has been cleared for transfer to cardiac stepdown unit. Consult with cardiology will be added for possible left ventricular OT obstruction as advised by neurology and noted on CTA. Repeat CAT scan of the brain showed no evidence of acute bleeding. No acute abnormality. Seroquel will be discontinued and started on Remeron. Capillary blood glucose running between 126 and 149. WBC 13.8, hemoglobin 11. CO2 20, BUN 24 creatinine 0.76. Triglycerides 170, cholesterol 112, LDL 30, HDL 47. Pro-calcitonin 0.9. 09/20: Patient remains in the intensive care unit while waiting for a bed on the [facility].. Patient continues to have significant confusion. She is talking to herself continuously. She seems to have difficulty following instructions. Patient is continued on aspirin and Plavix, Lipitor. She is followed closely by neurology and also manager maritime following. CAT scan of the brain has been ordered for today. Therapies are following as well as social work. 09/21: Repeat CAT scan of the brain showed no acute intracranial hemorrhage or gross acute cortical infarct however he small acute or hyperacute infarct cannot be excluded. Stable chronic findings. Neurology is recommending Plavix and aspirin 81 mg daily for 21 days and then continue only the Plavix indefinitely. Patient also to be continued on Lipitor. Patient's mental status is improved today, speech is clear. She is cooperative. Discharge plan is for subacute rehab at [facility]. Patient will be discharged today in stable condition. 09/22 patient examined bedside. He is able to answer questions appropriately. She does dive ordered in between and has garbled speech. It appears stated patient has some baseline confusion but is eating well. She is participating with physical therapy. Neurology recommended Plavix and aspirin for 21 days following which Plavix indefinitely. Cardiology plans to put on loop recorder in place.Vitals are stable afebrile blood pressure 110/59. Hemoglobin 10.4 WBC 9 platelets 243 sodium 138 potassium 3.7 BUN 14 creatinine 0.7 REVIEW OF SYSTEMS Constitutional: No fever, no chills, no night sweats. No weight change. Generalized weakness, fatigue or lethargy. No daytime sleepiness.still slightly but confused. EENT: No headache. No blurred vision or double vision, no loss of vision. No loss of Hearing, no ringing in the ears, no dizziness. No nasal drainage or congestion. No epistaxis. No sore throat. Lungs: No shortness of breath, cough, no sputum production. No wheezing. Cardiovascular: No chest pain, no lower extremity edema. No palpitations. No paroxysmal nocturnal dyspnea. No orthopnea. No lightheadedness or dizziness. No syncopal episodes. Abdominal: No abdominal pain. No nausea, vomiting. No diarrhea. No constipation. No bloody or tarry stools.. No loss of appetite. Genitourinary: No dysuria, increased frequency, urgency. No urinary retention. Musculoskeletal: generalized muscle pain and myalgia. Integumentary: No wounds, no lesions. No rash or pruritus. No unusual bruising. No change in hair or nails. Neurologic: No aphasia. Slurred speech improving gargled speech in between . No facial droop. Noted change in mentation. No head injury. No headache. No paralysis. No paresthesia. Confusion with worsening dementia. Psychiatric: No depression. No anxiety. Noted mood swings. Endocrine: No abnormal blood sugars. No weight change. No excessive sweating or thirst. No cold intolerance. PHYSICAL EXAMINATION Gen: This is an 86-year-old female. Patient is resting in the ICU bed and appears to be in no acute distress. Patient is agitated, confused. HEENT: Head is atraumatic, normocephalic. Pupils equal, round. Sclerae is anicteric. NECK: Supple. No JVD. No lymphadenopathy. No thyromegaly. LUNGS: Clear to auscultation. No wheezes or rhonchi. No intercostal retra ctions. HEART: Regular rate and rhythm. No murmur. ABDOMEN: Soft. Bowel sounds are present. No masses. No tenderness. EXTREMITIES: No pedal edema. No calf tenderness. NEUROLOGICAL: Patient is awake, alert and oriented to person. ASSESSMENT AND PLAN 1. Acute CVA status post TPA. Neurology consult appreciated. PT, OT, speech therapies. Continue Lipitor 80 mg at bedtime and Plavix 75 mg daily, aspirin 81 mg daily. cardiology plans for loop recorder 2. 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 Consult with cardiology 3. Normal pressure hydrocephalus status post shunt. 4. Recent hospitalization in July for Covid 19 infection. Continue vitamin D, vitamin C, zinc . 5. Dementia. Continue Namenda 5 mg twice daily, Aricept 10 mg at hs. Seroquel discontinued and patient started on Remeron. 6. Hyperlipidemia. Continue Lipitor 80 mg at bedtime. 7. Diabetes mellitus type 2. Continue NovoLog scale before meals and at bedtime, Levemir 10 units when necessary. 8. Hypertension. Patient is on midodrine 5 mg twice daily. 9. Recurrent depression. Remeron 7.5 mg at bedtime 10. Chronic kidney disease stage 2. Avoid nephrotoxic agents. 11. GI prophylaxis. Protonix. 12. DVT prophylaxis. DISCHARGE PLAN Subacute rehab at rehab. Objective - Vital Signs Vital signs: Vital Signs Temp 98.3 F 09/22/21 08:50 Pulse 86 09/22/21 08:50 Resp 15 09/22/21 08:50 BP 111/59 09/22/21 08:50 Pulse Ox 98 09/22/21 08:50 Intake & Output 09/21/21 09/22/21 09/22/21 18:59 06:59 18:59 Intake Total 240 120 Balance 240 120 Intake: Oral 240 120 Other: Voiding Method Diaper Diaper Diaper Incontinent Incontinent Incontinent External Catheter External Catheter # Voids 1 2 - Labs CBC & Chem 7: 09/22/21 09:06 09/22/21 09:06 Labs: Abnormal Lab Results - Last 24 Hours (Table) 09/22/21 09/22/21 09/22/21 Range/Units 04:38 09:06 09:06 RBC 3.37 L (3.80-5.40) m/uL Hgb 10.4 L (11.4-16.0) gm/dL Hct 32.4 L (34.0-46.0) % Glucose 217 H (74-99) mg/dL POC Glucose (mg/dL) 144 H (75-99) mg/dL Albumin 3.4 L (3.5-5.0) g/dL
--- NOTE | 2021-09-22 11:37 | P.PN ---
Subjective Progress Note Date: 09/22/21 Patient feels she is doing well and feels she is improving for past two days. Denies of any new neurological problems. Objective - Vital Signs Vital signs: Vital Signs Temp 98.3 F 09/22/21 08:50 Pulse 86 09/22/21 08:50 Resp 15 09/22/21 08:50 BP 111/59 09/22/21 08:50 Pulse Ox 98 09/22/21 08:50 Intake & Output 09/21/21 09/22/21 09/22/21 18:59 06:59 18:59 Intake Total 240 120 Balance 240 120 Intake: Oral 240 120 Other: Voiding Method Diaper Diaper Diaper Incontinent Incontinent Incontinent External Catheter External Catheter # Voids 1 2 - Exam GENERAL: The patient is lying in bed and not in acute distress. NEUROLOGICAL: Higher mental function: The patient is awake, alert, oriented to self and stated she was in the hospital. She stated the year is 2021. She did not know the month. She correctly stated that she was in [place]. She is following-up with simple command. Language is doing better and no noticeable aphasia (improved for past two days). No neglect. Cranial nerves: VFF is full to confrontation. EOM is tracking throughout the room and no nystagmus. No facial weakness. No dysarthria. Motor: Gait is deferred. The strength is lifting all extremities above gravity and no focal deficits. WORK-UP: Lipid panel was tried was 170, cholesterol is 112, LDLs 30, HDL is 47. CT of the head is reported as cerebral atrophy. Mild hydrocephalus. No significant change compared to old exam. Chronic small vessel ischemia with hypodensity around the posterior aspect of the shunt catheter in the right po sterior parietal lobe white matter. CT angiography of the head and neck was reported as negative. Dr. Agudelo (stroke/neurointerventionalist) reviewed the images and he felt the patient had occlusion on the left M2 segment per ED team. Dr. Agudelo discussed thrombectomy with the patient's son (power of criminal defense attorney) but was agreed not to pursue with thrombectomy due to the patient's age, multiple comorbid conditions as well as the desire not for the patient to have intensive procedure. Patient repeat CT of the head at 24 hour post-TPA was reported as cerebral atrophy and mild hydrocephalus. No change compared to last exam. I personally reviewed the CT of the head and I do not appreciate any acute or subacute ischemia. 2-D echo was reported as left ventricle size is normal. Moderate concentric limits got atrophy. Ejection fraction of 55-60%. Possible left ventricular OT obstruction. Normal left atrial size by volume. Routine EEG on 09/21/2021 is abnormal. The background slowing suggestive of a moderate encephalopathy. There is no focal slowing, epileptiform discharges or seizure on the EEG. - Labs CBC & Chem 7: 09/22/21 09:06 09/22/21 09:06 Labs: Abnormal Lab Results - Last 24 Hours (Table) 09/22/21 09/22/21 09/22/21 Range/Units 04:38 09:06 09:06 RBC 3.37 L (3.80-5.40) m/uL Hgb 10.4 L (11.4-16.0) gm/dL Hct 32.4 L (34.0-46.0) % Glucose 217 H (74-99) mg/dL POC Glucose (mg/dL) 144 H (75-99) mg/dL Albumin 3.4 L (3.5-5.0) g/dL Assessment and Plan Assessment: Acute CVA status post IV TPA on 09/17/2021 (NIH 4 on presentation. 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 Agudelo (neurointerventionalist)) Normal pressure hydrocephalus status post shunt Dementia but baseline is oriented 3 per family member Diabetes mellitus Hyperlipidemia Bilateral lower extremity weakness and the ambulates with a wheelchair at baseline Plan: Had a repeat CT head 09/20/21 (>48 hours from her symptoms) and no acute or subacute ischemia and no hemorrhage. Could not get MRI since was notified that her shunt is not comptabile to MRI. MRI Brain will not change analyst. Continue aspirin 81mg daily (home) and and in addition I added Plavix 75 mg daily. Patient to be on dual antiplatelets for 21 days and after 21 days to stop by aspirin and continue Plavix indefinitely. Patient is on home medication of Lipitor 80 mg daily at bedtime which is a sufficient for stroke prophylaxis. PT, OT and HUMAN RESOURCES EXECUTIVE ASSISTANT is consulted Continue neuro checks Continue cardiac monitoring Regarding the report of possible left ventricular OT obstruction and will defer management to cardiology team. CT angiography of the head and neck was reported as negative. Dr. Agudelo (stroke/neurointerventionalist) reviewed the images and he felt the patient had occlusion on the left M2 segment per ED team. Dr. Agudelo discussed thrombectomy with the patient's son (power of criminal defense attorney) but was agreed not to pursue with thrombectomy due to the patient's age, multiple comorbid conditions as well as the desire not for the patient to have intensive procedure. Cardiology is consulted. Patient had a TSH on 08/19/2021 and it's 1.87, vitamin B12 is 1594 on 07/07/2021, and a serum folate is 6.80 on 07/07/2021. No need to repeat labs. Continue Seroquel 25 mg 1 tablet qhs for agitation. Also 1 mg every 4 hours as needed for agitation/psychosis. We'll defer the rest of the medical management to the primary team. For DVT prophylaxis on subq heparin 5000U every 12 hours. Upon discharge, the patient needs to follow-up with her neurologist (Dr. Youngblood) as outpatient within 1-2 weeks. The plan is discussed with the patient's son, [id number] via phone and her nurse. There is no further neurological work-up. Patient is clear for discharge for rehab (was notified going to [facility]). Cali Fernandes M.D. Neuro-Hospitalist Time with Patient: Less than 30
[2021-09-22 12:33] VITALS: BMI 22.0
--- NOTE | 2021-09-22 13:17 | P.CRDCN ---
History of Present Illness History of present illness: This is Dr. 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 WORKER shunt History of dementia, diabetes and dyslipidemia Presenting with a CVA Received TPA Twelve-lead EKG shows sinus mechanism no atrial fibrillation CT of the head showed cerebral atrophy Occlusion of the left M2 segment TPA was administered PLAN: Watch for any evidence for atrial fibrillation on telemetry Continue current medications including aspirin atorvastatin Discontinue niacin HPI Patient presented with a CVA, likely occlusion of the M2 segment No atrial fibrillation noted so far ROS: No fever chills or rigors, no cough, phlegm or expectoration, no nausea, vomiting or diarrhea, no hematuria, dysuria, no musculoskeletal complaints, no strokes or seizures, no skin lesions. EXAMINATION: Pulse rate in the 90s, blood pressure 115/61 Pulse ox 95% REVIEW OF LABS, ECG & MEDICAL DATA White count 30.8 thousand, hemoglobin 11, platelet count 293,000 Sodium 140, potassium 4.0, BUN 24 and creatinine 0.76 AST and ALT are normal Elevated triglycerides LDL 30 Twelve-lead EKG shows sinus rhythm right bundle branch block pattern left axis II-D echo shows moderate concentric LVH, left ventricle systolic function greater than 60% CT of the brain shows a small acute infarct No hemorrhage Past Medical History Past Medical History: Dementia, Diabetes Mellitus, Hyperlipidemia Additional Past Medical History / Comment(s): neuropathy, dizzy when stands, diabetic ulcer on left foot supposed to go to wound clinic hydrocephalus with processor solid propellant shunt frequent uti, TIA History of Any Multi-Drug Resistant Organisms: None Reported Past Surgical History: Appendectomy, Cholecystectomy, Orthopedic Surgery Additional Past Surgical History / Comment(s): right shoulder processor solid propellant shunt Past Anesthesia/Blood Transfusion Reactions: No Reported Reaction Additional Past Anesthesia/Blood Transfusion Reaction / Comment(s): patient states never had blood transfusion Past Psychological History: No Psychological Hx Reported Smoking Status: Never smoker Past Alcohol Use History: None Reported Past Drug Use History: None Reported - Past Family History Mother Family Medical History: Diabetes Mellitus Medications and Allergies Home Medications Medication Instructions Recorded Confirmed Type Atorvastatin [Lipitor] 80 mg PO HS 03/08/19 09/17/21 History Cholecalciferol [Vitamin D3 (25 50 mcg PO BID-W/MEALS 07/05/21 09/17/21 History Mcg = 1000 Iu)] Cyanocobalamin [Vitamin B-12] 500 mcg PO DAILY 07/05/21 09/17/21 History Midodrine HCl 5 mg PO BID-W/MEALS 07/05/21 09/17/21 History Mirabegron [Myrbetriq] 25 mg PO DAILY 07/05/21 09/17/21 History Rivastigmine Tartrate [Exelon] 3 mg PO BID-W/MEALS 07/05/21 09/17/21 History Aspirin 81 mg PO DAILY tab 07/07/21 09/17/21 Rx Thiamine [Vitamin B-1] 100 mg PO DAILY tab 07/07/21 09/17/21 Rx Ascorbic Acid [Vitamin C] 500 mg PO DAILY 08/10/21 09/17/21 History Insulin Glargine,Hum.rec.anlog 10 unit SQ DAILY PRN 08/10/21 09/17/21 History [Lantus Solostar Pen] Memantine HCl [Namenda] 5 mg PO BID-W/MEALS 08/10/21 09/17/21 History Niacin 500 mg PO DAILY 08/10/21 09/17/21 History Docusate [Colace] 100 mg PO BID PRN cap 08/14/21 09/17/21 Rx Mirtazapine [Remeron] 15 mg PO HS #30 tab 08/22/21 09/17/21 Rx Zinc Sulfate [Orazinc] 220 mg PO DAILY cap 08/22/21 09/17/21 Rx Clopidogrel [Plavix] 75 mg PO DAILY tab 09/21/21 Rx Allergies Allergy/AdvReac Type Severity Reaction Status Date / Time No Known Allergies Allergy Verified 09/17/21 21:13 Physical Exam Vitals: Vital Signs Temp Pulse Resp BP Pulse Ox 09/21/21 16:00 97 16 130/61 97 09/21/21 11:23 98 16 115/61 95 09/21/21 08:00 97.5 F L 95 18 123/62 92 L 09/21/21 07:13 95 09/21/21 04:00 97.4 F L 96 21 126/77 96 09/21/21 00:00 97.9 F 85 13 113/83 96 09/20/21 20:00 98 F 97 16 121/62 97 Intake and Output 09/21/21 09/21/21 09/21/21 06:59 14:59 22:59 Intake Total 240 Balance 240 Intake: Oral 240 Other: Voiding Method Diaper Diaper Incontinent Incontinent # Voids 1 1 1 # Bowel Movements 1 Weight 60.1 kg Results 09/18/21 06:13 09/18/21 06:13 Current Medications Generic Name Dose Route Start Last Admin Trade Name Freq PRN Reason Stop Dose Admin Ascorbic Acid 500 mg 09/18/21 09:00 09/21/21 08:31 Ascorbic Acid 500 Mg Tab PO 500 mg DAILY LINDA Administration Aspirin 81 mg 09/19/21 09:00 09/21/21 08:31 Aspirin 81 Mg PO 81 mg DAILY LINDA Administration Atorvastatin Calcium 80 mg 09/18/21 21:00 09/20/21 20:45 Atorvastatin 80 Mg Tab PO 80 mg HS LINDA Administration Cholecalciferol 50 mcg 09/18/21 17:30 09/21/21 16:43 Cholecalciferol 25 Mcg (1000 Iu) Tablet PO 50 mcg BID-W/MEALS LINDA Administration Clopidogrel Bisulfate 75 mg 09/19/21 09:00 09/21/21 08:31 Clopidogrel 75 Mg Tab PO 75 mg DAILY LINDA Administration Docusate Sodium 100 mg 09/18/21 08:29 Docusate 100 Mg Cap PO BID PRN Constipation Donepezil HCl 10 mg 09/18/21 09:00 09/21/21 08:32 Donepezil 10 Mg Tab PO 10 mg DAILY LINDA Administration Haloperidol Lactate 1 mg 09/18/21 03:15 09/18/21 04:42 Haloperidol Lactate 5 Mg/Ml 1 Ml Vial IVP 1 mg Q4HR PRN Administration Agitation or Acute Psychosis Heparin Sodium (Porcine) 5,000 unit 09/19/21 09:00 09/21/21 08:30 Heparin Sodium,Porcine/Pf 5,000 Unit/0.5 Ml Syringe SQ 5,000 unit Q12HR LINDA Administration Insulin Detemir 10 unit 09/18/21 08:29 Insulin Detemir (Levemir) 100 Unit/Ml Syr SQ DAILY PRN Blood Sugar - High Memantine 5 mg 09/18/21 17:30 09/21/21 16:43 Memantine 5 Mg Tab PO 5 mg BID-W/MEALS LINDA Administration Midodrine 5 mg 09/18/21 17:30 09/21/21 16:43 Midodrine 5 Mg Tab PO 5 mg BID-W/MEALS LINDA Administration Mirtazapine 15 mg 09/20/21 21:00 09/20/21 20:45 Mirtazapine 15 Mg Tab PO 15 mg HS LINDA Administration Niacin 500 mg 09/18/21 09:00 09/21/21 08:31 Niacin Tr 500 Mg Caplet PO 500 mg DAILY LINDA Administration Mirabegron [ 25 mg 09/18/21 09:00 09/21/21 09:18 Myrbetriq] PO Not Given DAILY LINDA Zinc Sulfate 220 mg 09/18/21 09:00 09/21/21 08:31 Zinc Sulfate 220 Mg Cap PO 220 mg DAILY LINDA Administration Intake and Output 09/21/21 09/21/21 09/21/21 06:59 14:59 22:59 Intake Total 240 Balance 240 Intake: Oral 240 Other: Voiding Method Diaper Diaper Incontinent Incontinent # Voids 1 1 1 # Bowel Movements 1 Weight 60.1 kg 09/18/21 06:13 09/18/21 06:13
--- NOTE | 2021-09-22 13:20 | P.PN ---
Subjective Patient is resting comfortably in bed. 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 No evidence for atrial fibrillation so far Currently on aspirin and atorvastatin and Plavix I spoke to his son and explained the added value of implantation of loop monitor He is in agreement My plan is to implant a loop monitor the next 24 hours to look for any silent atrial fibrillation If we detect atrial fibrillation this will alter her anticoagulant strategy Objective - Vital Signs Vital signs: Vital Signs Temp 98.3 F 09/22/21 08:50 Pulse 104 H 09/22/21 11:56 Resp 16 09/22/21 11:56 BP 121/74 09/22/21 11:56 Pulse Ox 97 09/22/21 11:56 Intake & Output 09/21/21 09/22/21 09/22/21 18:59 06:59 18:59 Intake Total 240 600 Balance 240 600 Weight 60.1 kg Intake: Oral 240 600 Other: Voiding Method Diaper Diaper Diaper Incontinent Incontinent Incontinent External Catheter External Catheter # Voids 1 2 1 # Bowel Movements 1 - Labs CBC & Chem 7: 09/22/21 09:06 09/22/21 09:06 Labs: Abnormal Lab Results - Last 24 Hours (Table) 09/22/21 09/22/21 09/22/21 Range/Units 04:38 09:06 09:06 RBC 3.37 L (3.80-5.40) m/uL Hgb 10.4 L (11.4-16.0) gm/dL Hct 32.4 L (34.0-46.0) % Glucose 217 H (74-99) mg/dL POC Glucose (mg/dL) 144 H (75-99) mg/dL Albumin 3.4 L (3.5-5.0) g/dL
[2021-09-22] MEDS: ATORVASTATIN 80 MG TAB PO SCH (19:58)
[2021-09-22] MEDS: MIRTAZAPINE 15 MG TAB PO SCH (19:58)
[2021-09-23] MEDS: MIDODRINE 5 MG TAB PO SCH ×2 (06:47→17:22)
[2021-09-23] MEDS: MEMANTINE 5 MG TAB PO SCH ×2 (06:48→17:21)
[2021-09-23] MEDS: CHOLECALCIFEROL 25 MCG (1000 IU) TABLET PO SCH ×2 (06:48→17:21)
[2021-09-23] MEDS: CLOPIDOGREL 75 MG TAB PO SCH (09:07)
[2021-09-23] MEDS: DONEPEZIL 10 MG TAB PO SCH (09:07)
[2021-09-23] MEDS: ASPIRIN 81 MG PO SCH (09:07)
[2021-09-23] MEDS: ASCORBIC ACID 500 MG TAB PO SCH (09:07)
[2021-09-23] MEDS: ZINC SULFATE 220 MG CAP PO SCH (09:07)
[2021-09-23] MEDS: HEPARIN SODIUM,PORCINE/PF 5,000 UNIT/0.5 ML SYRINGE SQ SCH ×2 (09:07→20:58)
[2021-09-23] MEDS: NIACIN TR 500 MG CAPLET PO SCH (09:07)
[2021-09-23] MEDS: Mirabegron [Myrbetriq] PO SCH (10:24)
--- NOTE | 2021-09-23 11:48 | P.PN ---
Subjective Progress Note Date: 09/23/21 86-year-old female patient of Dr. Avery with past medical history of type 2 diabetes, history of normal pressure hydrocephalus post CUTCH CLEANER shunt changed one half years ago, history of hypertension and hyperlipidemia along with a chronic kidney disease II. Patient was recently hospitalized in June 2021 due to possible TIA, possible anticholinergic effect of Elavil. Patient was discharged home with homecare. Patient has had multiple hospitalizations since July was diagnosed with Covid 19 in July, subsequently admitted for encephalopathic dementia and patient was discharged home with home care . Patient was brought into the emergency center due to sudden onset of garbled speech and worsening confusion. CT of the brain revealed cerebral atrophy, mild hydrocephalus, no significant change compared to old exam from July 2021. There was chronic small vessel ischemia with hypodensity around the posterior aspect of the shunt catheter in the right posterior parietal lobe white matter. CT angiogram of the neck and brain was negative. EKG showed sinus tachycardia and incomplete right bundle branch block. Onset of symptoms within 5 hours of presentation, NIH score was 4, status post TPA and then admitted into the intensive care unit. Patient is resting in bed, she is confused and speech is not making sense. No concern from her nurse. Vital signs have been stable. She has been afebrile, heart rate in the low 100s 101-108, blood pressure 145/79, pulse ox 95% on room air. WBC 11.3, hemoglobin 11.9. Creatinine 0.9. Triglycerides 170, cholesterol 112, HDL 47, LDL 30. Urinalysis showed blood small, leukoesterase moderate, WBCs 9. Echocardiogram reveals EF of 55-60% with moderate concentric left ventricle hypertrophy, mild mitral regurgitation, trace tricuspid regurgitation. Chest x-ray reveals mild pleural reaction left lung base improved. Patient has been seen by neurology, pulmonary medicine and cardiology. Patient is scheduled for repeat CAT scan of the brain this evening. 09/19: Patient remains in the intensive care unit. She is currently laying in bed and seems agitated trying to get comfortable. She apparently has been up in a chair earlier today. Speech is clear sometimes slurred but patient still does not make sense. Patient has been cleared for transfer to cardiac stepdown unit. Consult with cardiology will be added for possible left ventricular OT obstruction as advised by neurology and noted on CTA. Repeat CAT scan of the brain showed no evidence of acute bleeding. No acute abnormality. Seroquel will be discontinued and started on Remeron. Capillary blood glucose running between 126 and 149. WBC 13.8, hemoglobin 11. CO2 20, BUN 24 creatinine 0.76. Triglycerides 170, cholesterol 112, LDL 30, HDL 47. Pro-calcitonin 0.9. 09/20: Patient remains in the intensive care unit while waiting for a bed on the [facility].. Patient continues to have significant confusion. She is talking to herself continuously. She seems to have difficulty following instructions. Patient is continued on aspirin and Plavix, Lipitor. She is followed closely by neurology and also heel padder following. CAT scan of the brain has been ordered for today. Therapies are following as well as social work. 09/21: Repeat CAT scan of the brain showed no acute intracranial hemorrhage or gross acute cortical infarct however he small acute or hyperacute infarct cannot be excluded. Stable chronic findings. Neurology is recommending Plavix and aspirin 81 mg daily for 21 days and then continue only the Plavix indefinitely. Patient also to be continued on Lipitor. Patient's mental status is improved today, speech is clear. She is cooperative. Discharge plan is for subacute rehab at [facility]. Patient will be discharged today in stable condition. 09/22 patient examined bedside. He is able to answer questions appropriately. She does dive ordered in between and has garbled speech. It appears stated patient has some baseline confusion but is eating well. She is participating with physical therapy. Neurology recommended Plavix and aspirin for 21 days following which Plavix indefinitely. Cardiology plans to put on loop recorder in place.Vitals are stable afebrile blood pressure 110/59. Hemoglobin 10.4 WBC 9 platelets 243 sodium 138 potassium 3.7 BUN 14 creatinine 0.7 09/23: She was examined at the bedside. She is able to answer questions appropriately. Patient is scheduled for a loop recorder insertion more than likely today. Patient does have history of baseline confusion. However she is alert and appropriate today. Awaiting approval for subacute rehab. Patient remains afebrile, heart rate 89, respirations 16, pressure 115/64, 97% on room air. REVIEW OF SYSTEMS Constitutional: No fever, no chills, no night sweats. No weight change. Generalized weakness, fatigue or lethargy. No daytime sleepiness.still slightly but confused. EENT: No headache. No blurred vision or double vision, no loss of vision. No loss of Hearing, no ringing in the ears, no dizziness. No nasal drainage or co ngestion. No epistaxis. No sore throat. Lungs: No shortness of breath, cough, no sputum production. No wheezing. Cardiovascular: No chest pain, no lower extremity edema. No palpitations. No paroxysmal nocturnal dyspnea. No orthopnea. No lightheadedness or dizziness. No syncopal episodes. Abdominal: No abdominal pain. No nausea, vomiting. No diarrhea. No constipation. No bloody or tarry stools.. No loss of appetite. Genitourinary: No dysuria, increased frequency, urgency. No urinary retention. Musculoskeletal: generalized muscle pain and myalgia. Integumentary: No wounds, no lesions. No rash or pruritus. No unusual bruising. No change in hair or nails. Neurologic: No aphasia. Slurred speech improving gargled speech in between . No facial droop. Noted change in mentation. No head injury. No headache. No paralysis. No paresthesia. Confusion with worsening dementia. Psychiatric: No depression. No anxiety. Noted mood swings. Endocrine: No abnormal blood sugars. No weight change. No excessive sweating or thirst. No cold intolerance. PHYSICAL EXAMINATION Gen: This is an 86-year-old female. Patient is resting in the ICU bed and appears to be in no acute distress. Patient is agitated, confused. HEENT: Head is atraumatic, normocephalic. Pupils equal, round. Sclerae is anicteric. NECK: Supple. No JVD. No lymphadenopathy. No thyromegaly. LUNGS: Clear to auscultation. No wheezes or rhonchi. No intercostal retractions. HEART: Regular rate and rhythm. No murmur. ABDOMEN: Soft. Bowel sounds are present. No masses. No tenderness. EXTREMITIES: No pedal edema. No calf tenderness. NEUROLOGICAL: Patient is awake, alert and oriented to person. ASSESSMENT AND PLAN 1. Acute CVA status post TPA. Neurology consult appreciated. PT, OT, speech therapies. Continue Lipitor 80 mg at bedtime and Plavix 75 mg daily, aspirin 81 mg daily. cardiology plans for loop recorder 2. 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 Consult with cardiology 3. Normal pressure hydrocephalus status post shunt. 4. Recent hospitalization in July for Covid 19 infection. Continue vitamin D, vitamin C, zinc . 5. Dementia. Continue Namenda 5 mg twice daily, Aricept 10 mg at hs. Seroquel discontinued and patient started on Remeron. 6. Hyperlipidemia. Continue Lipitor 80 mg at bedtime. 7. Diabetes mellitus type 2. Continue NovoLog scale before meals and at bedtime, Levemir 10 units when necessary. 8. Hypertension. Patient is on midodrine 5 mg twice daily. 9. Recurrent depression. Remeron 7.5 mg at bedtime 10. Chronic kidney disease stage 2. Avoid nephrotoxic agents. 11. GI prophylaxis. Protonix. 12. DVT prophylaxis. DISCHARGE PLAN Subacute rehab at rehab awaiting authorization possibly Saturday. Impression and plan of care have been directed as dictated by the signing physician. Yajaira Shin nurse practitioner acting as scribe for signing physician. Objective - Vital Signs Vital signs: Vital Signs Temp 98.4 F 09/23/21 08:00 Pulse 89 09/23/21 08:00 Resp 16 09/23/21 08:00 BP 115/64 09/23/21 08:00 Pulse Ox 100 09/23/21 08:22 Intake & Output 09/22/21 09/23/21 09/23/21 18:59 06:59 18:59 Intake Total 840 0 Balance 840 0 Weight 60.1 kg Intake: Oral 840 0 Other: Voiding Method Diaper Diaper Diaper Incontinent Incontinent Incontinent External Catheter External Catheter External Catheter # Voids 1 2 # Bowel Movements 1 - Labs CBC & Chem 7: 09/22/21 09:06 09/22/21 09:06
--- NOTE | 2021-09-23 13:50 | P.PN ---
Subjective Progress Note Date: 09/23/21 The patient was interviewed and examined lying comfortably in bed. She states she continues to struggle with aphasia and confusion. She denies any chest pain or chest pressure. No heart racing or fluttering. No dizziness or lightheadedness. She also denies any pain or pressure, however she states she's not been up ambulating out of her bed. Dr. Salgado spoke with the patient's son and he'll be proceeding with a loop implant. Procedure was explained to the patient in detail. She states she does not have any additional questions at this time. GENERAL: Well-appearing, well-nourished and in no acute distress. NECK: Supple without JVD or thyromegaly. LUNGS: Breath sounds clear to auscultation bilaterally. Respiration equal and unlabored. No wheezes, rales or rhonchi. HEART: Regular rate and rhythm without murmurs, rubs or gallops. S1 and S2 heard. EXTREMITIES: Normal range of motion, no edema. No clubbing or cyanosis. Peripheral pulses intact and strong. VITALS: Blood pressure 118/68, pulse 91, respiratory rate 16, temp 98.2F, SpO2 96% on room air TELEMETRY: Sinus mechanism LABS: WBC 9.0, hemoglobin 10.4, hematocrit 32.4 platelet 243, sodium 138, potassium 3.7 mL BUN 14, creatinine 0.73 IMPRESSION: Acute CVA, on dual antiplatelet therapy Diabetes mellitus Hyperlipidemia Hydrocephalus with ADMINISTRATIVE SALES ASSISTANT shunt Hypertension PLAN: Proceed with loop monitor implant to assess for atrial arrhythmia in the setting of embolic CVA Continue current medication regimen Further recommendations will be based on clinical course I am dictating on behalf of Dr Bam Salgado's history/physical and assessment/plan. Objective - Vital Signs Vital signs: Vital Signs Temp 98.2 F 09/23/21 12:00 Pulse 91 09/23/21 12:00 Resp 16 09/23/21 12:00 BP 118/68 09/23/21 12:00 Pulse Ox 96 09/23/21 12:00 Intake & Output 09/22/21 09/23/21 09/23/21 18:59 06:59 18:59 Intake Total 840 0 Balance 840 0 Weight 60.1 kg Intake: Oral 840 0 Other: Voiding Method Diaper Diaper Diaper Incontinent Incontinent Incontinent External Catheter External Catheter External Catheter # Voids 1 2 # Bowel Movements 1 - Labs CBC & Chem 7: 09/22/21 09:06 09/22/21 09:06
[2021-09-23] MEDS ORDERED: CALCIUM CARBONATE 500 MG CHEWABLE PO PRN (14:57)
[2021-09-23] MEDS ORDERED: LIDOCAINE 1% INJ 10MG/ML (20 ML MDV) ONE (18:30)
[2021-09-23] MEDS ORDERED: LIDOCAINE 1% INJ 10MG/ML (20 ML MDV) SQ ONE (19:05)
--- NOTE | 2021-09-23 19:24 | P.EPPROC ---
- EP Procedure Note Electrophysiology Procedure Note: Loop monitor implant Primary physicians: Puncher: Dr. Salgado Indication: Embolic stroke Patient was brought to the EP lab in a fasting state. Written informed consent was obtained prior to the procedure. The left pectoral area was prepped and draped per protocol. Intravenous antibiotic was administered preoperatively. A subcutaneous Loop monitor was implanted successfully and the wound was closed per protocol. The device was programmed to detect significant emile- arrhythmic and tachy-arrhythmic events, per protocol. Device and programming details: A. fib detection Procedure performed under local anesthesia only
[2021-09-23] MEDS: ATORVASTATIN 80 MG TAB PO SCH (20:58)
[2021-09-23] MEDS: MIRTAZAPINE 15 MG TAB PO SCH (20:58)
[2021-09-23 21:18] LABS: Glucose,Whole Blood 140 mg/dL (75-99)
[2021-09-24] MEDS: MEMANTINE 5 MG TAB PO SCH ×2 (06:34→17:23)
[2021-09-24] MEDS: CHOLECALCIFEROL 25 MCG (1000 IU) TABLET PO SCH ×2 (06:34→17:23)
[2021-09-24] MEDS: MIDODRINE 5 MG TAB PO SCH ×2 (06:34→17:23)
[2021-09-24 09:18] LABS: Basophils # (A) 0.1 k/uL (0-0.2); Basophils % (A) 1 %; Eosinophils # (A) 0.1 k/uL (0-0.7); Eosinophils % (A) 1 %; HCT 33.6 % (34.0-46.0); HGB 10.8 gm/dL (11.4-16.0); Hypochromasia Slight; Lymphocytes # (A) 1.6 k/uL (1.0-4.8); Lymphocytes % (A) 16 %; MCH 30.6 pg (25.0-35.0); MCHC 32.2 g/dL (31.0-37.0); MCV 95.1 fL (80.0-100.0); Mean Platelet Volume 7.7; Monocytes # (A) 0.4 k/uL (0-1.0); Monocytes % (A) 4 %; Neutrophils # (A) 7.7 k/uL (1.3-7.7); Neutrophils % (A) 76 %; Platelet Count 387 k/uL (150-450); RBC 3.54 m/uL (3.80-5.40); RDW 15.5 % (11.5-15.5); WBC 10.2 k/uL (3.8-10.6)
[2021-09-24] MEDS: ZINC SULFATE 220 MG CAP PO SCH (09:22)
[2021-09-24] MEDS: CLOPIDOGREL 75 MG TAB PO SCH (09:22)
[2021-09-24] MEDS: DONEPEZIL 10 MG TAB PO SCH (09:22)
[2021-09-24] MEDS: FAMOTIDINE 20 MG TAB PO SCH (09:22)
[2021-09-24] MEDS: ASPIRIN 81 MG PO SCH (09:22)
[2021-09-24] MEDS: NIACIN TR 500 MG CAPLET PO SCH (09:22)
[2021-09-24] MEDS: HEPARIN SODIUM,PORCINE/PF 5,000 UNIT/0.5 ML SYRINGE SQ SCH ×2 (09:22→22:02)
[2021-09-24] MEDS: ASCORBIC ACID 500 MG TAB PO SCH (09:22)
[2021-09-24] MEDS: Mirabegron [Myrbetriq] PO SCH (09:28)
[2021-09-24 09:31] LABS: Albumin 3.7 g/dL (3.5-5.0); Calcium 9.6 mg/dL (8.4-10.2); Potassium 4.2 mmol/L (3.5-5.1); Total Bilirubin 0.6 mg/dL (0.2-1.3); Total Protein 7.3 g/dL (6.3-8.2)
--- NOTE | 2021-09-24 11:51 | P.PN ---
Subjective Progress Note Date: 09/24/21 86-year-old female patient of Dr. Avery with past medical history of type 2 diabetes, history of normal pressure hydrocephalus post CERTIFIED MEDICAL BILLER shunt changed one half years ago, history of hypertension and hyperlipidemia along with a chronic kidney disease II. Patient was recently hospitalized in June 2021 due to possible TIA, possible anticholinergic effect of Elavil. Patient was discharged home with homecare. Patient has had multiple hospitalizations since July was diagnosed with Covid 19 in July, subsequently admitted for encephalopathic dementia and patient was discharged home with home care . Patient was brought into the emergency center due to sudden onset of garbled speech and worsening confusion. CT of the brain revealed cerebral atrophy, mild hydrocephalus, no significant change compared to old exam from July 2021. There was chronic small vessel ischemia with hypodensity around the posterior aspect of the shunt catheter in the right posterior parietal lobe white matter. CT angiogram of the neck and brain was negative. EKG showed sinus tachycardia and incomplete right bundle branch block. Onset of symptoms within 5 hours of presentation, NIH score was 4, status post TPA and then admitted into the intensive care unit. Patient is resting in bed, she is confused and speech is not making sense. No concern from her nurse. Vital signs have been stable. She has been afebrile, heart rate in the low 100s 101-108, blood pressure 145/79, pulse ox 95% on room air. WBC 11.3, hemoglobin 11.9. Creatinine 0.9. Triglycerides 170, cholesterol 112, HDL 47, LDL 30. Urinalysis showed blood small, leukoesterase moderate, WBCs 9. Echocardiogram reveals EF of 55-60% with moderate concentric left ventricle hypertrophy, mild mitral regurgitation, trace tricuspid regurgitation. Chest x-ray reveals mild pleural reaction left lung base improved. Patient has been seen by neurology, pulmonary medicine and cardiology. Patient is scheduled for repeat CAT scan of the brain this evening. 09/19: Patient remains in the intensive care unit. She is currently laying in bed and seems agitated trying to get comfortable. She apparently has been up in a chair earlier today. Speech is clear sometimes slurred but patient still does not make sense. Patient has been cleared for transfer to cardiac stepdown unit. Consult with cardiology will be added for possible left ventricular OT obstruction as advised by neurology and noted on CTA. Repeat CAT scan of the brain showed no evidence of acute bleeding. No acute abnormality. Seroquel will be discontinued and started on Remeron. Capillary blood glucose running between 126 and 149. WBC 13.8, hemoglobin 11. CO2 20, BUN 24 creatinine 0.76. Triglycerides 170, cholesterol 112, LDL 30, HDL 47. Pro-calcitonin 0.9. 2: Patient remains in the intensive care unit while waiting for a bed on the [facility] Patient continues to have significant confusion. She is talking to herself continuously. She seems to have difficulty following instructions. Patient is continued on aspirin and Plavix, Lipitor. She is followed closely by neurology and also sand slinger following. CAT scan of the brain has been ordered for today. Therapies are following as well as social work. 09/21: Repeat CAT scan of the brain showed no acute intracranial hemorrhage or gross acute cortical infarct however he small acute or hyperacute infarct cannot be excluded. Stable chronic findings. Neurology is recommending Plavix and aspirin 81 mg daily for 21 days and then continue only the Plavix indefinitely. Patient also to be continued on Lipitor. Patient's mental status is improved today, speech is clear. She is cooperative. Discharge plan is for subacute rehab at [facility]. Patient will be discharged today in stable condition. 09/22 patient examined bedside. He is able to answer questions appropriately. She does dive ordered in between and has garbled speech. It appears stated patient has some baseline confusion but is eating well. She is participating with physical therapy. Neurology recommended Plavix and aspirin for 21 days following which Plavix indefinitely. Cardiology plans to put on loop recorder in place.Vitals are stable afebrile blood pressure 110/59. Hemoglobin 10.4 WBC 9 platelets 243 sodium 138 potassium 3.7 BUN 14 creatinine 0.7 09/23: She was examined at the bedside. She is able to answer questions appropriately. Patient is scheduled for a loop recorder insertion more than likely today. Patient does have history of baseline confusion. However she is alert and appropriate today. Awaiting approval for subacute rehab. Patient remains afebrile, heart rate 89, respirations 16, pressure 115/64, 97% on room air. 09/24: Patient is examined at the bedside. She was able to answer questions appropriately however some of her speech was confused. She had a loop recorder insertion yesterday. Dressing is dry and intact to the anterior chest wall. Still awaiting approval for subacute rehab. Patient remains afebrile, heart rate 98, respirations 18, blood pressure 126/74, pulse ox 97% on room air. REVIEW OF SYSTEMS Constitutional: No fever, no chills, no night sweats. No weight change. Generalized weakness, fatigue or lethargy. No daytime sleepiness.still slightly but confused. EENT: No headache. No blurred vision or double vision, no loss of vision. No loss of Hearing, no ringing in the ears, no dizziness. No nasal drainage or congestion. No epistaxis. No sore throat. Lungs: No shortness of breath, cough, no sputum production. No wheezing. Cardiovascular: No chest pain, no lower extremity edema. No palpitations. No paroxysmal nocturnal dyspnea. No orthopnea. No lightheadedness or dizziness. No syncopal episodes. Abdominal: No abdominal pain. No nausea, vomiting. No diarrhea. No constipation. No bloody or tarry stools.. No loss of appetite. Genitourinary: No dysuria, increased frequency, urgency. No urinary retention. Musculoskeletal: generalized muscle pain and myalgia. Integumentary: No wounds, no lesions. No rash or pruritus. No unusual bruising. No change in hair or nails. Neurologic: No aphasia. Slurred speech improving gargled speech in between . No facial droop. Noted change in mentation. No head injury. No headache. No paralysis. No paresthesia. Confusion with worsening dementia. Psychiatric: No depression. No anxiety. Noted mood swings. Endocrine: No abnormal blood sugars. No weight change. No excessive sweating or thirst. No cold intolerance. PHYSICAL EXAMINATION Gen: This is an 86-year-old female. Patient is resting in the bed and appears to be in no acute distress. Patient is confused enough to answer some questions appropriately. HEENT: Head is atraumatic, normocephalic. Pupils equal, round. Sclerae is anicteric. NECK: Supple. No JVD. No lymphadenopathy. No thyromegaly. LUNGS: Clear to auscultation. No wheezes or rhonchi. No intercostal retractions. HEART: Regular rate and rhythm. No murmur. ABDOMEN: Soft. Bowel sounds are present. No masses. No tenderness. EXTREMITIES: No pedal edema. No calf tenderness. NEUROLOGICAL: Patient is awake, alert and oriented to person. ASSESSMENT AND PLAN 1. Acute CVA status post TPA. Neurology consult appreciated. PT, OT, speech therapies. Continue Lipitor 80 mg at bedtime and Plavix 75 mg daily, aspirin 81 mg daily. Recorder inserted yesterday dressing is dry and intact 2. 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 Consult with cardiology 3. Normal pressure hydrocephalus status post shunt. 4. Recent hospitalization in July for Covid 19 infection. Continue vitamin D, vitamin C, zinc . 5. Dementia. Continue Namenda 5 mg twice daily, Aricept 10 mg at hs. Seroquel discontinued and patient started on Remeron. 6. Hyperlipidemia. Continue Lipitor 80 mg at bedtime. 7. Diabetes mellitus type 2. Continue NovoLog scale before meals and at bedtime, Levemir 10 units when necessary. 8. Hypertension. Patient is on midodrine 5 mg twice daily. 9. Recurrent depression. Remeron 7.5 mg at bedtime 10. Chronic kidney disease stage 2. Avoid nephrotoxic agents. 11. GI prophylaxis. Protonix. 12. DVT prophylaxis. DISCHARGE PLAN Subacute rehab at rehab awaiting authorization possibly Saturday. Impression and plan of care have been directed as dictated by the signing physician. Yajaira Shin nurse practitioner acting as scribe for signing physician. Objective - Vital Signs Vital signs: Vital Signs Temp 97.9 F 09/24/21 08:00 Pulse 98 09/24/21 08:00 Resp 18 09/24/21 08:00 BP 126/74 09/24/21 08:00 Pulse Ox 97 09/24/21 08:00 Intake & Output 09/23/21 09/24/21 09/24/21 18:59 06:59 18:59 Intake Total 300 50 Balance 300 50 Intake: IV 50 Oral 300 Other: Voiding Method Diaper Diaper Diaper Incontinent Incontinent Incontinent External Catheter External Catheter External Catheter # Voids 2 # Bowel Movements 1 - Labs CBC & Chem 7: 09/24/21 08:49 09/24/21 08:49 Labs: Abnormal Lab Results - Last 24 Hours (Table) 09/23/21 09/24/21 09/24/21 Range/Units 20:56 08:49 08:49 RBC 3.54 L (3.80-5.40) m/uL Hgb 10.8 L (11.4-16.0) gm/dL Hct 33.6 L (34.0-46.0) % Glucose 189 H (74-99) mg/dL POC Glucose (mg/dL) 140 H (75-99) mg/dL
--- NOTE | 2021-09-24 12:47 | P.PN ---
Subjective Progress Note Date: 09/24/21 The patient was interviewed and examined lying comfortably in bed. She states she continues to struggle with aphasia and confusion. She denies any chest pain or chest pressure. No heart racing or fluttering. No dizziness or lightheadedness. She also denies any pain or pressure. The patient underwent loop monitor implant at bedside yesterday. She states there is no complications. No pain at her site. GENERAL: Well-appearing, well-nourished and in no acute distress. NECK: Supple without JVD or thyromegaly. LUNGS: Breath sounds clear to auscultation bilaterally. Respiration equal and unlabored. No wheezes, rales or rhonchi. HEART: Regular rate and rhythm without murmurs, rubs or gallops. S1 and S2 heard. Loop monitor dressing in place EXTREMITIES: Normal range of motion, no edema. No clubbing or cyanosis. Peripheral pulses intact and strong. VITALS: Blood pressure 125/54, pulse 94, temp 98.0F, respiratory rate 18, 96% on room air TELEMETRY: Sinus mechanism LABS: WBC 10.2, hemoglobin 10.8, hematocrit 33.6, platelet 387, sodium 140, potassium 4.2, BUN 14, creatinine 0.81 IMPRESSION: Acute CVA, on dual antiplatelet therapy Diabetes mellitus Hyperlipidemia Hydrocephalus with MEDICAL OFFICE SECRETARY shunt Hypertension PLAN: No additional recommendations from the cardiac standpoint Patient will follow-up with device clinic [facility] in one week I am dictating on behalf of Dr Bam Salgado's history/physical and assessment/plan. Objective - Vital Signs Vital signs: Vital Signs Temp 98.2 F 09/24/21 04:00 Pulse 94 09/24/21 04:00 Resp 18 09/24/21 04:00 BP 107/68 09/24/21 04:00 Pulse Ox 98 09/24/21 04:00 Intake & Output 09/23/21 09/24/21 09/24/21 18:59 06:59 18:59 Intake Total 300 50 Balance 300 50 Intake: IV 50 Oral 300 Other: Voiding Method Diaper Diaper Incontinent Incontinent External Catheter External Catheter # Voids 2 # Bowel Movements 1 - Labs CBC & Chem 7: 09/24/21 08:49 09/24/21 08:49 Labs: Abnormal Lab Results - Last 24 Hours (Table) 09/23/21 Range/Units 20:56 POC Glucose (mg/dL) 140 H (75-99) mg/dL
[2021-09-24] MEDS: MIRTAZAPINE 15 MG TAB PO SCH (22:02)
[2021-09-24] MEDS: ATORVASTATIN 80 MG TAB PO SCH (22:02)
[2021-09-25] MEDS: MIDODRINE 5 MG TAB PO SCH ×2 (07:02→17:57)
[2021-09-25] MEDS: CHOLECALCIFEROL 25 MCG (1000 IU) TABLET PO SCH ×2 (07:02→17:56)
[2021-09-25] MEDS: MEMANTINE 5 MG TAB PO SCH ×2 (07:02→17:56)
[2021-09-25] MEDS: ZINC SULFATE 220 MG CAP PO SCH (10:24)
[2021-09-25] MEDS: ASCORBIC ACID 500 MG TAB PO SCH (10:24)
[2021-09-25] MEDS: ASPIRIN 81 MG PO SCH (10:24)
[2021-09-25] MEDS: DONEPEZIL 10 MG TAB PO SCH (10:24)
[2021-09-25] MEDS: CLOPIDOGREL 75 MG TAB PO SCH (10:24)
[2021-09-25] MEDS: FAMOTIDINE 20 MG TAB PO SCH (10:24)
[2021-09-25] MEDS: HEPARIN SODIUM,PORCINE/PF 5,000 UNIT/0.5 ML SYRINGE SQ SCH ×2 (10:25→19:54)
[2021-09-25] MEDS: Mirabegron [Myrbetriq] PO SCH (10:32)
--- NOTE | 2021-09-25 14:19 | P.PN ---
Subjective Progress Note Date: 09/25/21 Progress Note Date: 09/25/21 86-year-old female patient of Dr. Avery with past medical history of type 2 diabetes, history of normal pressure hydrocephalus post SUPPLY CHAIN ANALYST shunt changed one half years ago, history of hypertension and hyperlipidemia along with a chronic kidney disease II. Patient was recently hospitalized in June 2021 due to possible TIA, possible anticholinergic effect of Elavil. Patient was discharged home with homecare. Patient has had multiple hospitalizations since July was diagnosed with Covid 19 in July, subsequently admitted for encephalopathic d [facility] and patient was discharged home with home care . Patient was brought into the emergency center due to sudden onset of garbled speech and worsening confusion. CT of the brain revealed cerebral atrophy, mild hydrocephalus, no significant change compared to old exam from July 2021. There was chronic small vessel ischemia with hypodensity around the posterior aspect of the shunt catheter in the right posterior parietal lobe white matter. CT angiogram of the neck and brain was negative. EKG showed sinus tachycardia and incomplete right bundle branch block. Onset of symptoms within 5 hours of presentation, NIH score was 4, status post TPA and then admitted into the intensive care unit. Patient is resting in bed, she is confused and speech is not making sense. No concern from her nurse. Vital signs have been stable. She has been afebrile, heart rate in the low 100s 101-108, blood pressure 145/79, pulse ox 95% on room air. WBC 11.3, hemoglobin 11.9. Creatinine 0.9. Triglycerides 170, cholesterol 112, HDL 47, LDL 30. Urinalysis showed blood small, leukoesterase moderate, WBCs 9. Echocardiogram reveals EF of 55-60% with moderate concentric left ventricle hypertrophy, mild mitral regurgitation, trace tricuspid regurgitation. Chest x-ray reveals mild pleural reaction left lung base improved. Patient has been seen by neurology, pulmonary medicine and cardiology. Patient is scheduled for repeat CAT scan of the brain this evening. 09/19: Patient remains in the intensive care unit. She is currently laying in bed and seems agitated trying to get comfortable. She apparently has been up in a chair earlier today. Speech is clear sometimes slurred but patient still does not make sense. Patient has been cleared for transfer to cardiac stepdown unit. Consult with cardiology will be added for possible left ventricular OT obstruction as advised by neurology and noted on CTA. Repeat CAT scan of the brain showed no evidence of acute bleeding. No acute abnormality. Seroquel will be discontinued and started on Remeron. Capillary blood glucose running between 126 and 149. WBC 13.8, hemoglobin 11. CO2 20, BUN 24 creatinine 0.76. Triglycerides 170, cholesterol 112, LDL 30, HDL 47. Pro-calcitonin 0.9. 32: Patient remains in the intensive care unit while waiting for a bed on the [facility] floor.. Patient continues to have significant confusion. She is t alking to herself continuously. She seems to have difficulty following instructions. Patient is continued on aspirin and Plavix, Lipitor. She is followed closely by neurology and also merchandising execution associate following. CAT scan of the brain has been ordered for today. Therapies are following as well as social work. 09/21: Repeat CAT scan of the brain showed no acute intracranial hemorrhage or gross acute cortical infarct however he small acute or hyperacute infarct cannot be excluded. Stable chronic findings. Neurology is recommending Plavix and aspirin 81 mg daily for 21 days and then continue only the Plavix indefinitely. Patient also to be continued on Lipitor. Patient's mental status is improved today, speech is clear. She is cooperative. Discharge plan is for subacute rehab at [facility]. Patient will be discharged today in stable condition. 09/22 patient examined bedside. He is able to answer questions appropriately. She does dive ordered in between and has garbled speech. It appears stated patient has some baseline confusion but is eating well. She is participating with physical therapy. Neurology recommended Plavix and aspirin for 21 days following which Plavix indefinitely. Cardiology plans to put on loop recorder in place.Vitals are stable afebrile blood pressure 110/59. Hemoglobin 10.4 WBC 9 platelets 243 sodium 138 potassium 3.7 BUN 14 creatinine 0.7 09/23: She was examined at the bedside. She is able to answer questions appropriately. Patient is scheduled for a loop recorder insertion more than likely today. Patient does have history of baseline confusion. However she is alert and appropriate today. Awaiting approval for subacute rehab. Patient re josephine afebrile, heart rate 89, respirations 16, pressure 115/64, 97% on room air. 09/24: Patient is examined at the bedside. She was able to answer questions appropriately however some of her speech was confused. She had a loop recorder insertion yesterday. Dressing is dry and intact to the anterior chest wall. Still awaiting approval for subacute rehab. Patient remains afebrile, heart rate 98, respirations 18, blood pressure 126/74, pulse ox 97% on room air. 09/25: Patient is doing slightly better respond has been better to some degree was able to carry some conversation with her today she's continued to be quite confused, but is able to carry on some physical therapy. Patient apparently is waiting to go subacute rehab at this point. REVIEW OF SYSTEMS Constitutional: No fever, no chills, no night sweats. No weight change. Generalized weakness, fatigue or lethargy. No daytime sleepiness.still slightly but confused. EENT: No headache. No blurred vision or double vision, no loss of vision. No loss of Hearing, no ringing in the ears, no dizziness. No nasal drainage or congestion. No epistaxis. No sore throat. Lungs: No shortness of breath, cough, no sputum production. No wheezing. Cardiovascular: No chest pain, no lower extremity edema. No palpitations. No paroxysmal nocturnal dyspnea. No orthopnea. No lightheadedness or dizziness. No syncopal episodes. Abdominal: No abdominal pain. No nausea, vomiting. No diarrhea. No constipation. No bloody or tarry stools.. No loss of appetite. Genitourinary: No dysuria, increased frequency, urgency. No urinary retention. Musculoskeletal: generalized muscle pain and myalgia. Integumentary: No wounds, no lesions. No rash or pruritus. No unusual bruising. No change in hair or nails. Neurologic: No aphasia. Slurred speech improving gargled speech in between . No facial droop. Noted change in mentation. No head injury. No headache. No paralysis. No paresthesia. Confusion with worsening dementia. Psychiatric: No depression. No anxiety. Noted mood swings. Endocrine: No abnormal blood sugars. No weight change. No excessive sweating or thirst. No cold intolerance. PHYSICAL EXAMINATION Gen: This is an 86-year-old female. Patient is resting in the bed and appears to be in no acute distress. Patient is confused enough to answer some questions appropriately. HEENT: Head is atraumatic, normocephalic. Pupils equal, round. Sclerae is ani cteric. NECK: Supple. No JVD. No lymphadenopathy. No thyromegaly. LUNGS: Clear to auscultation. No wheezes or rhonchi. No intercostal retractions. HEART: Regular rate and rhythm. No murmur. ABDOMEN: Soft. Bowel sounds are present. No masses. No tenderness. EXTREMITIES: No pedal edema. No calf tenderness. NEUROLOGICAL: Patient is awake, alert and oriented to person. ASSESSMENT AND PLAN 1. Acute CVA status post TPA. Neurology consult appreciated. PT, OT, speech therapies. Continue secondary prevention been on Lipitor 80 mg at bedtime and Plavix 75 mg daily, aspirin 81 mg daily. We'll titrate PTOT patient will be going to subacute rehab. 2. 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 Consult with cardiology on medical management only. 3. Normal pressure hydrocephalus status post shunt. Has been doing better with no blockage of the shunt. 4. Recent hospitalization in July for Covid 19 infection. Continue supplement patient is doing well no residual. 5. Dementia. Continue Namenda 5 mg twice daily, Aricept 10 mg at hs. Seroquel discontinued and patient started on Remeron. 6. Hyperlipidemia. Continue Lipitor 80 mg at bedtime. 7. Diabetes mellitus type 2. Continue NovoLog scale before meals and at bedtime, Levemir 10 units when necessary. 8. Hypotension. Patient is on midodrine 5 mg twice daily. 9. Recurrent depression. Remeron 7.5 mg at bedtime 10. Chronic kidney disease stage 2. Avoid nephrotoxic agents. 11. GI prophylaxis. Protonix. 12. DVT prophylaxis. DISCHARGE PLAN Subacute rehab at rehab awaiting authorization. Objective - Vital Signs Vital signs: Vital Signs Temp 98 F 09/25/21 11:24 Pulse 94 09/25/21 11:24 Resp 18 09/25/21 11:24 BP 100/61 09/25/21 11:24 Pulse Ox 98 09/25/21 11:24 Intake & Output 09/24/21 09/25/21 09/25/21 18:59 06:59 18:59 Intake Total 220 360 Balance 220 360 Intake: Oral 220 360 Other: Voiding Method Diaper Diaper Incontinent Incontinent External Catheter # Voids 1 1 1 # Bowel Movements 1 1 - Labs CBC & Chem 7: 09/24/21 08:49 09/24/21 08:49
[2021-09-25] MEDS: NIACIN TR 500 MG CAPLET PO SCH (17:56)
[2021-09-25] MEDS: ATORVASTATIN 80 MG TAB PO SCH (19:54)
[2021-09-25] MEDS: MIRTAZAPINE 15 MG TAB PO SCH (19:54)
[2021-09-26] MEDS: MEMANTINE 5 MG TAB PO SCH (06:27)
[2021-09-26] MEDS: MIDODRINE 5 MG TAB PO SCH (06:27)
[2021-09-26] MEDS: CHOLECALCIFEROL 25 MCG (1000 IU) TABLET PO SCH (06:27)
--- NOTE | 2021-09-26 10:30 | P.PN ---
Subjective Progress Note Date: 09/26/21 Progress Note Date: 86-year-old female patient of Dr. Avery with past medical history of type 2 diabetes, history of normal pressure hydrocephalus post DELIVERY HELPER shunt changed one half years ago, history of hypertension and hyperlipidemia along with a chronic kidney disease II. Patient was recently hospitalized in June 2021 due to possible TIA, possible anticholinergic effect of Elavil. Patient was discharged home with homecare. Patient has had multiple hospitalizations since July was diagnosed with Covid 19 in July, subsequently admitted for encephalopathic dementia and patient was discharged home with home care . Patient was brought into the emergency center due to sudden onset of garbled speech and worsening confusion. CT of the brain revealed cerebral atrophy, mild hydrocephalus, no significant change compared to old exam from July 2021. There was chronic small vessel ischemia with hypodensity around the posterior aspect of the shunt catheter in the right posterior parietal lobe white matter. CT angiogram of the neck and brain was negative. EKG showed sinus tachycardia and incomplete right bundle branch block. Onset of symptoms within 5 hours of presentation, NIH score was 4, status post TPA and then admitted into the intensive care unit. Philippe lucio is resting in bed, she is confused and speech is not making sense. No concern from her nurse. Vital signs have been stable. She has been afebrile, heart rate in the low 100s 101-108, blood pressure 145/79, pulse ox 95% on room air. WBC 11.3, hemoglobin 11.9. Creatinine 0.9. Triglycerides 170, cholesterol 112, HDL 47, LDL 30. Urinalysis showed blood small, leukoesterase moderate, WBCs 9. Echocardiogram reveals EF of 55-60% with moderate concentric left ventricle hypertrophy, mild mitral regurgitation, trace tricuspid regurgitation. Chest x-ray reveals mild pleural reaction left lung base improved. Patient has been seen by neurology, pulmonary medicine and cardiology. Patient is scheduled for repeat CAT scan of the brain this evening. 09/19: Patient remains in the intensive care unit. She is currently laying in bed and seems agitated trying to get comfortable. She apparently has been up in a chair earlier today. Speech is clear sometimes slurred but patient still does not make sense. Patient has been cleared for transfer to cardiac stepdown unit. Consult with cardiology will be added for possible left ventricular OT obstruction as advised by neurology and noted on CTA. Repeat CAT scan of the brain showed no evidence of acute bleeding. No acute abnormality. Seroquel will be discontinued and started on Remeron. Capillary blood glucose running between 126 and 149. WBC 13.8, hemoglobin 11. CO2 20, BUN 24 creatinine 0.76. Triglycerides 170, cholesterol 112, LDL 30, HDL 47. Pro-calcitonin 0.9. 2: Patient remains in the intensive care unit while waiting for a bed on the [facility] floor.. Patient continues to have significant confusion. She is talking to herself continuously. She seems to have difficulty following instructions. Patient is continued on aspirin and Plavix, Lipitor. She is followed closely by neurology and also house mover supervisor following. CAT scan of the brain has been ordered for today. Therapies are following as well as social work. 09/21: Repeat CAT scan of the brain showed no acute intracranial hemorrhage or gross acute cortical infarct however he small acute or hyperacute infarct cannot be excluded. Stable chronic findings. Neurology is recommending Plavix and aspirin 81 mg daily for 21 days and then continue only the Plavix indefinitely. Patient also to be continued on Lipitor. Patient's mental status is improved to day, speech is clear. She is cooperative. Discharge plan is for subacute rehab at [facility]. Patient will be discharged today in stable condition. 09/22 patient examined bedside. He is able to answer questions appropriately. She does dive ordered in between and has garbled speech. It appears stated patient has some baseline confusion but is eating well. She is participating with physical therapy. Neurology recommended Plavix and aspirin for 21 days following which Plavix indefinitely. Cardiology plans to put on loop recorder in place.Vitals are stable afebrile blood pressure 110/59. Hemoglobin 10.4 WBC 9 platelets 243 sodium 138 potassium 3.7 BUN 14 creatinine 0.7 09/23: She was examined at the bedside. She is able to answer questions appropriately. Patient is scheduled for a loop recorder insertion more than likely today. Patient does have history of baseline confusion. However she is alert and appropriate today. Awaiting approval for subacute rehab. Patient remains afebrile, heart rate 89, respirations 16, pressure 115/64, 97% on room air. 09/24: Patient is examined at the bedside. She was able to answer questions appropriately however some of her speech was confused. She had a loop recorder insertion yesterday. Dressing is dry and intact to the anterior chest wall. Still awaiting approval for subacute rehab. Patient remains afebrile, heart rate 98, respirations 18, blood pressure 126/74, pulse ox 97% on room air. 09/25: Patient is doing slightly better respond has been better to some degree was able to carry some conversation with her today she's continued to be quite confused, but is able to carry on some physical therapy. Patient apparently is waiting to go subacute rehab at this point. 09/26: Patient is doing much better today still laying in bed comfortably this morning, was able to participate to some degree with physical therapy and the patient of therapy. mold yard worker found place to go to subacute rehab in [facility] which will be able to do it today. Patient otherwise medically stable for her discharge today. REVIEW OF SYSTEMS Constitutional: No fever, no chills, no night sweats. No weight change. G eneralized weakness, fatigue or lethargy. No daytime sleepiness.still slightly but confused. EENT: No headache. No blurred vision or double vision, no loss of vision. No loss of Hearing, no ringing in the ears, no dizziness. No nasal drainage or congestion. No epistaxis. No sore throat. Lungs: No shortness of breath, cough, no sputum production. No wheezing. Cardiovascular: No chest pain, no lower extremity edema. No palpitations. No paroxysmal nocturnal dyspnea. No orthopnea. No lightheadedness or dizziness. No syncopal episodes. Abdominal: No abdominal pain. No nausea, vomiting. No diarrhea. No constipation. No bloody or tarry stools.. No loss of appetite. Genitourinary: No dysuria, increased frequency, urgency. No urinary retention. Musculoskeletal: generalized muscle pain and myalgia. Integumentary: No wounds, no lesions. No rash or pruritus. No unusual bruising. No change in hair or nails. Neurologic: No aphasia. Slurred speech improving gargled speech in between . No facial droop. Noted change in mentation. No head injury. No headache. No paralysis. No paresthesia. Confusion with worsening dementia. Psychiatric: No depression. No anxiety. Noted mood swings. Endocrine: No abnormal blood sugars. No weight change. No excessive sweating or thirst. No cold intolerance. PHYSICAL EXAMINATION Gen: This is an 86-year-old female. Patient is resting in the bed and appears to be in no acute distress. Patient is confused enough to answer some questions appropriately. HEENT: Head is atraumatic, normocephalic. Pupils equal, round. Sclerae is anicteric. NECK: Supple. No JVD. No lymphadenopathy. No thyromegaly. LUNGS: Clear to auscultation. No wheezes or rhonchi. No intercostal retractions. HEART: Regular rate and rhythm. No murmur. ABDOMEN: Soft. Bowel sounds are present. No masses. No tenderness. EXTREMITIES: No pedal edema. No calf tenderness. NEUROLOGICAL: Patient is awake, alert and oriented to person. ASSESSMENT AND PLAN 1. Acute CVA status post TPA. Neurology consult appreciated. PT, OT, speech therapies. Continue secondary prevention been on Lipitor 80 mg at bedtime and Plavix 75 mg daily, aspirin 81 mg daily. We'll titrate PTOT patient will be going to subacute rehab. 2. 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 Consult with cardiology on medical management only. 3. Normal pressure hydrocephalus status post shunt. Has been doing better with no blockage of the shunt. 4. Recent hospitalization in July for Covid 19 infection. Continue supplement patient is doing well no residual. 5. Dementia. Continue Namenda 5 mg twice daily, Aricept 10 mg at hs. Seroquel discontinued and patient started on Remeron. 6. Hyperlipidemia. Continue Lipitor 80 mg at bedtime. 7. Diabetes mellitus type 2. Continue NovoLog scale before meals and at bedtime, Levemir 10 units when necessary. 8. Hypotension. Patient is on midodrine 5 mg twice daily. 9. Recurrent depression. Remeron 7.5 mg at bedtime 10. Chronic kidney disease stage 2. Avoid nephrotoxic agents. DISCHARGE PLAN Subacute rehab at rehab at [facility] today. Objective - Vital Signs Vital signs: Vital Signs Temp 97.6 F 09/25/21 20:00 Pulse 84 09/26/21 04:00 Resp 16 09/26/21 04:00 BP 126/66 09/26/21 06:26 Pulse Ox 96 09/26/21 04:00 Intake & Output 09/25/21 09/26/21 09/26/21 18:59 06:59 18:59 Intake Total 480 200 0 Balance 480 200 0 Intake: Oral 480 200 0 Other: Voiding Method Diaper Diaper Incontinent Incontinent # Voids 1 2 # Bowel Movements 1 - Labs CBC & Chem 7: 09/24/21 08:49 09/24/21 08:49
--- NOTE | 2021-09-26 10:33 | P.DS ---
Providers Date of admission: 09/17/21 22:25 Attending physician: Priti Mccormick Consults: 09/17/21 22:26 Consult Physician Routine Consulting Provider: Cali Fernandes Consult Reason/Comments: CVA, TPA administered Do you want consulting provider notified?: Yes 09/17/21 22:31 Consult Physician Routine Consulting Provider: Renae Duque Consult Reason/Comments: CVA with TPA Do you want consulting provider notified?: Already Contacted 09/19/21 15:29 Consult Physician Routine Consulting Provider: Bam Salgado Consult Reason/Comments: possible LV OT obstruction on CTA Do you want consulting provider notified?: Yes Primary care physician: [facility] Course: Progress Note Date: 86-year-old female patient of Dr. 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 Patient was recently hospitalized in June 2021 due to possible TIA, possible anticholinergic effect of Elavil. Patient was discharged home with homecare. Patient has had multiple hospitalizations since July was diagnosed with Covid 19 in July, subsequently admitted for encephalopathic dementia and patient was discharged home with home care . Patient was brought into the emergency center due to sudden onset of garbled speech and worsening confusion. CT of the brain revealed cerebral atrophy, mild hydrocephalus, no significant change compared to old exam from July 2021. There was chronic small vessel ischemia with hypodensity around the posterior aspect of the shunt catheter in the right posterior parietal lobe white matter. CT angiogram of the neck and brain was negative. EKG showed sinus tachycardia and incomplete right bundle branch block. Onset of symptoms within 5 hours of presentation, NIH score was 4, status post TPA and then admitted into the intensive care unit. Patient is resting in bed, she is confused and speech is not making sense. No concern from her nurse. Vital signs have been stable. She has been afebrile, heart rate in the low 100s 101-108, blood pressure 145/79, pulse ox 95% on room air. WBC 11.3, hemoglobin 11.9. Creatinine 0.9. Triglycerides 170, cholesterol 112, HDL 47, LDL 30. Urinalysis showed blood small, leukoesterase moderate, WBCs 9. Echocardiogram reveals EF of 55-60% with moderate concentric left ventricle hypertrophy, mild mitral regurgitation, trace tricuspid regurgitation. Chest x-ray reveals mild pleural reaction left lung base improved. Patient has been seen by neurology, pulmonary medicine and cardiology. Patient is scheduled for repeat CAT scan of the brain this evening. 09/19: Patient remains in the intensive care unit. She is currently laying in bed and seems agitated trying to get comfortable. She apparently has been up in a chair earlier today. Speech is clear sometimes slurred but patient still does not make sense. Patient has been cleared for transfer to cardiac stepdown unit. Consult with cardiology will be added for possible left ventricular OT obstruction as advised by neurology and noted on CTA. Repeat CAT scan of the brain showed no evidence of acute bleeding. No acute abnormality. Seroquel will be discontinued and started on Remeron. Capillary blood glucose running between 126 and 149. WBC 13.8, hemoglobin 11. CO2 20, BUN 24 creatinine 0.76. Triglycerides 170, cholesterol 112, LDL 30, HDL 47. Pro-calcitonin 0.9. 09/20: Patient remains in the intensive care unit while waiting for a bed on the [facility].. Patient continues to have significant confusion. She is talking to herself continuously. She seems to have difficulty following instructions. Patient is continued on aspirin and Plavix, Lipitor. She is followed closely by neurology and also design specialist following. CAT scan of the brain has been ordered for today. Therapies are following as well as social work. 09/21: Repeat CAT scan of the brain showed no acute intracranial hemorrhage or gross acute cortical infarct however he small acute or hyperacute infarct cannot be excluded. Stable chronic findings. Neurology is recommending Plavix and aspirin 81 mg daily for 21 days and then continue only the Plavix indefinitely. Patient also to be continued on Lipitor. Patient's mental status is improved today, speech is clear. She is cooperative. Discharge plan is for subacute rehab at [facility]. Patient will be discharged today in stable condition. 09/22 patient examined bedside. He is able to answer questions appropriately. She does dive ordered in between and has garbled speech. It appears stated patient has some baseline confusion but is eating well. She is participating with physical therapy. Neurology recommended Plavix and aspirin for 21 days following which Plavix indefinitely. Cardiology plans to put on loop recorder in place.Vitals are stable afebrile blood pressure 110/59. Hemoglobin 10.4 WBC 9 platelets 243 sodium 138 potassium 3.7 BUN 14 creatinine 0.7 09/23: She was examined at the bedside. She is able to answer questions appropriately. Patient is scheduled for a loop recorder insertion more than likely today. Patient does have history of baseline confusion. However she is alert and appropriate today. Awaiting approval for subacute rehab. Patient remains afebrile, heart rate 89, respirations 16, pressure 115/64, 97% on room air. 09/24: Patient is examined at the bedside. She was able to answer questions appropriately however some of her speech was confused. She had a loop recorder insertion yesterday. Dressing is dry and intact to the anterior chest wall. Still awaiting approval for subacute rehab. Patient remains afebrile, heart rate 98, respirations 18, blood pressure 126/74, pulse ox 97% on room air. 09/25: Patient is doing slightly better respond has been better to some degree was able to carry some conversation with her today she's continued to be quite conf used, but is able to carry on some physical therapy. Patient apparently is waiting to go subacute rehab at this point. 09/26: Patient is doing much better today still laying in bed comfortably this mo rning, was able to participate to some degree with physical therapy and the patient of therapy. tray service worker found place to go to subacute rehab in [facility] which will be able to do it today. Patient otherwise medically stable for her discharge today. REVIEW OF SYSTEMS Constitutional: No fever, no chills, no night sweats. No weight change. Generalized weakness, fatigue or lethargy. No daytime sleepiness.still slightly but confused. EENT: No headache. No blurred vision or double vision, no loss of vision. No loss of Hearing, no ringing in the ears, no dizziness. No nasal drainage or congestion. No epistaxis. No sore throat. Lungs: No shortness of breath, cough, no sputum production. No wheezing. Cardiovascular: No chest pain, no lower extremity edema. No palpitations. No paroxysmal nocturnal dyspnea. No orthopnea. No lightheadedness or dizziness. No syncopal episodes. Abdominal: No abdominal pain. No nausea, vomiting. No diarrhea. No co nstipation. No bloody or tarry stools.. No loss of appetite. Genitourinary: No dysuria, increased frequency, urgency. No urinary retention. Musculoskeletal: generalized muscle pain and myalgia. Integumentary: No wounds, no lesions. No rash or pruritus. No unusual bruising. No change in hair or nails. Neurologic: No aphasia. Slurred speech improving gargled speech in between . No facial droop. Noted change in mentation. No head injury. No headache. No paralysis. No paresthesia. Confusion with worsening dementia. Psychiatric: No depression. No anxiety. Noted mood swings. Endocrine: No abnormal blood sugars. No weight change. No excessive sweating or thirst. No cold intolerance. PHYSICAL EXAMINATION Gen: This is an 86-year-old female. Patient is resting in the bed and appears to be in no acute distress. Patient is confused enough to answer some questions appropriately. HEENT: Head is atraumatic, normocephalic. Pupils equal, round. Sclerae is anicteric. NECK: Supple. No JVD. No lymphadenopathy. No thyromegaly. LUNGS: Clear to auscultation. No wheezes or rhonchi. No intercostal retractions. HEART: Regular rate and rhythm. No murmur. ABDOMEN: Soft. Bowel sounds are present. No masses. No tenderness. EXTREMITIES: No pedal edema. No calf tenderness. NEUROLOGICAL: Patient is awake, alert and oriented to person. ASSESSMENT AND PLAN 1. Acute CVA status post TPA. Neurology consult appreciated. PT, OT, speech therapies. Continue secondary prevention been on Lipitor 80 mg at bedtime and Plavix 75 mg daily, aspirin 81 mg daily. We'll titrate PTOT patient will be going to subacute rehab. 2. 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 Consult with cardiology on medical management only. 3. Normal pressure hydrocephalus status post shunt. Has been doing better with no blockage of the shunt. 4. Recent hospitalization in July for Covid 19 infection. Continue supplement patient is doing well no residual. 5. Dementia. Continue Namenda 5 mg twice daily, Aricept 10 mg at hs. Seroquel discontinued and patient started on Remeron. 6. Hyperlipidemia. Continue Lipitor 80 mg at bedtime. 7. Diabetes mellitus type 2. Continue NovoLog scale before meals and at bedtime, Levemir 10 units when necessary. 8. Hypotension. Patient is on midodrine 5 mg twice daily. 9. Recurrent depression. Remeron 7.5 mg at bedtime 10. Chronic kidney disease stage 2. Avoid nephrotoxic agents. DISCHARGE PLAN Subacute rehab at rehab at [facility] today. Hospital course: Through all with the patient went through since her admission on 1228 till today patient had an acute CVA post TPA also had left and he occlusion, normal pressure hydrocephalus treated with shunt, dementia remain on Aricept and Namenda, recent recovering from COVID-19 patient has done very well so far with no major squalor complication related to COVID-19 at this point. Her blood sugar has been better controlled. Her chronic recurrent depression has improved remain on 7.5 mg of Remeron daily. Her kidney function has improved significantly. Patient is participating more in physical therapy and the patient therapy she'll be a good candidate to go to subacute rehab today. Patient Condition at Discharge: Good Plan - Discharge Summary New Discharge Prescriptions: New Calcium Carbonate [Tums] 500 mg PO TID PRN PRN Reason: Heartburn Clopidogrel [Plavix] 75 mg PO DAILY tab Famotidine [Pepcid] 20 mg PO DAILY tab Continue Atorvastatin [Lipitor] 80 mg PO HS Midodrine HCl 5 mg PO BID-W/MEALS Aspirin 81 mg PO DAILY tab Ascorbic Acid [Vitamin C] 500 mg PO DAILY Memantine HCl [Namenda] 5 mg PO BID-W/MEALS Docusate [Colace] 100 mg PO BID PRN cap PRN Reason: Constipation Zinc Sulfate [Orazinc] 220 mg PO DAILY cap Mirtazapine [Remeron] 15 mg PO HS #30 tab Cholecalciferol [Vitamin D3 (25 Mcg = 1000 Iu)] 50 mcg PO BID-W/MEALS Rivastigmine Tartrate [Exelon] 3 mg PO BID-W/MEALS Mirabegron [Myrbetriq] 25 mg PO DAILY Cyanocobalamin [Vitamin B-12] 500 mcg PO DAILY Thiamine [Vitamin B-1] 100 mg PO DAILY tab Insulin Glargine,Hum.rec.anlog [Lantus Solostar Pen] 10 unit SQ DAILY PRN PRN Reason: Blood Sugar - High Niacin 500 mg PO DAILY Discontinued ALPRAZolam [Xanax] 0.25 mg PO TID PRN PRN Reason: Anxiety Discharge Medication List Atorvastatin [Lipitor] 80 mg PO HS 03/08/19 [History] Cholecalciferol [Vitamin D3 (25 Mcg = 1000 Iu)] 50 mcg PO BID-W/MEALS 07/05/21 [History] Cyanocobalamin [Vitamin B-12] 500 mcg PO DAILY 07/05/21 [History] Midodrine HCl 5 mg PO BID-W/MEALS 07/05/21 [History] Mirabegron [Myrbetriq] 25 mg PO DAILY 07/05/21 [History] Rivastigmine Tartrate [Exelon] 3 mg PO BID-W/MEALS 07/05/21 [History] Aspirin 81 mg PO DAILY tab 07/07/21 [Rx] Thiamine [Vitamin B-1] 100 mg PO DAILY tab 07/07/21 [Rx] Ascorbic Acid [Vitamin C] 500 mg PO DAILY 08/10/21 [History] Insulin Glargine,Hum.rec.anlog [Lantus Solostar Pen] 10 unit SQ DAILY PRN 08/10/21 [History] Memantine HCl [Namenda] 5 mg PO BID-W/MEALS 08/10/21 [History] Niacin 500 mg PO DAILY 08/10/21 [History] Docusate [Colace] 100 mg PO BID PRN cap 08/14/21 [Rx] Mirtazapine [Remeron] 15 mg PO HS #30 tab 08/22/21 [Rx] Zinc Sulfate [Orazinc] 220 mg PO DAILY cap 08/22/21 [Rx] Clopidogrel [Plavix] 75 mg PO DAILY tab 09/21/21 [Rx] Calcium Carbonate [Tums] 500 mg PO TID PRN 09/26/21 [Rx] Famotidine [Pepcid] 20 mg PO DAILY tab 09/26/21 [Rx] Follow up Appointment(s)/Referral(s): Bam Salgado MD [STAFF PHYSICIAN] - 1 Week (device clinic in one week [facility]/daron in 6-8 weeks) Luis Avery MD [Primary Care Provider] - 1 Week Activity/Diet/Wound Care/Special Instructions: Discontinue aspirin after 21 days, continue Plavix indefinitely. Discharge Disposition: TRANSFER TO SNF/ECF
[2021-09-26] MEDS: ASPIRIN 81 MG PO SCH (10:35)
[2021-09-26] MEDS: ASCORBIC ACID 500 MG TAB PO SCH (10:35)
[2021-09-26] MEDS: NIACIN TR 500 MG CAPLET PO SCH (10:35)
[2021-09-26] MEDS: ZINC SULFATE 220 MG CAP PO SCH (10:35)
[2021-09-26] MEDS: HEPARIN SODIUM,PORCINE/PF 5,000 UNIT/0.5 ML SYRINGE SQ SCH (10:35)
[2021-09-26] MEDS: CLOPIDOGREL 75 MG TAB PO SCH (10:35)
[2021-09-26] MEDS: FAMOTIDINE 20 MG TAB PO SCH (10:35)
[2021-09-26] MEDS: DONEPEZIL 10 MG TAB PO SCH (10:35)
[2021-09-26] MEDS: Mirabegron [Myrbetriq] PO SCH (10:36)
[2021-09-26 11:33] VITALS: BP 114/57; PULSE 72; RESP 18; TEMP 98
== END 2021-09-26 13:40 | DRG 62 ==
LOC: EC 19:59 → 2SICU 22:25 → 3SCARD 09-21 10:23
PROVIDERS: ADMIT Family Medicine; ATTEND Family Medicine
DX: I63.40 Cerebral infarction due to embolism of unspecified cerebral artery (principal); F33.9 Major depressive disorder, recurrent, unspecified; G91.2 (Idiopathic) normal pressure hydrocephalus; G93.40 Encephalopathy, unspecified; E11.22 Type 2 diabetes mellitus with diabetic chronic kidney disease; E11.40 Type 2 diabetes mellitus with diabetic neuropathy, unspecified; E78.5 Hyperlipidemia, unspecified; F03.90 Unspecified dementia, unspecified severity, without behavioral disturbance, psychotic disturbance, mood disturbance, and anxiety; I13.10 Hypertensive heart and chronic kidney disease without heart failure, with stage 1 through stage 4 chronic kidney disease, or unspecified chronic kidney disease; I45.10 Unspecified right bundle-branch block; N18.2 Chronic kidney disease, stage 2 (mild); Z87.440 Personal history of urinary (tract) infections; R29.704 NIHSS score 4; R47.01 Aphasia; R26.9 Unspecified abnormalities of gait and mobility; E11.621 Type 2 diabetes mellitus with foot ulcer; R45.1 Restlessness and agitation; L97.529 Non-pressure chronic ulcer of other part of left foot with unspecified severity; R47.9 Unspecified speech disturbances; I08.1 Rheumatic disorders of both mitral and tricuspid valves; Z20.822 Contact with and (suspected) exposure to COVID-19; Z86.16 Personal history of COVID-19; Z79.02 Long term (current) use of antithrombotics/antiplatelets; Z79.4 Long term (current) use of insulin; Z79.82 Long term (current) use of aspirin; Z79.899 Other long term (current) drug therapy; Z82.3 Family history of stroke; Z80.9 Family history of malignant neoplasm, unspecified; Z83.3 Family history of diabetes mellitus; Z86.73 Personal history of transient ischemic attack (TIA), and cerebral infarction without residual deficits; Z98.2 Presence of cerebrospinal fluid drainage device; Z99.3 Dependence on wheelchair; Z90.49 Acquired absence of other specified parts of digestive tract
CPT/HCPCS: 33285; 36415; 37195; 70450; 70496; 70498; 71045; 80048; 80053; 80061; 81001; 81003; 84145; 84484; 85025; 85610; 85730; 87635; 93005; 93306; 95819; 99291

== ENCOUNTER 2022-11-28 10:13 | Inpatient (IN) | payer MEDICARE ==
--- NOTE | 2022-11-28 10:37 | ED ---
General Adult HPI - General Chief complaint: Wound/Laceration Stated complaint: Wound Care Time Seen by Provider: 11/28/22 10:24 Source: patient, family, RN notes reviewed, old records reviewed Mode of arrival: wheelchair Limitations: altered mental status - History of Present Illness Initial comments: This is a nontoxic-appearing 87-year-old female brought in by her son from wound care for admission. Son states sent for admission by Dr Espinal, she has had a wound on her left heel for the past 2 weeks it does not seem to be improving. Denies any fevers. Son also states that patient is to be placed in an ECF on this admission. -: week(s) (2) Location: left, lower extremity (heel) Radiation: proximal (lower leg) Treatments Prior to Arrival: other (sent from wound care for admission) - Related Data Home Medications Medication Instructions Recorded Confirmed Cholecalciferol [Vitamin D3 (25 50 mcg PO BID-W/MEALS 07/05/21 11/28/22 Mcg = 1000 Iu)] Cyanocobalamin [Vitamin B-12] 500 mcg PO DAILY 07/05/21 11/28/22 Midodrine HCl 5 mg PO TID-W/MEALS 07/05/21 11/28/22 Rivastigmine Tartrate [Exelon] 3 mg PO BID 07/05/21 11/28/22 Insulin Glargine,Hum.rec.anlog 10 unit SQ DAILY 08/10/21 11/28/22 [Lantus Solostar Pen] Memantine HCl [Namenda] 5 mg PO BID 08/10/21 11/28/22 Atorvastatin Calcium [Lipitor] 40 mg PO DAILY 11/28/22 11/28/22 Divalproex Sodium [Depakote] 250 mg PO BID 11/28/22 11/28/22 Docusate [Colace] 100 mg PO BID 11/28/22 11/28/22 Doxycycline Hyclate 100 mg PO BID 11/28/22 11/28/22 Famotidine [Pepcid] 20 mg PO BID 11/28/22 11/28/22 Metoprolol Tartrate [Lopressor] 25 mg PO BID 11/28/22 11/28/22 Mirabegron [Myrbetriq] 25 mg PO DAILY 11/28/22 11/28/22 QUEtiapine [SEROquel] 50 mg PO DAILY@1400 11/28/22 11/28/22 SILVER sulfADIAZINE Cream 1 applic TOPICAL DAILY 11/28/22 11/28/22 [Silvadene 1% Cream] Previous Rx's Medication Instructions Recorded Aspirin 81 mg PO DAILY tab 07/07/21 Mirtazapine [Remeron] 15 mg PO HS #30 tab 08/22/21 Clopidogrel [Plavix] 75 mg PO DAILY tab 09/21/21 Allergies Allergy/AdvReac Type Severity Reaction Status Date / Time No Known Allergies Allergy Verified 11/28/22 11:06 Review of Systems ROS Statement: Those systems with pertinent positive or pertinent negative responses have been documented in the HPI. ROS Other: All systems not noted in ROS Statement are negative. Past Medical History Past Medical History: Dementia, Diabetes Mellitus, Hyperlipidemia Additional Past Medical History / Comment(s): neuropathy, dizzy when stands, diabetic ulcer on left foot supposed to go to wound clinic hydrocephalus with vp product shunt frequent uti, TIA History of Any Multi-Drug Resistant Organisms: None Reported Past Surgical History: Appendectomy, Cholecystectomy, Orthopedic Surgery Additional Past Surgical History / Comment(s): right shoulder vp product shunt Past Anesthesia/Blood Transfusion Reactions: No Reported Reaction Additional Past Anesthesia/Blood Transfusion Reaction / Comment(s): patient states never had blood transfusion Past Psychological History: No Psychological Hx Reported Smoking Status: Never smoker Past Alcohol Use History: None Reported Past Drug Use History: None Reported - Past Family History Mother Family Medical History: Diabetes Mellitus General Exam Limitations: altered mental status General appearance: alert, in no apparent distress Head exam: Present: atraumatic Eye exam: Absent: scleral icterus, conjunctival injection, periorbital swelling Respiratory exam: Absent: respiratory distress, accessory muscle use Cardiovascular Exam: Present: tachycardia GI/Abdominal exam: Present: soft Left Lower Leg exam: Present: tenderness, swelling, abrasion (anterior) Ankle exam: Present: swelling. Absent: tenderness Foot/Toe exam: Present: tenderness (heel with pressure ulcer , dried eschar), swelling Neurological exam: Present: alert Psychiatric exam: Present: normal affect, normal mood Skin exam: Present: warm, dry. Absent: cyanosis, diaphoretic, petechiae, pallor Course Vital Signs 11/28/22 11/28/22 10:17 12:59 Temperature 97.6 F Pulse Rate 105 H 79 Respiratory 18 16 Rate Blood Pressure 100/59 139/79 O2 Sat by Pulse 98 99 Oximetry Medical Decision Making - Medical Decision Making Patient presents with chronic left heel ulcer for 2 weeks. Denies any fevers. No nausea vomiting or diarrhea. Ultrasound left leg performed due to swelling of the left lower extremity, shows no evidence of DVT. X-ray of the left foot performed to rule out osteomyelitis, interpreted by me shows no evidence of calcaneal bony erosion. X-ray of the left foot shows no evidence of acute fracture or osseous erosions. Mild soft tissue swelling of the dorsal midfoot. Postsurgical changes of the first digit. Labs show no evidence of leukocytosis. Hemoglobin and hematocrit are stable. Lactic acid slightly elevated at 2.1 likely due to dehydration and patient was given IV fluids. Blood glucose 168. Patient was given a gram of Rocephin for the left foot ulcer. She'll be admitted with wound care consult and infectious disease consult. Results were discussed with the patient's sons at bedside. They are agreeable to this plan of care. Case discussed with Dr. Berman. Patient has history of dementia, diabetes, hyperlipidemia, neuropathy Was pt. sent in by a medical professional or institution (, PA, PROFESSOR OF SOCIOLOGY, urgent care, hospital, or usp...) When possible be specific @ -Yes Dr. Gaitan Did you speak to anyone other than the patient for history (EMS, parent, family, police, friend...)? What history was obtained from this source @ -Patient's son was at bedside states sent by Dr. Gaitan for admission and ECF placement Did you review nursing and triage notes (agree or disagree)? Why? @ -I reviewed and agree with nursing and triage notes Were old charts reviewed (outside hosp., previous admission, EMS record, old EKG, old radiological studies, urgent care reports/EKG's, usp records)? Report findings @ -No old charts were reviewed Differential Diagnosis (chest pain, altered mental status, abdominal pain women, abdominal pain men, vaginal bleeding, weakness, fever, dyspnea, syncope, headache, dizziness, GI bleed, back pain, seizure, CVA, palpatations, mental health, musculoskeletal)? @ -Diabetic foot ulcer, pressure ulcer, osteomyelitis, cellulitis EKG interpreted by me (3pts min.). @ -n/a X-rays interpreted by me (1pt min.). @ -Yes as above CT interpreted by me (1pt min.). @ -None done U/S interpreted by me (1pt. min.). @ -None done What testing was considered but not performed or refused? (CT, X-rays, U/S, labs)? Why? @ -None What meds were considered but not given or refused? Why? @ -None Did you discuss the management of the patient with other professionals (professionals i.e. , PA, PROFESSOR OF SOCIOLOGY, lab, RT, psych nurse, social insurance analyst, face cleaner, teacher, public relations officer, pillowcase folder)? Give summary @ -No Was smoking cessation discussed for >3mins.? @ -No Was critical care preformed (if so, how long)? @ -No Were there social determinants of health that impacted care today? How? (Homelessness, low income, unemployed, alcoholism, drug addiction, transportation, low edu. Level, literacy, decrease access to med. care, shelter, rehab)? @ -No Was there de-escalation of care discussed even if they declined (Discuss DNR or withdrawal of care, Hospice)? DNR status @ -No What co-morbidities impacted this encounter? (DM, HTN, Smoking, COPD, CAD, Cancer, CVA, ARF, Chemo, Hep., AIDS, mental health diagnosis, sleep apnea, morbid obesity)? @ -Dementia, diabetes, hyperlipidemia, neuropathy Was patient admitted / discharged? Hospital course, mention meds given and route, prescriptions, significant lab abnormalities, going to OR and other pertinent info. @ -Admitted Undiagnosed new problem with uncertain prognosis? @ -No Drug Therapy requiring intensive monitoring for toxicity (Heparin, Nitro, Insulin, Cardizem)? @ -No Were any procedures done? @ -No Diagnosis/symptom? @ -Diabetic foot ulcer, pressure ulcer Acute, or Chronic, or Acute on Chronic? @ -Acute Uncomplicated (without systemic symptoms) or Complicated (systemic symptoms)? @ -Complicated Side effects of treatment? @ -No Exacerbation, Progression, or Severe Exacerbation? @ -No Poses a threat to life or bodily function? How? (Chest pain, USA, IA, pneumonia, PE, COPD, DKA, ARF, appy, cholecystitis, CVA, Diverticulitis, Homicidal, Suicidal, threat to staff... and all critical care pts) @ -No - Lab Data Result diagrams: 11/28/22 10:45 11/28/22 12:05 Lab Results 11/28/22 11/28/22 11/28/22 Range/Units 10:45 10:45 10:45 WBC 9.1 (3.8-10.6) k/uL RBC 3.73 L (3.80-5.40) m/uL Hgb 10.7 L (11.4-16.0) gm/dL Hct 35.1 (34.0-46.0) % MCV 94.2 (80.0-100.0) fL MCH 28.6 (25.0-35.0) pg MCHC 30.3 L (31.0-37.0) g/dL RDW 14.6 (11.5-15.5) % Plt Count 267 (150-450) k/uL MPV 8.0 Neutrophils % 76 % Lymphocytes % 15 % Monocytes % 6 % Eosinophils % 1 % Basophils % 1 % Neutrophils # 6.9 (1.3-7.7) k/uL Lymphocytes # 1.3 (1.0-4.8) k/uL Monocytes # 0.6 (0-1.0) k/uL Eosinophils # 0.1 (0-0.7) k/uL Basophils # 0.1 (0-0.2) k/uL PT 11.2 (9.0-12.0) sec INR 1.1 (<1.2) APTT 29.0 (22.0-30.0) sec Lactic Ac Sepsis Rflx Plasma Lactic Acid Terrell 2.1 H* (0.7-2.0) mmol/L 11/28/22 Range/Units 11:26 WBC (3.8-10.6) k/uL RBC (3.80-5.40) m/uL Hgb (11.4-16.0) gm/dL Hct (34.0-46.0) % MCV (80.0-100.0) fL MCH (25.0-35.0) pg MCHC (31.0-37.0) g/dL RDW (11.5-15.5) % Plt Count (150-450) k/uL MPV Neutrophils % % Lymphocytes % % Monocytes % % Eosinophils % % Basophils % % Neutrophils # (1.3-7.7) k/uL Lymphocytes # (1.0-4.8) k/uL Monocytes # (0-1.0) k/uL Eosinophils # (0-0.7) k/uL Basophils # (0-0.2) k/uL PT (9.0-12.0) sec INR (<1.2) APTT (22.0-30.0) sec Lactic Ac Sepsis Rflx Y Plasma Lactic Acid Terrell (0.7-2.0) mmol/L Disposition Clinical Impression: Diabetic ulcer of heel, Pressure ulcer, heel, left, unstageable Disposition: ADMITTED IP TO THIS HOSP Decision Date: 11/28/22 Decision Time: 12:22
[2022-11-28 11:13] LABS: Basophils # (A) 0.1 k/uL (0-0.2); Basophils % (A) 1 %; Eosinophils # (A) 0.1 k/uL (0-0.7); Eosinophils % (A) 1 %; HCT 35.1 % (34.0-46.0); HGB 10.7 gm/dL (11.4-16.0); Lymphocytes # (A) 1.3 k/uL (1.0-4.8); Lymphocytes % (A) 15 %; MCH 28.6 pg (25.0-35.0); MCHC 30.3 g/dL (31.0-37.0); MCV 94.2 fL (80.0-100.0); Monocytes # (A) 0.6 k/uL (0-1.0); Monocytes % (A) 6 %; Neutrophils # (A) 6.9 k/uL (1.3-7.7); Neutrophils % (A) 76 %; Platelet Count 267 k/uL (150-450); RBC 3.73 m/uL (3.80-5.40); RDW 14.6 % (11.5-15.5); WBC 9.1 k/uL (3.8-10.6)
[2022-11-28 11:24] LABS: INR 1.1 (<1.2); Prothrombin Time 11.2 sec (9.0-12.0)
[2022-11-28] MEDS ORDERED: SODIUM CHLORIDE 0.9% 500 ML 500 ML IV ONE (11:33)
--- NOTE | 2022-11-28 11:38 | XR ---
EXAMINATION TYPE: XR foot complete LT DATE OF EXAM: 11/28/2022 11:27 AM INDICATION: Patient age:Female; 87 years old; Reason for study: r/o dvt; PHH. COMPARISON: None TECHNIQUE: The left foot was examined in the AP, oblique, and lateral projections. FINDINGS: No evidence of any acute osseous pathology. Post surgical changes of the left first digit with hypert rophic changes identified. No osseous erosions. Mild soft tissue swelling of the dorsal midfoot. Join ts are preserved. Moderate size plantar calcaneal enthesophyte. Midfoot dorsal osteophytosis. IMPRESSION: 1. No evidence of acute fracture. No osseous erosions. 2. Mild soft tissue swelling at the dorsal midfoot. 3. Postsurgical changes of the first digit.
[2022-11-28] MEDS ORDERED: cefTRIAXone IN SWFI 1,000 MG/10 ML SYRINGE IVP STA (11:54)
--- NOTE | 2022-11-28 11:56 | US ---
EXAMINATION TYPE: US venous doppler duplex LE LT DATE OF EXAM: 11/28/2022 11:48 AM COMPARISON: Left lower extremity venous ultrasound 05/28/2019 CLINICAL INDICATION: Female, 87 years old with history of r/o dvt; edema SIDE PERFORMED: Left TECHNIQUE: The lower extremity deep venous system is examined utilizing real time linear array sonog jose with graded compression, doppler sonography and color-flow sonography. VESSELS IMAGED: Common Femoral Vein Deep Femoral Vein Greater Saphenous Vein * Femoral Vein Popliteal Vein Small Saphenous Vein * Proximal Calf Veins (* superficial vessels) Grayscale, color doppler, spectral doppler imaging performed of the deep veins of the left lower extr emity. There is normal flow, compressibility, vascular waveforms. Left Leg: Negative for DVT IMPRESSION: No ultrasound evidence for deep venous thrombosis of the left lower extremity.
[2022-11-28] MEDS ORDERED: ACETAMINOPHEN TAB 325 MG TAB PO PRN (12:23)
[2022-11-28] MEDS ORDERED: NALOXONE 0.4 MG/ML 1 ML VIAL IV PRN (12:23)
[2022-11-28 12:30] LABS: Calcium 8.7 mg/dL (8.4-10.2); Total Bilirubin 0.5 mg/dL (0.2-1.3)
--- NOTE | 2022-11-28 13:33 | P.HPIM ---
History of Present Illness H&P Date: 11/28/22 History of present illness; patient is a 87-year-old lady with past medical history significant for dementia ,type 2 diabetes, history of normal pressure, hypertension,hyperlipidemia who presented to the ER because of left heel ulcer. Patient was being seen by wound care clinic, they have not seen any improvement in the left heel ulcer over the last 2 weeks, they refer patient to the ER. Patient is very poor historian because of patient's history of dementia. No complain of any fever or chills at facility. Initial blood work done in the hospital showed white count 9.1, hemoglobin 10.7, platelet count 267, sodium 136, potassium 5, BUN 35, creatinine 0.9 X-ray left foot negative for any fracture, did show mild soft tissue swelling of the dorsal midfoot Ultrasound left lower extremity negative for DVT Patient was admitted to internal medicine service REVIEW OF SYSTEMS: Cannot be obtained because of patient's history of dementia No family at the bedside PHYSICAL EXAMINATION: GENERAL: The patient has baseline dementia, only alert to self, not in any acute distress. Well developed, well nourished. HEENT: Pupils are round and equally reacting to light. EOMI. No scleral icterus. No conjunctival pallor. Normocephalic, atraumatic. No pharyngeal erythema. No thyromegaly. CARDIOVASCULAR: S1 and S2 present. No murmurs, rubs, or gallops. PULMONARY: Chest is clear to auscultation, no wheezing or crackles. ABDOMEN: Soft, nontender, nondistended, normoactive bowel sounds. No palpable organomegaly. MUSCULOSKELETAL: No joint swelling or deformity. EXTREMITIES: Left Heel ulcer seen NEUROLOGICAL: Gross neurological examination did not reveal any focal deficits. SKIN: No rashes. Assessment and plan Left heel ulcer Dementia Insulin-dependent diabetes mellitus Hypertension Plan; monitor vital signs Monitor CBC Monitor CMP Continue IV Rocephin Continue wound care Consult ID Consulted vascular surgery Resume home meds DVT prophylaxis: Past Medical History Past Medical History: Dementia, Diabetes Mellitus, Hyperlipidemia Additional Past Medical History / Comment(s): neuropathy, dizzy when stands, diabetic ulcer on left foot supposed to go to wound clinic hydrocephalus with vp corporate development shunt frequent uti, TIA History of Any Multi-Drug Resistant Organisms: None Reported Past Surgical History: Appendectomy, Cholecystectomy, Orthopedic Surgery Additional Past Surgical History / Comment(s): right shoulder vp corporate development shunt Past Anesthesia/Blood Transfusion Reactions: No Reported Reaction Additional Past Anesthesia/Blood Transfusion Reaction / Comment(s): patient states never had blood transfusion Past Psychological History: No Psychological Hx Reported Smoking Status: Never smoker Past Alcohol Use History: None Reported Past Drug Use History: None Reported - Past Family History Mother Family Medical History: Diabetes Mellitus Medications and Allergies Home Medications Medication Instructions Recorded Confirmed Type Cholecalciferol [Vitamin D3 (25 50 mcg PO BID-W/MEALS 07/05/21 11/28/22 History Mcg = 1000 Iu)] Cyanocobalamin [Vitamin B-12] 500 mcg PO DAILY 07/05/21 11/28/22 History Midodrine HCl 5 mg PO TID-W/MEALS 07/05/21 11/28/22 History Rivastigmine Tartrate [Exelon] 3 mg PO BID 07/05/21 11/28/22 History Aspirin 81 mg PO DAILY tab 07/07/21 11/28/22 Rx Insulin Glargine,Hum.rec.anlog 10 unit SQ DAILY 08/10/21 11/28/22 History [Lantus Solostar Pen] Memantine HCl [Namenda] 5 mg PO BID 08/10/21 11/28/22 History Mirtazapine [Remeron] 15 mg PO HS #30 tab 08/22/21 11/28/22 Rx Clopidogrel [Plavix] 75 mg PO DAILY tab 09/21/21 11/28/22 Rx Atorvastatin Calcium [Lipitor] 40 mg PO DAILY 11/28/22 11/28/22 History Divalproex Sodium [Depakote] 250 mg PO BID 11/28/22 11/28/22 History Docusate [Colace] 100 mg PO BID 11/28/22 11/28/22 History Doxycycline Hyclate 100 mg PO BID 11/28/22 11/28/22 History Famotidine [Pepcid] 20 mg PO BID 11/28/22 11/28/22 History Metoprolol Tartrate [Lopressor] 25 mg PO BID 11/28/22 11/28/22 History Mirabegron [Myrbetriq] 25 mg PO DAILY 11/28/22 11/28/22 History QUEtiapine [SEROquel] 50 mg PO DAILY@1400 11/28/22 11/28/22 History SILVER sulfADIAZINE Cream 1 applic TOPICAL DAILY 11/28/22 11/28/22 History [Silvadene 1% Cream] Allergies Allergy/AdvReac Type Severity Reaction Status Date / Time No Known Allergies Allergy Verified 11/28/22 11:06 Physical Exam Vitals: Vital Signs Temp Pulse Resp BP Pulse Ox 11/28/22 12:59 79 16 139/79 99 11/28/22 10:17 97.6 F 105 H 18 100/59 98 Intake and Output 11/27/22 11/28/22 11/28/22 22:59 06:59 14:59 Other: Weight 63.503 kg Results CBC & Chem 7: 11/28/22 10:45 11/28/22 12:05 Labs: Abnormal Lab Results - Last 24 Hours (Table) 11/28/22 11/28/22 11/28/22 Range/Units 10:45 10:45 12:05 RBC 3.73 L (3.80-5.40) m/uL Hgb 10.7 L (11.4-16.0) gm/dL MCHC 30.3 L (31.0-37.0) g/dL Sodium 136 L (137-145) mmol/L BUN 35 H (7-17) mg/dL Glucose 168 H (74-99) mg/dL Plasma Lactic Acid Terrell 2.1 H* (0.7-2.0) mmol/L Total Protein 6.0 L (6.3-8.2) g/dL Albumin 3.0 L (3.5-5.0) g/dL
[2022-11-28] MEDS: QUEtiapine 50 MG TAB PO SCH ×2 (14:04→15:44)
[2022-11-28] MEDS ORDERED: LIDOCAINE 1% (PF) 10 MG/ML (30 ML SDV) SQ ONE (14:30)
--- NOTE | 2022-11-28 16:16 | P.GSCN ---
History of Present Illness History of present illness: 87-year-old white female, patient has history of dementia, tear came to the emergency room with the pressure ulcer left heel with some fluctuation and there and some tenderness noted in the left heel. Ailment of the wound is 3 x 2 see him. Medical history history of diabetes, hypertension, diabetes, dementia, What his unstable afebrile neck is supple Chest is clear first and second sound present Abdomen soft nontender Vascular femorals are 1+ bilateral patient has a pressure ulcer left heel with some fluctuation and some tenderness noted Plan is debridement of the wound with deep culture patient on antibiotic Past Medical History Past Medical History: Dementia, Diabetes Mellitus, Hyperlipidemia Additional Past Medical History / Comment(s): neuropathy, dizzy when stands, diabetic ulcer on left foot supposed to go to wound clinic hydrocephalus with vp production shunt frequent uti, TIA History of Any Multi-Drug Resistant Organisms: None Reported Past Surgical History: Appendectomy, Cholecystectomy, Orthopedic Surgery Additional Past Surgical History / Comment(s): right shoulder vp production shunt Past Anesthesia/Blood Transfusion Reactions: No Reported Reaction Additional Past Anesthesia/Blood Transfusion Reaction / Comm: patient states never had blood transfusion Past Psychological History: No Psychological Hx Reported Additional Psychological History / Comment(s): patient lives in [facility] Smoking Status: Never smoker Past Alcohol Use History: None Reported Past Drug Use History: None Reported - Past Family History Mother Family Medical History: Diabetes Mellitus Medications and Allergies Home Medications Medication Instructions Recorded Confirmed Type Cholecalciferol [Vitamin D3 (25 50 mcg PO BID-W/MEALS 07/05/21 11/28/22 History Mcg = 1000 Iu)] Cyanocobalamin [Vitamin B-12] 500 mcg PO DAILY 07/05/21 11/28/22 History Midodrine HCl 5 mg PO TID-W/MEALS 07/05/21 11/28/22 History Rivastigmine Tartrate [Exelon] 3 mg PO BID 07/05/21 11/28/22 History Aspirin 81 mg PO DAILY tab 07/07/21 11/28/22 Rx Insulin Glargine,Hum.rec.anlog 10 unit SQ DAILY 08/10/21 11/28/22 History [Lantus Solostar Pen] Memantine HCl [Namenda] 5 mg PO BID 08/10/21 11/28/22 History Mirtazapine [Remeron] 15 mg PO HS #30 tab 08/22/21 11/28/22 Rx Clopidogrel [Plavix] 75 mg PO DAILY tab 09/21/21 11/28/22 Rx Atorvastatin Calcium [Lipitor] 40 mg PO DAILY 11/28/22 11/28/22 History Divalproex Sodium [Depakote] 250 mg PO BID 11/28/22 11/28/22 History Docusate [Colace] 100 mg PO BID 11/28/22 11/28/22 History Doxycycline Hyclate 100 mg PO BID 11/28/22 11/28/22 History Famotidine [Pepcid] 20 mg PO BID 11/28/22 11/28/22 History Metoprolol Tartrate [Lopressor] 25 mg PO BID 11/28/22 11/28/22 History Mirabegron [Myrbetriq] 25 mg PO DAILY 11/28/22 11/28/22 History QUEtiapine [SEROquel] 50 mg PO DAILY@1400 11/28/22 11/28/22 History SILVER sulfADIAZINE Cream 1 applic TOPICAL DAILY 11/28/22 11/28/22 History [Silvadene 1% Cream] Allergies Allergy/AdvReac Type Severity Reaction Status Date / Time No Known Allergies Allergy Verified 11/28/22 11:06 Surgical - Exam Vital Signs Temp Pulse Resp BP Pulse Ox 97.6 F 105 H 18 100/59 98 11/28/22 10:17 11/28/22 10:17 11/28/22 10:17 11/28/22 10:17 11/28/22 10:17 Results - Labs 11/28/22 10:45 11/28/22 12:05 Abnormal Lab Results - Last 24 Hours (Table) 11/28/22 11/28/22 11/28/22 Range/Units 10:45 10:45 12:05 RBC 3.73 L (3.80-5.40) m/uL Hgb 10.7 L (11.4-16.0) gm/dL MCHC 30.3 L (31.0-37.0) g/dL Sodium 136 L (137-145) mmol/L BUN 35 H (7-17) mg/dL Glucose 168 H (74-99) mg/dL Plasma Lactic Acid Terrell 2.1 H* (0.7-2.0) mmol/L Total Protein 6.0 L (6.3-8.2) g/dL Albumin 3.0 L (3.5-5.0) g/dL Diabetes panel 11/28/22 Range/Units 12:05 Sodium 136 L (137-145) mmol/L Potassium 5.0 (3.5-5.1) mmol/L Chloride 102 (98-107) mmol/L Carbon Dioxide 29 (22-30) mmol/L BUN 35 H (7-17) mg/dL Creatinine 0.90 (0.52-1.04) mg/dL Glucose 168 H (74-99) mg/dL Calcium 8.7 (8.4-10.2) mg/dL AST 28 (14-36) U/L ALT 14 (4-34) U/L Alkaline Phosphatase 56 (38-126) U/L Total Protein 6.0 L (6.3-8.2) g/dL Albumin 3.0 L (3.5-5.0) g/dL Calcium panel 11/28/22 Range/Units 12:05 Calcium 8.7 (8.4-10.2) mg/dL Albumin 3.0 L (3.5-5.0) g/dL Pituitary panel 11/28/22 Range/Units 12:05 Sodium 136 L (137-145) mmol/L Potassium 5.0 (3.5-5.1) mmol/L Chloride 102 (98-107) mmol/L Carbon Dioxide 29 (22-30) mmol/L BUN 35 H (7-17) mg/dL Creatinine 0.90 (0.52-1.04) mg/dL Glucose 168 H (74-99) mg/dL Calcium 8.7 (8.4-10.2) mg/dL Adrenal panel 11/28/22 Range/Units 12:05 Sodium 136 L (137-145) mmol/L Potassium 5.0 (3.5-5.1) mmol/L Chloride 102 (98-107) mmol/L Carbon Dioxide 29 (22-30) mmol/L BUN 35 H (7-17) mg/dL Creatinine 0.90 (0.52-1.04) mg/dL Glucose 168 H (74-99) mg/dL Calcium 8.7 (8.4-10.2) mg/dL Total Bilirubin 0.5 (0.2-1.3) mg/dL AST 28 (14-36) U/L ALT 14 (4-34) U/L Alkaline Phosphatase 56 (38-126) U/L Total Protein 6.0 L (6.3-8.2) g/dL Albumin 3.0 L (3.5-5.0) g/dL
--- NOTE | 2022-11-28 16:17 | P.PCN ---
Description of Procedure: Preop diagnoses is pressure ulcer left heel regimented is 3 x 2 cm with some fluctuation some tenderness noted Postop the same measurement is 3 x 2 x 0.5 cm Procedure the foot was prepped and 1% lidocaine for infected the left heel area. The knee using knife we excise the DVT/tissue down to separate his tissue the tape tissue was sent for deep culture no active bleeding was noted wound was irrigated with saline medihoney gel applied to the wound dressing placed patient tolerated the procedure well Dressing should be changed daily with the medihoney gel follow with you
[2022-11-28] MEDS: AMPICILLIN-SULBACTAM 3 GM in SODIUM CHLORIDE 0.9% 100 ML IVPB SCH ×2 (16:43→23:32)
[2022-11-28] MEDS: MIDODRINE 5 MG TAB PO SCH (17:04)
[2022-11-28 17:16] LABS: Glucose,Whole Blood 117 mg/dL (70-110)
[2022-11-28 20:11] LABS: Glucose,Whole Blood 166 mg/dL (70-110)
[2022-11-28] MEDS: MIRTAZAPINE 15 MG TAB PO SCH (21:34)
[2022-11-28] MEDS: MEMANTINE 5 MG TAB PO SCH (21:34)
[2022-11-28] MEDS: METOPROLOL TARTRATE 25 MG TAB PO SCH (21:35)
[2022-11-28] MEDS: DIVALPROEX 250 MG TABLET.DR PO SCH (21:35)
[2022-11-29 06:55] LABS: Glucose,Whole Blood 119 mg/dL (70-110)
--- NOTE | 2022-11-29 07:12 | P.CONS ---
History of Present Illness - Reason for Consult Consult date: 11/28/22 L heel ulcer Requesting physician: Eduardo Nair - Chief Complaint left heel wound x days - History of Present Illness Patient is a 87-year-old female with a past medical history taken for diabetes mellitus hyperlipidemia dementia history of hydrocephalus with LAP [employer] shunt and frequent UTI apparently the patient did have a wound to the left heel area has been going on for about 2 weeks and does not seem to be improving for the patient was evaluated at the wound care center and subsequently has been sent to the ER for admission debridement patient on presentation to the hospital was afebrile and no fever has been recorded subsequently patient did have a normal white count kidney function has been normal liver enzymes are normal patient did have a x-ray of the foot no evidence of acute fracture no bony erosion postsurgical changes of the first digit patient received a dose of Rocephin has been admitted to hospital infectious disease was consulted for further management of antibiotic therapy patient to have underlying dementia pleasantly confused and was unable to provide any history she has been complaining of pain to the left heel area unable to quantify it any further so most information has been obtained from review the chart talking to the nursing staff Review of Systems Positive point has been mentioned in HPI rest of the systems are negative Past Medical History Past Medical History: Dementia, Diabetes Mellitus, Hyperlipidemia Additional Past Medical History / Comment(s): neuropathy, dizzy when stands, diabetic ulcer on left foot supposed to go to wound clinic hydrocephalus with vp training shunt frequent uti, TIA History of Any Multi-Drug Resistant Organisms: None Reported Past Surgical History: Appendectomy, Cholecystectomy, Orthopedic Surgery Additional Past Surgical History / Comment(s): right shoulder vp training shunt Past Anesthesia/Blood Transfusion Reactions: No Reported Reaction Additional Past Anesthesia/Blood Transfusion Reaction / Comm: patient states never had blood transfusion Past Psychological History: No Psychological Hx Reported Smoking Status: Never smoker Past Alcohol Use History: None Reported Past Drug Use History: None Reported - Past Family History Mother Family Medical History: Diabetes Mellitus Medications and Allergies Home Medications Medication Instructions Recorded Confirmed Type Cholecalciferol [Vitamin D3 (25 50 mcg PO BID-W/MEALS 07/05/21 11/28/22 History Mcg = 1000 Iu)] Cyanocobalamin [Vitamin B-12] 500 mcg PO DAILY 07/05/21 11/28/22 History Midodrine HCl 5 mg PO TID-W/MEALS 07/05/21 11/28/22 History Rivastigmine Tartrate [Exelon] 3 mg PO BID 07/05/21 11/28/22 History Aspirin 81 mg PO DAILY tab 07/07/21 11/28/22 Rx Insulin Glargine,Hum.rec.anlog 10 unit SQ DAILY 08/10/21 11/28/22 History [Lantus Solostar Pen] Memantine HCl [Namenda] 5 mg PO BID 08/10/21 11/28/22 History Mirtazapine [Remeron] 15 mg PO HS #30 tab 08/22/21 11/28/22 Rx Clopidogrel [Plavix] 75 mg PO DAILY tab 09/21/21 11/28/22 Rx Atorvastatin Calcium [Lipitor] 40 mg PO DAILY 11/28/22 11/28/22 History Divalproex Sodium [Depakote] 250 mg PO BID 11/28/22 11/28/22 History Docusate [Colace] 100 mg PO BID 11/28/22 11/28/22 History Famotidine [Pepcid] 20 mg PO BID 11/28/22 11/28/22 History Metoprolol Tartrate [Lopressor] 25 mg PO BID 11/28/22 11/28/22 History Mirabegron [Myrbetriq] 25 mg PO DAILY 11/28/22 11/28/22 History QUEtiapine [SEROquel] 50 mg PO DAILY@1400 11/28/22 11/28/22 History SILVER sulfADIAZINE Cream 1 applic TOPICAL DAILY 11/28/22 11/28/22 History [Silvadene 1% Cream] Amoxic-Pot Clav 875-125Mg 1 tab PO BID 10 Days #20 tab 12/03/22 Rx [Augmentin 875-125] Allergies Allergy/AdvReac Type Severity Reaction Status Date / Time No Known Allergies Allergy Verified 11/28/22 11:06 Physical Exam Vitals: Vital Signs Temp Pulse Resp BP Pulse Ox 11/28/22 12:59 79 16 139/79 99 11/28/22 10:17 97.6 F 105 H 18 100/59 98 Intake and Output 11/27/22 11/28/22 11/28/22 22:59 06:59 14:59 Other: Weight 63.503 kg GENERAL DESCRIPTION: Elderly female lying in bed, no distress. No tachypnea or accessory muscle of respiration use. HEENT: Shows Pallor , no scleral icterus. Oral mucous membrane is dry. NECK: Trachea central, no thyromegaly. LUNGS: Unlabored breathing. Clear to auscultation anteriorly. No wheeze or crackle. HEART: S1, S2, regular rate and rhythm. ABDOMEN: Soft, no tenderness , guarding or rigidity EXTREMITIES: No edema of feet. L heel with necrotic wound and some surrounding redness SKIN: No rash, no masses palpable. NEUROLOGICAL: The patient is awake, oriented x1, mood and affect normal. Results CBC & Chem 7: 12/03/22 06:04 12/03/22 06:04 Labs: Abnormal Lab Results - Last 24 Hours (Table) 11/28/22 11/28/22 11/28/22 Range/Units 10:45 10:45 12:05 RBC 3.73 L (3.80-5.40) m/uL Hgb 10.7 L (11.4-16.0) gm/dL MCHC 30.3 L (31.0-37.0) g/dL Sodium 136 L (137-145) mmol/L BUN 35 H (7-17) mg/dL Glucose 168 H (74-99) mg/dL Plasma Lactic Acid Terrell 2.1 H* (0.7-2.0) mmol/L Total Protein 6.0 L (6.3-8.2) g/dL Albumin 3.0 L (3.5-5.0) g/dL Assessment and Plan (1) Pressure ulcer, heel, left, unstageable Status: Acute Code(s): L89.620 - PRESSURE ULCER OF LEFT HEEL, UNSTAGEABLE SNOMED Code(s): 52032839381901 Plan: 1patient with unstageable left heel pressure ulcer concerning for infection with surrounding erythema patient benefit from surgical debridement and deep culture 2-patient also have a stage I pressure ulcer to the right heel area but no cellulitis 3-vascular surgery has been consulted for surgical debridement and deep culture 4-empirically add Unasyn 3 g every 6 hours while waiting for the culture to be finalized We will follow on clinical condition and cultures to further adjust medication if needed Thank you for this consultation we will follow the patient along with you Time with Patient: Greater than 30
[2022-11-29] MEDS: AMPICILLIN-SULBACTAM 3 GM in SODIUM CHLORIDE 0.9% 100 ML IVPB SCH ×3 (09:37→23:16)
[2022-11-29] MEDS: CYANOCOBALAMIN 500 MCG TAB PO SCH (09:38)
[2022-11-29] MEDS: ATORVASTATIN 40 MG TAB PO SCH (09:38)
[2022-11-29] MEDS: DONEPEZIL 10 MG TAB PO SCH (09:38)
[2022-11-29] MEDS: CLOPIDOGREL 75 MG TAB PO SCH (09:38)
[2022-11-29] MEDS: METOPROLOL TARTRATE 25 MG TAB PO SCH ×2 (09:38→20:09)
[2022-11-29] MEDS: ASPIRIN 81 MG PO SCH (09:38)
[2022-11-29] MEDS: MEMANTINE 5 MG TAB PO SCH ×2 (09:39→20:10)
[2022-11-29] MEDS: MIDODRINE 5 MG TAB PO SCH ×3 (09:39→17:25)
[2022-11-29] MEDS: NON FORMULARY DRUG (Mirabegron [Myrbetriq] 25 MG Tab.Er.24h) PO SCH (09:39)
[2022-11-29] MEDS: DIVALPROEX 250 MG TABLET.DR PO SCH ×2 (09:39→20:09)
[2022-11-29 10:33] VITALS: BMI 21.9
[2022-11-29 11:55] LABS: Glucose,Whole Blood 153 mg/dL (70-110)
[2022-11-29] MEDS: QUEtiapine 50 MG TAB PO SCH (13:01)
--- NOTE | 2022-11-29 14:26 | P.PN ---
Subjective Progress Note Date: 11/29/22 Principal diagnosis: Left heel infected pressure ulcer Patient is a 87-year-old female with multiple comorbidities including dementia has been brought to the hospital for worsening wound to the left heel area patient is status post surgical debridement by vascular surgery and deep cultures on 11/28/2022 On today's evaluation that is 11/29/2022, the patient denies having any fever and chills patient remains to be pleasantly confused and very good historian no vomiting or diarrhea has been reported by the nursing staff Objective - Vital Signs Vital signs: Vital Signs Temp 98 F 11/29/22 11:00 Pulse 71 11/29/22 11:00 Resp 16 11/29/22 11:00 BP 123/76 11/29/22 11:00 Pulse Ox 98 11/29/22 11:00 FiO2 Intake & Output 11/28/22 11/29/22 11/29/22 18:59 06:59 18:59 Intake Total 718 Balance 718 Weight 63.503 kg 63.503 kg Intake: Intake, IV Titration 100 Amount Ampicillin-Sulbactam 3 gm 100 In Sodium Chloride 0.9% 100 ml @ 200 mls/hr IVPB Q8HR [facility] Rx#:[id number] Oral 618 Other: Voiding Method Diaper Diaper Diaper Incontinent Incontinent Incontinent # Voids 1 2 1 - Exam GENERAL DESCRIPTION: An elderly female lying in bed in no distress RESPIRATORY SYSTEM: Unlabored breathing , decreased breath sounds at bases HEART: S1 S2 regular rate and rhythm , ABDOMEN: Soft , no tenderness EXTREMITIES: Left heel is currently dressed - Labs CBC & Chem 7: 11/28/22 10:45 11/28/22 12:05 Labs: Abnormal Lab Results - Last 24 Hours (Table) 11/28/22 11/28/22 11/29/22 Range/Units 17:15 20:02 06:52 POC Glucose (mg/dL) 117 H 166 H 119 H (70-110) mg/dL 11/29/22 Range/Units 11:53 POC Glucose (mg/dL) 153 H (70-110) mg/dL Microbiology - Last 24 Hours (Table) 11/28/22 16:07 Tissue Culture - Preliminary Heel - Left Assessment and Plan (1) Pressure ulcer, heel, left, unstageable Current Visit: Yes Status: Acute Code(s): L89.620 - PRESSURE ULCER OF LEFT HEEL, UNSTAGEABLE SNOMED Code(s): 35474462882076 Plan: 1patient with unstageable left heel pressure ulcer concerning for infection with surrounding erythema 2-patient also have a stage I pressure ulcer to the right heel area but no cellulitis 3-patient has been evaluated by vascular surgery and the patient is status post surgical debridement and deep culture on 11/28/2022 4We will continue the patient on Unasyn 3 g every 8 hours while waiting for the culture to be finalized Time with Patient: Less than 30
[2022-11-29 16:55] LABS: Glucose,Whole Blood 180 mg/dL (70-110)
[2022-11-29] MEDS: MIRTAZAPINE 15 MG TAB PO SCH (20:09)
[2022-11-29 20:27] LABS: Glucose,Whole Blood 144 mg/dL (70-110)
[2022-11-30 07:01] LABS: Glucose,Whole Blood 136 mg/dL (70-110)
[2022-11-30] MEDS: DONEPEZIL 10 MG TAB PO SCH (09:31)
[2022-11-30] MEDS: AMPICILLIN-SULBACTAM 3 GM in SODIUM CHLORIDE 0.9% 100 ML IVPB SCH ×3 (09:31→23:19)
[2022-11-30] MEDS: CLOPIDOGREL 75 MG TAB PO SCH (09:31)
[2022-11-30] MEDS: CYANOCOBALAMIN 500 MCG TAB PO SCH (09:31)
[2022-11-30] MEDS: ATORVASTATIN 40 MG TAB PO SCH (09:31)
[2022-11-30] MEDS: ASPIRIN 81 MG PO SCH (09:31)
[2022-11-30] MEDS: METOPROLOL TARTRATE 25 MG TAB PO SCH ×3 (09:31→23:20)
[2022-11-30] MEDS: NON FORMULARY DRUG (Mirabegron [Myrbetriq] 25 MG Tab.Er.24h) PO SCH (09:32)
[2022-11-30] MEDS: DIVALPROEX 250 MG TABLET.DR PO SCH ×2 (09:41→22:02)
[2022-11-30] MEDS: MEMANTINE 5 MG TAB PO SCH ×2 (09:41→22:01)
[2022-11-30] MEDS: MIDODRINE 5 MG TAB PO SCH ×3 (09:42→17:48)
--- NOTE | 2022-11-30 10:01 | P.PN ---
Subjective Progress Note Date: 11/29/22 History of present illness; patient is a 87-year-old lady with past medical history significant for dementia ,type 2 diabetes, history of normal pressure, hypertension,hyperlipidemia who presented to the ER because of left heel ulcer. Patient was being seen by wound care clinic, they have not seen any improvement in the left heel ulcer over the last 2 weeks, they refer patient to the ER. Patient is very poor historian because of patient's history of dementia. No complain of any fever or chills at facility. Initial blood work done in the hospital showed white count 9.1, hemoglobin 10.7, platelet count 267, sodium 136, potassium 5, BUN 35, creatinine 0.9 X-ray left foot negative for any fracture, did show mild soft tissue swelling of the dorsal midfoot Ultrasound left lower extremity negative for DVT Patient was admitted to internal medicine service 11/29/2022 Patient is currently lying in bed. Awake alert but could not provide any history due to underlying dementia. Patient seems to be confused. No complaints of chest pain or shortness of breath. Does not appear to be in pain. No episodes of vomiting or diarrhea. Patient has been afebrile. Currently being continued on antibiotics in the form of Unasyn for left heel pressure ulcer. Patient is s/p surgical debridement and deep cultures 11/28/2022.. ID is on board. Current medications reviewed. REVIEW OF SYSTEMS: Cannot be obtained because of patient's history of dementia No family at the bedside PHYSICAL EXAMINATION: GENERAL: The patient has baseline dementia, only alert to self, not in any acute distress. Well developed, well nourished. HEENT: Pupils are round and equally reacting to light. EOMI. No scleral icterus. No conjunctival pallor. Normocephalic, atraumatic. No pharyngeal erythema. No thyromegaly. CARDIOVASCULAR: S1 and S2 present. No murmurs, rubs, or gallops. PULMONARY: Chest is clear to auscultation, no wheezing or crackles. ABDOMEN: Soft, nontender, nondistended, normoactive bowel sounds. No palpable organomegaly. MUSCULOSKELETAL: No joint swelling or deformity. EXTREMITIES: Left Heel ulcer seen NEUROLOGICAL: Gross neurological examination did not reveal any focal deficits. SKIN: No rashes. Assessment and plan Left heel ulcer. s/p surgical debridement and deep cultures 11/28/2022. Dementia Insulin-dependent diabetes mellitus Hypertension Plan; monitor vital signs Monitor CBC Monitor CMP Continue IV unasyn Continue wound care ID and vascular surgery is on board. Follow-up final wound cultures. Resume home meds DVT prophylaxis: Objective - Vital Signs Vital signs: Vital Signs Temp 98 F 11/29/22 11:00 Pulse 71 11/29/22 11:00 Resp 16 11/29/22 11:00 BP 123/76 11/29/22 11:00 Pulse Ox 98 11/29/22 11:00 FiO2 Intake & Output 11/29/22 11/29/22 11/30/22 06:59 18:59 06:59 Intake Total 718 Balance 718 Weight 63.503 kg Intake: Intake, IV Titration 100 Amount Ampicillin-Sulbactam 3 gm 100 In Sodium Chloride 0.9% 100 ml @ 200 mls/hr IVPB Q8HR [facility] Rx#:[id number] Oral 618 Other: Voiding Method Diaper Diaper Incontinent Incontinent # Voids 2 2 - Labs CBC & Chem 7: 11/28/22 10:45 11/28/22 12:05 Labs: Abnormal Lab Results - Last 24 Hours (Table) 11/29/22 11/29/22 11/29/22 Range/Units 06:52 11:53 16:54 POC Glucose (mg/dL) 119 H 153 H 180 H (70-110) mg/dL 11/29/22 Range/Units 20:24 POC Glucose (mg/dL) 144 H (70-110) mg/dL Microbiology - Last 24 Hours (Table) 11/28/22 16:07 Tissue Culture - Preliminary Heel - Left
[2022-11-30 11:02] LABS: Basophils # (A) 0.06 X 10*3/uL (0.00-0.10); Basophils % (A) 0.8 %; Eosinophils # (A) 0.17 X 10*3/uL (0.04-0.35); Eosinophils % (A) 2.4 %; HCT 31.8 % (37.2-46.3); HGB 10.1 g/dL (12.0-15.0); Immature Grans, Automated 0.3 %; Lymphocytes # (A) 1.77 X 10*3/uL (0.90-5.00); Lymphocytes % (A) 24.9 %; MCH 29.7 pg (27.0-32.0); MCHC 31.8 g/dL (32.0-37.0); MCV 93.5 fL (80.0-97.0); Monocytes % (A) 11.2 %; NRBC Per 100 WBC 0 /100 WBCS (0.0-0.0); Neutrophils % (A) 60.4 %; Platelet Count 241 X 10*3/uL (140-440); WBC 7.12 X 10*3/uL (4.50-10.00)
[2022-11-30 11:04] LABS: African American GFR (CKD) 43.3 (60.0-200.0); Anion Gap 10.8 mmol/L (10.00-18.00); BUN/Creat Ratio 20.08 Ratio (12.00-20.00); Blood Urea Nitrogen 26.1 mg/dL (9.0-27.0); Carbon Dioxide 27.2 mmol/L (20.0-27.5); Non-African American GFR(CKD) 37.4 (60.0-200.0)
[2022-11-30 11:11] LABS: Glucose,Whole Blood 120 mg/dL (70-110)
--- NOTE | 2022-11-30 13:09 | CDI ---
Documentation Clarification Form Date: 11/30/2022 12:57:48 PM From: Lashay Juárez RN CCDS Phone: [phone] Admit Date: 11/28/2022 11:48:00 AM Patient Name: Mulu Vázquez Visit Number: [id number] Discharge Date: ATTENTION: The Clinical Documentation Specialists (CDI) and [facility] Coding Staff appreciate your assistance in clarifying documentation. Please respond to the clarification below the line at the bottom and electronically sign. The CDI & [facility] Coding staff will review the response and follow-up if needed. Please note: Queries are made part of the Legal Health Record. If you have any questions, please contact the author of this message via ITS. Dr. Ankit Taylor debridement is documented 11/28, Procedure note. Additional clarification regarding the procedure is requested. History/Risk Factors: 87-year-old female presents from wound care for admission for left heel wound that isnt improving. Medical History: Dementia, DM 2, HTN and Bilateral heel wounds. Clinical Indicators: 11/28 Procedure note: Infected left heel. The knee using knife we excise the DVT / tissue down to separate this tissue the tape tissue was sent for deep culture no active bleeding was noted wound was irrigated with saline medihoney gel applied to the wound dressing placed. Treatment: Surgical Debridement, Excised using a knife, Measured 3 x 2 x 0.5cm Please clarify the type of procedure performed: [ ] Nature of the tissue removed (e.g., necrotic, devitalized tissues, non- viable tissue, etc. [ ] Depth of the debridement (e.g., skin, subcutaneous tissue, fascia, muscle, bone, etc. [ ] Other; please specify [ ] Unable to determine Five elements required for accurate and compliant documentation of a debridement: Technique used (e.g., excisional, excised, cutting, brushing, jet lavage etc.) Instrument(s) used (e.g., scalpel, curette, etc.) Nature of the tissue removed (e.g., necrotic, devitalized tissues, non-viable tissue, etc.) Appearance and size of the wound (e.g., down to fresh bleeding tissue, 7cm x 10cm, etc.) Depth of the debridement* (e.g., skin, subcutaneous tissue, fascia, muscle, bone, etc.) (Template Last Revised: September 2020) MTDD
[2022-11-30] MEDS: QUEtiapine 50 MG TAB PO SCH (13:57)
--- NOTE | 2022-11-30 15:00 | P.PN ---
Subjective Progress Note Date: 11/30/22 Principal diagnosis: Left heel infected pressure ulcer Patient is a 87-year-old female with multiple comorbidities including dementia has been brought to the hospital for worsening wound to the left heel area patient is status post surgical debridement by vascular surgery and deep cultures on 11/28/2022 On today's evaluation that is 11/30/2022, the patient remains to be afebrile, patient is pleasantly confused and unable to provide good historian no vomiting or diarrhea has been reported by the nursing staff Objective - Vital Signs Vital signs: Vital Signs Temp 98 F 11/30/22 11:27 Pulse 81 11/30/22 11:27 Resp 16 11/30/22 11:27 BP 99/62 11/30/22 11:27 Pulse Ox 98 11/30/22 11:27 FiO2 Intake & Output 11/29/22 11/30/22 11/30/22 18:59 06:59 18:59 Intake Total 1040 Balance 1040 Weight 63.503 kg Intake: Intake, IV Titration 200 Amount Ampicillin-Sulbactam 3 gm 200 In Sodium Chloride 0.9% 100 ml @ 200 mls/hr IVPB Q8HR [facility] Rx#:[id number] Oral 840 Other: Voiding Method Diaper Diaper Diaper Incontinent Incontinent Incontinent # Voids 2 1 - Exam GENERAL DESCRIPTION: An elderly female lying in bed in no distress RESPIRATORY SYSTEM: Unlabored breathing , decreased breath sounds at bases HEART: S1 S2 regular rate and rhythm , ABDOMEN: Soft , no tenderness EXTREMITIES: Left heel is currently dressed - Labs CBC & Chem 7: 11/30/22 05:23 11/30/22 05:23 Labs: Abnormal Lab Results - Last 24 Hours (Table) 11/29/22 11/29/22 11/30/22 Range/Units 16:54 20:24 : RBC 3.40 L (4.10-5.20) X 10*6/uL Hgb 10.1 L (12.0-15.0) g/dL Hct 31.8 L (37.2-46.3) % MCHC 31.8 L (32.0-37.0) g/dL RDW 15.0 H (11.5-14.5) % Est GFR (CKD-EPI)AfAm (60.0-200.0) Est GFR (CKD-EPI)NonAf (60.0-200.0) BUN/Creatinine Ratio (12.00-20.00) Ratio Glucose (70-110) mg/dL POC Glucose (mg/dL) 180 H 144 H (70-110) mg/dL 11/30/22 11/30/22 11/30/22 Range/Units : 06:59 11:09 RBC (4.10-5.20) X 10*6/uL Hgb (12.0-15.0) g/dL Hct (37.2-46.3) % MCHC (32.0-37.0) g/dL RDW (11.5-14.5) % Est GFR (CKD-EPI)AfAm 43.3 L (60.0-200.0) Est GFR (CKD-EPI)NonAf 37.4 L (60.0-200.0) BUN/Creatinine Ratio 20.08 H (12.00-20.00) Ratio Glucose 124 H (70-110) mg/dL POC Glucose (mg/dL) 136 H 120 H (70-110) mg/dL Microbiology - Last 24 Hours (Table) 11/28/22 10:45 Blood Culture - Preliminary Blood 11/28/22 10:30 Blood Culture - Preliminary Blood 11/28/22 16:07 Gram Stain - Preliminary Heel - Left Tissue Culture - Preliminary Gram Neg Bacilli Assessment and Plan (1) Pressure ulcer, heel, left, unstageable Current Visit: Yes Status: Acute Code(s): L89.620 - PRESSURE ULCER OF LEFT HEEL, UNSTAGEABLE SNOMED Code(s): 64772391823085 Plan: 1patient with unstageable left heel pressure ulcer concerning for infection with surrounding erythema 2-patient also have a stage I pressure ulcer to the right heel area but no cellulitis 3-patient has been evaluated by vascular surgery and the patient is status post surgical debridement and deep culture on 11/28/2022, which are currently growing gram-negative with ID sensitivities pending 4We will continue the patient on Unasyn 3 g every 8 hours while waiting for the culture to be finalized, to determine her discharge antibiotics discussed with the admitting team Time with Patient: Less than 30
--- NOTE | 2022-11-30 15:51 | P.PN ---
Subjective Progress Note Date: 11/30/22 87-year-old lady with past medical history significant for dementia ,type 2 diabetes, history of normal pressure, hypertension,hyperlipidemia who presented to the ER because of left heel ulcer. Patient was being seen by wound care clinic, they have not seen any improvement in the left heel ulcer over the last 2 weeks, they refer patient to the ER. Patient is very poor historian because of patient's history of dementia. No complain of any fever or chills at facility. Initial blood work done in the hospital showed white count 9.1, hemoglobin 10.7, platelet count 267, sodium 136, potassium 5, BUN 35, creatinine 0.9 X-ray left foot negative for any fracture, did show mild soft tissue swelling of the dorsal midfoot Ultrasound left lower extremity negative for DVT Patient was admitted to internal medicine service Objective - Vital Signs Vital signs: Vital Signs Temp 98 F 11/30/22 11:27 Pulse 81 11/30/22 11:27 Resp 16 11/30/22 11:27 BP 99/62 11/30/22 11:27 Pulse Ox 98 11/30/22 11:27 FiO2 Intake & Output 11/29/22 11/30/22 11/30/22 18:59 06:59 18:59 Intake Total 1040 Balance 1040 Weight 63.503 kg Intake: Intake, IV Titration 200 Amount Ampicillin-Sulbactam 3 gm 200 In Sodium Chloride 0.9% 100 ml @ 200 mls/hr IVPB Q8HR [facility] Rx#:[id number] Oral 840 Other: Voiding Method Diaper Diaper Diaper Incontinent Incontinent Incontinent # Voids 2 1 1 - Exam GENERAL: The patient has baseline dementia, only alert to self, not in any acute distress. Well developed, well nourished. HEENT: Pupils are round and equally reacting to light. EOMI. No scleral icterus. No conjunctival pallor. Normocephalic, atraumatic. No pharyngeal erythema. No thyromegaly. CARDIOVASCULAR: S1 and S2 present. No murmurs, rubs, or gallops. PULMONARY: Chest is clear to auscultation, no wheezing or crackles. ABDOMEN: Soft, nontender, nondistended, normoactive bowel sounds. No palpable organomegaly. MUSCULOSKELETAL: No joint swelling or deformity. EXTREMITIES: Left Heel ulcer seen NEUROLOGICAL: Gross neurological examination did not reveal any focal deficits. SKIN: No rashes. - Labs CBC & Chem 7: 11/30/22 05:23 11/30/22 05: Labs: Abnormal Lab Results - Last 24 Hours (Table) 11/29/22 11/29/22 11/30/22 Range/Units 16:54 20:24 05: RBC 3.40 L (4.10-5.20) X 10*6/uL Hgb 10.1 L (12.0-15.0) g/dL Hct 31.8 L (37.2-46.3) % MCHC 31.8 L (32.0-37.0) g/dL RDW 15.0 H (11.5-14.5) % Est GFR (CKD-EPI)AfAm (60.0-200.0) Est GFR (CKD-EPI)NonAf (60.0-200.0) BUN/Creatinine Ratio (12.00-20.00) Ratio Glucose (70-110) mg/dL POC Glucose (mg/dL) 180 H 144 H (70-110) mg/dL 11/30/22 11/30/22 11/30/22 Range/Units 05: 06:59 11:09 RBC (4.10-5.20) X 10*6/uL Hgb (12.0-15.0) g/dL Hct (37.2-46.3) % MCHC (32.0-37.0) g/dL RDW (11.5-14.5) % Est GFR (CKD-EPI)AfAm 43.3 L (60.0-200.0) Est GFR (CKD-EPI)NonAf 37.4 L (60.0-200.0) BUN/Creatinine Ratio 20.08 H (12.00-20.00) Ratio Glucose 124 H (70-110) mg/dL POC Glucose (mg/dL) 136 H 120 H (70-110) mg/dL Microbiology - Last 24 Hours (Table) 11/28/22 10:45 Blood Culture - Preliminary Blood 11/28/22 10:30 Blood Culture - Preliminary Blood 11/28/22 16:07 Gram Stain - Preliminary Heel - Left Tissue Culture - Preliminary Gram Neg Bacilli Assessment and Plan Assessment: Left heel ulcer. s/p surgical debridement and deep cultures 11/28/2022. Dementia Insulin-dependent diabetes mellitus Hypertension Plan; monitor vital signs Monitor CBC Monitor CMP Continue IV unasyn Continue wound care ID and vascular surgery is on board. Follow-up final wound cultures. Resume home meds
[2022-11-30 17:20] LABS: Glucose,Whole Blood 220 mg/dL (70-110)
[2022-11-30 21:20] LABS: Glucose,Whole Blood 160 mg/dL (70-110)
[2022-11-30] MEDS: MIRTAZAPINE 15 MG TAB PO SCH (22:02)
[2022-12-01 07:13] LABS: Glucose,Whole Blood 134 mg/dL (70-110)
[2022-12-01] MEDS: METOPROLOL TARTRATE 25 MG TAB PO SCH ×2 (07:53→20:42)
[2022-12-01] MEDS: DONEPEZIL 10 MG TAB PO SCH (07:53)
[2022-12-01] MEDS: ATORVASTATIN 40 MG TAB PO SCH (07:54)
[2022-12-01] MEDS: AMPICILLIN-SULBACTAM 3 GM in SODIUM CHLORIDE 0.9% 100 ML IVPB SCH ×2 (07:54→17:05)
[2022-12-01] MEDS: CYANOCOBALAMIN 500 MCG TAB PO SCH (07:54)
[2022-12-01] MEDS: ASPIRIN 81 MG PO SCH (07:54)
[2022-12-01] MEDS: CLOPIDOGREL 75 MG TAB PO SCH (07:54)
[2022-12-01] MEDS: DIVALPROEX 250 MG TABLET.DR PO SCH ×2 (07:56→20:42)
[2022-12-01] MEDS: MIDODRINE 5 MG TAB PO SCH ×3 (07:56→17:05)
[2022-12-01] MEDS: MEMANTINE 5 MG TAB PO SCH ×2 (07:56→20:42)
[2022-12-01] MEDS: NON FORMULARY DRUG (Mirabegron [Myrbetriq] 25 MG Tab.Er.24h) PO SCH (08:27)
[2022-12-01 11:20] LABS: Glucose,Whole Blood 129 mg/dL (70-110)
[2022-12-01] MEDS: QUEtiapine 50 MG TAB PO SCH (13:11)
[2022-12-01 17:18] LABS: Glucose,Whole Blood 190 mg/dL (70-110)
[2022-12-01 19:47] LABS: Glucose,Whole Blood 274 mg/dL (70-110)
[2022-12-01] MEDS: MIRTAZAPINE 15 MG TAB PO SCH (20:42)
[2022-12-02] MEDS: AMPICILLIN-SULBACTAM 3 GM in SODIUM CHLORIDE 0.9% 100 ML IVPB SCH ×3 (00:14→17:47)
[2022-12-02 07:23] LABS: Glucose,Whole Blood 182 mg/dL (70-110)
[2022-12-02] MEDS: CYANOCOBALAMIN 500 MCG TAB PO SCH (08:09)
[2022-12-02] MEDS: MEMANTINE 5 MG TAB PO SCH ×2 (08:10→21:28)
[2022-12-02] MEDS: DONEPEZIL 10 MG TAB PO SCH (08:10)
[2022-12-02] MEDS: CLOPIDOGREL 75 MG TAB PO SCH (08:10)
[2022-12-02] MEDS: ATORVASTATIN 40 MG TAB PO SCH (08:10)
[2022-12-02] MEDS: METOPROLOL TARTRATE 25 MG TAB PO SCH ×2 (08:10→21:28)
[2022-12-02] MEDS: ASPIRIN 81 MG PO SCH (08:10)
[2022-12-02] MEDS: DIVALPROEX 250 MG TABLET.DR PO SCH ×2 (08:11→21:28)
[2022-12-02] MEDS: MIDODRINE 5 MG TAB PO SCH ×3 (08:14→17:46)
[2022-12-02] MEDS: NON FORMULARY DRUG (Mirabegron [Myrbetriq] 25 MG Tab.Er.24h) PO SCH (09:00)
[2022-12-02 11:42] LABS: Glucose,Whole Blood 170 mg/dL (70-110)
[2022-12-02] MEDS: QUEtiapine 50 MG TAB PO SCH (14:46)
--- NOTE | 2022-12-02 15:43 | P.PN ---
Subjective Progress Note Date: 12/01/22 Principal diagnosis: Left heel infected pressure ulcer Patient is a 87-year-old female with multiple comorbidities including dementia has been brought to the hospital for worsening wound to the left heel area patient is status post surgical debridement by vascular surgery and deep cultures on 11/28/2022 On today's evaluation that is 12/01/2022, the patient continues to be afebrile, patient is breathing comfortably on room air, no vomiting or diarrhea has been reported by the nursing staff Objective - Vital Signs Vital signs: Vital Signs Temp 97.9 F 12/01/22 12:05 Pulse 70 12/01/22 12:05 Resp 18 12/01/22 12:05 BP 134/77 12/01/22 12:05 Pulse Ox 100 12/01/22 12:05 FiO2 Intake & Output 11/30/22 12/01/22 12/01/22 18:59 06:59 18:59 Other: Voiding Method Diaper Diaper Diaper Incontinent Incontinent Incontinent # Voids 1 4 # Bowel Movements 3 - Exam GENERAL DESCRIPTION: An elderly female lying in bed in no distress RESPIRATORY SYSTEM: Unlabored breathing , decreased breath sounds at bases HEART: S1 S2 regular rate and rhythm , ABDOMEN: Soft , no tenderness EXTREMITIES: Left heel is currently dressed - Labs CBC & Chem 7: 11/30/22 05:23 11/30/22 05:23 Labs: Abnormal Lab Results - Last 24 Hours (Table) 11/30/22 11/30/22 12/01/22 Range/Units 17:07 21:19 07:09 POC Glucose (mg/dL) 220 H 160 H 134 H (70-110) mg/dL 12/01/22 Range/Units 11:19 POC Glucose (mg/dL) 129 H (70-110) mg/dL Microbiology - Last 24 Hours (Table) 11/28/22 10:45 Blood Culture - Preliminary Blood 11/28/22 10:30 Blood Culture - Preliminary Blood 11/28/22 16:07 Gram Stain - Preliminary Heel - Left Tissue Culture - Preliminary Gram Neg Bacilli Assessment and Plan (1) Pressure ulcer, heel, left, unstageable Current Visit: Yes Status: Acute Code(s): L89.620 - PRESSURE ULCER OF LEFT HEEL, UNSTAGEABLE SNOMED Code(s): 15388518413380 Plan: 1patient with unstageable left heel pressure ulcer concerning for infection with surrounding erythema 2-patient also have a stage I pressure ulcer to the right heel area but no cellulitis 3-patient has been evaluated by vascular surgery and the patient is status post surgical debridement and deep culture on 11/28/2022, which are currently growing gram-negative with ID sensitivities pending as of 12/01/2022 4We will continue the patient on Unasyn 3 g every 8 hours while waiting for the culture to be finalized, local care to continue per surgery Time with Patient: Less than 30
--- NOTE | 2022-12-02 15:44 | P.PN ---
Subjective Progress Note Date: 12/02/22 Principal diagnosis: Left heel infected pressure ulcer Patient is a 87-year-old female with multiple comorbidities including dementia has been brought to the hospital for worsening wound to the left heel area patient is status post surgical debridement by vascular surgery and deep cultures on 11/28/2022 On today's evaluation that is 12/02/2022, the patient remains to be afebrile, patient is breathing comfortably on room air, patient seems to more awake and alert and did answer some simple questions pain to the left he has decreased in intensity, no vomiting or diarrhea has been reported by the nursing staff Objective - Vital Signs Vital signs: Vital Signs Temp 97.9 F 12/02/22 07:19 Pulse 81 12/02/22 07:19 Resp 16 12/02/22 08:00 BP 134/62 12/02/22 07:19 Pulse Ox 97 12/02/22 07:19 FiO2 Intake & Output 12/01/22 12/02/22 12/02/22 18:59 06:59 18:59 Intake Total 240 Balance 240 Intake: Oral 240 Other: Voiding Method Diaper Diaper Diaper Incontinent Incontinent Incontinent # Voids 2 4 # Bowel Movements 1 1 - Exam GENERAL DESCRIPTION: An elderly female lying in bed in no distress RESPIRATORY SYSTEM: Unlabored breathing , decreased breath sounds at bases HEART: S1 S2 regular rate and rhythm , ABDOMEN: Soft , no tenderness EXTREMITIES: Left heel wound with minimal slough tissue surrounding redness has improved minimal drainage on the dressing - Labs CBC & Chem 7: 11/30/22 05:23 11/30/22 05:23 Labs: Abnormal Lab Results - Last 24 Hours (Table) 12/01/22 12/01/22 12/02/22 Range/Units 17:16 19:46 07:22 POC Glucose (mg/dL) 190 H 274 H 182 H (70-110) mg/dL 12/02/22 Range/Units 11:41 POC Glucose (mg/dL) 170 H (70-110) mg/dL Microbiology - Last 24 Hours (Table) 11/28/22 10:45 Blood Culture - Preliminary Blood 11/28/22 10:30 Blood Culture - Preliminary Blood 11/28/22 16:07 Gram Stain - Final Heel - Left Tissue Culture - Final Escherichia coli Assessment and Plan (1) Pressure ulcer, heel, left, unstageable Current Visit: Yes Status: Acute Code(s): L89.620 - PRESSURE ULCER OF LEFT HEEL, UNSTAGEABLE SNOMED Code(s): 97718017496109 Plan: 1patient with unstageable left heel pressure ulcer concerning for infection with surrounding erythema 2-patient also have a stage I pressure ulcer to the right heel area but no cellulitis 3-patient has been evaluated by vascular surgery and the patient is status post surgical debridement and deep culture on 11/28/2022, which are currently growing E. coli that is a sensitive pathogen 4We will continue the patient on Unasyn 3 g every 8 hours and plan to finish therapy with oral Augmentin local wound care was discussed with the RN Time with Patient: Less than 30
[2022-12-02 17:23] LABS: Glucose,Whole Blood 156 mg/dL (70-110)
--- NOTE | 2022-12-02 17:46 | P.PN ---
Subjective Progress Note Date: 12/01/22 87-year-old lady with past medical history significant for dementia ,type 2 diabetes, history of normal pressure, hypertension,hyperlipidemia who presented to the ER because of left heel ulcer. Patient was being seen by wound care clinic, they have not seen any improvement in the left heel ulcer over the last 2 weeks, they refer patient to the ER. Patient is very poor historian because of patient's history of dementia. No complain of any fever or chills at facility. Initial blood work done in the hospital showed white count 9.1, hemoglobin 10.7, platelet count 267, sodium 136, potassium 5, BUN 35, creatinine 0.9 X-ray left foot negative for any fracture, did show mild soft tissue swelling of the dorsal midfoot Ultrasound left lower extremity negative for DVT Patient was admitted to internal medicine service 12/01/2022 --the patient continues to be afebrile, patient is breathing comfortably on room air, no vomiting or diarrhea has been reported by the nursing staff patient with unstageable left heel pressure ulcer concerning for infection with surrounding erythema -patient also have a stage I pressure ulcer to the right heel area but no cellulitis -patient has been evaluated by vascular surgery and the patient is status post surgical debridement and deep culture on 11/28/2022, which are currently growing gram-negative with ID sensitivities pending as of 12/01/2022 We will continue the patient on Unasyn 3 g every 8 hours while waiting for the culture to be finalized, local care to continue per surgery Objective - Vital Signs Vital signs: Vital Signs Temp 97.5 F L 12/01/22 07:38 Pulse 77 12/01/22 08:35 Resp 18 12/01/22 08:35 BP 110/68 12/01/22 07:38 Pulse Ox 99 12/01/22 07:38 FiO2 Intake & Output 11/30/22 12/01/22 12/01/22 18:59 06:59 18:59 Other: Voiding Method Diaper Diaper Diaper Incontinent Incontinent Incontinent # Voids 1 4 # Bowel Movements 3 - Exam GENERAL: The patient has baseline dementia, only alert to self, not in any acute distress. Well developed, well nourished. HEENT: Pupils are round and equally reacting to light. EOMI. No scleral icterus. No conjunctival pallor. Normocephalic, atraumatic. No pharyngeal erythema. No thyromegaly. CARDIOVASCULAR: S1 and S2 present. No murmurs, rubs, or gallops. PULMONARY: Chest is clear to auscultation, no wheezing or crackles. ABDOMEN: Soft, nontender, nondistended, normoactive bowel sounds. No palpable organomegaly. MUSCULOSKELETAL: No joint swelling or deformity. EXTREMITIES: Left Heel ulcer seen NEUROLOGICAL: Gross neurological examination did not reveal any focal deficits. SKIN: No rashes. - Labs CBC & Chem 7: 11/30/22 05:11/30/22 05: Labs: Abnormal Lab Results - Last 24 Hours (Table) 11/30/22 11/30/22 11/30/22 Range/Units :11 12: 11:09 RBC 3.40 L (4.10-5.20) X 10*6/uL Hgb 10.1 L (12.0-15.0) g/dL Hct 31.8 L (37.2-46.3) % MCHC 31.8 L (32.0-37.0) g/dL RDW 15.0 H (11.5-14.5) % Est GFR (CKD-EPI)AfAm 43.3 L (60.0-200.0) Est GFR (CKD-EPI)NonAf 37.4 L (60.0-200.0) BUN/Creatinine Ratio 20.08 H (12.00-20.00) Ratio Glucose 124 H (70-110) mg/dL POC Glucose (mg/dL) 120 H (70-110) mg/dL 11/30/22 11/30/22 12/01/22 Range/Units 17:07 21:19 07:09 RBC (4.10-5.20) X 10*6/uL Hgb (12.0-15.0) g/dL Hct (37.2-46.3) % MCHC (32.0-37.0) g/dL RDW (11.5-14.5) % Est GFR (CKD-EPI)AfAm (60.0-200.0) Est GFR (CKD-EPI)NonAf (60.0-200.0) BUN/Creatinine Ratio (12.00-20.00) Ratio Glucose (70-110) mg/dL POC Glucose (mg/dL) 220 H 160 H 134 H (70-110) mg/dL Microbiology - Last 24 Hours (Table) 11/28/22 10:45 Blood Culture - Preliminary Blood 11/28/22 10:30 Blood Culture - Preliminary Blood 11/28/22 16:07 Gram Stain - Preliminary Heel - Left Tissue Culture - Preliminary Gram Neg Bacilli Assessment and Plan Assessment: Left heel ulcer. s/p surgical debridement and deep cultures 11/28/2022. Dementia Insulin-dependent diabetes mellitus Hypertension Plan; monitor vital signs Monitor CBC Monitor CMP Continue IV unasyn Continue wound care ID and vascular surgery is on board. Follow-up final wound cultures. Resume home meds
--- NOTE | 2022-12-02 17:48 | P.PN ---
Subjective Progress Note Date: 12/02/22 87-year-old lady with past medical history significant for dementia ,type 2 diabetes, history of normal pressure, hypertension,hyperlipidemia who presented to the ER because of left heel ulcer. Patient was being seen by wound care clinic, they have not seen any improvement in the left heel ulcer over the last 2 weeks, they refer patient to the ER. Patient is very poor historian because of patient's history of dementia. No complain of any fever or chills at facility. Initial blood work done in the hospital showed white count 9.1, hemoglobin 10.7, platelet count 267, sodium 136, potassium 5, BUN 35, creatinine 0.9 X-ray left foot negative for any fracture, did show mild soft tissue swelling of the dorsal midfoot Ultrasound left lower extremity negative for DVT Patient was admitted to internal medicine service 12/02/2022 --the patient continues to be afebrile, patient is breathing comfortably on room air, no vomiting or diarrhea has been reported by the nursing staff patient with unstageable left heel pressure ulcer concerning for infection with surrounding erythema -patient also have a stage I pressure ulcer to the right heel area but no cellulitis -patient has been evaluated by vascular surgery and the patient is status post surgical debridement and deep culture on 11/28/2022, which are currently growing E. coli that is a sensitive pathogen We will continue the patient on Unasyn 3 g every 8 hours and plan to finish therapy with oral Augmentin local wound care Objective - Vital Signs Vital signs: Vital Signs Temp 97.9 F 12/02/22 07:19 Pulse 81 12/02/22 07:19 Resp 16 12/02/22 08:00 BP 134/62 12/02/22 07:19 Pulse Ox 97 12/02/22 07:19 FiO2 Intake & Output 12/01/22 12/02/22 12/02/22 18:59 06:59 18:59 Intake Total 240 Balance 240 Intake: Oral 240 Other: Voiding Method Diaper Diaper Diaper Incontinent Incontinent Incontinent # Voids 2 4 # Bowel Movements 1 1 - Exam GENERAL: The patient has baseline dementia, only alert to self, not in any acute distress. Well developed, well nourished. HEENT: Pupils are round and equally reacting to light. EOMI. No scleral icterus. No conjunctival pallor. Normocephalic, atraumatic. No pharyngeal erythema. No t hyromegaly. CARDIOVASCULAR: S1 and S2 present. No murmurs, rubs, or gallops. PULMONARY: Chest is clear to auscultation, no wheezing or crackles. ABDOMEN: Soft, nontender, nondistended, normoactive bowel sounds. No palpable organomegaly. MUSCULOSKELETAL: No joint swelling or deformity. EXTREMITIES: Left Heel ulcer seen NEUROLOGICAL: Gross neurological examination did not reveal any focal deficits. SKIN: No rashes. - Labs CBC & Chem 7: 11/30/22 05:11/30/22 05:23 Labs: Abnormal Lab Results - Last 24 Hours (Table) 12/01/22 12/01/22 12/02/22 Range/Units 17:16 19:46 07:22 POC Glucose (mg/dL) 190 H 274 H 182 H (70-110) mg/dL 12/02/22 Range/Units 11:41 POC Glucose (mg/dL) 170 H (70-110) mg/dL Microbiology - Last 24 Hours (Table) 11/28/22 10:45 Blood Culture - Preliminary Blood 11/28/22 10:30 Blood Culture - Preliminary Blood 11/28/22 16:07 Gram Stain - Final Heel - Left Tissue Culture - Final Escherichia coli Assessment and Plan Assessment: Left heel ulcer. s/p surgical debridement and deep cultures 11/28/2022. Dementia Insulin-dependent diabetes mellitus Hypertension Plan; monitor vital signs Monitor CBC Monitor CMP Continue IV unasyn Continue wound care ID and vascular surgery is on board. Follow-up final wound cultures. Resume home meds
[2022-12-02 20:47] LABS: Glucose,Whole Blood 142 mg/dL (70-110)
[2022-12-02] MEDS: MIRTAZAPINE 15 MG TAB PO SCH (21:28)
[2022-12-02 22:34] VITALS: RESP 16
[2022-12-03] MEDS: AMPICILLIN-SULBACTAM 3 GM in SODIUM CHLORIDE 0.9% 100 ML IVPB SCH ×3 (00:12→15:40)
[2022-12-03 07:10] LABS: Glucose,Whole Blood 130 mg/dL (70-110)
[2022-12-03] MEDS: CLOPIDOGREL 75 MG TAB PO SCH (09:15)
[2022-12-03] MEDS: MIDODRINE 5 MG TAB PO SCH ×3 (09:15→18:19)
[2022-12-03] MEDS: ASPIRIN 81 MG PO SCH (09:15)
[2022-12-03] MEDS: DIVALPROEX 250 MG TABLET.DR PO SCH ×2 (09:15→21:35)
[2022-12-03] MEDS: DONEPEZIL 10 MG TAB PO SCH (09:15)
[2022-12-03] MEDS: MEMANTINE 5 MG TAB PO SCH ×2 (09:15→21:35)
[2022-12-03] MEDS: METOPROLOL TARTRATE 25 MG TAB PO SCH ×2 (09:15→21:35)
[2022-12-03] MEDS: ATORVASTATIN 40 MG TAB PO SCH (09:15)
[2022-12-03] MEDS: CYANOCOBALAMIN 500 MCG TAB PO SCH (09:15)
[2022-12-03] MEDS: NON FORMULARY DRUG (Mirabegron [Myrbetriq] 25 MG Tab.Er.24h) PO SCH (09:16)
[2022-12-03 11:08] LABS: African American GFR (CKD) 58.1 (60.0-200.0); Anion Gap 9.3 mmol/L (10.00-18.00); BUN/Creat Ratio 19.12 Ratio (12.00-20.00); Blood Urea Nitrogen 19.5 mg/dL (9.0-27.0); Calcium 9.2 mg/dL (8.7-10.3); Carbon Dioxide 27.2 mmol/L (20.0-27.5); Non-African American GFR(CKD) 50.1 (60.0-200.0); Potassium 4.2 mmol/L (3.5-5.5)
[2022-12-03 11:10] LABS: Basophils # (A) 0.07 X 10*3/uL (0.00-0.10); Eosinophils # (A) 0.27 X 10*3/uL (0.04-0.35); Eosinophils % (A) 3.9 %; HCT 32.5 % (37.2-46.3); HGB 10.1 g/dL (12.0-15.0); Immature Grans, Automated 0.3 %; Lymphocytes # (A) 1.78 X 10*3/uL (0.90-5.00); Lymphocytes % (A) 25.6 %; MCH 29.4 pg (27.0-32.0); MCHC 31.1 g/dL (32.0-37.0); MCV 94.5 fL (80.0-97.0); Mean Platelet Volume 11.3 fL (9.5-12.2); Monocytes # (A) 0.56 X 10*3/uL (0.20-1.00); Monocytes % (A) 8.1 %; NRBC Per 100 WBC 0 /100 WBCS (0.0-0.0); Neutrophils # (A) 4.24 X 10*3/uL (1.80-7.70); Neutrophils % (A) 61.1 %; Platelet Count 235 X 10*3/uL (140-440); RBC 3.44 X 10*6/uL (4.10-5.20); RDW 15.2 % (11.5-14.5); WBC 6.94 X 10*3/uL (4.50-10.00)
[2022-12-03 11:26] LABS: Glucose,Whole Blood 218 mg/dL (70-110)
[2022-12-03] MEDS: QUEtiapine 50 MG TAB PO SCH (13:39)
--- NOTE | 2022-12-03 13:56 | P.DS ---
Providers Date of admission: 11/28/22 11:48 Attending physician: Luis Avery Consults: 11/28/22 12:45 Consult Physician Routine Consulting Provider: Juliane Gay Consult Reason/Comments: left heel ulcer Do you want consulting provider notified?: Yes, Notify in am 11/28/22 13:25 Consult Physician Routine Consulting Provider: Ankit Mares Consult Reason/Comments: Left heel ulcer Do you want consulting provider notified?: Yes Primary care physician: Luis Avery [facility] Course: Diagnoses: Left heel ulcer. s/p surgical debridement and deep cultures 11/28/2022. Dementia Insulin-dependent diabetes mellitus Hypertension Hospital course: 87-year-old lady with past medical history significant for dementia ,type 2 diabetes, history of normal pressure, hypertension,hyperlipidemia who presented to the ER because of left heel ulcer. Patient was being seen by wound care clinic, they have not seen any improvement in the left heel ulcer over the last 2 weeks, patient was admitted to diabetic left heel ulcer status post debridement, culture growing E. coli, patient evaluated by surgery and ID team, Patient was responded to treatment with Unasyn. Discussed the case with ID team today she is fit for discharge, patient discharge on antibiotic per ID team, she'll be discharged on Augmentin 10 days. Patient is has advanced dementia at baseline. Physical therapy evaluated the patient and recommended 24/7 care. collision worker on the case and patient can go back to her adult foster care Problems and management plan were discussed with the patient and he verbalized understanding and acceptance Patient was found stable and can be discharged home in guarded prognosis however he needs follow-up as an outpatient. Patient was instructed to follow up with PCP within one week and patient agrees Physical exam -Gen: patient is a alert and awake but confused at baseline due to advanced dementia, no distress, she is lying in bed comfortable holding her Doll pets in her hands CVS: S1-S2, RRR, no murmur Lungs: B/L CTA, no wheezing Abdomen: soft, no distention, no tenderness, positive bowel sounds Extremity: no leg edema or induration, left heel ulcer with a dressing in place, improving Time spent more than 35 minutes Plan - Discharge Summary Discharge Rx Participant: Yes New Discharge Prescriptions: New Amoxic-Pot Clav 875-125Mg [Augmentin 875-125] 1 tab PO BID 10 Days #20 tab Discontinued Doxycycline Hyclate 100 mg PO BID No Action Midodrine HCl 5 mg PO TID-W/MEALS Aspirin 81 mg PO DAILY tab Memantine HCl [Namenda] 5 mg PO BID Mirtazapine [Remeron] 15 mg PO HS #30 tab Atorvastatin Calcium [Lipitor] 40 mg PO DAILY Divalproex Sodium [Depakote] 250 mg PO BID Metoprolol Tartrate [Lopressor] 25 mg PO BID Mirabegron [Myrbetriq] 25 mg PO DAILY QUEtiapine [SEROquel] 50 mg PO DAILY@1400 SILVER sulfADIAZINE Cream [Silvadene 1% Cream] 1 applic TOPICAL DAILY Famotidine [Pepcid] 20 mg PO BID Cholecalciferol [Vitamin D3 (25 Mcg = 1000 Iu)] 50 mcg PO BID-W/MEALS Rivastigmine Tartrate [Exelon] 3 mg PO BID Cyanocobalamin [Vitamin B-12] 500 mcg PO DAILY Insulin Glargine,Hum.rec.anlog [Lantus Solostar Pen] 10 unit SQ DAILY Clopidogrel [Plavix] 75 mg PO DAILY tab Docusate [Colace] 100 mg PO BID Discharge Medication List Cholecalciferol [Vitamin D3 (25 Mcg = 1000 Iu)] 50 mcg PO BID-W/MEALS 07/05/21 [History] Cyanocobalamin [Vitamin B-12] 500 mcg PO DAILY 07/05/21 [History] Midodrine HCl 5 mg PO TID-W/MEALS 07/05/21 [History] Rivastigmine Tartrate [Exelon] 3 mg PO BID 07/05/21 [History] Aspirin 81 mg PO DAILY tab 07/07/21 [Rx] Insulin Glargine,Hum.rec.anlog [Lantus Solostar Pen] 10 unit SQ DAILY 08/10/21 [History] Memantine HCl [Namenda] 5 mg PO BID 08/10/21 [History] Mirtazapine [Remeron] 15 mg PO HS #30 tab 08/22/21 [Rx] Clopidogrel [Plavix] 75 mg PO DAILY tab 09/21/21 [Rx] Atorvastatin Calcium [Lipitor] 40 mg PO DAILY 11/28/22 [History] Divalproex Sodium [Depakote] 250 mg PO BID 11/28/22 [History] Docusate [Colace] 100 mg PO BID 11/28/22 [History] Famotidine [Pepcid] 20 mg PO BID 11/28/22 [History] Metoprolol Tartrate [Lopressor] 25 mg PO BID 11/28/22 [History] Mirabegron [Myrbetriq] 25 mg PO DAILY 11/28/22 [History] QUEtiapine [SEROquel] 50 mg PO DAILY@1400 11/28/22 [History] SILVER sulfADIAZINE Cream [Silvadene 1% Cream] 1 applic TOPICAL DAILY 11/28/22 [History] Amoxic-Pot Clav 875-125Mg [Augmentin 875-125] 1 tab PO BID 10 Days #20 tab 12/03/22 [Rx] Follow up Appointment(s)/Referral(s): Kianna Alcaraz, MAGNOLIA [STAFF PHYSICIAN] - 1-2 days Activity/Diet/Wound Care/Special Instructions: Dr. Mares wants to see in the wound center in one week after discharge
[2022-12-03 17:07] LABS: Glucose,Whole Blood 270 mg/dL (70-110)
[2022-12-03] MEDS: MIRTAZAPINE 15 MG TAB PO SCH (21:35)
[2022-12-04] MEDS: AMPICILLIN-SULBACTAM 3 GM in SODIUM CHLORIDE 0.9% 100 ML IVPB SCH ×2 (00:08→08:43)
[2022-12-04 07:07] LABS: Glucose,Whole Blood 148 mg/dL (70-110)
--- NOTE | 2022-12-04 07:22 | P.PN ---
Subjective Progress Note Date: 12/03/22 Principal diagnosis: Left heel infected pressure ulcer Patient is a 87-year-old female with multiple comorbidities including dementia has been brought to the hospital for worsening wound to the left heel area patient is status post surgical debridement by vascular surgery and deep cultures on 11/28/2022 On today's evaluation that is 12/03/2022, the patient continues to be afebrile, patient is breathing comfortably on room air, patient pain to the left has decreased in intensity, patient denies having any chest pain or shortness of breath or cough, no vomiting or diarrhea has been reported by the nursing staff Objective - Vital Signs Vital signs: Vital Signs Temp 97.9 F 12/03/22 11:38 Pulse 81 12/03/22 11:38 Resp 16 12/03/22 11:38 BP 128/70 12/03/22 11:38 Pulse Ox 97 12/03/22 11:38 FiO2 Intake & Output 12/02/22 12/03/22 12/03/22 18:59 06:59 18:59 Intake Total 50 Balance 50 Intake: Oral 50 Other: Voiding Method Diaper Diaper Diaper Incontinent Incontinent Incontinent # Voids 3 3 1 # Bowel Movements 1 1 - Exam GENERAL DESCRIPTION: An elderly female lying in bed in no distress RESPIRATORY SYSTEM: Unlabored breathing , decreased breath sounds at bases HEART: S1 S2 regular rate and rhythm , ABDOMEN: Soft , no tenderness EXTREMITIES: Left heel wound is currently dressed no drainage on the dressing - Labs CBC & Chem 7: 12/03/22 06:04 12/03/22 06:04 Labs: Abnormal Lab Results - Last 24 Hours (Table) 12/02/22 12/02/22 12/03/22 Range/Units 17:20 20:46 06:04 RBC 3.44 L (4.10-5.20) X 10*6/uL Hgb 10.1 L (12.0-15.0) g/dL Hct 32.5 L (37.2-46.3) % MCHC 31.1 L (32.0-37.0) g/dL RDW 15.2 H (11.5-14.5) % Anion Gap (10.00-18.00) mmol/L Est GFR (CKD-EPI)AfAm (60.0-200.0) Est GFR (CKD-EPI)NonAf (60.0-200.0) Glucose (70-110) mg/dL POC Glucose (mg/dL) 156 H 142 H (70-110) mg/dL 12/03/22 12/03/22 12/03/22 Range/Units 06:04 07:07 11:22 RBC (4.10-5.20) X 10*6/uL Hgb (12.0-15.0) g/dL Hct (37.2-46.3) % MCHC (32.0-37.0) g/dL RDW (11.5-14.5) % Anion Gap 9.30 L (10.00-18.00) mmol/L Est GFR (CKD-EPI)AfAm 58.1 L (60.0-200.0) Est GFR (CKD-EPI)NonAf 50.1 L (60.0-200.0) Glucose 125 H (70-110) mg/dL POC Glucose (mg/dL) 130 H 218 H (70-110) mg/dL Microbiology - Last 24 Hours (Table) 11/28/22 10:45 Blood Culture - Preliminary Blood 11/28/22 10:30 Blood Culture - Preliminary Blood Assessment and Plan (1) Pressure ulcer, heel, left, unstageable Current Visit: Yes Status: Acute Code(s): L89.620 - PRESSURE ULCER OF LEFT HEEL, UNSTAGEABLE SNOMED Code(s): 04270572523817 Plan: 1patient with unstageable left heel pressure ulcer concerning for infection with surrounding erythema 2-patient also have a stage I pressure ulcer to the right heel area but no cellulitis 3-patient has been evaluated by vascular surgery and the patient is status post surgical debridement and deep culture on 11/28/2022, which are currently growing E. coli that is a sensitive pathogen 4patient seemed to have shown clinical improvement and will continue the patien t on Unasyn 3 g every 8 hours and plan to finish therapy with oral Augmentin, prescription sent to the pharmacy, plan of care discussed with the admitting team Time with Patient: Less than 30
[2022-12-04 07:39] VITALS: BP 127/64; PULSE 67; TEMP 97.9
[2022-12-04] MEDS: ATORVASTATIN 40 MG TAB PO SCH (08:43)
[2022-12-04] MEDS: MIDODRINE 5 MG TAB PO SCH ×2 (08:44→13:25)
[2022-12-04] MEDS: CLOPIDOGREL 75 MG TAB PO SCH (08:44)
[2022-12-04] MEDS: CYANOCOBALAMIN 500 MCG TAB PO SCH (08:44)
[2022-12-04] MEDS: ASPIRIN 81 MG PO SCH (08:44)
[2022-12-04] MEDS: MEMANTINE 5 MG TAB PO SCH (08:44)
[2022-12-04] MEDS: METOPROLOL TARTRATE 25 MG TAB PO SCH (08:44)
[2022-12-04] MEDS: DONEPEZIL 10 MG TAB PO SCH (08:44)
[2022-12-04] MEDS: DIVALPROEX 250 MG TABLET.DR PO SCH (08:45)
[2022-12-04] MEDS: NON FORMULARY DRUG (Mirabegron [Myrbetriq] 25 MG Tab.Er.24h) PO SCH (08:45)
[2022-12-04 11:09] LABS: Glucose,Whole Blood 149 mg/dL (70-110)
[2022-12-04 12:36] LABS: Glucose,Whole Blood 218 mg/dL (70-110)
[2022-12-04] MEDS: QUEtiapine 50 MG TAB PO SCH (13:31)
--- NOTE | 2022-12-04 15:20 | P.DS ---
Providers Date of admission: 11/28/22 11:48 Attending physician: Luis Avery Consults: 11/28/22 12:45 Consult Physician Routine Consulting Provider: Juliane Gay Consult Reason/Comments: left heel ulcer Do you want consulting provider notified?: Yes, Notify in am 11/28/22 13:25 Consult Physician Routine Consulting Provider: Ankit Mares Consult Reason/Comments: Left heel ulcer Do you want consulting provider notified?: Yes Primary care physician: Luis Avery [facility] Course: Diagnoses: Left heel ulcer. s/p surgical debridement and deep cultures 11/28/2022 growing sensitive E. coli including Augmentin the discharge antibiotic Dementia Insulin-dependent diabetes mellitus Hypertension Hospital course: 87-year-old lady with past medical history significant for dementia ,type 2 diabetes, history of normal pressure, hypertension,hyperlipidemia who presented to the ER because of left heel ulcer. Patient was being seen by wound care clinic, they have not seen any improvement in the left heel ulcer over the last 2 weeks, patient was admitted to diabetic left heel ulcer status post debridement, culture growing E. coli, patient evaluated by surgery and ID team, Patient was responded to treatment with Unasyn. Discussed the case with ID team today she is fit for discharge, patient discharge on antibiotic per ID team, she'll be discharged on Augmentin 10 days. Patient is has advanced dementia at baseline. Physical therapy evaluated the patient and recommended 24/7 care. compound worker on the case and patient can go back to her adult foster care Problems and management plan were discussed with the patient and he verbalized understanding and acceptance Patient was found stable and can be discharged home in guarded prognosis however he needs follow-up as an outpatient. Patient was instructed to follow up with PCP within one week and patient agrees Physical exam -Gen: patient is a alert and awake but confused at baseline due to advanced dementia, no distress, she is lying in bed comfortable holding her Doll pets in her hands CVS: S1-S2, RRR, no murmur Lungs: B/L CTA, no wheezing Abdomen: soft, no distention, no tenderness, positive bowel sounds Extremity: no leg edema or induration, left heel ulcer with a dressing in place, improving Time spent more than 35 minutes Plan - Discharge Summary Discharge Rx Participant: Yes New Discharge Prescriptions: New Amoxic-Pot Clav 875-125Mg [Augmentin 875-125] 1 tab PO BID 10 Days #20 tab Continue Midodrine HCl 5 mg PO TID-W/MEALS Aspirin 81 mg PO DAILY tab Memantine HCl [Namenda] 5 mg PO BID Mirtazapine [Remeron] 15 mg PO HS #30 tab Atorvastatin Calcium [Lipitor] 40 mg PO DAILY Divalproex Sodium [Depakote] 250 mg PO BID Metoprolol Tartrate [Lopressor] 25 mg PO BID Mirabegron [Myrbetriq] 25 mg PO DAILY QUEtiapine [SEROquel] 50 mg PO DAILY@1400 SILVER sulfADIAZINE Cream [Silvadene 1% Cream] 1 applic TOPICAL DAILY Famotidine [Pepcid] 20 mg PO BID Cholecalciferol [Vitamin D3 (25 Mcg = 1000 Iu)] 50 mcg PO BID-W/MEALS Rivastigmine Tartrate [Exelon] 3 mg PO BID Cyanocobalamin [Vitamin B-12] 500 mcg PO DAILY Insulin Glargine,Hum.rec.anlog [Lantus Solostar Pen] 10 unit SQ DAILY Clopidogrel [Plavix] 75 mg PO DAILY tab Docusate [Colace] 100 mg PO BID Discontinued Doxycycline Hyclate 100 mg PO BID Discharge Medication List Cholecalciferol [Vitamin D3 (25 Mcg = 1000 Iu)] 50 mcg PO BID-W/MEALS 07/05/21 [History] Cyanocobalamin [Vitamin B-12] 500 mcg PO DAILY 07/05/21 [History] Midodrine HCl 5 mg PO TID-W/MEALS 07/05/21 [History] Rivastigmine Tartrate [Exelon] 3 mg PO BID 07/05/21 [History] Aspirin 81 mg PO DAILY tab 07/07/21 [Rx] Insulin Glargine,Hum.rec.anlog [Lantus Solostar Pen] 10 unit SQ DAILY 08/10/21 [History] Memantine HCl [Namenda] 5 mg PO BID 08/10/21 [History] Mirtazapine [Remeron] 15 mg PO HS #30 tab 08/22/21 [Rx] Clopidogrel [Plavix] 75 mg PO DAILY tab 09/21/21 [Rx] Atorvastatin Calcium [Lipitor] 40 mg PO DAILY 11/28/22 [History] Divalproex Sodium [Depakote] 250 mg PO BID 11/28/22 [History] Docusate [Colace] 100 mg PO BID 11/28/22 [History] Famotidine [Pepcid] 20 mg PO BID 11/28/22 [History] Metoprolol Tartrate [Lopressor] 25 mg PO BID 11/28/22 [History] Mirabegron [Myrbetriq] 25 mg PO DAILY 11/28/22 [History] QUEtiapine [SEROquel] 50 mg PO DAILY@1400 11/28/22 [History] SILVER sulfADIAZINE Cream [Silvadene 1% Cream] 1 applic TOPICAL DAILY 11/28/22 [History] Amoxic-Pot Clav 875-125Mg [Augmentin 875-125] 1 tab PO BID 10 Days #20 tab 12/03/22 [Rx] Follow up Appointment(s)/Referral(s): Luis Avery MD [Primary Care Provider] - 1 Week Kianna Alcaraz NPC [STAFF PHYSICIAN] - 1-2 days Patient Instructions/Handouts: Amoxicillin/Clavulanate Potassium (By mouth) Activity/Diet/Wound Care/Special Instructions: Dr. Mares wants to see in the wound center in one week after [facility] [place] - [phone] [phone] hold Midodrine if her systolic bp is 110 or higher Discharge Disposition: TRANSFER TO SNF/ECF
--- NOTE | 2022-12-10 07:30 | P.PN ---
Subjective Progress Note Date: 12/04/22 Principal diagnosis: Left heel infected pressure ulcer Patient is a 87-year-old female with multiple comorbidities including dementia has been brought to the hospital for worsening wound to the left heel area patient is status post surgical debridement by vascular surgery and deep cultures on 11/28/2022 On today's evaluation that is 12/04/2022, the patient is afebrile, patient is breathing comfortably on room air, patient pain to the left has decreased in intensity, patient denies chest pain or shortness of breath or cough, no vomiting or diarrhea has been reported by the nursing staff, no new symptoms Objective - Vital Signs Vital signs: Vital Signs Temp 97.9 F 12/04/22 07:38 Pulse 67 12/04/22 07:38 Resp 16 12/04/22 07:38 BP 127/64 12/04/22 07:38 Pulse Ox 99 12/04/22 07:38 FiO2 Intake & Output 12/03/22 12/04/22 12/04/22 18:59 06:59 18:59 Intake Total 200 20 Balance 200 20 Weight 63.503 kg Intake: Intake, IV Titration 200 Amount Ampicillin-Sulbactam 3 gm 200 In Sodium Chloride 0.9% 100 ml @ 200 mls/hr IVPB Q8HR [facility] Rx#:[id number] Oral 20 Other: Voiding Method Diaper Diaper Diaper Incontinent Incontinent Incontinent # Voids 1 3 1 # Bowel Movements 1 2 - Exam GENERAL DESCRIPTION: An elderly female lying in bed in no distress RESPIRATORY SYSTEM: Unlabored breathing , decreased breath sounds at bases HEART: S1 S2 regular rate and rhythm , ABDOMEN: Soft , no tenderness EXTREMITIES: Left heel wound is currently dressed no drainage on the dressing - Labs CBC & Chem 7: 12/03/22 06:04 12/03/22 06:04 Labs: Abnormal Lab Results - Last 24 Hours (Table) 12/03/22 12/03/22 12/04/22 Range/Units 17:05 20:26 07:04 POC Glucose (mg/dL) 270 H 218 H 148 H (70-110) mg/dL 12/04/22 Range/Units 11:07 POC Glucose (mg/dL) 149 H (70-110) mg/dL Microbiology - Last 24 Hours (Table) 11/28/22 10:45 Blood Culture - Final Blood 11/28/22 10:30 Blood Culture - Final Blood Assessment and Plan (1) Pressure ulcer, heel, left, unstageable Status: Acute Code(s): L89.620 - PRESSURE ULCER OF LEFT HEEL, UNSTAGEABLE SNOMED Code(s): [id number] Plan: 1patient with unstageable left heel pressure ulcer concerning for infection with surrounding erythema 2-patient also have a stage I pressure ulcer to the right heel area but no cellulitis 3-patient has been evaluated by vascular surgery and the patient is status post surgical debridement and deep culture on 11/28/2022, which are currently growing E. coli that is a sensitive pathogen 4patient has shown clinical improvement with Unasyn 3 g every 8 hours and plan to finish therapy with oral Augmentin x 10 days, prescription were sent to the pharmacy Time with Patient: Less than 30
== END 2022-12-04 15:12 | DRG 264 ==
LOC: EC 10:13 → 5NMEDONC 11:48
PROVIDERS: ADMIT Internal Medicine; ATTEND Internal Medicine
PROC: 0JBR0ZZ Excision of Left Foot Subcutaneous Tissue and Fascia, Open Approach (ICD-10-PCS; principal; 2022-11-28)
DX: I96 Gangrene, not elsewhere classified (principal); L89.611 Pressure ulcer of right heel, stage 1; E11.621 Type 2 diabetes mellitus with foot ulcer; L89.620 Pressure ulcer of left heel, unstageable; F03.90 Unspecified dementia, unspecified severity, without behavioral disturbance, psychotic disturbance, mood disturbance, and anxiety; E86.0 Dehydration; E78.5 Hyperlipidemia, unspecified; I10 Essential (primary) hypertension; B96.20 Unspecified Escherichia coli [E. coli] as the cause of diseases classified elsewhere; Z79.4 Long term (current) use of insulin; Z79.82 Long term (current) use of aspirin; Z79.899 Other long term (current) drug therapy; Z83.3 Family history of diabetes mellitus; Z86.73 Personal history of transient ischemic attack (TIA), and cerebral infarction without residual deficits; Z87.440 Personal history of urinary (tract) infections; Z98.2 Presence of cerebrospinal fluid drainage device
CPT/HCPCS: 36415; 80048; 80053; 83605; 85025; 85610; 85730; 87070; 87077; 87186; 87205; 96374; 99284; 99285